=== PATIENT | female | born 1980 | race Caucasian/White ===

== ENCOUNTER → 2019-08-23 13:57 | Outpatient (CLI) | payer MEDICAID, SELFPAY ==
[2019-08-17 10:06] VITALS: BMI 49.4
--- NOTE | 2019-08-23 14:07 | BI_ITS ---
MAMMOGRAPHY - BILATERAL DIAGNOSTIC REASON FOR EXAM: Female, 38 years old. Right nipple discharge for 3 weeks. PERTINENT HISTORY: Aunts with breast cancer. TECHNIQUE: Digital bilateral breast delano (3D mammographic acquisition) in the CC and MLO projections. 2-D mediolateral oblique (MLO) and craniocaudad (CC) views of both breasts were obtained. CAD: Full Field Digital Mammography with Computer Added Detection was performed. COMPARISON: None. Baseline examination. FINDINGS: Breast Composition: There are scattered areas of fibroglandular density. There are no dominant masses or suspicious calcifications. No other significant abnormalities are identified. BI/DIAG MAMM W/CAD, BILAT IMPRESSION: Negative diagnostic mammogram. With the patient's history of a right nipple discharge, correlation with ultrasound is recommended. ASSESSMENT CATEGORY: BIRADS Category 0: Incomplete. Need additional imaging evaluation. A letter regarding these results will be sent to the patient by the facility within 30 days. Approximately 10% of breast cancers are not detected by mammography. A normal mammogram should not delay biopsy of a clinically suspicious abnormality. Electronically Signed: Lane Bravo, at 15:45 EDT , Service support ,
--- NOTE | 2019-08-23 14:52 | US_ITS ---
STUDY: ULTRASOUND BREAST - RIGHT REASON FOR EXAM: Female, 38 years old. Right nipple discharge. TECHNIQUE: Axial and longitudinal images of the RIGHT breast were performed with a high resolution ultrasound transducer. COMPARISON: Comparison is made with prior mammogram done earlier today. FINDINGS: RIGHT Breast: The retroareolar region of the breast was examined by ultrasound. No sonographic abnormality is seen. US/Breast Limited Unilateral IMPRESSION: No sonographic abnormality is seen. ASSESSMENT CATEGORY: BIRADS Category 1: Negative. A letter regarding these results will be sent to the patient by the facility within 30 days. Electronically Signed: Lane Bravo, at 13:14 EDT , Service support ,
--- NOTE | 2019-08-23 15:11 | RAD_ITS ---
STUDY: X-RAY - RIGHT SHOULDER REASON FOR EXAM: Chronic pain, no specific injury. TECHNIQUE: 4 view(s) of the shoulder. COMPARISON: None. FINDINGS: Normal glenohumeral articulation with incidental vacuum phenomenon. Normal acromioclavicular joint. Normal acromion. Normal humeral head and visualized proximal humerus. The soft tissue structures are unremarkable. Normal visualized pulmonary apex. RAD/Shoulder min 2 Views IMPRESSION: Normal x-ray examination of the right shoulder. Electronically Signed: Mac Waters MD at 11:52 EDT Tel , Service support ,
== END ==
PROVIDERS: Family Provider Internal Medicine; PCP Internal Medicine; Referring Provider Internal Medicine; Visit Provider Internal Medicine
DX: M25.511 Pain in right shoulder (principal); N64.52 Nipple discharge
CPT/HCPCS: 73030; 76642; 77062; 77066; G0279

== ENCOUNTER 2019-09-05 17:24 | Outpatient (RCR) | payer MEDICAID, SELFPAY ==
[2019-08-17 10:06] VITALS: BMI 49.4
== END 2019-09-05 19:00 | disposition home or self-care (01) ==
LOC: PT 17:24
PROVIDERS: Family Provider Internal Medicine; PCP Internal Medicine; Visit Provider Internal Medicine
DX: M25.511 Pain in right shoulder (principal)

== ENCOUNTER → 2019-09-11 20:00 | Outpatient (CLI) | payer MEDICAID, SELFPAY ==
[2019-08-17 10:06] VITALS: BMI 49.4
== END ==
PROVIDERS: Family Provider Internal Medicine; PCP Internal Medicine; Referring Provider Internal Medicine; Visit Provider Internal Medicine
DX: G47.10 Hypersomnia, unspecified (principal)
CPT/HCPCS: 95810

== ENCOUNTER 2019-09-21 17:04 | Emergency (ER) | payer MEDICAID, SELFPAY ==
[2019-09-07 10:08] VITALS: BMI 49.4
[2019-09-21 17:05] VITALS: BP 163/107; PULSE 100; RESP 16; TEMP 36.1; O2SAT 100; BMI 47.2
[2019-09-21 17:08] VITALS: BP 163/107; PULSE 100; RESP 16; TEMP 36.1; O2SAT 100
--- NOTE | 2019-09-21 17:20 | RAD_ITS ---
STUDY: X-RAY CHEST REASON FOR EXAM: Female, 38 years old. Cold TECHNIQUE: Two view of the chest were performed COMPARISON: None. FINDINGS: Lungs are clear. There is no pneumothorax, pulmonary edema, pleural effusions or cardiomegaly. Osseous structures are intact. There is no gas under the diaphragms. [ ] RAD/Chest PA and Lateral IMPRESSION: 1. No acute cardiorespiratory disease. [ ] Electronically Signed: Antwan Goldsmith, at 17:35 EST Tel , Service support ,
--- NOTE | 2019-09-21 17:32 | ED.DCSUM_ITS ---
- ER Visit Summary Date of Service: 09/21/19 Chief Complaint: Sick History of Present Illness: The patient is a 38 F states she has been ill for 2 weeks. Symptoms began with a runny nose and sneezing then developed diarrhea for several days. 5 days ago she tells me that she lost her voice. Now she notes a cough with them and wheezing. She woke today and had some left-sided chest shoulder discomfort. Tells me she recently was diagnosed with shingles and was on acyclovir. She was also on a short course of prednisone for shoulder pain. He took 4 days worth and discontinued due to upset stomach Physical Examination: Afebrile vital signs stable Gen: Well-nourished well-developed Head: Normocephalic atraumatic Eyes: Perrl EOMI ENT: TMs clear no rhinorrhea moist mucous membranes she has a hoarse voice Neck: Supple no lymphadenopathy no JVD nontender CVS: Regular rate rhythm no murmurs normal S1-S2 Respiratory: No distress clear to auscultation bilaterally chest nontender Abdomen: Soft nontender nondistended normal bowel sounds no masses Back: Nontender Extremity: Nontender no edema Skin: Normal color no rash Neuro: alert orientated ?3 CN II-XII intact normal strength sensation reflexes gait cerebellar Psych: Normal affect normal mood Test Results: Chest x-ray was obtained. Was negative for infiltrate, effusion or acute pathology. Emergency Department Course and Treatment: Patient was given one-time dose of oral Decadron. I will write for an albuterol inhaler. She would prefer not to be discharged home on prednisone as it causes stomach upset. This most likely a viral illness Impression: 1. Laryngitis 2. Acute bronchitis This note was generated with [employer] dictation software. It may contain incorrect words, spelling, and punctuation that were not noted in review of the chart prior to signing ED Disposition - Plan for ED Patient: Disposition: Home or Assisted Living Instructions: Laryngitis, Acute Bronchitis Prescriptions: Albuterol Inhaler [Ventolin Hfa] 2 puff INHALATION Q4H PRN PRN #1 inhaler PRN Reason: Wheezing Prescription Printed Referrals: Sheryl Todd MD [Primary Care Provider] - As Needed
[2019-09-21] MEDS: dexAMETHasone 10 MG/ML Vial PO.IVFORM (18:04)
== END 2019-09-21 18:05 | disposition home or self-care (01) ==
PROVIDERS: Emergency Provider Emergency Medicine; Family Provider Internal Medicine; PCP Internal Medicine
DX: J04.0 Acute laryngitis (principal); J20.9 Acute bronchitis, unspecified; R19.7 Diarrhea, unspecified; E66.9 Obesity, unspecified; F90.9 Attention-deficit hyperactivity disorder, unspecified type; Z79.899 Other long term (current) drug therapy
CPT/HCPCS: 71046; 99283

== ENCOUNTER → 2019-10-31 20:46 | Outpatient (CLI) | payer MEDICAID, SELFPAY ==
[2019-09-26 07:46] VITALS: BMI 48.4
== END ==
PROVIDERS: Family Provider Internal Medicine; PCP Internal Medicine; Referring Provider Nurse Practitioner Acute Care; Visit Provider Nurse Practitioner Acute Care
DX: G47.33 Obstructive sleep apnea (adult) (pediatric) (principal)
CPT/HCPCS: 95811

== ENCOUNTER → 2019-11-12 11:10 | Outpatient (CLI) | payer MEDICAID, SELFPAY ==
[2019-09-26 07:46] VITALS: BMI 48.4
== END ==
PROVIDERS: PCP Internal Medicine; Referring Provider Nurse Practitioner Acute Care; Visit Provider Nurse Practitioner Acute Care
DX: Z46.89 Encounter for fitting and adjustment of other specified devices (principal)

== ENCOUNTER → 2020-03-05 17:04 | Outpatient (CLI) | payer MEDICAID, SELFPAY ==
[2019-09-26 07:46] VITALS: BMI 48.4
--- NOTE | 2020-03-05 17:11 | MRI_ITS ---
STUDY: MRI RIGHT ANKLE WITHOUT CONTRAST REASON FOR EXAM: Female, 39 years old. rt ankle plantar fasciitis vs. tear -- pain plantar surface and lateral heel x 7 months TECHNIQUE: Standardized fat and water weighted pulse sequences were obtained in all 3 orthogonal planes. COMPARISON: None. FINDINGS: Normal subcutis adipose space. Normal posterior tibialis tendon. Normal flexor digitorum longus tendon. Normal flexor hallucis longus tendon. Normal peroneus longus and brevis tendons. Normal tibialis anterior tendon. Normal extensor hallucis longus tendon. Normal extensor digitorum longus tendons. Normal Achilles tendon and teno-osseous insertion. Mild thickening and edema of the plantar fascia at its calcaneal insertion site is present and associated with mild reactive edema in the underlying calcaneus. No bursitis or tearing or retraction is seen. The remaining visualized aspects of the plantar fascia are normal. Normal plantar calcaneal tubercles. Normal intrinsic muscles of the rearfoot. Normal distal tibiofibular syndesmotic ligamentous complex. There is scarring with thickening of the anterior talofibular ligament consistent with a remote sprain. Normal subtalar ligaments and sinus tarsi. Normal deltoid ligamentous complexes. Normal plantar calcaneonavicular (spring) ligament. Normal tibiotalar articulation. Normal talar dome. Normal subtalar articulations. Normal talonavicular articulation. Normal calcaneocuboid articulation. Normal navicular-cuneiform articulations. MRI/Lower Ext Joint Only (Routine) IMPRESSION: 1. Mild thickening and edema of the plantar fascia at its calcaneal insertion site is present and associated with mild reactive edema in the underlying calcaneus. No bursitis or tearing or retraction is seen. The remaining visualized aspects of the plantar fascia are normal. 2. Chronic appearing sprain injury with thickening of the anterior talofibular ligament. Electronically Signed: Kayode Sue MD at 23:50 EDT , Service support ,
== END ==
PROVIDERS: PCP Internal Medicine; Referring Provider Podiatrist; Visit Provider Podiatrist
DX: M72.2 Plantar fascial fibromatosis (principal); M84.374A Stress fracture, right foot, initial encounter for fracture; M76.61 Achilles tendinitis, right leg; M79.671 Pain in right foot
CPT/HCPCS: 73721

== ENCOUNTER → 2020-04-22 08:43 | Outpatient (CLI) | payer MEDICAID, SELFPAY ==
[2020-04-22 08:28] VITALS: BMI 48.4
[2020-04-22 12:12] LABS: Absolute Lymphocyte Count 1.91 X10^3/uL (0.83-4.51); Absolute Neutrophil Count 5.2 X10^3/uL (2.0-7.7); Basophil# 0.04 X10^3/uL; Basophil% 0.5 % (0-1); Eosinophil# 0.17 X10^3/uL; Eosinophils% 2.2 % (0-5); Hematocrit 38.8 % (37-47); Hemoglobin 12.2 g/dL (12.0-15.0); Lymphocyte # 1.91 X10^3/ul (4.0); Mean Corp Hgb Conc 31.4 g/dL (32-36); Mean Corpuscular Hgb 27.6 pg (27.0-32.0); Mean Corpuscular Volume 87.8 fL (81-99); Mean Platelet Vol. 9.8 fl (6.2-12.0); Monocyte# 0.34 X10^3/uL; Monocyte% 4.5 % (0-10); NRBC Flagged by Analyzer 0 % (0-5); Neutrophil # 5.15 X10^3/uL (2.7-7.7); Neutrophil % 67.4 % (47-70); Platelet Count 236 K/mm3 (150-450); RBC Distribution Width SD 47.8 fl (35.1-43.9); Red Blood Count 4.42 M/mm3 (4.2-5.4); White Blood Count 7.6 K/mm3 (4.4-11.0)
[2020-04-22 12:24] LABS: Internal QC Validated? YES +Cl - CLEAR BKGD; Pregnancy, Serum, hCG Quali. NEGATIVE Negative
[2020-04-22 12:47] LABS: ALB/GLOB Ratio 0.8 RATIO (0.9-2.4); AST(SGOT) 14 U/L (15-37); Alanine Aminotransfer ALT/SGPT 22 U/L (13-56); Albumin, Serum 3.4 g/dL (3.2-5.0); Alkaline Phosphatase 68 U/L (45-117); Anion Gap 7 (5-15); BUN 13 mg/dL (7-18); BUN/Creat Ratio 16.5 RATIO (10-20); Calcium,Total 8.4 mg/dL (8.5-10.1); Chloride 104 mmol/L (98-107); Cholesterol 203 mg/dL (200); Creatinine, Serum 0.79 mg/dL (0.55-1.02); EST Glomerular Filtration Rate 86 mL/min (>60); Est Glom Filt Rate - Afr Amer 104 mL/min (>60); Globulin 4.2 g/dL (2.2-4.2); Glucose 95 mg/dL (74-106); Hemoglobin A1c 5.8 % (3.8-5.6); High Density Lipoprotein 57 mg/dL; Potassium 4.6 mmol/L (3.5-5.1); Protein, Total 7.6 g/dL (6.4-8.2); Sodium Level 139 mmol/L (136-145); Thyroid Stim Hormone (TSH) 2.12 uIU/mL (0.358-3.74); Triglycerides 171 mg/dL; Very Low Density Lipoprotein 34 mg/dL (5-40)
== END ==
PROVIDERS: PCP Internal Medicine; Referring Provider Nurse Practitioner Family; Visit Provider Nurse Practitioner Family
DX: Z01.818 Encounter for other preprocedural examination (principal)
CPT/HCPCS: 36415; 80053; 80061; 83036; 84443; 84703; 85025

== ENCOUNTER → 2020-04-25 11:15 | Outpatient (CLI) | payer MEDICAID, SELFPAY ==
[2020-04-22 08:28] VITALS: BMI 48.4
--- NOTE | 2020-04-25 12:10 | EKG12_ITS ---
Test Reason : PREOP Blood Pressure : / mmHG Vent. Rate : 066 BPM Atrial Rate : 066 BPM P-R Int : 156 ms QRS Dur : 086 ms QT Int : 374 ms P-R-T Axes : 012 077 053 degrees QTc Int : 392 ms Normal sinus rhythm Normal ECG Confirmed by CM LEONARDO ([id number]), senior technical editor ANAM VIRK ([id number]) on 04/28/2020 2:18:06 PM Referred By: FLEX Confirmed By:CM LEONARDO
== END ==
PROVIDERS: PCP Internal Medicine; Visit Provider Nurse Practitioner Family
DX: Z01.818 Encounter for other preprocedural examination (principal)
CPT/HCPCS: 93005

== ENCOUNTER → 2020-05-07 15:51 | Outpatient (CLI) | payer MEDICAID, SELFPAY ==
[2020-05-07 14:38] VITALS: BMI 48.4
[2020-05-07 17:54] LABS: Amphetamine Urine VISTA NEGATIVE (<1000 ng/mL); Barbiturate Urine VISTA NEGATIVE (< 200 ng/mL); Benzodiazepine Urine VISTA NEGATIVE (< 200 ng/mL); Cocaine Urine VISTA NEGATIVE (< 300 ng/mL); Ecstacy Urine VISTA NEGATIVE (< 500 ng/mL); Methadone Urine VISTA NEGATIVE (< 300 ng/mL); PCP Urine VISTA NEGATIVE (< 25 ng/mL); THC Urine VISTA NEGATIVE (< 50 ng/mL); Vista UDS pH Range 5
== END ==
PROVIDERS: PCP Internal Medicine; Referring Provider Internal Medicine; Visit Provider Internal Medicine
DX: F90.9 Attention-deficit hyperactivity disorder, unspecified type (principal)
CPT/HCPCS: 80307

== ENCOUNTER 2020-05-16 05:40 | Day surgery (SDC) | payer MEDICAID, SELFPAY ==
[2020-04-22 08:28] VITALS: BMI 48.4
[2020-05-07 14:38] VITALS: BMI 48.4
[2020-05-16] VITALS (7 sets, daily range): BP systolic 136–155; BP diastolic 71–87; PULSE 84–103; RESP 16; TEMP 36.6–37.1; O2SAT 93–100; BMI 45.8
[2020-05-16] MEDS: Lactated Ringers 1,000 ML 100 ML IV (06:20)
[2020-05-16 06:21] LABS: Internal QC Validated? YES +Cl - CLEAR BKGD; Pregnancy, Urine Negative Negative
[2020-05-16] MEDS: Bupivacaine Mpf 0.5% 30 ML VIAL (08:40)
--- NOTE | 2020-05-16 09:06 | DCINST_ITS ---
Discharge Diet: No Restrictions Discharge Activity: May Shower - with shower bag only, Use Walker, Use Crutches Ice area for (Minutes): 15 - apply behind knee each hour Weight Bearing Status: No weight bearing Keep extremity elevated above heart level: Right Leg Call your doctor if your incision/area has: Continuous Slow Oozing, Sudden Increased Bleeding, Increased Pain/ Swelling, Increased Redness, Foul Smelling Discharge, Swelling at the incision site Call your doctor if you observe: Fever of 101 or Higher, Calf discomfort, Uncontrolled pain Cleanse incision/area with: Keep Dressing Clean & Dry Allergies/Adverse Reactions: Allergies Latex, Natural Rubber Allergy (Intermediate, Verified 05/16/20 05:55) skin irritation Medications to take at Discharge Albuterol Inhaler [Ventolin Hfa] 2 puff INHALATION Q4H PRN PRN #1 inhaler 09/21/19 tramadol 50 mg tablet 50 mg PO DAILY 05/07/20 venlafaxine 150 mg capsule,extended release 24 hr 150 mg PO DAILY #90 cap 05/07/20 methylphenidate HCl 20 mg tablet 20 mg PO DAILY #30 tab 05/10/20 Hydrocodone/Acetaminophen [Hydrocodon-Acetaminophen 5-325] 1 tab PO Q6H PRN PRN 7 Days #28 tab 05/15/20 Primary Care Physician: Sheryl Todd MD [Primary Care Provider] - Test Results: Test results from this visit will be discussed in further detail at your follow- up appointment, if applicable. Please Follow Up With: Loli Chowdhury DPM When: 1 week [facility] Call [phone] Proposed Discharge Date: 05/16/20
--- NOTE | 2020-05-16 09:12 | OP.PCM_ITS ---
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 Chronic recalcitrant plantar fasciitis, right. 2. Gastrocnemius equinus, right Post-Operative Diagnosis: 1. Chronic recalcitrant plantar fasciitis, right. 2. Gastrocnemius equinus, right Surgery/Procedure Performed:: 1. Open instep plantar fasciotomy, right foot. 2. Endoscopic gastrocnemius recession, right Description of Surgical Findings:: Hemostasis: Well-padded pneumatic right thigh tourniquet, 315 mmHg, 49 minutes Materials: 3-0 Monocryl, 4-0 nylon, arthrex endoscope Complications: None Specimens: None The patient tolerated the procedure and anesthesia well. She was transported to the PACU vital signs stable vascular status intact to the right lower extremity. She will keep her splint and dressing intact until follow-up next week. Intraoperative pictures of the endoscopic gastrocnemius recession were obtained to confirm full release. Postoperative orders were entered electronically. She will be discharged home today. 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 Facility Assistant: Mary Grace Harris Type of Anesthesia:: General, Local - Preoperative: One-to-one mixture of 1% lidocaine plain and 0.5% Marcaine plain administered in typical posterior tibial nerve block fashion of right, 12 cc and 18 cc of 1% lidocaine with epinephrine Specimen's removed: None Estimated Blood Loss (mL): <50 mL Description of Procedure: Indications: This 39-year-old female with no significant past medical history continues to have ongoing recalcitrant right heel pain she is failed conservative care including orthotics, improvement in shoes, injection, immobilization, stretching splint use, job activity modification, rest, home activity modification, massage, and home therapy. Her pain is affecting her daily activity and she would like proceed forward with surgery at this time. Her neurovascular status is intact. She has pain to palpation to the medial tubercle of the calcaneal tuberosity and not with heel compression. Her x-rays do not demonstrate any acute fractures dislocations or evidence of stress fractures. There is a small heel spur without irregular trabecular pattern or cyst formation. Her preoperative MRI also demonstrated plantar fascial band thickening consistent with plantar fasciitis, and also some reactive edema in the adjacent calcaneus. No evidence of bone cyst, stress fracture. distinct plantar fascia tear or other acute injuries were visualized. The preoperative indication, planned procedure, possible benefits, risk, complications, and anticipated healing time and management were discussed in detail with the patient. She understands and elects to proceed with surgery at this time. No guarantees were made. She understands risk and complications may include but not limited to following: Pain, swelling, scarring, need for further surgery, blood clot, allergic reaction, loss of limb, function, life, chronic pain. Her preoperative diagnostic data was reviewed. Informed consent and limb were also signed. I answered all of her questions. She also understands there is an inherent risk of COVID-19 while having a procedure done at the hospital during this time of pandemic. She understands safety precautions will be maintained and the relative community risk is low however there is still a risk. Procedure in detail: The patient was transported to the operating room via cart and placed on the operating table in the supine position. Final verification of the patient, surgery, and limb designation was performed via the timeout procedure. Preoperative antibiotics were administered via anesthesia team. General anesthesia was initiated via anesthesia team. The podiatry team administered the local anesthetic. A well-padded pneumatic right thigh tourniquet was placed. The right lower extremity was prepped and draped in usual aseptic manner. Esmarch bandage was used to exsanguinate the limb and the tourniquet inflated. Surgery began the following manner: Next her posterior leg flexibility was evaluated for equinus with the Silverskold test. She had improve ankle dorsiflexion with the knee flexed and the decision to perform a gastrocnemius recession was performed. I administered the preoperative local block with lidocaine with epinephrine to the gastrocnemius recession site. The medial head of the gastrocnemius was marked and a small 1 cm incision was made approximately 3 fingerbreadths below the site along the medial margin of the palpable gastrocnemius aponeurosis. Blunt dissection was performed down to the crural fascia and a rent was made to enter the site. A plane was created between the crural fascia and the gastrocnemius aponeurosis. A plane finder was used to span the posterior aspect of the leg and was exited laterally where an additional stab incision was made through the skin approximately 1 cm in length. Next, the clear cannula and 4-0 arthroscope was applied over this plain finder and the proper plane was confirmed with arthroscope. A small hook blade was used to release the gastrocnemius aponeurosis and this was confirmed again with a photograph. The ankle was taken through passive range of motion and improved ankle dorsiflexion was identified compared to the preoperative status to over 10 degrees with the knee flexed and extended. Care was taken to avoid the neurovascular structures throughout this procedure, and this was also confirmed with direct visualization of the crural fascia area. Attention was next directed to the plantar aspect of the foot in which a 1 1/2 cm linear incision was made in a transverse manner in alignment with resting skin tension lines distal to the plantar distal heel pad through the skin. Again care was taken to identify, protect, and retract all neurovascular structures. The plantar fascial band was identified and this was also released with a 15 blade scalpel to release the medial and central plantar fascia bands. Next, a tenotomy scissor was used to release the slip that communicated with the abductor hallucis muscle belly. The windlass mechanism and direct visualization was used to confirm adequate release. Copious saline irrigation was performed. The tourniquet was deflated at this time and no pulsatile bleeding was noted. Brisk capillary refill time was noted to all digits of the surgical foot. No pathological findings were noted. There was no necrosis or infection. Minimal deep closure was performed with Monocryl. The skin was reapproximated on the plantar foot with 4-0 nylon utilizing horizontal mattress technique. The portal sites on the leg were reapproximated utilizing subcuticular technique with Monocryl. A postoperative dressing was applied including Adaptic soaked in Betadine, gauze, and Kerlix. Additionally, a well-padded posterior mold splint was applied with the right lower extremity in a rectus corrected position. After procedure: The patient tolerated the procedure and anesthesia well. She was transported to the PACU with vital signs stable and vascular status intact to the right lower extremity. She was advised to maintain a strict nonweightbearing status. Crutches were ordered. She was advised to ice and elevate for pain and inflammation management. A prescription for pain medication was also sent to her pharmacy of choice and she was advised on safe and proper use; [place]. She [facility]. Postoperative orders were entered electronically. Loli Fascione, DPM, FACFAS [facility] Grafts/Implants Used: none - Complications none - Admit VTE Documentation VTE Present on Admission: No VTE Mechan Device Prophylaxis: SCD's VTE Pharm Prophylaxis ordered?: No Reason prophylaxis not ordered:: Procedure Not Indicated
[2020-05-16] MEDS: HYDROcodone Bitartrate/Apap 5/325 Tablet PO (10:32)
== END 2020-05-16 11:20 | disposition home or self-care (01) ==
LOC: SDC 05:41 → AC 05:42
PROVIDERS: Anesthesiology; PCP Internal Medicine; Referring Provider Podiatrist; Visit Provider Podiatrist
PROC: (CPT 28008; principal; 2020-05-16 07:15)
DX: M72.2 Plantar fascial fibromatosis (principal); M21.6X1 Other acquired deformities of right foot; Z11.59 Encounter for screening for other viral diseases; F90.9 Attention-deficit hyperactivity disorder, unspecified type; F32.9 Major depressive disorder, single episode, unspecified; G47.30 Sleep apnea, unspecified; G43.909 Migraine, unspecified, not intractable, without status migrainosus; Z79.899 Other long term (current) drug therapy; Z87.891 Personal history of nicotine dependence
CPT/HCPCS: 28008; 29999; 81025; 87635; G2023; J7120; J2405; U0003

== ENCOUNTER 2020-07-08 15:30 | Outpatient (RCR) | payer MEDICAID, SELFPAY ==
[2020-05-16 06:07] VITALS: BMI 45.8
--- NOTE | 2020-06-17 10:52 | HP.PTEVAL ---
Patient's Visit Information SIA STUBBS is a 39 year old F referred to Physical Therapy by Dr. Loli Chowdhury DPM with a diagnosis of R plantar fasciatomy and R gastroc release DOS: 05/16/20. Date of Evaluation: 06/17/20 Physical Therapist: Guanakito Loyola DPT - Visit Plan Frequency: 2x /Week Duration: 4 Weeks Plan: 1) Start with G/S stretching, plantar fascia stretching, 2). DFM/desensitization of achilles musculotendon junction and medial plantar fascia. 3) Initiate ankle strengthening and foot intrinsic strengthening. 4) Progress WBing tolerance progressing to tennis shoe as tolerated starting no earlier than Jun 24. 5) Once improved to tennis angel initiate proprioception exercises for R ankle stability. *May use TENS/ice if needed* - Subjective Pt. is here today for her initial evaluation with diagnosis of R plantar fasciatomy and R gastroc release DOS: 05/16/20. Pt. reports overall doing well. She has progressed to CAM Boot without AD now, starting last week. Pt. reports having some calf soreness and plantar fascia. Occasssional tingling in her foot, but overall doing well. 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 She is still off work, but is hopeful to go back to work middle of Jun. Pt. has been dping ankle pumps, and DFM to her foot at home. She reports having tore some of her stiches out, but is doing much better now. Pt. is hopeful to get back to all recreational and work activities without limitations. - Pain R plantar fascia Pain Intensity (Out of 10): 0 R gastroc muscle belly Pain Intensity (Out of 10): 3 Pain Intensity Range: 0, 5 - Objective POSTURE: Pt. has good posture, but does have slight L lateral wt. shift in stance without boot, normal stance with boot. PALPATION: Pt. has tenderness at gastroc muscle belly, achilles and medial plantar fascia. Pt. has good healing plantar fascia incision without signs of infection. Pt has good medial calf incision no issues, some slight eschar at lateral incision, but is healing well, no signs of infection. NEURO: Pt. has normal sensation and normal DTR of BLEs. ROM: L ankle- PF 49deg, DF 18deg, INV 20deg, EVR 20deg. R ankle- PF 43deg, DF 8deg., INV 14deg, EVR 15deg. No pain with AROM, but does feel tight. MMT: Pt. has 4/5 strength throughout R ankle musculature. No pain with MMT. 5/5 strength througout LLE and B knee musculature. GAIT: Pt. ambulates with CAM boot without issues. Pt. has slight antalgic pattern during R stance phase, most with heel off motion. - Goals Goal 1:: LTG: Pt. to be I with HEP. Goal Time Frame: 4-6 Weeks Goal 2:: STG: Pt. to have increased R ankle ROM to full without increase in symptoms. Goal Time Frame: 2-4 Weeks Goal 3:: STG: Pt. to initiate walking in normal tennis shoe. Goal Time Frame: 2 Weeks Goal 4:: LTG: Pt. to tolerate walking in normal tennis shoe upto 8 hours a day with minimal increase in symptoms. Goal Time Frame: 4-6 Weeks Goal 5:: STG: Pt. to report decreased tingling in her R foot by 75%. Goal Time Frame: 2-4 Weeks Goal 6:: LTG: Pt. to have increased strength of R foot intrinsics and R ankle 1/2 grade of all effected musculature. Goal Time Frame: 4-6 Weeks - Rehabilitation Potential Physical Therapy Diagnosis: Pt. has signs and symptoms consistent with R plantar fasciatomy and R gastroc release DOS: 05/16/20. Pt. has subsequent hypomobility, weakness, increased tingling, and difficulty with gait. Pt. would benefit from PT to address the above limitations progressing back to normal gait and work activities. I talked to her about progressing to tennis shoe over the next few weeks as long as she is tolerating this well. Pt. reports understanding. Rehabilitation Potential: Excellent - Anticipated Interventions Patient/Client Instruction: Educate patient on: Condition, Plan of Care, Risk Factors, Benefits of Fitness Program For the Purpose of:: To facilitate caregiver knowledge, To improve self management, To prevent re-injury, To improve ability to perform tasks related to life management, To improve tolerance to ADL's Therapeutic Exercise to Include: Strength training, Power training, Endurance training, Balance training, Coordination, Body mechanics, Postural training, Flexibilty training, Gait and locomotor training, Passive ROM, Active ROM For the Purpose of:: To decrease pain, To decrease swelling/inflammation, To increase ROM, To improve nutrient delivery to tissue, To increase oxygenation perfusion, To improve gait and locomotor functions, To improve health of tissue, To decrease soft tissue restriction, To increase flexibility/ROM, To improve endurance, To improve balance, To improve safety with gait Manual Therapy Techniques to Include: Scar massage, Passive ROM, Soft tissue mobilization For the Purpose of:: To decrease pain, To decrease swelling/inflammation, To increase ROM, To improve nutrient delivery to tissue, To increase oxygenation perfusion, To improve muscle performance and motor function TENS: Yes Cryotherapy (ice pack, ice massage): Yes For the Purpose of:: To decrease pain, To decrease swelling/inflammation, To increase ROM, To improve nutrient delivery to tissue, To increase oxygenation perfusion Thank you for the opportunity to evaluate your patient. For Medicare and Medicare HMO plans, please review the plan of care and approve it. It will need to be FAXED BACK to us at [phone] for Medicare purposes. For Medicare only, by signing this I certify the plan of care. Please let me know if there are questions or concerns regarding this plan of care. Physician Signature: Date:
== END 2020-07-08 19:00 | disposition home or self-care (01) ==
LOC: PT 15:30
PROVIDERS: PCP Internal Medicine; Referring Provider Podiatrist; Visit Provider Podiatrist
DX: Z98.890 Other specified postprocedural states (principal)
CPT/HCPCS: 97110; 97140; 97161

== ENCOUNTER → 2020-08-29 | Outpatient (CLI) | payer MEDICAID, SELFPAY | END | disposition home or self-care (01) | LOC: LABSPEC 10:17 | PROVIDERS: PCP Internal Medicine; Referring Provider Nurse Practitioner Family; Visit Provider Nurse Practitioner Family | DX: Z20.828 Contact with and (suspected) exposure to other viral communicable diseases (principal) | CPT/HCPCS: 87635; C9803; U0003 ==

== ENCOUNTER → 2020-10-15 20:25 | Outpatient (CLI) | payer MEDICAID, SELFPAY ==
[2020-10-15 16:28] VITALS: BMI 47.2
[2020-10-15 20:50] LABS: Amphetamine Urine VISTA NEGATIVE (<1000 ng/mL); Barbiturate Urine VISTA NEGATIVE (< 200 ng/mL); Benzodiazepine Urine VISTA NEGATIVE (< 200 ng/mL); Cocaine Urine VISTA NEGATIVE (< 300 ng/mL); Ecstacy Urine VISTA NEGATIVE (< 500 ng/mL); Methadone Urine VISTA NEGATIVE (< 300 ng/mL); PCP Urine VISTA NEGATIVE (< 25 ng/mL); THC Urine VISTA NEGATIVE (< 50 ng/mL); Vista UDS pH Range 5
== END ==
PROVIDERS: PCP Internal Medicine; Visit Provider Internal Medicine
DX: F90.9 Attention-deficit hyperactivity disorder, unspecified type (principal)
CPT/HCPCS: 80307

== ENCOUNTER → 2020-10-16 | Outpatient (CLI) | payer MEDICAID, SELFPAY ==
[2020-10-15 16:28] VITALS: BMI 47.2
== END | disposition home or self-care (01) ==
LOC: LABSPEC 06:15
PROVIDERS: PCP Internal Medicine; Referring Provider Internal Medicine; Visit Provider Internal Medicine
DX: F90.9 Attention-deficit hyperactivity disorder, unspecified type (principal)

== ENCOUNTER 2021-01-04 10:39 | Emergency (ER) | payer MEDICAID, SELFPAY ==
[2020-10-15 16:28] VITALS: BMI 47.2
[2021-01-04 10:40] VITALS: BP 144/94; PULSE 91; RESP 16; TEMP 36.8; O2SAT 99; BMI 42.8
--- NOTE | 2021-01-04 11:01 | ED.DCSUM_ITS ---
- ER Visit Summary Date of Service: 01/04/21 Chief Complaint: [Dental pain/abscess] History of Present Illness: The patient is a 40 F [presents to the emergency department with complaint of an abscess that she developed 5 days ago that spontaneously started to drain. Patient states the pain then went away however she is now noticing more swelling underneath her jawline she just does not feel well. She is complaining of some body aches and just some generalized weakness. Patient denies any fever or cough. Patient states that she was tested this week for COVID-19 and was negative at work. Patient has been working with a dentist and states that she had a root canal on her lower left incisor years ago and she needs a redo and possibly a capsule they are trying to save the tooth.] Physical Examination: [HEENT-PERRLA, EOMI. Cranial nerves II through XII grossly intact. TMs clear. Mucous membranes moist. No adenopathy. Titian- there is a small area of soft tissue swelling to the anterior gingiva adjacent to left lower incisor that slightly tender to palpation. No significant drainage noted from it. Minimal gingival erythema noted. I do not appreciate any significant adenopathy on exam. No facial erythema or cellulitis noted. Patient has a mild tenderness on palpation of the left lower incisor. Cardiovascular-regular rate and rhythm without murmur or ectopy Lungs-clear to auscultation, chest wall stable without crepitus or subcu emphysema Abdomen-normoactive bowel sounds, soft, nontender, no rebound or rigidity, no peritoneal signs. Extremities-intact ?4, normal range of motion, normal pulses, atraumatic] Test Results: [None indicated] Emergency Department Course and Treatment: [Patient started on clindamycin 300 mg p.o.] Treatment Plan: [We will be treated with clindamycin and referred back to her dentist.] Disposition: [Discharged home in stable condition] Impression: [Dental pain/dental abscess] This note was generated with [employer] dictation software. It may contain incorrect words, spelling, and punctuation that were not noted in review of the chart prior to signing ED Disposition - Plan for ED Patient: Referrals: Sheryl Todd MD [Primary Care Provider] -
--- NOTE | 2021-01-04 11:03 | DCINST.ED_ITS ---
ED Disposition - Plan for ED Patient: Instructions: Dental Abscess Prescriptions: Clindamycin [Cleocin] 300 mg PO 4X/DAY #80 capsule Clindamycin HCl [Cleocin] 300 mg PO Q6H #40 cap Transmission Status: Pending to [facility]/pharmacy #[id number] Referrals: Sheryl Todd MD [Primary Care Provider] - Additional Instructions: see your dentist
[2021-01-04] MEDS: Clindamycin HCl 150 MG Capsule 300 MG PO (11:19)
[2021-01-04 11:24] VITALS: PULSE 74; RESP 16; O2SAT 97
== END 2021-01-04 11:30 | disposition home or self-care (01) ==
LOC: ED 12:06
PROVIDERS: Emergency Provider Emergency Medicine; PCP Internal Medicine
DX: K04.7 Periapical abscess without sinus (principal)
CPT/HCPCS: 99283

== ENCOUNTER 2021-01-12 15:22 | Emergency (ER) | payer MEDICAID, SELFPAY ==
[2021-01-09 09:40] VITALS: BMI 45.8
[2021-01-12 15:23] VITALS: BP 160/125; PULSE 102; RESP 16; TEMP 36.9; O2SAT 100; BMI 45.3
--- NOTE | 2021-01-12 15:57 | ED.DCSUM_ITS ---
History of Present Illness Chief Complaint: Abscess Informant: Patient Onset: Weeks Context: Sudden Onset Timing: Intermittent Quality: Current dental abscess Location: Tooth #25 Current Severity: Moderate Maximum Severity: Moderate Worsened by: Recurrent infection Relieved by: - - Nothing Associated Symptoms: - - She denies pain, fever, jaw swelling, facial swelling or insensitivity Narrative: Patient is a 40-year-old woman with recurrent infection involving tooth #25 peritonitis rheumatic fever, heart murmur, SBE or being immune suppressed. Patient is present clindamycin. She states she is not getting better. Her dentist will not treat her until the infection clears. She denies inability to open or close her mouth completely. No change in voice. Prior similar symptoms: Yes Recent Illness/Hospitalization: Yes - Past Medical History (1) ADRIAN (obstructive sleep apnea) Status: Acute Comment: AHI 17, 77 in REM (2) ADHD Status: Chronic (3) Anxiety and depression Status: Chronic (4) Gastrocnemius equinus of right lower extremity Status: Chronic (5) Morbid obesity Status: Chronic (6) History of gestational diabetes Status: Resolved Past Medical History - Allergies and Home Meds Allergies/Adverse Reactions: Allergies Latex, Natural Rubber Allergy (Intermediate, Verified 01/12/21 15:25) skin irritation Primary Care Physician: Sheryl Todd MD [Primary Care Provider] - Prior records reviewed: Yes Surgical History: noncontributory Lives: With Family Smoking Status: Current some day smoker Alcohol: Rare Drugs: None Review of Systems General: Denies: Chills, Fever, Malaise, Subjective, Sweats Eyes: Denies: Visual changes - bilaterally, Blurred Vision - bilaterally ENT: Denies: Bilateral ear pain, Rhinorrhea, Sore throat Cardiovascular: Denies: Chest pain, Palpitations Respiratory: Denies: Dyspnea Gastrointestinal: Reports: Abdominal pain - Patient feels this is due to the clindamycin.. Denies: Nausea, Vomiting Musculoskeletal: Denies: Myalgias, Arthralgias, Neck pain, Back pain Hematologic: Denies: Easy bruising, Easy bleeding Allergy: Denies: Swelling of the mouth, Swelling of the tongue Physical Exam Vital Signs/Narrative: Vital Signs Temp Pulse Resp BP Pulse Ox 01/12/21 15:23 98.5 F 102 H 16 160/125 H 100 Inital Vital Signs reviewed: Yes General: Well nourished, Well developed, Obese Head: Normocephalic, Atraumatic ENT: Dry mucous membranes, Moist mucous membranes, No nasal trauma, No rhinorrhea Mouth/Throat: Normal oral mucosa, No dental tenderness, Normal posterior oropharynx, No sublingual edema, Normal Stensen's duct, Dental abscess, Focal gum swelling, Gingivitis, - - Is no clinical evidence of Ludewig's angina.. Negative for: Normal inspection lips/gums, No focal abscess, Apthous ulcer, Dental trauma, Dental avulsion, Filling loss Neck: Supple, No lymphadenopathy, Nontender, No JVD, - - He is midline. There is no inspiratory or expiratory stridor.. Negative for: Anterior submandibular lymphadenopathy, Posterior submandibular lymphadenopathy, Anterior submental lymphadenopathy, Posterior submental lymphadenopathy, Soft tissue swelling, Submandibular soft tissue swelling, Submental soft tissue swelling Cardiovascular: Regular rate, Regular rhythm, No murmurs, Normal S1, Normal S2 Respiratory: No distress, CTA bilaterally Skin: Normal color, No rash Neurological: Alert, Oriented x3, Cranial nerves II-XII grossly intact, Normal Strength, Normal Sensation Psychological: Normal affect Diagnostic/Tx/Re-eval - Medical Decision Making She has an apical abscess with fistulization tooth #25. Patient was informed she needs to see an alterations workroom clerk since her dentist will not treat her. She was instructed to come to the ER for IV antibiotics. Patient was informed she does not need IV antibiotics. The area under the curve which is the amount of med ications the same or oral and IV clindamycin. Patient's antibiotic was changed because she reports intolerance to the clindamycin i.e. upset stomach. She also has history of GERD. There is no evidence of Ludewig's angina. ED Disposition - Plan for ED Patient: Disposition: Home or Assisted Living Diagnosis: Apical alveolar abscess Instructions: ED Dental Abscess Prescriptions: Amox/Clavulanate Tablet [Augmentin Tablet] 875 mg PO Q12H #14 tab Transmission Status: Pending to [facility]/pharmacy #[id number] Referrals: Sheryl Todd MD [Primary Care Provider] - Additional Instructions: You need to contact your insurance carrier to determine if there is an alterations workroom clerk on your insurance panel. You will need to see a specialist for treatment since this is a recurrent infection in a tooth that has had root canal.
[2021-01-12 16:35] VITALS: BP 132/51; RESP 16
[2021-01-12] MEDS: Amox/Clavulanate 875 MG Tablet PO (16:36)
== END 2021-01-12 16:43 | disposition home or self-care (01) ==
PROVIDERS: Emergency Provider Emergency Medicine; PCP Internal Medicine
DX: K04.7 Periapical abscess without sinus (principal); F90.9 Attention-deficit hyperactivity disorder, unspecified type; F41.9 Anxiety disorder, unspecified; F32.9 Major depressive disorder, single episode, unspecified; G47.33 Obstructive sleep apnea (adult) (pediatric); E66.01 Morbid (severe) obesity due to excess calories; Z79.899 Other long term (current) drug therapy; F17.200 Nicotine dependence, unspecified, uncomplicated
CPT/HCPCS: 99283

== ENCOUNTER → 2021-02-13 | Outpatient (CLI) | payer MEDICAID, SELFPAY ==
[2021-02-13 08:37] VITALS: BMI 45.4
[2021-02-13 12:40] LABS: Amphetamine Urine VISTA NEGATIVE (<1000 ng/mL); Barbiturate Urine VISTA NEGATIVE (< 200 ng/mL); Benzodiazepine Urine VISTA NEGATIVE (< 200 ng/mL); Cocaine Urine VISTA NEGATIVE (< 300 ng/mL); Ecstacy Urine VISTA NEGATIVE (< 500 ng/mL); Methadone Urine VISTA NEGATIVE (< 300 ng/mL); PCP Urine VISTA NEGATIVE (< 25 ng/mL); THC Urine VISTA NEGATIVE (< 50 ng/mL); Vista UDS pH Range 6
== END | disposition home or self-care (01) ==
LOC: BIMLAB 09:08 → LABSPEC 09:08
PROVIDERS: PCP Internal Medicine; Referring Provider Nurse Practitioner Family; Visit Provider Nurse Practitioner Family
DX: F90.9 Attention-deficit hyperactivity disorder, unspecified type (principal)
CPT/HCPCS: 80307

== ENCOUNTER → 2021-03-12 10:23 | Outpatient (CLI) | payer MEDICAID, SELFPAY ==
[2021-03-12 09:39] VITALS: BMI 45.4
--- NOTE | 2021-03-12 10:30 | EMB_PTH ---
PATIENT: SIA STUBBS LOC: [facility]#:[id number] AGE/SX: 44/F ROOM: RE03/12/[address]: Dr. Agatha Gaytan MD : [id number] BED: DIS: SPEC #: [id number] RECD: 03/12/21 12:28 STATUS: YUNIOR REInocencio #: [id number] NANCY: 03/12/21 10:[address]: Agatha Gaytan DEPT: SURGICAL PATHOLOGY RECD BY: Cassandra Romero ENTERED: 03/13/21 08:27 SP TYPE: ENDOM BX/C TAMARA DR: Dr. Sheryl Todd MD Tissues: Endometrium, NOS Procedures: Surgery Specimen Level IV HEADER OPERATION: Endometrial biopsy PRE-OP DIAGNOSIS: Abnormal uterine bleeding TISSUE SUBMITTED: Endometrial lining MICROSCOPIC DIAGNOSIS Endometrium, biopsy: Mildly disordered, weakly proliferative endometrium with glandular breakdown. AM:nimo 03/16/2021 MICROSCOPIC DESCRIPTION Slides are reviewed. GROSS DESCRIPTION Received is one container labeled with the patient's name and not further designated. The specimen consists of multiple irregular fragments of light ruggiero soft tissue that in aggregate measure 2 x 1.5 x 0.1 cm. The specimen is totally submitted in one cassette. / AM:nimo 03/13/21 TC:5 CPT: 79674
[2021-03-12 10:51] LABS: Absolute Lymphocyte Count 2.08 X10^3/uL (0.83-4.51); Absolute Neutrophil Count 5.6 X10^3/uL (2.0-7.7); Basophil# 0.04 X10^3/uL; Basophil% 0.5 % (0-1); Eosinophil# 0.17 X10^3/uL; Hematocrit 38.7 % (37-47); Hemoglobin 12.3 g/dL (12.0-15.0); Lymphocyte # 2.08 X10^3/ul (0.83-4.51); Mean Corp Hgb Conc 31.8 g/dL (32-36); Mean Corpuscular Hgb 27.2 pg (27.0-32.0); Mean Corpuscular Volume 85.6 fL (81-99); Mean Platelet Vol. 9.4 fl (6.2-12.0); Monocyte# 0.35 X10^3/uL; Monocyte% 4.2 % (0-10); NRBC Flagged by Analyzer 0 % (0-5); Neutrophil # 5.64 X10^3/uL (2.7-7.7); Neutrophil % 67.9 % (47-70); Platelet Count 250 K/mm3 (150-450); RBC Distribution Width SD 49.3 fl (35.1-43.9); Red Blood Count 4.52 M/mm3 (4.2-5.4); White Blood Count 8.3 K/mm3 (4.4-11.0)
[2021-03-12 11:34] LABS: Thyroid Stim Hormone (TSH) 1.91 uIU/mL (0.358-3.74)
[2021-03-12 12:13] LABS: HIV - WCH Non-Reactive (Nonreactive); Syphilis Antibodies Non-reactive
[2021-03-13 20:08] LABS: HCV Quant. RNA PCR HCV Not Detected IU/mL (.)
[2021-03-13 20:08] LABS: Chlamydia By Nucleic Acid AMP Negative (Negative)
[2021-03-14 09:13] LABS: HSV 2 IgG 2.37 index (0.00-0.90)
[2021-03-14 09:14] LABS: Gonococcus By Nucleic Acid AMP Negative (Negative)
[2021-03-16 19:43] LABS: HPV APTIMA, High Risk Negative (Negative)
== END ==
PROVIDERS: PCP Internal Medicine; Referring Provider Obstetrics & Gynecology; Visit Provider Obstetrics & Gynecology
DX: N93.9 Abnormal uterine and vaginal bleeding, unspecified (principal); Z20.2 Contact with and (suspected) exposure to infections with a predominantly sexual mode of transmission; Z12.4 Encounter for screening for malignant neoplasm of cervix
CPT/HCPCS: 36415; 84443; 85025; 86695; 86696; 86703; 86780; 87491; 87522; 87591; 87624; 88175; 88305; G0145

== ENCOUNTER → 2021-06-11 08:01 | Outpatient (CLI) | payer MEDICAID, SELFPAY ==
[2021-06-10 08:52] VITALS: BMI 45.4
--- NOTE | 2021-06-11 08:02 | US_ITS ---
STUDY: ULTRASOUND OF THE FEMALE PELVIS - COMPLETE REASON FOR EXAM: Female, 40 years old. AUB LMP: 06/06/2021. TECHNIQUE: Transabdominal and Transvaginal TECHNICAL QUALITY: Adequate. COMPARISON: None. FINDINGS: The uterus is anteverted and is in a midline position. The uterus measures 10.3 cm x 6.7 cm x 5.8 cm. There is a Nabothian cyst of the cervix. The endometrium measures 6 mm in thickness, and is . There is no demonstrated endometrial mass. There is no demonstrated myometrial mass. I.U.D. - The patient does not have an I.U.D. The right ovary is visualized. The right ovary measures 3 cm x 2.8 cm x 1.5 cm. There is no right ovarian cyst or ovarian mass. There is no visualized right adnexal mass or complex lesion. There is normal arterial and normal venous vascularity. The left ovary is visualized. The left ovary measures 2.6 cm x 1.4 cm x 1.6 cm. There is no left ovarian cyst or ovarian mass. There is no visualized left adnexal mass or complex lesion. There is normal arterial and normal venous vascularity. There is no fluid in the cul-de-sac. US/Transvaginal Non- IMPRESSION: Normal female pelvis. Electronically Signed: Lane Bravo MD at 9:38 EDT , Service support ,
--- NOTE | 2021-06-11 08:02 | US_ITS ---
STUDY: ULTRASOUND OF THE FEMALE PELVIS - COMPLETE REASON FOR EXAM: Female, 40 years old. AUB LMP: 06/06/2021. TECHNIQUE: Transabdominal and Transvaginal TECHNICAL QUALITY: Adequate. COMPARISON: None. FINDINGS: The uterus is anteverted and is in a midline position. The uterus measures 10.3 cm x 6.7 cm x 5.8 cm. There is a Nabothian cyst of the cervix. The endometrium measures 6 mm in thickness, and is . There is no demonstrated endometrial mass. There is no demonstrated myometrial mass. I.U.D. - The patient does not have an I.U.D. The right ovary is visualized. The right ovary measures 3 cm x 2.8 cm x 1.5 cm. There is no right ovarian cyst or ovarian mass. There is no visualized right adnexal mass or complex lesion. There is normal arterial and normal venous vascularity. The left ovary is visualized. The left ovary measures 2.6 cm x 1.4 cm x 1.6 cm. There is no left ovarian cyst or ovarian mass. There is no visualized left adnexal mass or complex lesion. There is normal arterial and normal venous vascularity. There is no fluid in the cul-de-sac. US/Pelvic (Non ) IMPRESSION: Normal female pelvis. Electronically Signed: Lane Bravo MD at 9:38 EDT , Service support ,
== END ==
PROVIDERS: PCP Internal Medicine; Referring Provider Obstetrics & Gynecology; Visit Provider Obstetrics & Gynecology
DX: N93.9 Abnormal uterine and vaginal bleeding, unspecified (principal)
CPT/HCPCS: 76830; 76856

== ENCOUNTER → 2021-08-10 | Outpatient (CLI) | payer MEDICAID, SELFPAY | END | disposition home or self-care (01) | LOC: LABSPEC 10:09 | PROVIDERS: PCP Internal Medicine; Referring Provider Physician Assistant Surgical; Visit Provider Physician Assistant Surgical | DX: Z11.52 Encounter for screening for COVID-19 (principal) | CPT/HCPCS: 87635; U0005; U0003 ==

== ENCOUNTER → 2021-08-18 13:09 | Outpatient (CLI) | payer MEDICAID, SELFPAY ==
--- NOTE | 2021-08-18 13:41 | RAD_ITS ---
STUDY: X-RAY CHEST REASON FOR EXAM: Female, 40 years old. Dyspnea TECHNIQUE: PA and lateral views of the chest. COMPARISON: Comparison is made with prior study dated 09/21/2019. FINDINGS: Scattered calcified granulomas. The lungs are clear. There is no demonstrated pleural abnormality. Normal size heart. Normal mediastinum and timi. Normal visualized pulmonary arteries. Normal visualized aortic arch and descending thoracic aorta. There are degenerative changes of the visualized thoracic spine. Normal visualized ribs, clavicles, and shoulders. There is no demonstrated abnormality of the visualized soft tissue structures of the upper abdomen. RAD/Chest PA and Lateral IMPRESSION: Normal x-ray examination of the chest. Electronically Signed: Lane Bravo MD at 15:41 EDT , Service support ,
== END ==
PROVIDERS: PCP Internal Medicine; Referring Provider Nurse Practitioner Family; Visit Provider Nurse Practitioner Family
DX: R06.00 Dyspnea, unspecified (principal)
CPT/HCPCS: 71046; 87635; U0005; U0003

== ENCOUNTER → 2021-09-02 | Outpatient (CLI) | payer MEDICAID, SELFPAY ==
[2021-09-02 12:13] LABS: Internal QC Validated? YES +Cl - CLEAR BKGD; Pregnancy, Urine Negative Negative
[2021-09-02 12:45] LABS: Amphetamine Urine VISTA NEGATIVE (<1000 ng/mL); Barbiturate Urine VISTA NEGATIVE (< 200 ng/mL); Benzodiazepine Urine VISTA NEGATIVE (< 200 ng/mL); Cocaine Urine VISTA NEGATIVE (< 300 ng/mL); Ecstacy Urine VISTA NEGATIVE (< 500 ng/mL); Methadone Urine VISTA NEGATIVE (< 300 ng/mL); PCP Urine VISTA NEGATIVE (< 25 ng/mL); THC Urine VISTA NEGATIVE (< 50 ng/mL); Vista UDS pH Range 6
== END | disposition home or self-care (01) ==
LOC: LABSPEC 11:01
PROVIDERS: PCP Internal Medicine; Referring Provider Nurse Practitioner Family; Visit Provider Nurse Practitioner Family
DX: F90.9 Attention-deficit hyperactivity disorder, unspecified type (principal); N91.2 Amenorrhea, unspecified
CPT/HCPCS: 80307; 81025

== ENCOUNTER 2021-12-09 18:27 | Outpatient (CLI) | payer MEDICAID, SELFPAY | END 2021-12-09 23:59 | disposition home or self-care (01) | PROVIDERS: PCP Internal Medicine; Visit Provider Nurse Practitioner Family | DX: J06.9 Acute upper respiratory infection, unspecified (principal); Z20.822 Contact with and (suspected) exposure to COVID-19 | CPT/HCPCS: 87635; U0003; U0005 ==

== ENCOUNTER → 2022-03-11 | Outpatient (CLI) | payer MEDICAID, SELFPAY ==
[2022-03-15 18:07] LABS: Chlamydia By Nucleic Acid AMP Negative (Negative)
[2022-03-15 19:01] LABS: Gonococcus By Nucleic Acid AMP Negative (Negative)
== END | disposition home or self-care (01) ==
LOC: LABSPEC 03-12 06:33
PROVIDERS: PCP Internal Medicine; Referring Provider Obstetrics & Gynecology; Visit Provider Obstetrics & Gynecology
DX: N89.8 Other specified noninflammatory disorders of vagina (principal); Z11.3 Encounter for screening for infections with a predominantly sexual mode of transmission
CPT/HCPCS: 87070; 87205; 87491; 87591

== ENCOUNTER 2022-04-02 09:40 | Emergency (ER) | payer MEDICAID, SELFPAY ==
[2022-04-02 09:40] VITALS: BP 124/96; PULSE 111; RESP 18; TEMP 36.2; O2SAT 100; BMI 38.4
--- NOTE | 2022-04-02 09:55 | ED.VIS.FEGU ---
HPI <HAILE Saez - Last Filed: 04/02/22 11:12> HPI - Female History of Present Illness Chief Complaint: Vag Bleeding Narrative Narrative: 41-year-old female with history of sleep apnea, ADHD, depression presents to the emergency department with 2 days of generalized malaise, abdominal cramping, brown drainage from her vaginal area, cough, fever and chills. Patient states that she is 1 week early from her menstrual cycle, patient states she is normally regular, patient states that she is getting. Cramps now with dark brown drainage. Patient also states that over the last 48 hours she developed a cough, burning with urination as well as fever and chills. Patient states there is a chance of . She is here for evaluation PFS <HAILE Saez - Last Filed: 04/02/22 11:12> ON LICENSE OF [facility] Medical History Acute gastroenteritis ADHD Anxiety Depression Dyspnea Former smoker GI problem History of gestational diabetes History of stress test Insomnia Migraine headache Seasonal allergies Shortness of breath on exertion Sleep apnea Home Medications venlafaxine 150 mg capsule,extended release 24 hr 150 mg PO DAILY #90 cap 12/09/21 [Rx Last Taken Unknown] albuterol sulfate 90 mcg/actuation aerosol inhaler 2 puff INHALATION Q4H PRN PRN #8.5 g 01/20/22 [Rx Last Taken Unknown] venlafaxine 75 mg capsule,extended release 24 hr 75 mg PO QAM #90 cap 01/20/22 [Rx Last Taken Unknown] Allergy/AdvReac Type Severity Reaction Status Date / Time Latex, Natural Rubber Allergy Intermediate skin Verified 04/02/22 09:40 irritation Family History Aunt Breast cancer Cancer ovarian Grandmother Diabetes Thyroid disorder Uncle Diabetes Father Diabetes Mother Thyroid disorder Depression Surgical History History of foot surgery History of hip surgery History of reversal of tubal ligation Hx of foot surgery Hx of tubal ligation Social History Smoking Status: Former smoker quit date: 10/24/15 Tobacco: How many years used: 10 alcohol intake: never substance use type: does not use caffeine: Yes what type of physical activity do you participate in: none seatbelt use: always do you feel safe at home: Yes additional social history: Single ROS <HAILE Saez - Last Filed: 04/02/22 11:12> ROS ED ROS Narrative Constitutional: Negative for weight loss, weakness. Positive fever and chills Eyes: Negative for vision loss, vision change, double vision ENT: Negative for any sore throat, ear pain, congestion Cardiovascular: Negative for any chest pain, tightness, palpitations Respiratory: Negative for any sputum production, hemoptysis, dyspnea, dyspnea on exertion, orthopnea. Positive for cough Gastrointestinal: Negative for any abdominal pain, nausea, vomiting, diarrhea, constipation, blood in stool, blood in vomit : Negative for any urinary frequency, dysuria, retention, blood in urine. Positive for brown drainage from her vaginal area Muscle skeletal: Negative for any muscle joint pain, stiffness, myalgias, arthralgias, neck pain, back pain Neurological: Negative for any syncope, numbness or tingling, dizziness. Positive for headache Skin: Negative for any rashes, lumps, itching, abrasions, lacerations Psychiatric: Negative for any depression, anxiety, stress, suicidal ideation, homicidal ideation Hematologic: Negative for any easy bruising, excessive bruising, easy bleeding Allergies: Negative for any eczema, hives, rash EXAM <HAILE Saez - Last Filed: 04/02/22 11:12> Physical Exam Narrative Exam Narrative: Vital signs reviewed. HEET: Head normocephalic atraumatic, TMs clear bilaterally. Posterior pharynx is clear, moist mucous membranes. Nares clear bilaterally. Neck: Supple with no lymphadenopathy or tenderness. No signs of meningismus, negative jolt sign. Cardiac: Regular rate and rhythm no murmurs gallops or rubs, equal peripheral pulses bilaterally. Respiratory: Lungs clear to auscultation bilaterally. No chest tenderness. Abdomen: Soft, nontender, nondistended. No abdominal bruit or pulsatile masses. No hepatosplenomegaly Extremities: No peripheral edema, no signs of gross trauma or deformity. Active full range of motion of all extremities. Neuro: Cranial nerves II through XII intact, no focal neurological deficits. Skin: Clean dry and intact with no rash, purpura, petechiae, vesicles or pustules. Backs/flank: No CVA tenderness, no midline spinal tenderness, no deformity. Psych: Normal mood and affect. No SI, HI or acute psychosis. Const Vital Signs: 04/02/22 09:40 Temperature 97.1 F L Temperature Source Temporal Pulse Rate 111 H Respiratory Rate 18 Blood Pressure 124/96 H Blood Pressure Mean 105 Pulse Ox 100 Oxygen Delivery Method Room Air Positive well nourished and well developed General Appearance ED: well developed <Dr. Zen Brito MD - Last Filed: 04/02/22 11:14> Physical Exam Const Vital Signs: 04/02/22 09:40 Temperature 97.1 F L Temperature Source Temporal Pulse Rate 111 H Respiratory Rate 18 Blood Pressure 124/96 H Blood Pressure Mean 105 Pulse Ox 100 Oxygen Delivery Method Room Air MDM <HAILE Saez - Last Filed: 04/02/22 11:12> MDM MDM Narrative Medical decision making narrative: Patient appears well, patient appears nontoxic, vital signs are stable. Patient presents to the emergency department with concerns of viral-like illness, brown discharge from her vaginal area. Patient's urinalysis was negative for any infection, she is currently not . Patient did receive a COVID-19/influenza swab this was negative. Patient is scheduled to have her period this coming week, she does have. Cramps as she calls it, I believe that she is starting early. At this time, there is no indication of any bacterial infection. Patient looks well, patient feels well, she is instructed to take Tylenol, ibuprofen for any pain or fevers. She will follow-up with her PRIMARY HEALTH CARE NURSE regarding the brown discharge. No indication of gross vaginal bleeding. Patient is stable for discharge instructed return for worsening symptoms. Patient be diagnosed with 1 viral illness 2. Dysmenorrhea Lab Data Attestation: I reviewed the patient's lab results. Labs: Laboratory Results - last 24 hr 04/02/22 10:00 Urine Color Yellow Urine Clarity Sl. Cloudy Urine pH 6.0 Ur Specific [place] 1.025 Urine Protein 15 H Urine Glucose (UA) Normal Urine Ketones 5 H Urine Occult Blood 150 H Urine Nitrite Negative Urine Bilirubin Negative Urine Urobilinogen Normal Ur Leukocyte Esterase 25 H Urine RBC 10-25 SEEN Urine WBC 0-5 SEEN Ur Squamous Epith Cells 0-5 SEEN Urine Bacteria 0 SEEN Urine Mucus 2+ Urine Test Negative <Dr. Zen Brito MD - Last Filed: 04/02/22 11:14> MDM MDM Narrative Medical decision making narrative: I have personally performed a face to face assessment of the patient and have reviewed the YEE Note. I performed a substantive portion of the visit including all aspects of the following. My fishman findings include: History is [41-year-old female late on her menstrual period having some brown discharge. Also URI symptoms. I evaluated this patient with our nurse practitioner.] Exam is [well-appearing 41-year-old female no acute distress. Vital signs stable. She is afebrile. She does not look septic or toxic. H EENT exam unremarkable. Lungs are clear. Heart regular rhythm. Abdomen soft and nontender. Moving all 4 extremities. Neurologically she is awake and alert] Medical Decision Making [clinically and historically the patient is a URI. She is having an abnormal menstrual period. We did a test negative. UA negative. COVID-negative. She will be treated as a viral syndrome and follow-up with her PRIMARY HEALTH CARE NURSE Dr. Kurtz.] Other additions or changes: [None] Lab Data Attestation: I reviewed the patient's lab results. Lab results narrative: Urinalysis negative. Urine negative. COVID-negative. Labs: Laboratory Results - last 24 hr 04/02/22 10:00 Urine Color Yellow Urine Clarity Sl. Cloudy Urine pH 6.0 Ur Specific [place] 1.025 Urine Protein 15 H Urine Glucose (UA) Normal Urine Ketones 5 H Urine Occult Blood 150 H Urine Nitrite Negative Urine Bilirubin Negative Urine Urobilinogen Normal Ur Leukocyte Esterase 25 H Urine RBC 10-25 SEEN Urine WBC 0-5 SEEN Ur Squamous Epith Cells 0-5 SEEN Urine Bacteria 0 SEEN Urine Mucus 2+ Urine Test Negative Discharge Plan Triage Chief Complaint: Vag Bleeding ED Midlevel Provider: Eliel Gaines ED Provider: Zen Brito Dx/Rx/DC Orders Clinical Impression: Viral illness, Dysmenorrhea Instructions: ED MENSTRUAL CRAMPING, ED Viral Syndrome (Adult) Prescriptions: No Action venlafaxine 150 mg capsule,extended release 24hr 150 mg PO DAILY Qty: 90 RF: 3 albuterol sulfate 90 mcg/actuation HFA aerosol inhaler 2 puff INHALATION Q4H PRN PRN (Reason: Wheezing, shortness of breath) Qty: 8.5 RF: 1 venlafaxine 75 mg capsule,extended release 24hr 75 mg PO QAM Qty: 90 RF: 1 Primary Care Provider: Colby Donovan NP Referrals: Colby Donovan NP, [employer] [Primary Care Provider] - Activity Restrictions/Additional Instructions: Use ibuprofen, Tylenol for your pain or fevers. Please follow-up with your PRIMARY HEALTH CARE NURSE Print Language: Khmer
[2022-04-02 10:09] LABS: Bacteria 0 SEEN /hpf (None Seen)
[2022-04-02 10:13] LABS: Color, Urine Yellow (Yellow); Glucose, Dipstick Normal (Normal); Ketone-Dipstick 5 mg/dl (Negative); Leukocyte Esterase-Dipstick 25 /ul (Negative); Nitrite-Dipstick Negative (Negative); Occult Blood-Urine 150 /ul (Negative); Protein-Dipstick 15 mg/dl (Negative); Specific Gravity, Urine 1.025 (1.002-1.030); Urine Bilirubin Dipstick Negative (Negative); Urine Clarity Sl. Cloudy (Clear); Urine Urobilinogen Normal (Normal)
[2022-04-02 10:21] LABS: Mucous, Urine 2+ /hpf (<or=2+); Red Blood Cells-Urine 10-25 SEEN /hpf (0-5); Squamous Epithelial Cells - UA 0-5 SEEN /hpf (5-10); White Blood Cells 0-5 SEEN /hpf (0-5)
[2022-04-02 10:22] LABS: Internal QC Validated? YES +Cl - CLEAR BKGD; Pregnancy, Urine Negative Negative
[2022-04-02 11:12] VITALS: BP 121/86; PULSE 72; RESP 16; O2SAT 97
== END 2022-04-02 11:19 | disposition home or self-care (01) ==
PROVIDERS: Nurse Practitioner; Emergency Provider Emergency Medicine; PCP Nurse Practitioner Family; Visit Provider Emergency Medicine
DX: N94.6 Dysmenorrhea, unspecified (principal); B34.9 Viral infection, unspecified; F90.9 Attention-deficit hyperactivity disorder, unspecified type; G47.30 Sleep apnea, unspecified; F32.A Depression, unspecified; F41.9 Anxiety disorder, unspecified; Z79.899 Other long term (current) drug therapy; Z87.891 Personal history of nicotine dependence; R53.81 Other malaise; R05.9 Cough, unspecified; R50.9 Fever, unspecified
CPT/HCPCS: 81001; 81025; 87086; 87088; 87428; 99282

== ENCOUNTER → 2022-04-02 | Outpatient (CLI) | payer MEDICAID, SELFPAY | END | disposition home or self-care (01) | LOC: LABSPEC 13:47 | PROVIDERS: PCP Nurse Practitioner Family; Referring Provider Obstetrics & Gynecology; Visit Provider Obstetrics & Gynecology | DX: R30.0 Dysuria (principal) | CPT/HCPCS: 87086; 87088 ==

== ENCOUNTER → 2022-11-16 | Outpatient (CLI) | payer MEDICAID, SELFPAY ==
[2022-11-16 12:15] LABS: Absolute Lymphocyte Count 1.72 X10^3/uL (0.83-4.51); Absolute Neutrophil Count 5.1 X10^3/uL (2.0-7.7); Basophil# 0.06 X10^3/uL; Basophil% 0.8 % (0-1); Eosinophil# 0.19 X10^3/uL; Eosinophils% 2.5 % (0-5); Hematocrit 41.6 % (37-47); Hemoglobin 13.5 g/dL (12.0-15.0); Lymphocyte # 1.72 X10^3/ul (0.83-4.51); Lymphocyte % 22.5 % (19-41); Mean Corp Hgb Conc 32.5 g/dL (32-36); Mean Corpuscular Hgb 27.8 pg (27.0-32.0); Mean Corpuscular Volume 85.6 fL (81-99); Mean Platelet Vol. 10.1 fl (6.2-12.0); Monocyte# 0.52 X10^3/uL; Monocyte% 6.8 % (0-10); NRBC Flagged by Analyzer 0 % (0-5); Neutrophil # 5.13 X10^3/uL (2.7-7.7); Neutrophil % 67.1 % (47-70); Platelet Count 266 K/mm3 (150-450); RBC Distribution Width CV 14.8 % (11.6-14.6); RBC Distribution Width SD 46.5 fl (35.1-43.9); Red Blood Count 4.86 M/mm3 (4.2-5.4); White Blood Count 7.6 K/mm3 (4.4-11.0)
[2022-11-16 12:45] LABS: Vitamin B12 444 pg/mL (211-911); Vitamin D,25 Hydroxy 14.6 ng/mL
[2022-11-16 12:59] LABS: ALB/GLOB Ratio 0.9 RATIO (0.9-2.4); AST(SGOT) 13 U/L (15-37); Alanine Aminotransfer ALT/SGPT 18 U/L (13-56); Albumin, Serum 3.5 g/dL (3.2-5.0); Alkaline Phosphatase 75 U/L (45-117); Anion Gap 3 (5-15); BUN 12 mg/dL (7-18); BUN/Creat Ratio 12.6 RATIO (10-20); Chloride 107 mmol/L (98-107); Cholesterol 186 mg/dL (200); Creatinine, Serum 0.95 mg/dL (0.55-1.02); EST Glomerular Filtration Rate 68 mL/min (>60); Est Glom Filt Rate - Afr Amer 83 mL/min (>60); Glucose 85 mg/dL (74-106); High Density Lipoprotein 49 mg/dL; Potassium 4.5 mmol/L (3.5-5.1); Protein, Total 7.5 g/dL (6.4-8.2); Sodium Level 139 mmol/L (136-145); Thyroid Stim Hormone (TSH) 2.53 uIU/mL (0.358-3.74); Triglycerides 265 mg/dL; Very Low Density Lipoprotein 53 mg/dL (5-40)
[2022-11-16 13:16] LABS: Amphetamine Urine VISTA NEGATIVE (<1000 ng/mL); Barbiturate Urine VISTA NEGATIVE (< 200 ng/mL); Benzodiazepine Urine VISTA NEGATIVE (< 200 ng/mL); Cocaine Urine VISTA NEGATIVE (< 300 ng/mL); Ecstacy Urine VISTA NEGATIVE (< 500 ng/mL); Methadone Urine VISTA NEGATIVE (< 300 ng/mL); PCP Urine VISTA NEGATIVE (< 25 ng/mL); THC Urine VISTA NEGATIVE (< 50 ng/mL); Vista UDS pH Range 5
== END | disposition home or self-care (01) ==
LOC: BIMLAB 11:12
PROVIDERS: PCP Nurse Practitioner Family; Referring Provider Nurse Practitioner Family; Visit Provider Nurse Practitioner Family
DX: F32.9 Major depressive disorder, single episode, unspecified (principal); F41.9 Anxiety disorder, unspecified; E56.9 Vitamin deficiency, unspecified; F90.9 Attention-deficit hyperactivity disorder, unspecified type
CPT/HCPCS: 36415; 80053; 80061; 80307; 82306; 82607; 84443; 85025

== ENCOUNTER 2022-12-03 21:51 | Emergency (ER) | payer MEDICAID, SELFPAY ==
[2022-12-03 21:53] VITALS: BP 146/102; PULSE 95; RESP 16; TEMP 35.9; BMI 42.3
[2022-12-03 21:56] VITALS: BP 146/102; PULSE 95; RESP 16; TEMP 35.9
--- NOTE | 2022-12-03 22:59 | RAD_ITS ---
INDICATION: Right knee pain, gave out going down stairs EXAMINATION/TECHNIQUE: X-RAY - RIGHT XR Knee 3 Views 3 VIEWS COMPARISON: None. FINDINGS: SOFT TISSUES: No soft tissue swelling or gas. No radiopaque foreign body. BONES/JOINTS: No acute fracture or subluxation. Normal alignment. Mild tricompartmental joint space narrowing and small osteophytes. Superior and inferior patellar enthesophytes. No sclerotic or destructive changes observed. RAD/Knee 3 Views IMPRESSION: No acute abnormal finding. Tricompartmental DJD. Electronically Signed: Eliel Jean MD at 23:14 EST ,
[2022-12-03] MEDS: morphine 10 MG/ML Syringe 6 MG IM (23:28)
[2022-12-03] MEDS: Ondansetron ODT 4 MG Tablet PO (23:28)
--- NOTE | 2022-12-04 00:23 | EDS_ITS ---
HPI History of Present Illness Chief Complaint: Lower Extremity Injury Narrative Narrative: Patient is a 41-year-old female with past medical history of anxiety and depression as well as bipolar disorder. She states roughly 2 hours prior to arrival she was walking down her stairs when her left knee seem to give out. This caused her to twist her right knee in an awkward direction. She states she fell but denies striking her head or any loss of consciousness or bleeding disorder or blood thinner use. She states that shortly after the fall she had increased swelling and pain and is concerned for internal injury to her knee and therefore comes in for evaluation. [facility] Medical History (Updated 12/04/22 @ 03:[address] Lg Jurado, DO) Acute gastroenteritis ADHD Anxiety Bipolar disorder with depression Depression Dyspnea Former smoker GI problem History of gestational diabetes History of stress test Insomnia Major depression Migraine headache Seasonal allergies Shortness of breath on exertion Sleep apnea Vitamin deficiency Home Medications venlafaxine 150 mg capsule,extended release 24 hr 150 mg PO DAILY #90 caps 12/09/21 [Rx Last Taken Unknown] venlafaxine 75 mg capsule,extended release 24 hr 75 mg PO QAM #90 caps 11/15/22 [Rx Last Taken Unknown] albuterol sulfate 90 mcg/actuation aerosol inhaler 2 puff inhalation Q4H PRN PRN Wheezing, shortness of breath #8.5 grams 11/16/22 [Rx Last Taken Unknown] cariprazine 1.5 mg capsule (Vraylar) 1.5 mg PO DAILY #30 caps 11/16/22 [Rx Last Taken Unknown] ergocalciferol (vitamin D2) 1,250 mcg (50,000 unit) capsule 50,000 unit PO QWEEK #8 caps 11/16/22 [Rx Last Taken Unknown] hydrocodone-acetaminophen 5-325mg 5mg-325mg 1 tab PO Q6H PRN PRN Pain 3 days #12 TABLETS 12/04/22 [Rx Last Taken Unknown] Allergy/AdvReac Type Severity Reaction Status Date / Time Latex, Natural Rubber Allergy Intermediate skin Verified 12/03/22 22:08 irritation Family History Aunt Breast cancer Cancer ovarian Grandmother Diabetes Thyroid disorder Uncle Diabetes Father Diabetes Mother Thyroid disorder Depression Surgical History History of foot surgery History of hip surgery History of reversal of tubal ligation Hx of foot surgery Hx of tubal ligation Social History Smoking Status: Former smoker quit date: 10/24/15 Tobacco: How many years used: 10 alcohol intake: never substance use type: does not use caffeine: Yes what type of physical activity do you participate in: none seatbelt use: always do you feel safe at home: Yes additional social history: Single ROS ROS ED Constitutional Constitutional ED: Denies chills or fever(s) Eyes Eyes: Denies change in vision ENT ENT ED: Denies sore throat Cardiovascular Cardiovascular: Denies chest pain Respiratory/Chest Respiratory/Chest: Denies cough or dyspnea Gastrointestinal Gastrointestinal: Denies abdominal pain, diarrhea, nausea or vomiting Genitourinary Genitourinary ED: Denies dysuria Musculoskeletal Musculoskeletal: Reports other Details: Positive right knee pain ; Denies back pain or neck pain Integumentary Denies rash Neurologic Neurologic: Denies headache(s) or paresthesias Hematologic/Lymphatic Hematologic/Lymphatic: Denies easy bleeding or easy bruising EXAM Physical Exam Const Vital Signs: 12/03/22 21:53 12/03/22 21:56 Temperature 96.7 F L 96.7 F L Temperature Source Temporal Temporal Pulse Rate 95 95 Respiratory Rate 16 16 Blood Pressure 146/102 H 146/102 H Blood Pressure Mean 116 116 Positive well nourished and well developed General Appearance ED: well developed HEENT HEENT Narrative: Normocephalic atraumatic Eyes PERRL and EOMs intact bilaterally Neck supple Resp normal respiratory effort and clear to auscultation bilaterally Cardio regular rate and regular rhythm Extremity Extremity Narrative: Right lower extremity is neurovascularly intact. There is mild soft tissue swelling with faint ecchymosis and joint effusion to the anterior aspect of the right knee. Patellar tendon is intact. There appears to be laxity of the ACL on the right with a positive Gato's test compared to left indicating ACL tear. Remainder of the exam is normal Neuro oriented x3 and CN's II-XII intact bilaterally Sensorium / Orientation: alert Psych mental status grossly normal Skin Skin Narrative: Soft tissue changes of swelling with faint ecchymosis to the anterior aspect of the right knee as documented above MDM MDM MDM Narrative Medical decision making narrative: Patient was with a mechanical fall and therefore there is no need for cardiac or syncope work-up. With her report of a twisting mechanism to her right knee ther e is concern for ligamentous damage or possible bony abnormality so therefore an x-ray was obtained. X-ray revealed no acute fracture or dislocation. Her exam and history suggest a ACL tear and therefore she will be placed in a knee immobilizer for stabilization. The patient is neurovascular intact and there were no other signs of trauma so therefore there is no need for further work-up or emergent orthopedic consultation. Patient was advised to wear the immobilizer for stabilization and follow-up with orthopedics to discuss need for possible MRI or surgical fixation. However as there is no signs of underlying bony derangement or neurovascular compromise she is safe for discharge Radiography Diagnostic Testing: Clinical Impression(s) from Imaging Studies Knee X-Ray 12/03/22 22:59 IMPRESSION: No acute abnormal finding. Tricompartmental DJD. Electronically Signed: Eliel Jean MD at 23:14 EST , X-ray of the right knee is interpreted by the emergency medicine physician reveals mild arthritic/degenerative changes without acute fracture or dislocation. Discharge Plan Triage Chief Complaint: Lower Extremity Injury ED Provider: Lg Jurado Dx/Rx/DC Orders Clinical Impression: Right ACL tear, Morbid obesity, Accidental fall Instructions: ACL Injury Tx, Activity and ACL Rehabilitation Prescriptions: New hydrocodone-acetaminophen 5-325 mg tablet 1 tab PO Q6H PRN PRN (Reason: Pain) 3 Days Qty: 12 0RF No Action venlafaxine 150 mg capsule,extended release 24hr 150 mg PO DAILY Qty: 90 3RF albuterol sulfate 90 mcg/actuation HFA aerosol inhaler 2 puff INHALATION Q4H PRN PRN (Reason: Wheezing, shortness of breath) Qty: 8.5 1RF Vraylar 1.5 mg capsule 1.5 mg PO DAILY Qty: 30 1RF venlafaxine 75 mg capsule,extended release 24hr 75 mg PO QAM Qty: 90 0RF Rx Instructions: Take with 150 mg Venlafaxine for a total daily dose of 225 mg. ergocalciferol (vitamin D2) 1,250 mcg (50,000 unit) capsule 50,000 unit PO QWEEK Qty: 8 0RF Stand Alone Forms: ED Work / School Excuse Primary Care Provider: Colby Donovan NP Referrals: Shaun Raymond MD [Med Staff - Active Staff] - Colby Donovan NP, REMOTE BROADCAST ENGINEER-C [Primary Care Provider] - Activity Restrictions/Additional Instructions: Wear your knee immobilizer for stabilization of your knee joint and follow-up orthopedics as your history and exam indicates a torn ACL for discussion of further treatment options or diagnostic testing Disposition Disposition: Home, Self Care Discharge Date/Time: 12/04/22 00:56
[2022-12-04] MEDS: HYDROcodone Bitartrate/Apap 5/325 Tablet PO (00:49)
[2022-12-04] MEDS: Mag Hydrox/Al Hydrox/Simeth 30 ML UDC PO (00:50)
== END 2022-12-04 00:56 | disposition home or self-care (01) ==
PROVIDERS: Emergency Provider Emergency Medicine; PCP Nurse Practitioner Family; Visit Provider Emergency Medicine
DX: S83.511A Sprain of anterior cruciate ligament of right knee, initial encounter (principal); F31.9 Bipolar disorder, unspecified; E66.01 Morbid (severe) obesity due to excess calories; F41.9 Anxiety disorder, unspecified; Z87.891 Personal history of nicotine dependence; W10.9XXA Fall (on) (from) unspecified stairs and steps, initial encounter; Z79.899 Other long term (current) drug therapy; Y93.01 Activity, walking, marching and hiking; Y92.89 Other specified places as the place of occurrence of the external cause
CPT/HCPCS: 73562; 96372; 99283

== ENCOUNTER → 2023-04-01 | Outpatient (CLI) | payer MEDICAID, SELFPAY ==
[2023-04-01 12:43] LABS: Amphetamine Urine VISTA NEGATIVE (<1000 ng/mL); Barbiturate Urine VISTA NEGATIVE (< 200 ng/mL); Benzodiazepine Urine VISTA NEGATIVE (< 200 ng/mL); Cocaine Urine VISTA NEGATIVE (< 300 ng/mL); Ecstacy Urine VISTA NEGATIVE (< 500 ng/mL); Methadone Urine VISTA NEGATIVE (< 300 ng/mL); PCP Urine VISTA NEGATIVE (< 25 ng/mL); THC Urine VISTA NEGATIVE (< 50 ng/mL); Vista UDS pH Range 6
== END | disposition home or self-care (01) ==
LOC: LABSPEC 09:07
PROVIDERS: PCP Nurse Practitioner Family; Visit Provider Nurse Practitioner Family
DX: F90.9 Attention-deficit hyperactivity disorder, unspecified type (principal)
CPT/HCPCS: 80307

== ENCOUNTER → 2023-08-09 | Outpatient (CLI) | payer MEDICAID, SELFPAY ==
[2023-08-16 12:09] LABS: HPV APTIMA, High Risk Negative (Negative)
== END | disposition home or self-care (01) ==
LOC: LABSPEC 16:20
PROVIDERS: PCP Nurse Practitioner Family; Referring Provider Obstetrics & Gynecology; Visit Provider Obstetrics & Gynecology
DX: Z12.4 Encounter for screening for malignant neoplasm of cervix (principal)
CPT/HCPCS: 87624; 88175; G0145

== ENCOUNTER 2024-05-16 17:02 | Emergency (ER) | payer SELFPAY ==
[2024-05-16 17:02] VITALS: BP 160/93; PULSE 101; RESP 18; TEMP 36.6; O2SAT 99; BMI 41.3
[2024-05-16 17:41] LABS: Absolute Lymphocyte Count 1.94 X10^3/uL (0.83-4.51); Absolute Neutrophil Count 7.2 X10^3/uL (2.0-7.7); Basophil# 0.05 X10^3/uL; Basophil% 0.5 % (0-1); Eosinophil# 0.21 X10^3/uL; Eosinophils% 2.1 % (0-5); Hematocrit 36.1 % (37-47); Hemoglobin 11.6 g/dL (12.0-15.0); Lymphocyte # 1.94 X10^3/ul (0.83-4.51); Lymphocyte % 19.6 % (19-41); Mean Corp Hgb Conc 32.1 g/dL (32-36); Mean Corpuscular Hgb 26.8 pg (27.0-32.0); Mean Corpuscular Volume 83.4 fL (81-99); Mean Platelet Vol. 9.4 fl (6.2-12.0); Monocyte# 0.51 X10^3/uL; Monocyte% 5.2 % (0-10); NRBC Flagged by Analyzer 0 % (0-5); Neutrophil # 7.15 X10^3/uL (2.7-7.7); Neutrophil % 72.2 % (47-70); Platelet Count 236 K/mm3 (150-450); RBC Distribution Width CV 16.1 % (11.6-14.6); RBC Distribution Width SD 49.1 fl (35.1-43.9); Red Blood Count 4.33 M/mm3 (4.2-5.4); White Blood Count 9.9 K/mm3 (4.4-11.0)
[2024-05-16 17:56] LABS: AST(SGOT) 18 U/L (15-37); Alanine Aminotransfer ALT/SGPT 21 U/L (13-56); Albumin, Serum 2.8 g/dL (3.2-5.0); Alkaline Phosphatase 76 U/L (45-117); Anion Gap 5 (5-15); BUN 9 mg/dL (7-18); BUN/Creat Ratio 10.8 RATIO (10-20); Bilirubin, Direct 0.08 mg/dL (0.00-0.30); Calcium,Total 8.4 mg/dL (8.5-10.1); Chloride 105 mmol/L (98-107); Creatinine, Serum 0.84 mg/dL (0.55-1.02); EST Glomerular Filtration Rate 79 mL/min (>60); Est Glom Filt Rate - Afr Amer 95 mL/min (>60); Estimated Creatinine Clearance 122.13 ml/min; Globulin 4.2 g/dL (2.2-4.2); Glucose 115 mg/dL (74-106); Lipase 27 U/L (13-75); Potassium 3.5 mmol/L (3.5-5.1); Sodium Level 139 mmol/L (136-145)
--- NOTE | 2024-05-16 17:56 | EDS_ITS ---
HPI HPI - GI History of Present Illness Chief Complaint: Abd Pain Narrative Narrative: 43-year-old female with abdominal pain. She states it started on Tuesday and has been relatively constant. She states it was initially in the right upper quadrant but now seems to be on the left side of her abdomen. She states it is not worse with eating food. 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 It is better when she is laying back. She states she has had some nausea associated with it. No fevers. She denies dysuria but states today when she wiped she saw pinkish discharge. She is concerned she might have a UTI. Patient also states that she has not had a bowel movement in several days. She is tried several stool softeners without any relief. She had a watery stool yesterday. She admits to passing flatus. [facility] Medical History PTSD (post-traumatic stress disorder) Major depression TED (generalized anxiety disorder) Sprain of left little finger Strain of right knee Vitamin deficiency Major depression Insomnia Acute gastroenteritis Dyspnea Anxiety Migraine headache Former smoker Sleep apnea Shortness of breath on exertion History of stress test History of gestational diabetes GI problem Seasonal allergies ADHD Depression Home Medications ?Medication ?Instructions ?Recorded ?Last Taken ?Type albuterol sulfate 90 mcg/actuation 2 puff inhalation Q4H PRN PRN 04/05/23 Unknown Rx aerosol inhaler Wheezing, shortness of breath #8.5 grams celecoxib 200 mg capsule (Celebrex) 200 mg PO BID Pain #60 caps 07/11/23 Unknown Rx docosahexaenoic acid 200 mg mg PO 07/20/23 Unknown History capsule ( DHA) lisdexamfetamine 10 mg capsule 10 mg PO DAILY 07/20/23 Unknown History (Vyvanse) valacyclovir 500 mg tablet 500 mg PO TID 7 days #21 tabs 07/29/23 Unknown Rx (Valtrex) hydroxyzine HCl 25 mg tablet 25 mg PO TID PRN anxiety #90 tabs 03/15/24 Unknown Rx lamotrigine 150 mg tablet 150 mg PO DAILY #30 tabs 03/15/24 Unknown Rx venlafaxine 150 mg 150 mg PO DAILY #90 caps 03/15/24 Unknown Rx capsule,extended release 24 hr venlafaxine 75 mg tablet 75 mg PO DAILY #90 tabs 03/15/24 Unknown Rx doxepin 10 mg capsule 10 mg PO QHS #30 caps 05/03/24 Unknown Rx amoxicillin 875 mg-potassium 1 tab PO BID #20 tabs 05/16/24 Unknown Rx clavulanate 125 mg tablet ondansetron 4 mg disintegrating 4 mg PO Q8H PRN PRN Nausea #14 tabs 05/16/24 Unknown Rx tablet Allergy/AdvReac Type Severity Reaction Status Date / Time Latex, Natural Rubber Allergy Intermediate skin Verified 05/16/24 17:05 irritation Family History Aunt Breast cancer Cancer ovarian Grandmother Diabetes Thyroid disorder Uncle Diabetes Father Diabetes Mother Thyroid disorder Depression Surgical History History of reversal of tubal ligation Hx of tubal ligation Hx of foot surgery History of foot surgery History of hip surgery Social History Smoking Status: Former smoker quit date: 10/24/15 Tobacco: How many years used: 10 alcohol intake: never substance use type: does not use caffeine: Yes what type of physical activity do you participate in: none seatbelt use: always do you feel safe at home: Yes additional social history: Single ROS ROS ED Constitutional Constitutional ED: Denies chills, fever(s) or sweats Eyes Eyes: Denies blurry vision or change in vision ENT ENT ED: Denies ear pain or sore throat Cardiovascular Cardiovascular: Denies chest pain, palpitations or racing heartbeat Respiratory/Chest Respiratory/Chest: Denies cough, dyspnea or sputum Gastrointestinal Gastrointestinal: Reports abdominal pain, constipation and nausea; Denies diarrhea or vomiting Genitourinary Genitourinary ED: Denies dysuria, hematuria or urinary frequency Musculoskeletal Musculoskeletal: Denies arthralgias, myalgias or neck pain Integumentary Denies abscess, Abrasions or rash Neurologic Neurologic: Denies headache(s), paresthesias or weakness Psychiatric Psychiatric: Denies anxiety, depression, suicidal ideation or suicidal thoughts Endocrine Endocrinology: Denies polydipsia or polyuria EXAM Physical Exam Const Vital Signs: 05/16/24 17:02 05/16/24 19:02 05/16/24 19:39 Temperature 98 F 97.6 F L 97.6 F L Temperature Source Temporal Oral Pulse Rate 101 H 89 89 Respiratory Rate 18 18 16 Blood Pressure 160/93 H 132/80 H 132/80 H Blood Pressure Mean 115 97 97 Pulse Ox 99 99 99 Oxygen Delivery Method Room Air Room Air General Appearance ED: Negative for pallor HEENT Reports normocephalic Eyes PERRL and EOMs intact bilaterally Resp normal respiratory effort Cardio regular rate and regular rhythm GI GI Narrative: Tenderness to palpation in the mid abdomen left upper quadrant left lower quadrant. Auscultation: normoactive bowel sounds Palpation: soft Narrative: Deferred Neuro oriented x3 and CN's II-XII intact bilaterally Sensorium / Orientation: alert Motor Exam: strength 5/5 throughout Psych mental status grossly normal Attitude: No agitated Skin no rashes or lesions noted and no wounds General Skin Exam: Negative for jaundice or pallor MDM MDM MDM Narrative Medical decision making narrative: Patient presenting with abdominal pain. She is concerned she might be constipated. Pain is all midepigastrium and left-sided. I do not appreciate any right upper quadrant tenderness or Adorno sign. Patient presenting with right flank pain. Differential includes colitis, diverticulitis, gastritis, pancreatitis, constipation, UTI, pyelonephritis, renal calculi, ureteral calculi, bowel obstruction, malignancy, dehydration, electrolyte abnormalities. CBC will be obtained to assess white blood cell count, hemoglobin, platelets. CMP to assess renal function, electrolytes, liver function, glucose. Lipase to assess for pancreatitis. Urinalysis to assess for UTI. CBC shows normal white blood cell count at 9.9. Hemoglobin 11.6. Platelets normal at 236. Renal function and electrolytes within normal limits. LFTs were normal. Lipase 27. Urinalysis negative for infection. CT of the abdomen pelvis with IV contrast shows concern for acute uncomplicated sigmoid diverticulitis. Patient is counseled on the findings. We discussed her lab work at length and I feel she is a good candidate to go home with Augmentin. She is amenable to this.. She will also be given Zofran. Return precautions were discussed. She was given a work note. Impression: 1. Acute sigmoid diverticulitis Lab Data Attestation: I reviewed the patient's lab results. Labs: Laboratory Results - last 24 hr 05/16/24 05/16/24 17:25 18:44 WBC 9.9 RBC 4.33 Hgb 11.6 L Hct 36.1 L MCV 83.4 MCH 26.8 L MCHC 32.1 RDW Std Deviation 49.1 H RDW Coeff of Jag 16.1 H Plt Count 236 MPV 9.4 Immature Gran % (Auto) 0.400 Neut % (Auto) 72.2 H Lymph % (Auto) 19.6 [place] % (Auto) 5.2 Eos % (Auto) 2.1 Baso % (Auto) 0.5 Absolute Neuts (auto) 7.2 Absolute Lymphs (auto) 1.94 Nucleated RBC % 0 Sodium 139 Potassium 3.5 Chloride 105 Carbon Dioxide 29.0 Anion Gap 5 BUN 9 Creatinine 0.84 Estim Creat Clear Calc 122.13 Est GFR (MDRD) Af Amer 95 Est GFR (MDRD) Non-Af 79 BUN/Creatinine Ratio 10.8 Glucose 115 H Calcium 8.4 L Total Bilirubin 0.20 Direct Bilirubin 0.08 AST 18 ALT 21 Alkaline Phosphatase 76 Total Protein 7.0 Albumin 2.8 L Globulin 4.2 Lipase 27 Urine Color Yellow Urine Clarity Clear Urine pH 6.5 Ur Specific [place] 1.015 Urine Protein Negative Urine Glucose (UA) Normal Urine Ketones Negative Urine Occult Blood 10 H Urine Nitrite Negative Urine Bilirubin Negative Urine Urobilinogen 1 H Ur Leukocyte Esterase Negative Urine RBC 0-5 SEEN Urine WBC 0 SEEN Ur Squamous Epith Cells 0-5 SEEN Urine Bacteria 1+ Urine Mucus 1+ Radiography Diagnostic Testing: Clinical Impression(s) from Imaging Studies Abdomen/Pelvis CT 05/16/24 18:20 IMPRESSION: Acute sigmoid diverticulitis. No evidence of perforation or pelvic abscess formation. Hepatosplenomegaly. Nonspecific gallbladder distention. Electronically Signed: Adria Davidson MD at 19:14 EDT Reading Location ID and State: [facility] / [place] Tel , Service support , Discharge Plan Triage Chief Complaint: Abd Pain ED Provider: Prakash Mcclendon Dx/Rx/DC Orders Instructions: ED Diverticulitis Prescriptions: New amoxicillin-pot clavulanate 875-125 mg tablet 1 tab PO BID Qty: 20 0RF ondansetron 4 mg tablet,disintegrating 4 mg PO Q8H PRN PRN (Reason: Nausea) Qty: 14 0RF No Action lisdexamfetamine [Vyvanse] 10 mg capsule 10 mg PO DAILY DHA 200 mg capsule PO celecoxib [Celebrex] 200 mg capsule 200 mg PO BID Qty: 60 0RF Rx Instructions: Do not take in conjunction with other NSAIDs. Tylenol is okay. lamotrigine 150 mg tablet 150 mg PO DAILY Qty: 30 2RF venlafaxine 75 mg tablet 75 mg PO DAILY Qty: 90 2RF hydroxyzine HCl 25 mg tablet 25 mg PO TID PRN (Reason: anxiety) Qty: 90 1RF venlafaxine 150 mg capsule,extended release 24hr 150 mg PO DAILY Qty: 90 3RF Rx Instructions: To be taken with 75 mg capsules for total daily dose of 225 mg albuterol sulfate 90 mcg/actuation HFA aerosol inhaler 2 puff INHALATION Q4H PRN PRN (Reason: Wheezing, shortness of breath) Qty: 8.5 1RF valacyclovir [Valtrex] 500 mg tablet 500 mg PO TID 7 Days Qty: 21 12RF doxepin 10 mg capsule 10 mg PO QHS Qty: 30 0RF Stand Alone Forms: ED Work / School Excuse Primary Care Provider: Colby Donovan Referrals: Colby Donovan, FRUIT BUYING GRADER-C [Primary Care Provider] - Print Language: Stateless Disposition Disposition: Home, Self Care
[2024-05-16] MEDS: 0.9% Normal Saline (1000mL) 1,000 ML 999 ML IV (17:57)
--- NOTE | 2024-05-16 18:20 | CT_ITS ---
INDICATION: ruq pain EXAMINATION: CT ABDOMEN AND PELVIS WITH CONTRAST - CT Abdomen And Pelvis W/ Contrast Injection TECHNIQUE: Helically acquired images were obtained of the abdomen and pelvis following IV contrast. A radiation dose optimization technique was used for this scan. IV Contrast dosage and agent: 100 cc [id number] Oral contrast: None. COMPARISON: None. FINDINGS: LOWER CHEST: Lung bases are clear. No cardiomegaly or pericardial effusion. LIVER: Enlargement to 24 cm. No concerning focal mass. GALLBLADDER AND BILIARY TREE: No calcified gallstones. Transverse distention to 5 cm, no wall edema. No intra- or extrahepatic biliary ductal dilation. PANCREAS: No focal cystic or solid mass. SPLEEN: Splenomegaly. ADRENAL GLANDS: No nodules. KIDNEYS AND URETERS: Normal renal size and position. No hydronephrosis. PERITONEUM: No ascites or free air. BOWEL: Normal appendix. No stomach or bowel distension. Diverticulosis of the sigmoid colon with segment of wall thickening and pericolonic stranding. LYMPH NODES: No enlarged mesenteric or retroperitoneal lymph nodes. VESSELS: Aorta is non-dilated. URINARY BLADDER: Unremarkable. REPRODUCTIVE ORGANS: No pelvic masses. ABDOMINAL WALL: No discrete abdominal or pelvic wall hernia. BONES: Unremarkable. CT/Abdomen/Pelvis W IV Cont ONLY IMPRESSION: Acute sigmoid diverticulitis. No evidence of perforation or pelvic abscess formation. Hepatosplenomegaly. Nonspecific gallbladder distention. Electronically Signed: Adria Davidson MD at 19:14 EDT ,
[2024-05-16 18:52] LABS: White Blood Cells 0 SEEN /hpf (0-5)
[2024-05-16 18:56] LABS: Color, Urine Yellow (Yellow); Glucose, Dipstick Normal (Normal); Ketone-Dipstick Negative (Negative); Leukocyte Esterase-Dipstick Negative /ul (Negative); Nitrite-Dipstick Negative (Negative); Occult Blood-Urine 10 /ul (Negative); Protein-Dipstick Negative (Negative); Specific Gravity, Urine 1.015 (1.002-1.030); Urine Bilirubin Dipstick Negative (Negative); Urine Clarity Clear (Clear); Urine Urobilinogen 1 mg/dl (Normal); Urine pH 6.5 (5.0 - 8.0)
[2024-05-16 19:02] VITALS: BP 132/80; PULSE 89; RESP 18; TEMP 36.4; O2SAT 99
[2024-05-16 19:02] LABS: Bacteria 1+ /hpf (None Seen); Mucous, Urine 1+ /hpf (<or=2+); Squamous Epithelial Cells - UA 0-5 SEEN /hpf (5-10)
[2024-05-16 19:03] LABS: Red Blood Cells-Urine 0-5 SEEN /hpf (0-5)
[2024-05-16 19:39] VITALS: BP 132/80; PULSE 89; RESP 16; TEMP 36.4; O2SAT 99
[2024-05-16] MEDS: Amox/Clavulanate 875 MG Tablet PO (19:51)
[2024-05-16] MEDS: Magnesium Citrate 300 ML PO (19:51)
== END 2024-05-16 19:55 | disposition home or self-care (01) ==
PROVIDERS: Emergency Provider Student in an Organized Health Care Education/Training Program; PCP Nurse Practitioner Family; Visit Provider Student in an Organized Health Care Education/Training Program
DX: R10.9 Unspecified abdominal pain (principal); K57.32 Diverticulitis of large intestine without perforation or abscess without bleeding; Z87.891 Personal history of nicotine dependence; F90.9 Attention-deficit hyperactivity disorder, unspecified type; F41.1 Generalized anxiety disorder; F32.9 Major depressive disorder, single episode, unspecified; Z79.899 Other long term (current) drug therapy; Z98.51 Tubal ligation status
CPT/HCPCS: 74177; 80048; 80076; 81001; 83690; 85025; 96360; 99283; Q9967; A4216

== ENCOUNTER → 2024-11-14 | Outpatient (CLI) | payer MEDICAID, SELFPAY ==
[2024-11-14 17:11] LABS: Absolute Neutrophil Count 5.1 X10^3/uL (2.0-7.7); Basophil# 0.07 X10^3/uL; Basophil% 0.9 % (0-1); Eosinophil# 0.21 X10^3/uL; Eosinophils% 2.6 % (0-5); Hematocrit 42.3 % (37-47); Hemoglobin 13.7 g/dL (12.0-15.0); Lymphocyte % 27.5 % (19-41); Mean Corp Hgb Conc 32.4 g/dL (32-36); Mean Corpuscular Hgb 27.3 pg (27.0-32.0); Mean Corpuscular Volume 84.4 fL (81-99); Mean Platelet Vol. 10.2 fl (6.2-12.0); Monocyte# 0.42 X10^3/uL; Monocyte% 5.3 % (0-10); NRBC Flagged by Analyzer 0 % (0-5); Neutrophil # 5.06 X10^3/uL (2.7-7.7); Neutrophil % 63.3 % (47-70); Platelet Count 263 K/mm3 (150-450); RBC Distribution Width CV 15.2 % (11.6-14.6); RBC Distribution Width SD 45.6 fl (35.1-43.9); Red Blood Count 5.01 M/mm3 (4.2-5.4)
[2024-11-14 17:55] LABS: Vitamin B12 361 pg/mL (211-911); Vitamin D,25 Hydroxy 13.7 ng/mL
[2024-11-14 18:27] LABS: ALB/GLOB Ratio 0.9 RATIO (0.9-2.4); AST(SGOT) 16 U/L (15-37); Alanine Aminotransfer ALT/SGPT 25 U/L (13-56); Albumin, Serum 3.5 g/dL (3.2-5.0); Alkaline Phosphatase 82 U/L (45-117); Amylase 32 U/L (25-115); Anion Gap 6 (5-15); BUN 11 mg/dL (7-18); Calcium,Total 8.9 mg/dL (8.5-10.1); Chloride 102 mmol/L (98-107); Cholesterol 197 mg/dL (200); Creatinine, Serum 0.84 mg/dL (0.55-1.02); EST Glomerular Filtration Rate 77 mL/min (>60); Est Glom Filt Rate - Afr Amer 94 mL/min (>60); Globulin 4.1 g/dL (2.2-4.2); Glucose 88 mg/dL (74-106); High Density Lipoprotein 52 mg/dL; Lipase 25 U/L (13-75); Potassium 3.8 mmol/L (3.5-5.1); Protein, Total 7.6 g/dL (6.4-8.2); Sodium Level 136 mmol/L (136-145); Triglycerides 293 mg/dL; Very Low Density Lipoprotein 59 mg/dL (5-40)
[2024-11-14 18:47] LABS: Hemoglobin A1c 6.2 % (3.8-5.6)
== END | disposition home or self-care (01) ==
LOC: VSLAB 14:02
PROVIDERS: PCP Nurse Practitioner Family
DX: R10.9 Unspecified abdominal pain (principal); R53.83 Other fatigue; Z13.220 Encounter for screening for lipoid disorders; E55.9 Vitamin D deficiency, unspecified; E53.8 Deficiency of other specified B group vitamins; Z13.1 Encounter for screening for diabetes mellitus
CPT/HCPCS: 36415; 80053; 80061; 82150; 82306; 82607; 83036; 83690; 84443; 85025

== ENCOUNTER → 2024-11-28 | Outpatient (CLI) | payer MEDICAID, SELFPAY ==
[2024-12-04 10:07] LABS: HPV APTIMA, High Risk Negative (Negative)
== END | disposition home or self-care (01) ==
PROVIDERS: PCP Nurse Practitioner Family; Referring Provider Nurse Practitioner Family; Visit Provider Nurse Practitioner Family
DX: Z12.4 Encounter for screening for malignant neoplasm of cervix (principal)
CPT/HCPCS: 87624; 88175; G0145

== ENCOUNTER → 2024-12-03 | Outpatient (CLI) | payer MEDICAID, SELFPAY ==
--- NOTE | 2024-12-03 13:25 | BI_ITS ---
PROCEDURE: SCRN MAMM (CAD)W/MARTHA BILAT REASON FOR EXAM: F, Age 43 y/o, presents for annual screening mammogram. Family history of breast cancer in 2 paternal aunts. TECHNIQUE: Bilateral screening digital breast tomosynthesis with 2D and 3D images. Computer aided detection. COMPARISON: 08/23/2019 FINDINGS: There are scattered areas of fibroglandular density. No suspicious masses, areas of developing architectural distortion, or suspicious calcifications. BI/SCRN MAMM (CAD)W/MARTHA BILAT IMPRESSION: There is no mammographic evidence of malignancy in either breast. BI-RADS 1: NEGATIVE. RECOMMEND ANNUAL MAMMOGRAPHIC SCREENING. Follow-up code: Routine Follow-up The patient will be notified of the results by letter. Reading Location: [id number]
--- NOTE | 2024-12-03 14:42 | US_ITS ---
PROCEDURE: PELVIC W/ TRANSVAGINAL REASON FOR EXAM: Heavy menses. LMP: November 01, 2024. TECHNIQUE: Transabdominal and transvaginal pelvic ultrasound COMPARISON: None. FINDINGS: Measurements: Uterus: 9.1 cm x 5.7 cm x 5.7 cm. Endometrial Thickness: 8 mm. Hyperechoic. Small nabothian cyst. Right Ovary: 2.2 cm x 2.3 cm x 1.5 cm. Left Ovary: 3.6 cm x 2.3 cm x 2.3 cm. A dominant follicle is seen within it measuring 1.4 cm x 1 cm x 1.4 cm. TRANSABDOMINAL: Uterus: Normal size, myometrial echotexture, and contour. Endometrium: Unremarkable. Right ovary: Normal size and echotexture. Left ovary: Normal size and echotexture. No large pelvic mass identified. Transvaginal sonography was performed to better visualize the endometrium. TRANSVAGINAL: Uterus: Anteverted. Normal contour. Heterogeneous myometrium suggestive of fibroid change. Endometrium: Normal echotexture. Right ovary: Normal size and echotexture. Left ovary: Normal size and echotexture. Other adnexal findings: None. Cul-de-sac: No free intraperitoneal fluid identified. No tenderness. US/Pelvic w/ Transvaginal IMPRESSION: Dominant follicle in the left ovary. Heterogeneous echotexture of the myometrium suggestive of fibroid change. Reading Location: [id number]
== END | disposition home or self-care (01) ==
LOC: US 13:24
PROVIDERS: PCP Nurse Practitioner Family; Referring Provider Nurse Practitioner Family; Visit Provider Nurse Practitioner Family
DX: Z12.31 Encounter for screening mammogram for malignant neoplasm of breast (principal); Z80.3 Family history of malignant neoplasm of breast
CPT/HCPCS: 76830; 76856; 77063; 77067

== ENCOUNTER → 2024-12-17 | Outpatient (CLI) | payer MEDICAID, SELFPAY ==
--- NOTE | 2024-12-17 17:47 | CT_ITS ---
PROCEDURE: CT of the abdomen/pelvis with IV contrast. REASON FOR EXAM: Abdominal pain for 6-7 weeks under ribs TECHNIQUE: After the administration of 99 cc Isovue 370 IV contrast, contiguous axial CT images were obtained through the abdomen/pelvis. Sagittal and coronal reformats were created. COMPARISON: 05/16/2024 FINDINGS: Minimal degenerative changes in the spine. Bones of the abdomen/pelvis otherwise intact. Proximal femurs intact. Mild degenerative changes in the hip joints. No large abdominal wall defect. Heart is not enlarged. No sizable pericardial effusion. Mild coronary artery calcifications. Lower ribs intact. Lower lungs clear. Abdominal aorta normal in caliber. No abdominal/pelvic adenopathy or ascites. No focal abnormality of the urinary bladder. The uterus is present. No gross adnexal lesion. Patchy wall thickening of the stomach may be due to lack of distention versus peristalsis. No calcified gallstones. The gallbladder is mildly dilated at 5.2 cm transverse. No pericholecystic inflammatory changes or radiopaque gallstones. No abnormal dilation of the biliary tree. Portal vein is patent. The liver, adrenal glands, spleen, and pancreas show no specific abnormality. The kidneys are symmetric in size and enhancement. No solid renal mass or obstructive uropathy. No abnormally dilated bowel segments or free intraperitoneal air. Scattered patchy wall thickening of the colon may be due to lack of distention versus peristalsis or chronic diverticular disease. No acute diverticulitis. Mild stool in the colon. Normal appendix. No abdominal/pelvic adenopathy or ascites. CT/Abdomen/Pelvis WITH Contrast IMPRESSION: No definite acute findings in the abdomen/pelvis. Colonic diverticulosis, without evidence of acute diverticulitis. No obstructi ve uropathy or evidence of acute appendicitis. One or more dose reduction techniques were used (e.g., Automated exposure contr ol, adjustment of the mA and/or kV according to patient size, use of iterative reconstruction technique). Reading Location: [facility]
== END | disposition home or self-care (01) ==
LOC: CT 17:44
PROVIDERS: PCP Nurse Practitioner Family
DX: R10.9 Unspecified abdominal pain (principal)
CPT/HCPCS: 74177; Q9967

== ENCOUNTER → 2024-12-22 | Outpatient (CLI) | payer MEDICAID, SELFPAY ==
--- NOTE | 2024-12-22 07:11 | MRI_ITS ---
PROCEDURE: MRI right shoulder without IV contrast REASON FOR EXAM: Pain TECHNIQUE: Multisequence multiplanar MR images of the right shoulder were obtained without the administration of intravenous contrast. COMPARISON: None. FINDINGS Mild/moderate supraspinatus and infraspinatus tendinopathy. Less than 50% partial-thickness articular tear at the insertion of the posterior supraspinatus tendon measuring up to 5 mm in width. Subscapularis and teres minor tendons are intact. No significant rotator cuff muscle atrophy. Intact long head biceps tendon. Glenohumeral alignment is preserved. No focal chondral defects or joint effusion. No displaced labral tear or paralabral cysts. Mild acromioclavicular joint osteoarthritis including mild capsular hypertrophy and tiny marginal osteophytes. No significant lateral acromial downsloping. Negative for fracture or marrow replacement. Small amount of fluid in the subacromial/subdeltoid bursa. MRI/Upper Ext Joint Only(Routine) IMPRESSION: 1. Mild/moderate supraspinatus and infraspinatus tendinopathy. Tiny superimpos ed partial-thickness partial width tear of the supraspinatus tendon as above. 2. Mild acromioclavicular joint osteoarthritis. 3. Small amount of fluid in the subacromial/subdeltoid bursa. Reading Location: [facility]
== END | disposition home or self-care (01) ==
PROVIDERS: PCP Nurse Practitioner Family; Referring Provider Orthopaedic Surgery Sports Medicine; Visit Provider Orthopaedic Surgery Sports Medicine
DX: M25.511 Pain in right shoulder (principal)
CPT/HCPCS: 73221

== ENCOUNTER 2024-12-27 12:00 | Outpatient (RCR) | payer MEDICAID, SELFPAY ==
--- NOTE | 2024-11-23 09:56 | HP.PTEVAL_ITS ---
Patient's Visit Information Visit Information Visit Information: SIA STUBBS is a 43 year old F referred to Physical Therapy by Dr. Shaun Raymond MD with a diagnosis of r shoulder pain. Date of Evaluation: 11/23/24 Physical Therapist: Keo Ramirez, DPT, OCS, CSCS Visit Plan Frequency: 2x /Week Duration: 4-6 Weeks Plan: 2x/week for 4-6 weeks for 1. cervical ret /ext ROM with OP and mobs as needed 2. Shoulder g-h mobs and rotation PROM 3. pec strtch to HEP 4. RC and scap strength to HEP 5. consider general well ness instruction when shoulder better IE HEP: impingement precautioins and activity modification, scap cirlces 10x. cerv ext with OP 10x 3+x/day with HO Subjective Subjective: R shoulder pain for years insidiously. Intermittently. R shoulder adn up into neck and scapula. That pain went away. Pain is top shoulder and flared up so she had to see doctor for it. Sleeping on sides made her worse R side. So saw doctor and had injection last week. Injection helped 80%. Sleeping OK now since injection. Used to wake her up if on R side. 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 Basic ADLs I but painful to put bra on but OK since injection. No numb ness or tingling lately. Comfortable at rest much of time. Pain R shoulder: Pain Intensity (Out of 10): 0 Pain Intensity Range: 0 and 4 Objective Objective: [facility]. No balance issues. neck ROM ext pinches b/w scap and 60 degrees, flexion, rotations, SB are full and without symptoms. Tender to palpation gently in B UT adn mostly over R supra insertion. AROM shoulder full but ext rotation adn IR are painful at end range. reflexes 2/3 bi and tri B. Sensation UE WNL to gross light touch. Strength 4/5 B shoulder rotation but painful R ER. flexion abd 4 and slight pain R empty can. + R HK, + neer, - c/s compression test. - sulcus R, - apprehension, - drop arm, - ext rotation lag test. all B. Balance/Special Test Scores Quick DASH Score: 43.1800 Goals Goal 1:: I appropriate neck and Rc and scap strength to HEP to manage and consider general wellness program once shoulder improved. Goal Time Frame: 4-6 Weeks Goal 2:: Pain in shoulder 99% better adn 1/10 at worst Goal Time Frame: 4-6 Weeks Goal 3:: fasten bra consistently without pain Goal Time Frame: 4-6 Weeks Goal 4:: quick dash 14 or less Goal Time Frame: 4-6 Weeks Rehabilitation Potential Physical Therapy Diagnosis: Shoulder pain and weakness causing likely impingement although cervical cannot be ruled out at this point. Rehabilitation Potential: Fair Anticipated Interventions Patient/Client Instruction: Educate patient on: Condition and Plan of Care For the Purpose of:: To decrease pain, To increase ROM, To improve nutrient delivery to tissue, To improve muscle performance and motor function and To increase tolerance to activity/condition/position Therapeutic Exercise to Include: Strength training, Flexibilty training, Passive ROM and Active ROM For the Purpose of:: To decrease pain, To increase ROM, To improve nutrient delivery to tissue, To improve muscle performance and motor function and To increase tolerance to activity/condition/position Manual Therapy Techniques to Include: Mobilization, Passive ROM and Soft tissue mobilization For the Purpose of:: To decrease pain, To increase ROM and To improve nutrient delivery to tissue TENS: Yes Thermo therapy (hot pack): Yes For the Purpose of:: To decrease pain Text: Thank you for the opportunity to evaluate your patient. For Medicare and Medicare HMO plans, please review the plan of care and approve it. It will need to be FAXED BACK to us at [phone] for Medicare purposes. For Medicare only, by signing this I certify the plan of care. Please let me know if there are questions or concerns regarding this plan of care. Physician Signature: Date:
--- NOTE | 2024-12-27 12:54 | HP.PTREVAL ---
Re-Evaluation Intro: Dr. Shaun Raymond MD, It has been my pleasure to treat SIA STUBBS over the last 7 visits for r shoulder pain. Please see the progress note below for an update on the physical therapy plan of care! Subjective Subjective: Better overall but it still hurts. neck pain much better. Shoulder still hurts. MRI was done. shoulder degen and tears. Stahl cheudle with ortho. Activitiy at home is avoiding vacuuming with R. Slep is interrupted due to shoulder. 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 Objective Objective/Function: Full AROM R UE but painful end range elevation, er, and IR. strength is painful in empty can and flexion as well as ext rotation. Weak in Er 3+ vs 4 on L. flexion/abd are 4-R adn 4 L. painful. Neck ROM is excellent and painfree today. Plan Plan Plan: based on MRI results and lack of improvement in shoulder(although neck adn upper half feeling 75% better), pt will f/u with doctor to see options while continuing her home shoulder strength adn ROM. Will contact me after doctor visit if needs to return for more shoulder modalities including US and CFM and mobs and progressive RC/scap strength. Balance/Gait/Functional tests Balance/Special Test Scores Quick DASH Score: 43.1800 Goals Goals Goal 1:: I appropriate neck and Rc and scap strength to HEP to manage and consider general wellness program once shoulder improved. Goal Time Frame: 4-6 Weeks Goal Progress: Goal Met Goal 2:: Pain in shoulder 99% better adn 1/10 at worst Goal Time Frame: 4-6 Weeks Goal Progress: 75% above shoulder Goal 3:: fasten bra consistently without pain Goal Time Frame: 4-6 Weeks Goal Progress: Not Progressing Goal 4:: quick dash 14 or less Goal Time Frame: 4-6 Weeks Goal Progress: Not Progressing Anticipated Interventions Anticipated Interventions Patient/Client Instruction: Educate patient on: Condition and Plan of Care For the Purpose of:: To decrease pain, To increase ROM, To improve nutrient delivery to tissue, To improve muscle performance and motor function and To increase tolerance to activity/condition/position Therapeutic Exercise to Include: Strength training, Flexibilty training, Passive ROM and Active ROM For the Purpose of:: To decrease pain, To increase ROM, To improve nutrient delivery to tissue, To improve muscle performance and motor function and To increase tolerance to activity/condition/position Manual Therapy Techniques to Include: Mobilization, Passive ROM and Soft tissue mobilization For the Purpose of:: To decrease pain, To increase ROM and To improve nutrient delivery to tissue TENS: Yes Thermo therapy (hot pack): Yes For the Purpose of:: To decrease pain Re-Evaluation Ending Re-evaluation ending: Please do not hesitate to contact me at [phone] by phone or if you have questions or concerns regarding this new plan of care! Sincerely, Keo Ramirez, DPT, OCS, CSCS
--- NOTE | 2025-02-28 16:10 | HP.PTDCNRP_ITS ---
Patient Information Patient Information: SIA STUBBS was seen in my office for initial evaluation on 11/23/24. The following Plan of Care was established for this patient: POC Established Initial Frequency: 2x /Week Initial Duration: 4-6 Weeks Anticipated Interventions Patient/Client Instruction: Educate patient on: Condition and Plan of Care For the Purpose of:: To decrease pain, To increase ROM, To improve nutrient delivery to tissue, To improve muscle performance and motor function and To increase tolerance to activity/condition/position Therapeutic Exercise to Include: Strength training, Flexibilty training, Passive ROM and Active ROM For the Purpose of:: To decrease pain, To increase ROM, To improve nutrient d elivery to tissue, To improve muscle performance and motor function and To increase tolerance to activity/condition/position Manual Therapy Techniques to Include: Mobilization, Passive ROM and Soft tissue mobilization For the Purpose of:: To decrease pain, To increase ROM and To improve nutrient delivery to tissue TENS: Yes Thermo therapy (hot pack): Yes For the Purpose of:: To decrease pain Last Seen Last Seen: This patient was last seen in our office 12/27/24. Pertinent comments regarding their Physical therapy will appear below: Pt seen 7 visits of POC but was not making improvements as expected. she was to f/u with doctor and contact me if she needed to return. At this point, it has been over 2 months and I will discontinue from my care. At this point I will be discontinuing this patient from physical therapy. I would be happy to see this patient again in the future if found appropriate by the physician. Thank you! Keo Ramirez, DPT, OCS, CSCS Balance/Gait/Functional tests Balance/Special Test Scores Quick DASH Score: 43.1800
== END 2024-12-27 19:00 | disposition home or self-care (01) ==
LOC: PT 12:00
PROVIDERS: PCP Nurse Practitioner Family; Referring Provider Orthopaedic Surgery Sports Medicine; Visit Provider Orthopaedic Surgery Sports Medicine
DX: M25.511 Pain in right shoulder (principal)
CPT/HCPCS: 97110; 97140; 97161; 97530

== ENCOUNTER 2025-01-22 11:04 | Day surgery (SDC) | payer MEDICAID, SELFPAY ==
[2025-01-19 10:31] LABS: Hematocrit 40.2 % (37-47); Hemoglobin 13.4 g/dL (12.0-15.0); Mean Corp Hgb Conc 33.3 g/dL (32-36); Mean Corpuscular Hgb 28.4 pg (27.0-32.0); Mean Corpuscular Volume 85.2 fL (81-99); Platelet Count 260 K/mm3 (150-450); RBC Distribution Width CV 15.5 % (11.6-14.6); RBC Distribution Width SD 47.9 fl (35.1-43.9); Red Blood Count 4.72 M/mm3 (4.2-5.4); White Blood Count 8.9 K/mm3 (4.4-11.0)
[2025-01-19 10:35] LABS: Internal QC Validated? YES +Cl - CLEAR BKGD; Pregnancy, Urine Negative Negative
[2025-01-22] VITALS (10 sets, daily range): BP systolic 116–131; BP diastolic 74–86; PULSE 65–88; RESP 16; TEMP 36.1–36.9; O2SAT 95–100; BMI 43.9
--- NOTE | 2025-01-22 | EMB_PTH ---
PATIENT: SIA STUBBS [place] [facility] [place][id number] AGE/SX: 44/F ROOM: RE01/22/[address]: Dr. Stella Gregory MD : 1980 BED: DIS: 01/22/2025 SPEC #: [id number] RECD: 01/22/25 14:12 STATUS: YUNIOR MIKA #: [id number] NANCY: 01/22/25 00:[address]: Stella Gregory DEPT: SURGICAL PATHOLOGY RECD BY: Casey Jefferson ENTERED: 01/22/25 14:12 SP TYPE: ENDOM BX/C TAMARA DR: Vladimir Davila, [facility], HIGH LIFT OPERATOR-C Tissues: Endometrium, NOS Procedures: Surgery Specimen Level IV HEADER OPERATION: Hysteroscopy, D&C PRE-OP DIAGNOSIS: Abnormal uterine bleeding TISSUE SUBMITTED: A- Endometrial curettings MICROSCOPIC DIAGNOSIS A. Endometrium, Dilation and Curettage: * Secretory endometrium. * Endocervical tissue with squamous metaplasia and mild acute inflammation. MICROSCOPIC DESCRIPTION Slides are reviewed. GROSS DESCRIPTION A. Received in formalin in a container labeled with the patient's name, date of , and endometrial curettings are multiple red-ruggiero fragments of soft tissue admixed with blood and mucus measuring 2.3 x 2.0 x 0.8 cm in aggregate. Submitted in toto in A1-2. [facility] 01-22-2025 CPT:29162
--- NOTE | 2025-01-22 09:53 | PCM.HP.BLA ---
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 Is patient in pain?: No Allergies Latex, Natural Rubber Allergy (Intermediate, Verified 12/14/24 09:41) skin irritation Medications ?Medication ?Instructions ?Recorded ?Confirmed ?Type albuterol sulfate 90 mcg/actuation 2 puff inhalation Q4H PRN PRN 04/05/23 12/14/24 Rx aerosol inhaler Wheezing, shortness of breath #8.5 grams lamotrigine 150 mg tablet 150 mg PO DAILY #90 tabs 11/22/24 12/14/24 Rx lisdexamfetamine 10 mg capsule 10 mg PO QAM 30 days #30 caps 11/22/24 12/14/24 Rx (Vyvanse) venlafaxine 150 mg 150 mg PO DAILY #90 caps 11/22/24 12/14/24 Rx capsule,extended release 24 hr cholecalciferol (vitamin D3) 25 25 mcg PO QDAY 12/14/24 12/14/24 History mcg (1,000 unit) capsule lisinopril 10 mg tablet 10 mg PO QDAY 12/14/24 12/14/24 History mecobalamin (vitamin B12) 1,000 1,000 mcg PO QDAY 12/14/24 12/14/24 History mcg chewable tablet Is last menstrual period known: Yes Last Menstrual Period: 12/05/24 Post menopausal: No Patient : No : No PFSH Medical History PTSD (post-traumatic stress disorder) Major depression TED (generalized anxiety disorder) Sprain of left little finger Strain of right knee Vitamin deficiency Major depression Insomnia Acute gastroenteritis Dyspnea Anxiety Migraine headache Former smoker Sleep apnea Shortness of breath on exertion History of stress test History of gestational diabetes GI problem Seasonal allergies ADHD Depression Surgical History History of reversal of tubal ligation Hx of tubal ligation Hx of foot surgery History of foot surgery History of hip surgery Family History Aunt Breast cancer Cancer ovarianGrandmother Diabetes Thyroid disorderUncle DiabetesFather DiabetesMother Thyroid disorder Depression Social History Smoking Status: Former smoker quit date: 10/24/15 Tobacco: How many years used: 10 alcohol intake: never substance use type: does not use caffeine: Yes what type of physical activity do you participate in: none seatbelt use: always do you feel safe at home: Yes additional social history: Single HPI Ablation Consult Details: SIA STUBBS is a 43 year old who presents for heavy lasting 5 day bleeding through protection eveyr 1-2 hours. she has had a normal emb in the past. US shows diffuse fibroid change. she denies any significant crmpaing or pain. she has not tolerated ocps in the past well, she is on multiple pscyh medications. she is interested in an ablation Female Reproductive History Last Menstrual Period: 12/05/24 Menopausal Symptoms: No night sweats History 4 Elective abortions Hx Para 4 Spontaneous abortions Hx # Term Pregnancies Ectopic pregnancies Hx # Pregnancies Multiple births # of living children Past Pregnancies Del. Date Name GA/Weeks Outcome Route Bth Weight Infant Gen Labor Lgth Anesthesia Del Locatn Provider FOB Unknown Stazia Unknown Adriana Unknown Kourtnald Unknown [facility] ROS Const Constitutional: Denies fatigue, night sweats, weight gain or weight loss ENT ENT: Reports system reviewed and no additional complaints, except as documented Cardio Card: Denies chest pain Resp Resp: Denies cough or dyspnea GI GI: Reports as per HPI; Denies abdominal pain, constipation, nausea or vomiting : Denies nipple discharge, urinary frequency, urinary incontinence, urinary hesitancy, urinary urgency, vaginal discharge, vaginal dryness, vaginal odor or vaginal pruritus Musc Musc: Denies arthralgias, back pain or muscle weakness Skin Skin/Breast: Denies alopecia, change in hair, dry skin, breast mass, breast pain, breast skin changes or nipple discharge Neuro Neuro: Reports system reviewed and no additional complaints, except as documented Psych Psych: Reports system reviewed and no additional complaints, except as documented Endo Endo: Denies cold intolerance, excessive sweating, heat intolerance or polydipsia Phillip/Lymph Hematologic/Lymphatic: Denies easy bleeding, Denies easy bruising and Denies lymphadenopathy Exam Const General: cooperative, healthy appearing, comfortable and no acute distress Orientation: alert HENAL Head: normal to inspection and normocephalic Ears: hearing grossly normal bilaterally and external ears normal Nose: external nose normal and nares normal Face and sinus: normal facial exam Neck Neck: normal visual inspection and no lymphadenopathy Thyroid: thyroid normal Chest Chest palpation & inspection: normal inspection of the chest Resp Effort & Inspection: normal respiratory effort Auscultation: clear to auscultation bilaterally Cardio Rate: regular rate Rhythm: regular rhythm Heart Sounds: S1 normal and S2 normal GI Inspection: normal to inspection and non-distended Palpation: soft and no hepatosplenomegaly Musc Other: gross motor intact no deficits, full bilateral strength Skin General: no rashes or lesions noted Neuro General: patient alert, patient awake, moves all extremities and no focal motor deficits Motor: muscle tone normal throughout Extrem General: normal to inspection and no pedal edema Psych Appearance: grossly normal Mental Status: mental status grossly normal Affect: normal affect Speech and Movement: speech and movement normal Coding Level of Care Code Off vis,est,level 4 Diagnoses Abnormal uterine bleeding (AUB) N93.9 Assessment and Plan Assessment and Plan (1) Abnormal uterine bleeding (AUB): Status: Acute Comment: nl emb in the past, declined repeat. nl US. plan d and c hysteroscopy ablation Plan After discussing the patient's diagnosis and treatment plan options, patient wishes to proceed with surgical management. I have discussed with the patient the risks, benefits, and alternatives of the procedure which include but are not limited to risks of anesthesia, bleeding, infection, possible damage to bowel, bladder, or surrounding vasculature which could lead to additional surgery to evaluate any complications. Patient agrees to procedure and wishes to proceed. ACOG/uptodate references given for additional information regarding procedure. UPDATE- I have seen the patient and performed any clinically relevant updates to the history and physical exam. Stella Gregory MD
[2025-01-22 11:32] LABS: Internal QC Validated? YES +Cl - CLEAR BKGD; Pregnancy, Urine Negative Negative
[2025-01-22 11:33] LABS: Record Kit Lot#,Urine Preg 899023
--- NOTE | 2025-01-22 12:07 | PCM.PRE.AN2 ---
ASA Classification* ASA Classification ASA Classification: 3 Assessment & Plan Anesthesia* Anesthesia Assessment Anesthesia Assessment: Discussed sedation and/or anesthesia options, risks, benefits, and alternatives with patient/parents/legal guardian/POA. Questions invited. The patient/parents/legal guardian/POA seems to understand and agrees to proceed with anesthesia plan. Reviewed the physical assessment, medical history, allergy history and patient home medications list prior to surgery/procedure/anesthetic and documented any changes. Performed airway and anesthesia risk assessments. Anesthesia Type Anesthesia Type: MAC History Source History Obtained from:: Patient and Chart Anesthesia Focused Assessment* Temperature: 98.4 F Pulse Rate: 85 Blood Pressure: 127/74 Respiratory Rate: 16 Pulse Ox: 98 Oxygen Delivery Method: Room Air Airway Assessment Mouth opens: >3 cm Mallampati Score: I Teeth Condition: Caps/Crowns (Patient has several crowns. They are all tight.) and Missing (One missing molar right lower jaw.) Neck Range of motion (ROM): Full ROM Focused Labs Anesthesia Preop lab: CBC WBC 8.9 K/mm3 (4.4-11.0) 01/19/25 10:02 01/19/25 RBC 4.72 M/mm3 (4.2-5.4) 01/19/25 10:02 01/19/25 Hgb 13.4 g/dL (12.0-15.0) 01/19/25 10:02 01/19/25 Hct 40.2 % (37-47) 01/19/25 10:02 01/19/25 Plt Count 260 K/mm3 (150-450) 01/19/25 10:02 01/19/25 CHEMISTRY Potassium 3.8 mmol/L (3.5-5.1) 11/14/24 14:03 11/14/24 Sodium 136 mmol/L (136-145) 11/14/24 14:03 11/14/24 BUN 11 mg/dL (7-18) 11/14/24 14:03 11/14/24 Creatinine 0.84 mg/dL (0.55-1.02) 11/14/24 14:03 11/14/24 Glucose 88 mg/dL (74-106) 11/14/24 14:03 11/14/24 TSH 2.240 uIU/mL (0.358-3.740) 11/14/24 14:03 11/14/24 COAG Urine Test Negative Negative 01/22/25 11:21 01/22/25 Pre-Assessment Diagnosis/Proposed Procedure Planned Operative Procedure(s): HYSTEROSCOPY D&C HYDROABLATION Anesthesia History Anesthesia History - sludge control attendant: Anesthesia History - sludge control attendant Hx Hospitalization No 01/14/25 10:10 Any Problems With Anesthesia Yes: WAKES UP ANGER 01/14/25 10:10 Cholinesterase deficiency No 01/14/25 10:10 You/Your Family Experience No 01/14/25 10:10 fever (hyperthermia) with Relationship Recent Exposure to Contagious No 01/22/25 11:36 Disease Does patient have nerve No 01/14/25 10:10 stimulator Patient instructed to have device shut off --Does patient have Pacemaker No 01/22/25 11:36 or ICD? When Was Last Pacemaker Check QUESTION #4 FULL TEXT: You/Your Family Experience fever (hyperthermia) with Anesthesia Last Oral Intake Last Oral intake: Last Oral Intake NPO since 06:30 01/22/25 11:36 Meds taken in AM with sips of Yes 01/22/25 11:36 water? Meds patient instructed to see med rec 01/22/25 11:36 take am of surgery Any additional information?: Yes Meds taken in AM with sips of water?: Yes PONV PONV - sludge control attendant: PONV - sludge control attendant Female Yes 01/14/25 10:10 HX of Motion Sickness Yes 01/14/25 10:10 HX of N/V After Surgery No 01/14/25 10:10 Non-Smoker No 01/14/25 10:10 Duration of Surgery greater No 01/14/25 10:10 than 60 minutes Number of Risk Factors 2 01/14/25 10:10 PONV Score Moderate Risk 01/14/25 10:10 Height & Weight Height & Weight: Anesthesia: Height & Weight Height 5 ft 9 in 01/22/25 11:36 Weight: 134.9 kg 01/22/25 11:36 Body Mass Index (BMI) 43.9 01/22/25 11:36 Respiratory Assessment Respiratory Assessment - sludge control attendant: Respiratory Tract Infection Hx - sludge control attendant Hx Respiratory Tract Infection No 01/14/25 10:10 STOP Sleep Apnea STOP Sleep Apnea - sludge control attendant: STOP Sleep Apnea - sludge control attendant Hx Hypertension Yes: CONTROLLED WITH MED 01/14/25 10:10 Hx Sleep Apnea No 01/14/25 10:10 CPAP No 01/09/25 10:32 BIPAP No 01/09/25 10:32 Do you snore loudly (louder Yes 01/14/25 10:10 than talking or can be heard Do you often feel tired/ Yes 01/14/25 10:10 fatigued/ sleepy during daytime? Has anyone observed you stop No 01/14/25 10:10 breathing during sleep? STOP Results Positive 01/14/25 10:10 QUESTION #5 FULL TEXT : Do you snore loudly (louder than talking or can be heard through closed doors)? 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 Specify any problems Hx of Preganancy in last 3 No 01/14/25 10:10 Months Nurse Filling Out Transfusion DSCHRIBER 01/14/25 10:10 & Questions: Date: 01/14/25 01/14/25 10:10 Time: 10:11 01/14/25 10:10 Patient unable to answer at this time (ie. confused, unrespo /Reproduction History /Reproductive History - sludge control attendant: /Reproductive Hx- sludge control attendant Hx Now No 01/14/25 10:10 Gestational Age (in weeks): EDC: Hx Hx Para Hx Section SAB No 01/14/25 10:10 PFSH Medical History Diabetes Arthritis Low iron History of diverticulitis Gastric reflux Hypertension Leg cramps Right rotator cuff tear PTSD (post-traumatic stress disorder) Major depression TED (generalized anxiety disorder) Sprain of left little finger Strain of right knee Vitamin deficiency Major depression Insomnia Acute gastroenteritis Dyspnea Anxiety Migraine headache Shortness of breath on exertion History of stress test History of gestational diabetes GI problem Seasonal allergies ADHD Depression Home Medications ?Medication ?Instructions ?Recorded ?Last Taken ?Type albuterol sulfate 90 mcg/actuation 2 puff inhalation Q4H PRN PRN 04/05/23 Unknown Rx aerosol inhaler Wheezing, shortness of breath #8.5 grams lamotrigine 150 mg tablet 150 mg PO DAILY #90 tabs 11/22/24 01/22/25 06:30 Rx venlafaxine 150 mg 150 mg PO DAILY #90 caps 11/22/24 01/22/25 06:30 Rx capsule,extended release 24 hr lisinopril 10 mg tablet 10 mg PO QDAY 12/14/24 01/21/25 History mecobalamin (vitamin B12) 1,000 1,000 mcg PO QDAY 12/14/24 01/21/25 History mcg chewable tablet lisdexamfetamine 10 mg capsule 10 mg PO QAM 30 days #30 caps 12/28/24 01/21/25 Rx (Vyvanse) ergocalciferol (vitamin D2) 25,000 25,000 unit PO MO 01/14/25 01/20/25 History unit capsule semaglutide (weight loss) 0.25 0.25 mg subcut TH 01/14/25 01/09/25 History mg/0.5 mL subcutaneous pen injector Allergy/AdvReac Type Severity Reaction Status Date / Time Latex, Natural Rubber Allergy Intermediate skin Verified 01/22/25 11:33 irritation Family History Aunt Breast cancer Cancer ovarian Grandmother Diabetes Thyroid disorder Uncle Diabetes Father Diabetes Mother Thyroid disorder Depression Surgical History History of reversal of tubal ligation Hx of tubal ligation Hx of foot surgery History of hip surgery Social History Smoking Status: Current every day smoker tobacco type: cigarettes Tobacco: How many years used: 10 alcohol intake: never substance use type: does not use caffeine: Yes what type of physical activity do you participate in: none seatbelt use: always do you feel safe at home: Yes additional social history: Single Review of Systems (Anesthesia) ROS Narrative System reviewed and no additional complaints, except as documented.
[2025-01-22] MEDS: Lidocaine 1% (20 ml mdv) 20 ML Vial (12:56)
--- NOTE | 2025-01-22 13:03 | PCM.OPRPT ---
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 Type of Anesthesia: IV Sedation RN Documented Start/Stop Times: Operation Date: 01/22/25 13:15 Case Time Into Pre-Op 01/22/25 11:11 Out of Pre-Op 01/22/25 12:31 Anesthesia Start 01/22/25 12:34 Into Room 01/22/25 12:34 Procedure Start 01/22/25 12:51 Procedure End 01/22/25 13:02 Procedure Start Time: 12:51 Procedure Stop Time: 13:02 Select all DRAINS/GRAFTS/IMPLANTS that apply: None (bladder drained at beginning of procedure) Estimated Blood Loss: 25 Specimen collected: Yes Description of specimen(s) removed: endometrial curretings Description of surgery: Patient was prepped and draped in a normal sterile fashion under MAC anesthesia. A weighted speculum was placed in the vagina and the anterior lip of the cervix was grasped with a single-tooth tenaculum. cervix was progressively dilated to allow passage of a 7 mm hysteroscope. The lining was fully visualized and noted to have no polyps or abnormalities. Uterus sounded to 8 cm. Curettage was performed and tissue was sent to pathology. The Melvi device was opened and the cavity length was found to be 4.5 cm. Device was inserted into the uterus and balloon inflated and device deployed. Integrity of the cavity was confirmed and a 2 minute treatment cycle was completed without complication. All instruments were removed from the vagina and excellent hemostasis was noted. Patient was awoken and taken to recovery in stable condition. Surgical Findings: nl uterine cavity Complications Complications: No
--- NOTE | 2025-01-22 13:09 | DCINST_ITS ---
Discharge Instructions Diet Discharge Diet: No restrictions DC O2, CPAP, BIPAP needs Home O2 Discharge instructions: No Dressing / Incision Discharge Activity: Return to Normal Activity, May Shower and May Take a Tub Bath (after 1 week) May resume sexual activity in: 1-2 weeks Weight Bearing Status: Weight bearing as tolerated Lifting Restrictions: none Dressing / Incision Call your doctor if you observe: Fever of 101 or Higher, Using more than 1 pad per hour, Shortness of breath and Uncontrolled pain Follow Up Care Please Follow Up With: Stella Gregory MD When: Call [phone] to schedule appointment. Test Results: Test results from this visit will be discussed in further detail at your follow- up appointment, if applicable. Discharge Plan Admission Attending Provider: Stella Gregory Primary Care Provider: Vladimir Davila Instructions Print Language: Gabonese Discharge Orders/Prescriptions Prescriptions: No Action venlafaxine 150 mg capsule,extended release 24hr 150 mg PO DAILY Qty: 90 3RF Rx Instructions: To be taken with 75 mg capsules for total daily dose of 225 mg lamotrigine 150 mg tablet 150 mg PO DAILY Qty: 90 1RF lisinopril 10 mg tablet 10 mg PO QDAY mecobalamin (vitamin B12) 1,000 mcg tablet,chewable 1,000 mcg PO QDAY ergocalciferol (vitamin D2) 25,000 unit capsule 25,000 unit PO MO semaglutide (weight loss) 0.25 mg/0.5 mL pen injector 0.25 mg subcut TH albuterol sulfate 90 mcg/actuation HFA aerosol inhaler 2 puff INHALATION Q4H PRN PRN (Reason: Wheezing, shortness of breath) Qty: 8.5 1RF lisdexamfetamine [Vyvanse] 10 mg capsule 10 mg PO QAM 30 Days Qty: 30 0RF Referrals / Follow Up: Colby Donovan [facility], PROFESSOR OF MUSIC-C [[facility]] - Disposition Disposition (needs filled in before D/C Order can be placed): Home, Self Care
--- NOTE | 2025-01-22 13:17 | PCM.POST.ANE ---
Anesthesia: Postop Eval I Current Vital Signs Temperature: 97.9 F Pulse Rate: 88 Blood Pressure: 124/77 Respiratory Rate: 16 Pulse Ox: 98 Oxygen Delivery Method: Room Air Assessment Airway patent: Yes Spontaneous unlabored respirations: Yes Mental status: Awake and Calm nausea: No Vomiting: No Anesthesia Complication: No Fluid Hydration Crystalloid volume administer (ml): 30 Total IV fluid infused: 30 Progress Note Anesthesia document: Postop Eval 1 completed: Yes
--- NOTE | 2025-01-22 13:45 | POSTOPAN2_ITS ---
Anesthesia Postop Eval I Sum Postop Eval Completion status Anesthesia document: Postop Eval 1 completed: Yes Anesthesia Postop Eval I Summary Anesthesia Postop Eval I Summary: Anesthesia Postop Eval I: Assessment Summary Airway patent Yes 01/22/25 13:18 [email or web address] Spontaneous unlabored Yes 01/22/25 13:18 [email or web address] [email or web address] respirations Mental status Awake,Calm 01/22/25 13:18 [email or web address] [email or web address] nausea No 01/22/25 13:18 HELICOPTER [email or web address].[email or web address] Vomiting No 01/22/25 13:18 HELICOPTER [email or web address].[email or web address] Anesthesia Postop Eval I: Fluid Summary Crystalloid volume administer 30 01/22/25 13:18 [email or web address] [email or web address] (ml) Colloids volume administered ( ml) Blood Product volume administered (ml) Total IV fluid infused 30 01/22/25 13:18 HELICOPTER [email or web address].[email or web address] Anesthesia Postop Eval I: Summary Notes Anesthesia Complication No 01/22/25 13:18 HELICOPTER [email or web address].[email or web address] Anesthesia Complication Comment: Post-operative progress note Anesthesia: Postop Eval II Evaluation Mental status: Awake and Calm Pain Level: 0 nausea: No Vomiting: No Complications Anesthesia Complication: No
--- NOTE | 2025-01-22 13:45 | PCM.POSTANE2 ---
Anesthesia Postop Eval I Sum Postop Eval Completion status Anesthesia document: Postop Eval 1 completed: Yes Anesthesia Postop Eval I Summary Anesthesia Postop Eval I Summary: Anesthesia Postop Eval I: Assessment Summary Airway patent Yes 01/22/25 13:18 ARTIFICIAL TEETH [email or web address].[email or web address] Spontaneous unlabored Yes 01/22/25 13:18 ARTIFICIAL TEETH INSPECTOR.[email or web address] respirations Mental status Awake,Calm 01/22/25 13:18 ARTIFICIAL TEETH INSPECTOR.GDOTT nausea No 01/22/25 13:18 ARTIFICIAL TEETH INSPECTOR.GDOTT Vomiting No 01/22/25 13:18 ARTIFICIAL TEETH INSPECTOR.GDOTT Anesthesia Postop Eval I: Fluid Summary Crystalloid volume administer 30 01/22/25 13:18 ARTIFICIAL TEETH INSPECTOR.GDOTT (ml) Colloids volume administered ( ml) Blood Product volume administered (ml) Total IV fluid infused 30 01/22/25 13:18 ARTIFICIAL TEETH INSPECTOR.GDOTT Anesthesia Postop Eval I: Summary Notes Anesthesia Complication No 01/22/25 13:18 ARTIFICIAL TEETH INSPECTOR.GDOTT Anesthesia Complication Comment: Post-operative progress note Anesthesia: Postop Eval II Evaluation Mental status: Awake and Calm Pain Level: 0 nausea: No Vomiting: No Complications Anesthesia Complication: No
[2025-01-22] MEDS: HYDROcodone Bitartrate/Apap 5/325 Tablet PO (14:25)
== END 2025-01-22 14:43 | disposition home or self-care (01) ==
LOC: SDC 11:05 → AC 11:05
PROVIDERS: Referring Provider Obstetrics & Gynecology; Visit Provider Obstetrics & Gynecology
PROC: 0U5B8ZZ Destruction of Endometrium, Via Natural or Artificial Opening Endoscopic (ICD-10-PCS; CPT 58558; principal; 2025-01-22 13:00)
DX: N93.9 Abnormal uterine and vaginal bleeding, unspecified (principal); N85.8 Other specified noninflammatory disorders of uterus; I10 Essential (primary) hypertension; F32.A Depression, unspecified; F41.1 Generalized anxiety disorder; Z79.899 Other long term (current) drug therapy; Z87.891 Personal history of nicotine dependence
CPT/HCPCS: 58563; 00952; 36415; 81025; 85027; 86850; 86900; 86901; 88305; A4216; J2405

== ENCOUNTER → 2025-02-01 | Outpatient (CLI) | payer MEDICAID, SELFPAY | END | disposition home or self-care (01) | LOC: SL 19:52 | DX: G47.10 Hypersomnia, unspecified (principal) | CPT/HCPCS: 95810 ==

== ENCOUNTER → 2025-04-03 | Outpatient (CLI) | payer MEDICAID, SELFPAY | END | disposition home or self-care (01) | LOC: SL 21:33 | DX: G47.33 Obstructive sleep apnea (adult) (pediatric) (principal) | CPT/HCPCS: 95811 ==

== ENCOUNTER 2025-04-08 17:02 | Emergency (ER) | payer MEDICAID, SELFPAY ==
[2025-04-08 17:04] VITALS: BP 143/119; PULSE 95; RESP 16; TEMP 36; O2SAT 100
--- NOTE | 2025-04-08 18:51 | EX.ED.DYSGE1 ---
HPI History of Present Illness Chief Complaint: Dizziness Informant: patient Onset/Context/Timing Onset: Days (3) Context: Gradual Onset Timing: Continuous Quality: Spinning Location: Head Worsened by: Movement Relieved by: Nothing Narrative Narrative: Patient presents with neck pain and vertigo that has been getting worse over the past 3 days. Patient states it is constant. Patient states her vertigo feels like a spinning sensation. Patient describes her neck pain as aching. Patient states it is worse with movement. Patient does admit to some tinnitus but denies any hearing changes. Patient also admits to some rhinorrhea. Patient admits to some nausea but denies any vomiting. Patient admits to some subjective chills. Patient denies any chest pain or shortness of breath. [facility] Medical History Arthrosis of right acromioclavicular joint Diabetes Arthritis Low iron History of diverticulitis Gastric reflux Hypertension Leg cramps Right rotator cuff tear PTSD (post-traumatic stress disorder) Major depression TED (generalized anxiety disorder) Sprain of left little finger Strain of right knee Vitamin deficiency Major depression Insomnia Acute gastroenteritis Dyspnea Anxiety Migraine headache Shortness of breath on exertion History of stress test History of gestational diabetes GI problem Seasonal allergies ADHD Depression Home Medications ?Medication ?Instructions ?Recorded ?Last Taken ?Type albuterol sulfate 90 mcg/actuation 2 puff inhalation Q4H PRN PRN 04/05/23 Unknown Rx aerosol inhaler Wheezing, shortness of breath #8.5 grams mecobalamin (vitamin B12) 1,000 1,000 mcg PO QDAY 12/14/24 01/21/25 History mcg chewable tablet ergocalciferol (vitamin D2) 25,000 25,000 unit PO MO 01/14/25 01/20/25 History unit capsule semaglutide (weight loss) 0.25 0.25 mg subcut TH 01/14/25 01/09/25 History mg/0.5 mL subcutaneous pen injector lamotrigine 150 mg tablet 150 mg PO DAILY #90 tabs 02/20/25 Unknown Rx lisdexamfetamine 20 mg capsule 20 mg PO QAM 30 days #30 caps 02/20/25 Unknown Rx venlafaxine 150 mg 150 mg PO DAILY #90 caps 02/20/25 Unknown Rx capsule,extended release 24 hr lidocaine 5 % topical patch 1 patch topical QDAY #15 ea 02/28/25 Unknown Rx methocarbamol 500 mg tablet 500 mg PO TID PRN pain/spasms #60 02/28/25 Unknown Rx tabs meclizine 25 mg tablet 25 mg PO 4X/DAY PRN PRN Dizziness 04/08/25 Unknown Rx #20 tabs Allergy/AdvReac Type Severity Reaction Status Date / Time Latex, Natural Rubber Allergy Intermediate skin Verified 04/08/25 17:03 irritation Family History Aunt Breast cancer Cancer ovarian Grandmother Diabetes Thyroid disorder Uncle Diabetes Father Diabetes Mother Thyroid disorder Depression Surgical History History of endometrial ablation History of reversal of tubal ligation Hx of tubal ligation Hx of foot surgery History of hip surgery Social History Smoking Status: Current every day smoker tobacco type: cigarettes Tobacco: How many years used: 10 alcohol intake: never substance use type: does not use caffeine: Yes what type of physical activity do you participate in: none seatbelt use: always do you feel safe at home: Yes additional social history: Single ROS ROS ED Constitutional Constitutional ED: Reports chills; Denies fever(s) Eyes Eyes: Denies blurry vision or change in vision ENT ENT ED: Reports rhinorrhea; Denies sore throat Cardiovascular Cardiovascular: Denies chest pain or palpitations Respiratory/Chest Respiratory/Chest: Denies cough or dyspnea Gastrointestinal Gastrointestinal: Reports nausea; Denies vomiting Genitourinary Genitourinary ED: Denies dysuria or hematuria Musculoskeletal Musculoskeletal: Reports back pain and neck pain Integumentary Denies abscess or rash Neurologic Neurologic: Reports headache(s); Denies weakness Allergic/Immunologic Allergic/Immunologic ED: Denies mouth swelling or urticaria EXAM Physical Exam Const Vital Signs: 04/08/25 17:04 04/08/25 20:25 04/08/25 21:00 Temperature 96.8 F L Temperature Source Temporal Pulse Rate 95 66 Pulse Rate [Lying] 65 Pulse Rate [Sitting (for 1 minute prior to obtaining)] 86 Pulse Rate [Standing (for 1 minute prior to obtaining)] 102 H Respiratory Rate 16 16 Blood Pressure 143/119 H 142/92 H Blood Pressure [Lying] 123/68 H Blood Pressure [Sitting (for 1 minute prior to obtaining)] 133/101 H Blood Pressure [Standing (for 1 minute prior to obtaining)] 136/101 H Blood Pressure Mean 127 108 Blood Pressure Mean [Lying] 86 Blood Pressure Mean [Sitting (for 1 minute prior to obtaining)] 111 Blood Pressure Mean [Standing (for 1 minute prior to obtaining)] 112 Pulse Ox 100 100 Oxygen Delivery Method Room Air Room Air Positive well nourished and well developed General Appearance ED: well developed and NAD HEENT Reports TM's clear and moist mucous membranes Tympanic Membrane ED: Yes TM's clear bilateral Eyes PERRL and EOMs intact bilaterally Neck supple and no JVD Neck Narrative: There is tenderness over the left cervical paraspinal muscles. There is no bony crepitance or step-off noted. Range of motion was limited in all motions of the cervical spine secondary to pain. Resp normal respiratory effort and clear to auscultation bilaterally Cardio regular rate and regular rhythm GI non-tender and non-distended Palpation: soft Extremity normal to inspection Neuro oriented x3, CN's II-XII intact bilaterally and no sensory deficits noted Sensorium / Orientation: alert Motor Exam: strength 5/5 throughout Psych mental status grossly normal MDM MDM MDM Narrative Medical decision making narrative: Differential diagnosis includes vertigo, labyrinthitis, upper respiratory infection, cervical strain, and urinary tract infection. CBC will be obtained to assess for leukocytosis and anemia. Basic metabolic profile will be obtained to assess for electrolyte abnormality and renal function. Urinalysis will be obtained to assess for urinary tract infection and hematuria. Lab Data Attestation: I reviewed the patient's lab results. Lab results narrative: CBC was reviewed. There is a mild leukocytosis of 11.4. The remainder is within normal limits. Basic metabolic profile was reviewed and was within normal limits. Urinalysis was reviewed. There is no evidence of urinary tract infection or hematuria. Labs: Laboratory Results - last 24 hr 04/08/25 04/08/25 19:23 20:38 WBC 11.4 H RBC 4.94 Hgb 14.7 Hct 42.8 MCV 86.6 MCH 29.8 MCHC 34.3 RDW Std Deviation 48.6 H RDW Coeff of Jag 15.4 H Plt Count 281 MPV 9.6 Immature Gran % (Auto) 0.300 Neut % (Auto) 67.7 Lymph % (Auto) 25.9 [place] % (Auto) 4.6 Eos % (Auto) 1.1 Baso % (Auto) 0.4 Absolute Neuts (auto) 7.7 Absolute Lymphs (auto) 2.95 Nucleated RBC % 0 Sodium 139 Potassium 4.3 Chloride 103 Carbon Dioxide 25.8 Anion Gap 11 BUN 8 Creatinine 0.77 Est GFR (MDRD) Non-Af 96 BUN/Creatinine Ratio 10.5 Glucose 81 Calcium 9.6 Urine Color Yellow Urine Clarity Clear Urine pH 7.0 Ur Specific Stringer 1.015 Urine Protein 30 H Urine Glucose (UA) Normal Urine Ketones Negative Urine Occult Blood 10 H Urine Nitrite Negative Urine Bilirubin Negative Urine Urobilinogen Normal Ur Leukocyte Esterase Negative Urine RBC 0-5 SEEN Urine WBC 0-5 SEEN Ur Squamous Epith Cells 5-10 SEEN Urine Bacteria 0 SEEN Urine Mucus 0 SEEN Treatment and Re-Evaluation :: Patient was given IV fluids, Valium, and Tylenol. Patient had minimal relief with this. Patient was given a dose of meclizine, Reglan, and Benadryl. Patient feeling somewhat better on reevaluation. Patient was advised of her findings. Patient was instructed to rest in a dark quiet room. Patient was instructed to drink plenty of fluids. Patient was instructed to follow-up with her primary care physician in 5 to 7 days. Patient understood and was agreeable with the plan. All questions were answered. Discharge Plan Triage Chief Complaint: Dizziness ED Provider: Keo Rivas Dx/Rx/DC Orders Clinical Impression: Vertigo, Headache, Tobacco use Instructions: ED Vertigo, Unspecified Prescriptions: New meclizine 25 mg tablet 25 mg PO 4X/DAY PRN PRN (Reason: Dizziness) Qty: 20 0RF No Action lamotrigine 150 mg tablet 150 mg PO DAILY Qty: 90 1RF venlafaxine 150 mg capsule,extended release 24hr 150 mg PO DAILY Qty: 90 3RF lisdexamfetamine 20 mg capsule 20 mg PO QAM 30 Days Qty: 30 0RF mecobalamin (vitamin B12) 1,000 mcg tablet,chewable 1,000 mcg PO QDAY methocarbamol 500 mg tablet 500 mg PO TID PRN (Reason: pain/spasms) Qty: 60 0RF lidocaine 5 % adhesive patch,medicated 1 patch topical QDAY Qty: 15 0RF Rx Instructions: leave on most painful area for up to 12 hrs ergocalciferol (vitamin D2) 25,000 unit capsule 25,000 unit PO MO semaglutide (weight loss) 0.25 mg/0.5 mL pen injector 0.25 mg subcut TH albuterol sulfate 90 mcg/actuation HFA aerosol inhaler 2 puff INHALATION Q4H PRN PRN (Reason: Wheezing, shortness of breath) Qty: 8.5 1RF Primary Care Provider: Vladimir Davila Referrals: Vladimir Davila, [employer] [Primary Care Provider] - 5-7 Days Print Language: Macedonian Disposition Disposition: Home, Self Care
[2025-04-08] MEDS: 0.9% Normal Saline (1000mL) 1,000 ML 1000 ML IV (19:28)
[2025-04-08] MEDS: Acetaminophen 500 MG Tablet 1000 MG PO (19:28)
[2025-04-08] MEDS: diazePAM 5 MG Tablet 2.5 MG PO (19:29)
[2025-04-08 19:37] LABS: Absolute Lymphocyte Count 2.95 X10^3/uL (0.83-4.51); Absolute Neutrophil Count 7.7 X10^3/uL (2.0-7.7); Basophil# 0.05 X10^3/uL; Basophil% 0.4 % (0-1); Eosinophil# 0.13 X10^3/uL; Eosinophils% 1.1 % (0-5); Hematocrit 42.8 % (37-47); Hemoglobin 14.7 g/dL (12.0-15.0); Lymphocyte # 2.95 X10^3/ul (0.83-4.51); Lymphocyte % 25.9 % (19-41); Mean Corp Hgb Conc 34.3 g/dL (32-36); Mean Corpuscular Hgb 29.8 pg (27.0-32.0); Mean Corpuscular Volume 86.6 fL (81-99); Mean Platelet Vol. 9.6 fl (6.2-12.0); Monocyte# 0.52 X10^3/uL; Monocyte% 4.6 % (0-10); NRBC Flagged by Analyzer 0 % (0-5); Neutrophil # 7.73 X10^3/uL (2.7-7.7); Neutrophil % 67.7 % (47-70); Platelet Count 281 K/mm3 (150-450); RBC Distribution Width CV 15.4 % (11.6-14.6); RBC Distribution Width SD 48.6 fl (35.1-43.9); Red Blood Count 4.94 M/mm3 (4.2-5.4); White Blood Count 11.4 K/mm3 (4.4-11.0)
[2025-04-08 19:55] LABS: Anion Gap 11 (5-15); BUN 8 mg/dL (4-19); BUN/Creat Ratio 10.5 RATIO (10-20); Calcium,Total 9.6 mg/dL (7.6-11.0); Carbon Dioxide 25.8 mmol/L (21.0-32.0); Chloride 103 mmol/L (98-108); Creatinine, Serum 0.77 mg/dL (0.70-1.20); EST Glomerular Filtration Rate 96 (>60); Glucose 81 mg/dL (70-99); Potassium 4.3 mmol/L (3.3-5.1); Sodium Level 139 mmol/L (133-145)
[2025-04-08 20:25] VITALS: BP 123/68; BP 133/101; BP 136/101; PULSE 102; PULSE 65; PULSE 86
[2025-04-08 20:46] LABS: Bacteria 0 SEEN /hpf (None Seen); Mucous, Urine 0 SEEN /hpf (<or=2+)
[2025-04-08 21:00] VITALS: BP 142/92; PULSE 66; RESP 16; O2SAT 100
[2025-04-08 21:16] LABS: Color, Urine Yellow (Yellow); Glucose, Dipstick Normal (Normal); Ketone-Dipstick Negative (Negative); Leukocyte Esterase-Dipstick Negative /ul (Negative); Nitrite-Dipstick Negative (Negative); Occult Blood-Urine 10 /ul (Negative); Protein-Dipstick 30 mg/dl (Negative); Specific Gravity, Urine 1.015 (1.002-1.030); Urine Bilirubin Dipstick Negative (Negative); Urine Clarity Clear (Clear); Urine Urobilinogen Normal (Normal)
[2025-04-08] MEDS: DiphenhydrAMINE 50 MG/ML Syringe 25 MG IV (21:34)
[2025-04-08] MEDS: Meclizine HCl 25 MG Tablet PO (21:34)
[2025-04-08] MEDS: Metoclopramide 10 MG/2 ML Vial IV (21:34)
[2025-04-08 21:54] LABS: Red Blood Cells-Urine 0-5 SEEN /hpf (0-5); Squamous Epithelial Cells - UA 5-10 SEEN /hpf (5-10); White Blood Cells 0-5 SEEN /hpf (0-5)
[2025-04-08 22:56] VITALS: BP 131/74; PULSE 78; RESP 16; TEMP 36.2; O2SAT 99
== END 2025-04-08 22:40 | disposition home or self-care (01) ==
PROVIDERS: Emergency Provider Emergency Medicine; Visit Provider Emergency Medicine
DX: R42 Dizziness and giddiness (principal); E11.9 Type 2 diabetes mellitus without complications; R51.9 Headache, unspecified; M54.2 Cervicalgia; I10 Essential (primary) hypertension; K21.9 Gastro-esophageal reflux disease without esophagitis; F32.9 Major depressive disorder, single episode, unspecified; F41.1 Generalized anxiety disorder; F90.9 Attention-deficit hyperactivity disorder, unspecified type; F43.10 Post-traumatic stress disorder, unspecified; F17.210 Nicotine dependence, cigarettes, uncomplicated; Z87.19 Personal history of other diseases of the digestive system; Z79.85 Long-term (current) use of injectable non-insulin antidiabetic drugs; Z79.899 Other long term (current) drug therapy
CPT/HCPCS: 80048; 81001; 85025; 96361; 96374; 96375; 99285; A4216

== ENCOUNTER → 2025-04-20 | Outpatient (CLI) | payer MEDICAID, SELFPAY ==
--- NOTE | 2025-04-20 08:02 | MRI_ITS ---
PROCEDURE: SPINE CERVICAL (ROUTINE) 04/20/2025 REASON FOR EXAM: PAIN, RADICULOPATHYx 2 years, right arm. TECHNIQUE: SPINE CERVICAL (ROUTINE) Multiplanar and multisequence images were obtained without IV contrast administration. COMPARISON: C-spine radiographs 02/28/2025. FINDINGS: Vertebrae: Cervical vertebral body heights are preserved. Bone marrow signal is unremarkable. Alignment: Normal. No traumatic listhesis. Spinal Cord: Cervical spinal cord is of normal size and signal intensities. Structures at the foramen magnum are unremarkable. C2-3: Unremarkable C3-4: Unremarkable C4-5: Unremarkable C5-6: There is symmetric posterior disc bulging resulting in moderate central canal narrowing, and moderate left and mild right neural foraminal stenosis. C6-7: Unremarkable C7-T1: Unremarkable MRI/Spine Cervical (Routine) IMPRESSION: Degenerative disease at C5-6 as described. No traumatic cervical finding. Reading Location: [id number]
--- OUTSIDE RECORDS SUMMARY | 2025-04-20 08:02 | XMS RPT_ITS | CCD ---
Author Organization [facility] Care Team Providers Care Social Sciences Lecturer Name Role Phone Olivia Baker Unavailable [phone] VALERIE MICHELLE I Unavailable Unavailable Long, Gissell Unavailable Unavailable Lazebnik, Lencho Unavailable Unavailable Long, Gissell Unavailable Unavailable Dilip, Radha Kathie Unavailable Unavaila ble Long, Gissell Unavailable Unavailable Dilip, Radha Kathie Unavailable Unavaila ble Long, Gissell Unavailable Unavailable Dilip, Radha Kathie Unavailable Unavaila ble Dilip, Radha Kathie Unavailable Unavaila ble Long, Gissell Attending Unavailable Me Claritzahrdad M Primary Care Unavailable Keagan Gibson Admitting Unavailable Keagan Gibson Attending Unavailable No Doctor Assigned, Nodr Primary Care Unavail able Long, Gissell Attending Unavailable Me Claritzahrdad M Primary Care Unavailable Shan Buckner Attending Unavailable Me Claritzahrdad M Primary Care Unavailable Andreas Anthony Admitting Unavailable Andreas Anthony Attending Unavailable Tavodilia, Tee M Primary Care Unavailable Shan Buckner Admitting Unavailable Shan Buckner Attending Unavailable Me Claritzahrdad M Primary Care Unavailable Shan Buckner Admitting Unavailable Shan Buckner Attending Unavailable Me Claritzahrdad M Primary Care Unavailable Shan Buckner Attending Unavailable TavMe odiliahrdad M Primary Care Unavailable Bhupendra Blair Admitting Unavailable Bhupendra Blair Attending Unavailable Tavodilia, Tee M Primary Care Unavailable Shan Buckner Attending Unavailable Me Claritzahrdad M Primary Care Unavailable Shan Buckner Admitting Unavailable Shan Buckner Attending Unavailable Tavallaee, Tee M Primary Care Unavailable Shan Buckner Admitting Unavailable Shan Buckner Attending Unavailable Tavallaee, Tee M Primary Care Unavailable Long, Gissell Admitting Unavailable Long, Gissell Attending Unavailable Tavallaee, Tee M Primary Care Unavailable Long, Gissell Admitting Unavailable Long, Gissell Attending Unavailable Tavallaee, Tee M Primary Care Unavailable Shan Buckner Admitting Unavailable Shan Buckner Attending Unavailable Tavallaee, Tee M Primary Care Unavailable [place], Bhupendra A Admitting Unavailable [place], Bhupendra A Attending Unavailable Tavallaee, Tee M Primary Care Unavailable Long, Gissell Attending Unavailable Tavallaee, Tee M Primary Care Unavailable NewbillKeagan Admitting Unavailable NewbillKeagan Attending Unavailable Tavallaee, Tee M Primary Care Unavailable Johnnie, Bhupendra A Admitting Unavailable Johnnie, Bhupendra A Attending Unavailable Tavallaee, Tee M Primary Care Unavailable Long, Gissell Attending Unavailable Tavallaee, Tee M Primary Care Unavailable Shan Buckner Admitting Unavailable Shan Buckner Attending Unavailable Tavallaee, Tee M Primary Care Unavailable Long, Gissell Admitting Unavailable Long, Gissell Attending Unavailable Tavallaee, Tee M Primary Care Unavailable Long, Gissell Admitting Unavailable Long, Gissell Attending Unavailable Tavallaee, Tee M Primary Care Unavailable Long, Gissell Attending Unavailable Tavallaee, Tee M Primary Care Unavailable Long, Gissell Admitting Unavailable Long, Gissell Attending Unavailable Tavallaee, Tee M Primary Care Unavailable Long, Gissell Attending Unavailable Tavallaee, Tee M Primary Care Unavailable Long, Gissell Admitting Unavailable Long, Gissell Attending Unavailable Tavallaee, Tee M Primary Care Unavailable Long, Gissell Attending Unavailable Tavallaee, Tee M Primary Care Unavailable Long, Gissell Admitting Unavailable Long, Gissell Attending Unavailable Tavallaee, Tee M Primary Care Unavailable Long, Gissell Admitting Unavailable Long, Gissell Attending Unavailable Tavallaee, Tee M Primary Care Unavailable Long, Gissell Attending Unavailable Tavallaee, Tee M Primary Care Unavailable [place], Bhupendra A Admitting Unavailable [place], Bhupendra A Attending Unavailable Tavallaee, Tee M Primary Care Unavailable Long, Gissell Attending Unavailable Tavallaee, Tee M Primary Care Unavailable Long, Gissell Attending Unavailable Tavallaee, Tee M Primary Care Unavailable Long, Gissell Attending Unavailable Tavallaee, Tee M Primary Care Unavailable Olivia Baker Primary Care Provider [phone] ELVI ORTIZ Attending Unavailable OLIVIA BAKER Primary Care Unavailable Dr. Sheryl Todd Primary Care Provider Dr. Sheryl Todd Referring Provider [phone] Zion [employer], [employer] Colby Attending Provider CONNIE Amezcua Attending Provider CONNIE Amezcua Referring Provider Dr. Enio Carvalho Attending Provider [phone] CONNIE Ko Attending Provider Dr. Mounika Solitario Attending Provider Beam VSC, Zebulun Primary Care Unavailable Enio Carvalho Attending Unavailable Donovan VSC, Colby Primary Care Unavailable Manjit Jaramillo Attending Unavailable Donovan VSC, Colby Referring Unavailable Xuan Gaytan Attending Unavailable Donovan VSC, Colby Primary Care Unavailable Stella Gregory Referring Unavailable Stella Gregory Attending Unavailable Beam VSC, Zebulun Primary Care Unavailable Donovan VSC, Colby Primary Care Unavailable Beam VSC, Zebulun Attending Unavailable Beam VSC, Zebulun Referring Unavailable Donovan VSC, Colby Primary Care Unavailable Shaun Raymond Referring Unavailable Shaun Raymond Attending Unavailable Beam VSC, Zebuluroni Attending Unavailable Donovan VSC, Colby Primary Care Unavailable Donovan VSC, Colby Primary Care Unavailable Shaun Raymond Attending Unavailable Donovan VSC, Colby Primary Care Unavailable Donovan VSC, Colby Referring Unavailable Stella Gregory Attending Unavailable Mollison, Shaun Referring Unavailable Mollison, Shaun Attending Unavailable Donovan VSC, Colby Primary Care Unavailable Donovan VSC, Colby Referring Unavailable Donovan VSC, Colby Primary Care Unavailable Yessiison, Shaun Attending Unavailable Donovan VSC, Colby Referring Unavailable Mollison, Shaun Attending Unavailable Beam VSC, Zebulun Primary Care Unavailable Marcanthony, Stella Referring Unavailable Marcanthony, Stella Attending Unavailable Marcanthony, Stella Consulting Unavailable Beam VSC, Zebulun Primary Care Unavailable Beam VSC, Zebulun Primary Care Unavailable Manjit Jaramillo Attending Unavailable Andrew, Saadia Attending Unavailable Beam VSC, Zebulun Primary Care Unavailable Beam VSC, Zebulun Referring Unavailable Donovan VSC, Colby Referring Unavailable Mollison, Shaun Attending Unavailable Donovan VSC, Colby Primary Care Unavailable Beam VSC, Zebulun Primary Care Unavailable Beam VSC, Zebulun Referring Unavailable Beam VSC, Zebulun Attending Unavailable Beam VSC, Zebulun Primary Care Unavailable Beam VSC, Zebulun Referring Unavailable Beam VSC, Zebulun Attending Unavailable Keo Rivas Attending Unavailable Beam VSC, Zebulun Primary Care Unavailable Prakash Mcclendon Attending Unavailable Donovan VSC, Colby Primary Care Unavailable Barkman, Xuan Referring Unavailable Barkman, Xuan Attending Unavailable Donovan VSC, Colby Primary Care Unavailable Barkman, Xuan Referring Unavailable Barkman, Xuan Attending Unavailable Donovan VSC, Colby Primary Care Unavailable Allergies Allergy Classification Reported Allergen(s) Allergy Type Date of Onset Reaction(s) Facility (3 sources) codeine; Translations: [codeine] Drug Allergy 8 Rash [facility] (4 sources) Latex; Translations: [Latex] Propensity to adverse reactions to drug 8 Other (See Comments) [facility] (2 sources) OTHER Propensity to adverse reactions 8 [facility] (3 sources) natural latex rubber; Translations: [Latex, Natural Rubber] Allergy to substance 2 skin irritation [facility] Rep[facility] Medications Current Medications Medication Drug Class(es) Dates Sig (Normalized) Sig (Original) Albuterol Sulfate (10 sources) beta2-Adrenergic Agonist Start: 01-20-2022 take 1 puff(s) by inhalation every four hours as needed Albuterol Sulfate Active 2 PUFF INHALATION EVERY 4 HOURS NEEDED 8.January 20, 2022 9:49am Start: 12-09-2021 End: 01-20-2022 take 1 puff(s) by inhalation every four hours as needed Albuterol Sulfate Discontinued 2 PUFF INHALATION EVERY 4 HOURS NEEDED 8.December 09, 2021 6:09pm January 20, 2022 9:49am Start: 09-25-2021 End: 12-09-2021 take 1 puff(s) by inhalation every four hours as needed Albuterol Sulfate Discontinued 2 PUFF INHALATION EVERY 4 HOURS NEEDED 8.September 25, 2021 9:13am December 09, 2021 6:10pm Start: 09-03-2021 End: 09-25-2021 take 1 puff(s) by inhalation every four hours as needed Albuterol Sulfate Discontinued 2 PUFF INHALATION EVERY 4 HOURS NEEDED 1 September 03, 2021 10:47am September 25, 2021 9:13am Start: 08-06-2021 End: 09-03-2021 take 1 puff(s) by inhalation every four hours as needed Albuterol Sulfate Discontinued 2 PUFF INHALATION EVERY 4 HOURS NEEDED 1 August 06, 2021 1:39pm September 03, 2021 10:47am 24 hr buPROPion hydrochloride 150 mg extended release oral tablet (1 source) Aminoketone take 1 tablet by mouth once daily buPROPion (WELLBUTRIN XL) 150 MG 24 hr tablet Take 150 mg by mouth daily . 0 Active fexofenadine hydrochloride 180 mg oral tablet (1 source) Histamine-1 Receptor Antagonist Start: 12-13-19 End: 12-13-19 take 1 tablet by mouth once daily fexofenadine (BERTA) 180 MG tablet Indications: Environmental allergies Take 1 (one) tablet (180 mg total) by mouth daily . 30 tablet 11 12/13/2018 12/13/2019 Active fluticasone propionate 0.05 mg/actuat metered dose nasal spray (1 source) Corticosteroid Start: 12-13-19 End: 12-13-19 take 2 spray(s) nasal route once daily fluticasone (FLONASE) 50 mcg/actuation nasal spray Indications: Environmental allergies Instill 2 (two) sprays into each nostril daily . 16 g 12 12/13/2018 12/13/2019 Active Vitamin With Calcium No.72-Iron 27 Mg-Folic Acid 1 Mg Tablet (1 source) take 1 tablet by mouth once daily vitamin with Ca-Iron-FA 27-1 mg Tab Take 1 tablet by mouth daily. Active loratadine 10 mg oral capsule (1 source) Start: 09-02-20 take 10 mg by mouth once daily Loratadine Active 10 MG PO DAILY September 02, 2021 11:01am meloxicam 15 mg oral tablet (3 sources) Nonsteroidal Anti-inflammatory Drug Start: 02-26-20 take 15 mg by mouth once daily Meloxicam Active 15 MG PO DAILY February 25, 2022 3:08pm Do not take in conjunction with other NSAIDs. Tylenol is okay. Start: 08-17-2019 End: 04-22-2020 take 15 mg by mouth once daily Meloxicam Discontinued 15 MG PO DAILY August 17, 2019 10:51am April 22, 2020 8:26am montelukast 10 mg oral tablet (2 sources) Leukotriene Receptor Antagonist Start: 09-02-2021 take 10 mg by mouth at bedtime Montelukast Active 10 MG PO AT BEDTIME September 02, 2021 11:02am Start: 12-13-2018 End: 12-13-2019 take 1 tablet by mouth once daily montelukast (SINGULAIR) 10 mg tablet Indications: Environmental allergies Take 1 (one) tablet (10 mg total) by mouth nightly . 30 tablet 11 12/13/2018 12/13/2019 Active naproxen 500 mg oral tablet (1 source) Nonsteroidal Anti-inflammatory Drug Start: 02-22-2022 take 500 mg by mouth twice daily Naproxen Active 500 MG PO TWICE A DAY February 22, 2022 2:51pm ondansetron 4 mg disintegrating oral tablet (1 source) Serotonin-3 Receptor Antagonist Start: 12-09-2021 take 4 mg by mouth every eight hours Ondansetron Active 4 MG PO Q8H December 09, 2021 6:01pm traZODone hydrochloride 50 mg oral tablet (1 source) Serotonin Reuptake Inhibitor Start: 12-09-2021 take 50 mg by mouth at bedtime Trazodone Active 50 MG PO AT BEDTIME 90 December 09, 2021 6:07pm valACYclovir 500 mg oral tablet (1 source) Herpesvirus Nucleoside Analog DNA Polymerase Inhibitor, Herpes Simplex Virus Nucleoside Analog DNA Polymerase Inhibitor, Herpes Zoster Virus Nucleoside Analog DNA Polymerase Inhibitor Start: 03-12-2021 take 1 tablet by mouth once daily Valacyclovir (Valtrex) 500 mg tablet Active 500 MG PO DAILY March 12, 2021 10:09am Completed/Discontinued Medications Medication Drug Class(es) Dates Sig (Normalized) Sig (Original) acetaminophen 250 mg / aspirin 250 mg / caffeine 65 mg oral tablet (1 source) Nonsteroidal Anti-inflammatory Drug, Central Nervous System Stimulant, Methylxanthine End: 06-15-2018 take 1 tablet by mouth every six hours as needed aspirin-acetamino phen-caffeine (EXCEDRIN MIGRAINE) 250-250-65 mg per tablet Take 1 tablet by mouth every 6 (six) hours as needed for pain. 06/15/2018 Discontinued acetaminophen 325 mg / HYDROcodone bitartrate 5 mg oral tablet (2 sources) Opioid Agonist Start: 05-15-2020 End: 05-22-2020 take 1 tablet by mouth every six hours as needed Hydrocodone-Aceta minophen Discontinued 1 TABLET PO EVERY 6 HOURS NEEDED 28 7 May 15, 2020 3:00pm May 22, 2020 12:02am amoxicillin 875 mg / clavulanate 125 mg oral tablet (4 sources) Penicillin-class Antibacterial Start: 08-18-2021 End: 09-02-2021 take 1 tablet by mouth twice daily Amoxicillin-Pot Clavulanate (Augmentin) 875-125 mg tablet Discontinued 1 TABLET PO TWICE A DAY August 18, 2021 9:57am September 02, 2021 11:00am Start: 01-12-2021 End: 02-13-2021 take 875 mg by mouth every twelve hours Amoxicillin-Pot Clavulanate Discontinued 875 MG PO Q12H January 12, 2021 4:02pm February 13, 2021 8:42am azithromycin 250 mg oral tablet (2 sources) Macrolide Antimicrobial Start: 09-26-2019 End: 04-22-2020 take 250 mg by mouth once daily Azithromycin Discontinued 250 MG PO daily September 26, 2019 10:50am April 22, 2020 8:26am benzonatate 100 mg oral capsule (2 sources) Non-narcotic Antitussive Start: 08-20-2021 End: 09-02-2021 take 1 capsule by mouth three times daily Benzonatate (Tessalon Perles) 100 mg capsule Discontinued 100 MG PO THREE TIMES A DAY August 20, 2021 1:13pm September 02, 2021 11:00am clindamycin 150 mg oral capsule (2 sources) Lincosamide Antibacterial Start: 01-04-2021 End: 02-13-2021 take 300 mg by mouth four times daily Clindamycin Hcl Discontinued 300 MG PO 4 TIMES DAILY January 04, 2021 11:03am February 13, 2021 8:42am 12 hr dextromethorphan hydrobromide 60 mg / guaiFENesin 1200 mg extended release oral tablet (2 sources) Uncompetitive Q-qxusni-A-aspartat e Receptor Antagonist, Sigma-1 Agonist Start: 08-06-2021 End: 09-02-2021 take 1 tablet by mouth twice daily Dextromethorphan- Guaifenesin Discontinued 1 TABLET PO TWICE A DAY August 06, 2021 1:40pm September 02, 2021 11:00am Norgestimate-Ethinyl Estradiol (4 sources) Progestin, Estrogen Start: 03-12-2021 End: 03-13-2021 take 1 tablet by mouth once daily Norgestimate-Ethi nyl Estradiol (Sprintec (28)) 0.25-35 mg-mcg tablet Discontinued 1 TABLET PO DAILY March 12, 2021 10:17am March 13, 2021 11:52am Take active pills only for continuous use Start: 03-12-2021 End: 03-12-2021 take 1 tablet by mouth once daily Norgestimate-Ethinyl Estradiol (Sprintec (28)) 0.25-35 mg-mcg tablet Discontinued 1 TABLET PO DAILY March 12, 2021 9:59am March 12, 2021 10:18am ibuprofen 800 mg oral tablet (3 sources) Nonsteroidal Anti-inflammatory Drug Start: 03-12-2021 End: 02-25-2022 take 800 mg by mouth every eight hours Ibuprofen Discontinued 800 MG PO Q8H 60 March 12, 2021 9:58am February 25, 2022 3:09pm End: 06-15-2018 take 2 tablets by mouth every six hours as needed ibuprofen (ADVIL,MOTRIN) 200 MG tablet Take 400 mg by mouth every 6 (six) hours as needed for pain. 06/15/2018 Discontinued lisdexamfetamine dimesylate 10 mg oral capsule (20 sources) Central Nervous System Stimulant Start: 12-09-2021 End: 01-09-2022 take 1 capsule by mouth once daily Lisdexamfetamine (Vyvanse) 10 mg capsule Discontinued 10 MG PO DAILY December 10, 2021 11:56am January 09, 2022 12:04am Start: 10-06-2021 End: 11-05-2021 take 10 mg by mouth once daily Lisdexamfetamine Discontinued 10 MG PO DAILY October 06, 2021 11:24am November 05, 2021 1:01am Start: 09-02-2021 End: 10-02-2021 take 10 mg by mouth once daily Lisdexamfetamine Discontinued 10 MG PO DAILY September 02, 2021 11:46am October 02, 2021 1:01am Start: 04-08-2021 End: 06-05-2021 take 1 capsule by mouth once daily in the morning Lisdexamfetamine (Vyvanse) 10 mg capsule Discontinued 10 MG PO EVERY MORNING May 06, 2021 10:56am June 05, 2021 12:01am Start: 01-09-2021 End: 03-20-2021 take 1 capsule by mouth once daily in the morning Lisdexamfetamine (Vyvanse) 10 mg capsule Discontinued 10 MG PO EVERY MORNING February 18, 2021 1:28pm March 20, 2021 12:01am 8 hr methylphenidate hydrochloride 20 mg extended release oral tablet (14 sources) Central Nervous System Stimulant Start: 08-12-2020 End: 01-09-2021 take 20 mg by mouth once daily Methylphenidate Hcl Discontinued 20 MG PO DAILY December 18, 2020 4:40pm January 09, 2021 9:57am Start: 08-17-2019 End: 08-12-2020 take 1 tablet by mouth once daily Methylphenidate Hcl (Ritalin) 20 mg tablet Discontinued 20 MG PO DAILY June 23, 2020 2:25pm August 12, 2020 10:22am methylPREDNISolone 4 mg oral tablet (2 sources) Corticosteroid Start: 02-22-2022 End: 02-27-2022 take 1 tablet by mouth once Methylprednisolone (Medrol (Taco)) 4 mg tablets,dose pack Discontinued 4 MG PO per package directions 21 February 22, 2022 2:51pm February 27, 2022 12:06am metroNIDAZOLE 500 mg oral tablet (2 sources) Nitroimidazole Antimicrobial Start: 03-11-2022 End: 03-18-2022 take 500 mg by mouth twice daily Metronidazole Discontinued 500 MG PO TWICE A DAY 14 March 11, 2022 11:20am March 18, 2022 12:03am Multivitamin preparation (2 sources) Start: 10-15-2020 End: 12-09-2021 take 1 capsule by mouth once daily multivitamin Discontinued 1 CAP PO DAILY October 15, 2020 5:39pm December 09, 2021 5:40pm predniSONE 10 mg oral tablet (2 sources) Start: 08-18-2021 End: 09-02-2021 Prednisone Discontinued 0 PO daily August 18, 2021 9:58am September 02, 2021 11:01am 4 tabs for 3 days, then 3 tabs for 3 days, then 2 tabs for 3 days, then 1 tab for 3 days PO QDAY; administer with food or milk vitamin with Ca-Iron-FA 27-1 mg Tab (1 source) End: 12-13-2018 take 1 tablet by mouth once daily vitamin with Ca-Iron-FA 27-1 mg Tab Take 1 tablet by mouth daily. 0 12/13/2018 Discontinued sucralfate 1000 mg oral tablet (2 sources) Aluminum Complex Start: 06-15-2018 End: 06-15-2019 take 1 tablet by mouth four times daily before mealtime sucralfate (CARAFATE) 1 gram tablet Take 1 (one) tablet (1 g total) by mouth 4 (four) times a day before meals. 120 tablet 2 06/15/2018 12/14/2018 Discontinued 24 hr traMADol hydrochloride 150 mg extended release oral capsule (2 sources) Opioid Agonist Start: 04-22-2020 End: 05-07-2020 take 150 mg by mouth once daily Tramadol Discontinued 150 MG PO DAILY April 22, 2020 8:27am May 07, 2020 2:28pm 24 hr venlafaxine 150 mg extended release oral capsule (20 sources) Serotonin and Norepinephrine Reuptake Inhibitor Start: 10-15-2020 End: 01-20-2022 Venlafaxine Discontinued 75 MG PO EVERY MORNING April 16, 2021 12:12pm August 18, 2021 9:55am Take with 150 mg Venlafaxine for a total daily dose of 225 mg. Start: 08-17-2019 End: 12-09-2021 take 150 mg by mouth once daily Venlafaxine Discontinued 150 MG PO DAILY November 05, 2021 3:07pm December 09, 2021 6:08pm Problems Active Problems Problem Classification Problem Date Documented Da te Episodic/Chronic Administrative/social admission (2 sources) Patient encounter status; Translations: [Encounter for pre-employment examination] Episodic Allergic reactions (2 sources) Environmental allergy; Translations: [Environmental allergies] Onset: 9 12-13-2018 Episodic Anxiety disorders (3 sources) Mixed anxiety and depressive disorder; Translations: [Anxiety disorder, unspecified] Onset: 5 Chronic Attention-deficit, conduct, and disruptive behavior disorders (2 sources) Attention deficit hyperactivity disorder; Translations: [Attention-deficit hyperactivity disorder, unspecified type] Chronic Attention-deficit, conduct, and disruptive behavior disorders (3 sources) Attention-deficit hyperactivity disorder, unspecified type; Translations: [Attention deficit disorder with hyperactivity] Onset: 5 Chronic Conditions associated with dizziness or vertigo (1 source) Dizziness and giddiness; Translations: [Dizziness and giddiness] Onset: 5 Episodic Diabetes or abnormal glucose tolerance complicating ; childbirth; or the puerperium (2 sources) History of gestational diabetes mellitus; Translations: [Personal history of gestational diabetes] Episodic Disorders of teeth and jaw (2 sources) Periapical abscess; Translations: [Periapical abscess without sinus] Episodic Menstrual disorders (1 source) Dysmenorrhea; Translations: [Dysmenorrhea, unspecified] Chronic Mood disorders (5 sources) Depressive disorder; Translations: [Depression] Onset: 5 Chronic Noninfectious gastroenteritis (4 sources) Acute gastroenteritis; Translations: [Noninfective gastroenteritis and colitis, unspecified] Episodic Other acquired deformities (2 sources) Deformity of lower limb; Translations: [Other specified acquired deformities of right lower leg] Episodic Other bone disease and musculoskeletal deformities (2 sources) Clavicle pain; Translations: [Other specified disorders of bone, shoulder] Episodic Other bone disease and musculoskeletal deformities (4 sources) Other specified disorders of bone, shoulder; Translations: [Disorder of bone and cartilage, unspecified] Episodic Other connective tissue disease (2 sources) Plantar fasciitis; Translations: [Plantar fascial fibromatosis] Episodic Other female genital disorders (2 sources) Abnormal uterine bleeding; Translations: [Abnormal uterine and vaginal bleeding, unspecified] Chronic Other female genital disorders (1 source) Abnormal uterine and vaginal bleeding, unspecified; Translations: [Abnormal uterine and vaginal bleeding, unspecified] Onset: 5 Chronic Other gastrointestinal disorders (2 sources) Gastrointestinal tract problem; Translations: [Other specified symptoms and signs involving the digestive system and abdomen] Episodic Other lower respiratory disease (2 sources) Dyspnea; Translations: [Dyspnea, unspecified] Episodic Other non-traumatic joint disorders (2 sources) Joint finding; Translations: [Joint disorder, unspecified] Episodic Other nutritional; endocrine; and metabolic disorders (2 sources) Morbid obesity; Translations: [Morbid (severe) obesity due to excess calories] Chronic Other screening for suspected conditions (not mental disorders or infectious disease) (2 sources) Encounter for screening mammogram for malignant neoplasm of breast; Translations: [Encounter for screening for malignant neoplasm of cervix] Onset: 5 Episodic Other upper respiratory disease (2 sources) Seasonal allergy; Translations: [Other seasonal allergic rhinitis] Chronic Residual codes; unclassified (2 sources) Obstructive sleep apnea syndrome; Translations: [Obstructive sleep apnea (adult) (pediatric)] Chronic Residual codes; unclassified (1 source) Obstructive sleep apnea (adult) (pediatric); Translations: [Obstructive sleep apnea (adult) (pediatric)] Onset: 5 Chronic Residual codes; unclassified (1 source) Hypersomnia, unspecified; Translations: [Hypersomnia, unspecified] Onset: 5 Chronic Residual codes; unclassified (2 sources) Insomnia; Translations: [Insomnia, unspecified] Episodic Residual codes; unclassified (2 sources) History of operative procedure on hip; Translations: [Other specified postprocedural states] Episodic Residual codes; unclassified (2 sources) Insomnia, unspecified; Translations: [Insomnia, unspecified] Episodic Spondylosis; intervertebral disc disorders; other back problems (1 source) Cervicalgia; Translations: [Cervicalgia] Onset: 5 Episodic Sprains and strains (4 sources) Shoulder strain; Translations: [Strain of unspecified muscle, fascia and tendon at shoulder and upper arm level, right arm, initial encounter] Episodic Unclassified (1 source) Encounter for screening for macrosomia / Z36.88(ICD-10) Onset: 8 Unclassified (1 source) Morbid (severe) obesity due to excess calories / E66.01(ICD-10) Onset: 8 Unclassified (1 source) Gestational diabetes mellitus in , diet controlled / O24.410(ICD-10) Onset: 8 Unclassified (1 source) Gestational diabetes mellitus in , unsp control / O24.419(ICD-10) Onset: 8 Unclassified (1 source) Supervision of elderly multigravida, unspecified trimester / O09.529(ICD-10) Onset: 8 Unclassified (1 source) Diseases of the skin, subcu comp , third trimester / O99.713(ICD-10) Onset: 8 Unclassified (1 source) Pruritus, unspecified / L29.9(ICD-10) Onset: 8 Unclassified (1 source) 35 weeks gestation of / Z3A.35(ICD-10) Onset: 8 Unclassified (1 source) Supervision of elderly multigravida, third trimester / O09.523(ICD-10) Onset: 8 Unclassified (1 source) 36 weeks gestation of / Z3A.36(ICD-10) Onset: 8 Unclassified (1 source) 33 weeks gestation of / Z3A.33(ICD-10) Onset: 8 Unclassified (1 source) Obesity complicating , third trimester / O99.213(ICD-10) Onset: 8 Unclassified (1 source) Encounter for suspected problem with growth ruled out / Z03.74(ICD-10) Onset: 8 Unclassified (1 source) 28 weeks gestation of / Z3A.28(ICD-10) Onset: 8 Unclassified (1 source) Encounter for suspected anomaly ruled out / Z03.73(ICD-10) Onset: 8 Unclassified (1 source) Suprvsn of preg w poor reprodctv or obstet hx, second tri / O09.292(ICD-10) Onset: 8 Unclassified (1 source) Viral hepatitis complicating childbirth / O98.42(ICD-10) Onset: 8 Unclassified (1 source) Chronic viral hepatitis C / B18.2(ICD-10) Onset: 8 Unclassified (1 source) Obesity complicating , second trimester / O99.212(ICD-10) Onset: 8 Unclassified (1 source) Other obesity due to excess calories / E66.09(ICD-10) Onset: 8 Unclassified (1 source) Obesity complicating , first trimester / O99.211(ICD-10) Onset: 8 Unclassified (1 source) Encounter for screening for chromosomal anomalies / Z36.0(ICD-10) Onset: 8 Unclassified (1 source) Supervision of elderly multigravida, first trimester / O09.521(ICD-10) Onset: 8 Viral infection (1 source) Viral disease; Translations: [Viral infection, unspecified] Episodic Past or Other Problems Problem Classification Problem Date Documented Da te Episodic/Chronic Abdominal pain (2 sources) Abdominal pain; Translations: [Unspecified abdominal pain] Onset: 12-27-2024 Episodic Gastritis and duodenitis (3 sources) Gastritis; Translations: [Gastritis] Onset: 06-15-2018 06-15-2018 Episodic Other connective tissue disease (2 sources) Ganglion of wrist; Translations: [Ganglion cyst of wrist] Onset: 01-09-2016 01-09-2016 Episodic Other connective tissue disease (1 source) Unspecified rotator cuff tear or rupture of right shoulder, not specified as traumatic; Translations: [Unspecified rotator cuff tear or rupture of right shoulder, not specified as traumatic] Onset: 2024 Episodic Other non-traumatic joint disorders (1 source) Pain in right shoulder; Translations: [Pain in right shoulder] Onset: 01-03-2025 Episodic Results Test Name Value Interpretation Reference Range Facility Basic Metabolic Profile (BMP )on 04-08-2025 BUN/CRE 10.5 RATIO Normal 10-20 [facility] Comment on above: Performed By: #### L 100.0100, L500.2500 #### [facility] [address] [place], [address] Calcium [Mass/Vol] 9.6 mg/dL Normal 7.6-11.0 [facility] Comment on above: Performed By: #### L 100.0100, L500.2500 #### [facility] [address] [place], [address] Chloride [Moles/Vol] 103 mmol/L Normal 98-108 [facility] Comment on above: Performed By: #### L 100.0100, L500.2500 #### [facility] [address] [place], [address] CO2 [Moles/Vol] 25.8 mmol/L Normal 21.0-32.0 [facility] Comment on above: Performed By: #### L 100.0100, L500.2500 #### [facility] [address] [place], [address] Creatinine [Mass/Vol] 0.77 mg/dL Normal 0.70-1.20 [facility] Comment on above: Performed By: #### L 100.0100, L500.2500 #### [facility] [address] [place], [address] GAP 11 Normal 5-15 [facility] Comment on above: Performed By: #### L 100.0100, L500.2500 #### [facility] [address] [place], [address] GFR/1.73 sq M.predicted among non-blacks MDRD (S/P/Bld) [Vol rate/Area] 96 mL/min/{1.73_m2} Normal >60 [facility] Comment on above: Result Comment: mL/m in/1.73m2 CKD-EPI Creatinine Equation (2020) Performed By: #### L 100.0100, L500.2500 #### [facility] [address] [place], [address] Glucose [Mass/Vol] 81 mg/dL Normal 70-99 [facility] Comment on above: Performed By: #### L 100.0100, L500.2500 #### [facility] [address] [place], [address] Potassium [Moles/Vol] 4.3 mmol/L Normal 3.3-5.1 [facility] Comment on above: Performed By: #### L 100.0100, L500.2500 #### [facility] [address] [place], [address] Sodium [Moles/Vol] 139 mmol/L Normal 133-145 [facility] Comment on above: Performed By: #### L 100.0100, L500.2500 #### [facility] [address] [place], [address] Urea nitrogen [Mass/Vol] 8 mg/dL Normal 4-19 [facility] Comment on above: Performed By: #### L 100.0100, L500.2500 #### [facility] [address] [place], [address] CBC W/Diff, Automatedon 06-1 Absolute Lymph 2.95 X10 3/uL Normal 0.83-4.51 [facility] Comment on above: Performed By: #### L 100.0100, L500.2500 #### [facility] [address] [place], [address] Absolute Neut 7.7 X10 3/uL Normal 2.0-7.7 [facility] Comment on above: Performed By: #### L 100.0100, L500.2500 #### [facility] [address] [place], [address] Basophils/100 WBC (Bld) 0.4 % Normal 0-1 [facility] Comment on above: Performed By: #### L 100.0100, L500.2500 #### [facility] [address] [place], [address] Eosinophils/100 WBC (Bld) 1.1 % Normal 0-5 [facility] Comment on above: Performed By: #### L 100.0100, L500.2500 #### [facility] [address] [place], [address] Erythrocyte distribution width (RBC) [Ratio] 15.4 % High 11.6-14.6 [facility] Comment on above: Performed By: #### L 100.0100, L500.2500 #### [facility] [address] [place], [address] Hematocrit (Bld) [Volume fraction] 42.8 % Normal 37-47 [facility] Comment on above: Performed By: #### L 100.0100, L500.2500 #### [facility] [address] [place], [address] Hemoglobin (Bld) [Mass/Vol] 14.7 g/dL Normal 12.0-15.0 [facility] Comment on above: Performed By: #### L 100.0100, L500.2500 #### [facility] [address] [place], [address] IG% 0.300 Normal 0.0-0.9 [facility] Comment on above: Result Comment: IG% - Immature Granulocytes (promyelocytes, myelocytes and metamyelocytes) > 1% indicates that a LEFT SHIFT is Present. Performed By: #### L 100.0100, L500.2500 #### [facility] [address] [place], [address] Lymphocytes/100 WBC (Bld) 25.9 % Normal 19-41 [facility] Comment on above: Performed By: #### L 100.0100, L500.2500 #### [facility] [address] [place], [address] MCH (RBC) [Entitic mass] 29.8 pg Normal 27.0-32.0 [facility] Comment on above: Performed By: #### L 100.0100, L500.2500 #### [facility] [address] [place], [address] MCHC (RBC) [Mass/Vol] 34.3 g/dL Normal 32-36 [facility] Comment on above: Performed By: #### L 100.0100, L500.2500 #### [facility] [address] [place], [address] MCV (RBC) [Entitic vol] 86.6 fL Normal 81-99 [facility] Comment on above: Performed By: #### L 100.0100, L500.2500 #### [facility] [address] [place], [address] Monocytes/100 WBC (Bld) 4.6 % Normal 0-10 [facility] Comment on above: Performed By: #### L 100.0100, L500.2500 #### [facility] [address] [place], [address] Neutrophils/100 WBC (Bld) 67.7 % Normal 47-70 [facility] Comment on above: Performed By: #### L 100.0100, L500.2500 #### [facility] [address] [place], [address] Nucleated RBC (Bld) [#/Vol] 0 10*3/uL Normal 0-5 [facility] Comment on above: Performed By: #### L 100.0100, L500.2500 #### [facility] [address] [place], [address] Platelet mean volume (Bld) [Entitic vol] 9.6 fL Normal 6.2-12.0 [facility] Comment on above: Performed By: #### L 100.0100, L500.2500 #### [facility] [address] [place], [address] Platelets (Bld) [#/Vol] 281 10*3/uL Normal 150-450 [facility] Comment on above: Performed By: #### L 100.0100, L500.2500 #### [facility] [address] [place], [address] RBC (Bld) [#/Vol] 4.94 10*6/uL Normal 4.2-5.4 [facility] Comment on above: Performed By: #### L 100.0100, L500.2500 #### [facility] [address] [place], [address] RDW SD 48.6 fl High 35.1-43.9 [facility] Comment on above: Performed By: #### L 100.0100, L500.2500 #### [facility] [address] [place], [address] WBC (Bld) [#/Vol] 11.4 10*3/uL High 4.4-11.0 [facility] Comment on above: Performed By: #### L 100.0100, L500.2500 #### [facility] [address] [place], [address] Emergency Department Summary on 04-08-2025 Emergency Department Summary [facility] Medical Records Department [address] [address] Emergency Department Summary 04/08/25 MR#: [id number] Acct: [id number] Name: SIA CONTRERAS Rep #: [id number] : 1980 44 From: Keo Rivas DO PCP: Vladimir Davila [employer] Status:DEP ER Location: ED HPI History of Present Illness Chief Complaint: Dizziness Informant: patient Onset/Context/Timing Onset: Days (3) Context: Gradual Onset Timing: Continuous Quality: Spinning Location: Head Worsened by: Movement Relieved by: Nothing Narrative Narrative: Patient presents with neck pain and vertigo that has been getting worse over the past 3 days. Patient states it is constant. Patient states her vertigo feels like a spinning sensation. Patient describes her neck pain as aching. Patient states it is worse with movement. Patient does admit to some tinnitus but denies any hearing changes. Patient also admits to some rhinorrhea. Patient admits to some nausea but denies any vomiting. Patient admits to some subjective chills. Patient denies any chest pain or shortness of breath. PFSH PFS Medical History Arthrosis of right acromioclavicular joint Diabetes Arthritis Low iron History of diverticulitis Gastric reflux Hypertension Leg cramps Right rotator cuff tear PTSD (post-traumatic stress disorder) Major depression TED (generalized anxiety disorder) Sprain of left little finger Strain of right knee Vitamin deficiency Major depression Insomnia Acute gastroenteritis Dyspnea Anxiety Migraine headache Shortness of breath on exertion History of stress test History of gestational diabetes GI problem Seasonal allergies ADHD Depression Home Medications ???Medication ???Instructions ???Recorded ???Last Taken ???Type albuterol sulfate 90 mcg/actuation 2 puff inhalation Q4H PRN PRN Unknown Rx aerosol inhaler Wheezing, shortness of breath #8.5 grams mecobalamin (vitamin B12) 1,000 1,000 mcg PO QDAY 12/14/24 5 History mcg chewable tablet ergocalciferol (vitamin D2) 25,000 25,000 unit PO MO 01/14/2501/20 History unit capsule semaglutide (weight loss) 0.25 0.25 mg subcut TH 01/14/25 5 History mg/0.5 mL subcutaneous pen injector lamotrigine 150 mg tablet 150 mg PO DAILY #90 tabs 02/20/25 Unknown Rx lisdexamfetamine 20 mg capsule 20 mg PO QAM 30 days #30 caps 01/24 Unknown Rx venlafaxine 150 mg 150 mg PO DAILY #90 caps 02/20/25 Unknown Rx capsule,extended release 24 hr lidocaine 5 % topical patch 1 patch topical QDAY #15 ea Unknown Rx methocarbamol 500 mg tablet 500 mg PO TID PRN pain/spasms #60 02/28/25 Unknown Rx tabs meclizine 25 mg tablet 25 mg PO 4X/DAY PRN PRN Dizziness 04/08/25 Unknown Rx #20 tabs Allergy/AdvReac Type Severity Reaction Status Date / Time Latex, Natural Rubber Allergy Intermediate skin Verified 04/08/25 17:03 irritation Family History Aunt Breast cancer Cancer ovarian Grandmother Diabetes Thyroid disorder Uncle Diabetes Father Diabetes Mother Thyroid disorder Depression Surgical History History of endometrial ablation History of reversal of tubal ligation Hx of tubal ligation Hx of foot surgery History of hip surgery Social History Smoking Status: Current every day smoker tobacco type: cigarettes Tobacco: How many years used: 10 alcohol intake: never substance use type: does not use caffeine: Yes what type of physical activity do you participate in: none seatbelt use: always do you feel safe at home: Yes additional social history: Single ROS ROS ED Constitutional Constitutional ED: Reports chills; Denies fever(s) Eyes Eyes: Denies blurry vision or change in vision ENT ENT ED: Reports rhinorrhea; Denies sore throat Cardiovascular Cardiovascular: Denies chest pain or palpitations Respiratory/Chest Respiratory/Chest: Denies cough or dyspnea Gastrointestinal Gastrointestinal: Reports nausea; Denies vomiting Genitourinary Genitourinary ED: Denies dysuria or hematuria Musculoskeletal Musculoskeletal: Reports back pain and neck pain Integumentary Denies abscess or rash Neurologic Neurologic: Reports headache(s); Denies weakness Allergic/Immunologic Allergic/Immunologic ED: Denies mouth swelling or urticaria EXAM Physical Exam Const Vital Signs: 04/08/25 17:04 04/08/25 20:25 04/08/25 21:00 Temperature 96.8 F L Temperature Source Temporal Pulse Rate 95 66 Pulse Rate [Lying] 65 Pulse Rate [Sitting (for 1 minute prior to obtaini (more content not included)... Normal [facility] Urinalysis, Completeon 04-08 EPI,SQUAMOUS 5-10 SEEN Normal 5-10 [facility] Comment on above: Order Comment: CLEAN CATCH Performed By: #### L 400.0001 ####[facility] [address] [place], [address] RBC 0-5 SEEN Normal 0-5 [facility] Comment on above: Order Comment: CLEAN CATCH Performed By: #### L 400.0001 ####[facility] [address] [place], [address] WBC 0-5 SEEN Normal 0-5 [facility] Comment on above: Order Comment: CLEAN CATCH Performed By: #### L 400.0001 ####[facility] [address] [place], [address] BACTERIA 0 SEEN Normal None Seen [facility] Comment on above: Order Comment: CLEAN CATCH Performed By: #### L 400.0001 ####[facility] [address] [place], [address] Mucus Ql (Urine sed) 0 SEEN Normal [facility] Comment on above: Order Comment: CLEAN CATCH Performed By: #### L 400.0001 ####[facility] [address] [place], [address] Cerv Spine 4 or 5 Viewson Cerv Spine 4 or 5 Views [facility] [address] [place] [address] Cerv Spine 4 or 5 Views MR#: [id number] Acct: [id number] Name: SIA CONTRERAS ELSA Rep #: [id number] : 1980 F 44 From: Suleman auguste MD PCP: Vladimir Davila [facility] [employer] Status: DEP AMB Study: Cerv Spine 4 or 5 Views Date of Exam: 02/28/25 Exam# [id number] Ordering Dr: Saadia Morales PROCEDURE: CERV SPINE 4 OR 5 VIEWS 02/28/2025 REASON FOR EXAM: PAIN TECHNIQUE: 4 views of the cervical spine. COMPARISON: 07/11/2023 FINDINGS: Straightening of the cervical lordosis. Vertebral body heights and disc spaces are within normal limits. Atlantoaxial interval is maintained. No significant malalignment on the flexion and extension images. No significant spondylotic changes. Precervical soft tissue planes are maintained. Imaged lung del rio are clear. RAD/Cerv Spine 4 or 5 Views IMPRESSION: No acute findings. Reading Location: [facility] CC: CONNIE Cheng; Vladimir Mela [employer] Incident Response Specialist: Signed Normal [facility] Orthopedic Visit Reporton Orthopedic Visit Report [facility] [address] [place] [address] OFFICE VISIT Date of Service: 02/28/25 MR#: [id number] Acct: [id number] Name: SIA CONTRERAS ELSA Rep #: [id number] : 1980 Provider: CONNIE Cheng Age/Sex: 44/F [place] [facility] Status: Signed Intake Vital Signs 02/20/25 06:59 02/28/25 15:20 Height 5 ft 9 in 5 ft 9 in Weight: 290 lb 284 lb BMI 42.8 41.9 BP 143/81 H Blood Pressure Location Lt brachial Position Sitting Respiration 16 Pulse 88 Pulse Source Monitor Intake Visit Reasons: CERVICAL SPINE Chief Complaint: Cervical spine pain Accompanied by: Self Is patient in pain?: Yes Pain scale (1-10): 4 Allergies Latex, Natural Rubber Allergy (Intermediate, Verified 02/28/25 15:22) skin irritation Medications ???Medication ???Instructions ???Recorded ???Confirmed ???Type albuterol sulfate 90 mcg/actuation 2 puff inhalation Q4H PRN PRN 02/28/25 Rx aerosol inhaler Wheezing, shortness of breath #8.5 grams mecobalamin (vitamin B12) 1,000 1,000 mcg PO QDAY 12/14/24 5 History mcg chewable tablet ergocalciferol (vitamin D2) 25,000 25,000 unit PO MO 01/14/2502/28 History unit capsule semaglutide (weight loss) 0.25 0.25 mg subcut TH 01/14/25 5 History mg/0.5 mL subcutaneous pen injector lamotrigine 150 mg tablet 150 mg PO DAILY #90 tabs 02/20/25 02/28/25 Rx lisdexamfetamine 20 mg capsule 20 mg PO QAM 30 days #30 caps 01/2402/28/25 Rx lisdexamfetamine 20 mg capsule 20 mg PO QAM 30 days #30 caps 0402/28/25 Rx venlafaxine 150 mg 150 mg PO DAILY #90 caps 02/20/25 02/28/25 Rx capsule,extended release 24 hr lidocaine 5 % topical patch 1 patch topical QDAY #15 ea 02/28/25 Rx methocarbamol 500 mg tablet 500 mg PO TID PRN pain/spasms #60 02/28/25 02/28/25 Rx tabs Have you fallen in the past year?: No PFSH Medical History Arthrosis of right acromioclavicular joint Diabetes Arthritis Low iron History of diverticulitis Gastric reflux Hypertension Leg cramps Right rotator cuff tear PTSD (post-traumatic stress disorder) Major depression TED (generalized anxiety disorder) Sprain of left little finger Strain of right knee Vitamin deficiency Major depression Insomnia Acute gastroenteritis Dyspnea Anxiety Migraine headache Shortness of breath on exertion History of stress test History of gestational diabetes GI problem Seasonal allergies ADHD Depression Surgical History History of endometrial ablation History of reversal of tubal ligation Hx of tubal ligation Hx of foot surgery History of hip surgery Family History Aunt Breast cancer Cancer ovarian Grandmother Diabetes Thyroid disorder Uncle Diabetes Father Diabetes Mother Thyroid disorder Depression Social History Smoking Status: Current every day smoker (Patient smoked today.) tobacco type: cigarettes Tobacco: How many years used: 10 alcohol intake: never substance use type: does not use caffeine: Yes what type of physical activity do you participate in: none seatbelt use: always do you feel safe at home: Yes additional social history: Single HPI CERVICAL SPINE Details: This documentation accurately reflects the service provided and the decisions made by me, CONNIE Cheng 02/28/25 1520. Part of today???s visit was documented by Ana Bragg MA, acting as scribe. SIA CONTRERAS is a 44 year old F here today for cervical spine pain. Patient is having pain in the back of the neck. The pain in the neck is always sore and burning to the right of the neck. This has been going on for 3 years. Worsening over the last 6 months. Patient states that she woke up with the pain one day. The pain has been gradually getting worse over time. Patient denies any surgeries in the neck. When touching the back of the neck it makes the pain worse. Patient says it feels like there is a trigger point on the right side of her neck which when touches very tender and exacerbates her symptoms. The patient is also being seen by Dr. Raymond for right sided shoulder issues. Daily activities at work, or doing chores around the house makes the pain worse. Patient has been going to the chiropractor, and it didn't help. Patient denies any injections in the neck. She hasn't done any physical therapy for the neck. No diabetes. No blood thinners, no heart or lung issues. Patient does smoke a pack a day of cigarettes, but doesn't do any drugs. Patient will only (more content not included)... Normal [facility] Orthopedic Visit Reporton Orthopedic Visit Report [facility] [address] [place] [id number] OFFICE VISIT Date of Service: 02/22/25 MR#: [id number] Acct: [id number] Name: SIA CONTRERAS Rep #: [id number] : 1980 Provider: Dr. Shaun allison MD Age/Sex: 44/F [place] [facility] Status: Signed with Addenda ADDENDUM by Caitlin Garcia on 02/22/25 at 1530 Office Procedure Documentation entered by Caitlin Garcia 02/22/25 15:30: Ortho Injections Injections Yes Subacromial Injection Right Is this a patient provided medication?: No Details: Obtained consent for injection. Under sterile conditions, injected the patients right subacromial with 2cc kenalog 4cc bupivacaine. The patient tolerated the injection well without any noted complication. Patient should call our office if redness develops, pain worsens or if they have any concerns. Office Meds Kenalog 40 mg/mL suspension for injection Performing Provider: Shaun Raymond MD Performing Location: [facility] Administered by: Shaun Raymond MD on 02/22/25 15:28 Dose Route Admin Location Dispensed Lot Number Expiration Date NDC Man ufacturer 80 mg intra-articular right subacromial 2 mL [id number] 02/21/26 3594-4785-2 [id number] [facility] Date cc: * Signed Intake Vital Signs 01/09/25 10:32 01/22/25 11:36 02/20/25 06:59 Height 5 ft 9 in 5 ft 9 in 5 ft 9 in Weight: 290 lb BMI 42.8 BP 143/81 H Blood Pressure Location Lt brachial Position Sitting Respiration 16 Pulse 88 Pulse Source Monitor Intake Visit Reasons: RIGHT SHOULDER Allergies Latex, Natural Rubber Allergy (Intermediate, Verified 02/22/25 14:50) skin irritation Medications ???Medication ???Instructions ???Recorded ???Confirmed ???Type albuterol sulfate 90 mcg/actuation 2 puff inhalation Q4H PRN PRN 02/22/25 Rx aerosol inhaler Wheezing, shortness of breath #8.5 grams mecobalamin (vitamin B12) 1,000 1,000 mcg PO QDAY 12/14/24 5 History mcg chewable tablet ergocalciferol (vitamin D2) 25,000 25,000 unit PO MO 01/14/2502/22 History unit capsule semaglutide (weight loss) 0.25 0.25 mg subcut TH 01/14/25 5 History mg/0.5 mL subcutaneous pen injector lamotrigine 150 mg tablet 150 mg PO DAILY #90 tabs 02/20/25 02/22/25 Rx lisdexamfetamine 20 mg capsule 20 mg PO QAM 30 days #30 caps 01/2402/22/25 Rx lisdexamfetamine 20 mg capsule 20 mg PO QAM 30 days #30 caps 01/24 002/22/25 Rx venlafaxine 150 mg 150 mg PO DAILY #90 caps 02/20/25 02/22/25 Rx capsule,extended release 24 hr PFSH Medical History Arthrosis of right acromioclavicular joint Diabetes Arthritis Low iron History of diverticulitis Gastric reflux Hypertension Leg cramps Right rotator cuff tear PTSD (post-traumatic stress disorder) Major depression TED (generalized anxiety disorder) Sprain of left little finger Strain of right knee Vitamin deficiency Major depression Insomnia Acute gastroenteritis Dyspnea Anxiety Migraine headache Shortness of breath on exertion History of stress test History of gestational diabetes GI problem Seasonal allergies ADHD Depression Surgical History History of endometrial ablation History of reversal of tubal ligation Hx of tubal ligation Hx of foot surgery History of hip surgery Family History Aunt Breast cancer Cancer ovarian Grandmother Diabetes Thyroid disorder Uncle Diabetes Father Diabetes Mother Thyroid disorder Depression Social History Smoking Status: Current every day smoker (Patient smoked today.) tobacco type: cigarettes Tobacco: How many years used: 10 alcohol intake: never substance use type: does not use caffeine: Yes what type of physical activity do you participate in: none seatbelt use: always do you feel safe at home: Yes additional social history: Single HPI RIGHT SHOULDER Details: This documentation accurately reflects the service provided and the decisions made by me, Dr. Shaun Raymond MD 02/22/25 3469. Part of today???s visit was documented by [ ], acting as scribe. SIA CONTRERAS is a 44 year old F here today for follow-up right shoulder pain, small partial- thickness supraspinatus tendon tear and mild AC joint arthrosis. Had booked surgery last visit, desiring cortisone injection now. Patient had to continue on with work and had to delay her surgery. The cortisone injection is effective and the patient wishes to go ahead with another 1 today. Coding Level (more content not included)... Normal [facility] MR/BMS.BPon 02-20-2025 MR/BMS.BP [address], [address] [place] [address] OFFICE VISIT Date of Service: 02/20/25 MR#: [id number] Acct: [id number] Name: SIA CONTRERAS ELSA Rep #: [id number] : 1980 Provider: Dr. Manjit Hernandez se, DO Age/Sex: 44/F [place] [facility] Status: Signed Intake Vital Signs 11/22/24 14:34 01/22/25 11:36 02/20/25 06:59 02/20/25 06:59 Height 5 ft 9 in 5 ft 9 in 5 ft 9 in Weight: 290 lb BMI 42.8 BP 143/81 H Blood Pressure Location Lt brachial Position Sitting Respiration 16 Pulse 88 Pulse Source Monitor BP Intake Visit Reasons: 3fu Allergies Latex, Natural Rubber Allergy (Intermediate, Verified 02/20/25 07:03) skin irritation Medications ???Medication ???Instructions ???Recorded ???Confirmed ???Type albuterol sulfate 90 mcg/actuation 2 puff inhalation Q4H PRN PRN 02/20/25 Rx aerosol inhaler Wheezing, shortness of breath #8.5 grams mecobalamin (vitamin B12) 1,000 1,000 mcg PO QDAY 12/14/24 5 History mcg chewable tablet ergocalciferol (vitamin D2) 25,000 25,000 unit PO MO 01/14/2502/20 History unit capsule semaglutide (weight loss) 0.25 0.25 mg subcut TH 01/14/25 5 History mg/0.5 mL subcutaneous pen injector lamotrigine 150 mg tablet 150 mg PO DAILY #90 tabs 02/20/25 02/20/25 Rx lisdexamfetamine 20 mg capsule 20 mg PO QAM 30 days #30 caps 01/2402/20/25 Rx lisdexamfetamine 20 mg capsule 20 mg PO QAM 30 days #30 caps 01/2402/20/25 Rx venlafaxine 150 mg 150 mg PO DAILY #90 caps 02/20/25 02/20/25 Rx capsule,extended release 24 hr PFSH Medical History Diabetes Arthritis Low iron History of diverticulitis Gastric reflux Hypertension Leg cramps Right rotator cuff tear PTSD (post-traumatic stress disorder) Major depression TED (generalized anxiety disorder) Sprain of left little finger Strain of right knee Vitamin deficiency Major depression Insomnia Acute gastroenteritis Dyspnea Anxiety Migraine headache Shortness of breath on exertion History of stress test History of gestational diabetes GI problem Seasonal allergies ADHD Depression Surgical History (Updated 01/22/25 @ 13:[address] Stella Gregory MD) History of endometrial ablation History of reversal of tubal ligation Hx of tubal ligation Hx of foot surgery History of hip surgery Family History Aunt Breast cancer Cancer ovarian Grandmother Diabetes Thyroid disorder Uncle Diabetes Father Diabetes Mother Thyroid disorder Depression Social History Smoking Status: Current every day smoker (Patient smoked today.) tobacco type: cigarettes Tobacco: How many years used: 10 alcohol intake: never substance use type: does not use caffeine: Yes what type of physical activity do you participate in: none seatbelt use: always do you feel safe at home: Yes additional social history: Single HPI History of Present Illness History provided by: patient HPI: Sia Contreras is a 44 year old female who presents today for follow up evaluation. Patient admits that she came to appointment this morning and forgot to tell work. Has been taking the Vyvanse, but continues to have difficulty making careless mistakes. Mood has been enrique. Feels like overall she has been doing largely well in this regard. Sleep has been doing largely well. Denies SI/HI or AVH. Blood pressure was mildly elevated in recent past. Has lost nearly 40 lbs since September. Review of Systems Constitutional Denies: fever(s), chills, change in weight or fatigue Eyes Denies: change in vision or blurry vision Ears, Nose, Mouth, Throat Denies: throat pain, neck pain or change in hearing Cardiovascular Denies: chest pain, palpitations or dyspnea Respiratory Denies: dyspnea, cough or wheezing Gastrointestinal Denies: abdominal pain, nausea, vomiting, diarrhea or constipation Genitourinary Denies: dysuria or urinary frequency Musculoskeletal Reports: joint pain; Denies: back pain, neck pain or muscle weakness Integumentary/Breast Denies: rash or new lesions Neurological Reports: headache(s); Denies: dizziness or confusion Endocrine Denies: fatigue or excessive sweating Hematologic/Lymphatic Denies: easy bruising or easy bleeding Allergic/Immunologic Denies: wheezing Exam Mental Status Exam - Psych Appearance casually dressed and no apparent distress Attitude cooperative and calm Activity/Motor Behavior MSE activity/motor behavior finding no adventitious movements Speech regular rate, regular volume and regular prosody Mood euythmic Affect congruent Th (more content not included)... Normal [facility] Discharge Instructionon Discharge Instruction [facility] Medical Records Department [address] [place] [address] Instructions for Home/Discharge Instructions 01/22/25 1309 MR#: [id number] Acct: [id number] Name: ANTONIARICA DESIRChema HUNTER Rep #: [id number] : 1980 44 From: Stella Gregory MD PCP: Vladimir Davila [facility] MINING MACHINERY ASSEMBLER-C Status:REG SDC Discharge Instructions Diet Discharge Diet: No restrictions DC O2, CPAP, BIPAP needs Home O2 Discharge instructions: No Dressing / Incision Discharge Activity: Return to Normal Activity, May Shower and May Take a Tub Bath (after 1 week) May resume sexual activity in: 1-2 weeks Weight Bearing Status: Weight bearing as tolerated Lifting Restrictions: none Dressing / Incision Call your doctor if you observe: Fever of 101 or Higher, Using more than 1 pad per hour, Shortness of breath and Uncontrolled pain Follow Up Care Please Follow Up With: Stella Gregory MD When: Call [phone] to schedule appointment. Test Results: Test results from this visit will be discussed in further detail at your follow-up appointment, if applicable. Discharge Plan Admission Attending Provider: Stella Gregory Primary Care Provider: Vladimir Davila Instructions Print Language: Albanian Discharge Orders/Prescriptions Prescriptions: No Action venlafaxine 150 mg capsule,extended release 24hr 150 mg PO DAILY Qty: 90 3RF Rx Instructions: To be taken with 75 mg capsules for total daily dose of 225 mg lamotrigine 150 mg tablet 150 mg PO DAILY Qty: 90 1RF lisinopril 10 mg tablet 10 mg PO QDAY mecobalamin (vitamin B12) 1,000 mcg tablet,chewable 1,000 mcg PO QDAY ergocalciferol (vitamin D2) 25,000 unit capsule 25,000 unit PO MO semaglutide (weight loss) 0.25 mg/0.5 mL pen injector 0.25 mg subcut TH albuterol sulfate 90 mcg/actuation HFA aerosol inhaler 2 puff INHALATION Q4H PRN PRN (Reason: Wheezing, shortness of breath) Qty: 8.5 1RF lisdexamfetamine [Vyvanse] 10 mg capsule 10 mg PO QAM 30 Days Qty: 30 0RF Referrals / Follow Up: Colby Donovan, MINING MACHINERY ASSEMBLER-C [facility] - Disposition Disposition (needs filled in before D/C Order can be placed): Home, Self Care 01/22/25 1309 Stella Gregory MD CC: Vladimir REYNOSO MINING MACHINERY ASSEMBLER-C Giovanni Signed Normal [facility] MR/POSTOP.Abhishek 01-22-2025 MR/POSTOP.[facility] Medical Records Department [address] [place] [address] Anesthesia Postop Eval I 01/22/25 1317 MR#: [id number] Acct: [id number] Name: SIA CONTRERAS ELSA Rep #: [id number] : 1980 44 From: Eli Roberto PCP: Vladimir Davila MINING MACHINERY ASSEMBLER-C Status:REG SDC Y Race: C Location: [place] [address] Anesthesia: Postop Eval I Current Vital Signs Temperature: 97.9 F Pulse Rate: 88 Blood Pressure: 124/77 Respiratory Rate: 16 Pulse Ox: 98 Oxygen Delivery Method: Room Air Assessment Airway patent: Yes Spontaneous unlabored respirations: Yes Mental status: Awake and Calm nausea: No Vomiting: No Anesthesia Complication: No Fluid Hydration Crystalloid volume administer (ml): 30 Total IV fluid infused: 30 Progress Note Anesthesia document: Postop Eval 1 completed: Yes 01/22/25 1318 Date Eli Chacon Signature: Date CC: Signed Normal [facility] MR/[id number] 01-22-2025 [facility] Medical Records Department [address] [place] [address] Anesthesia Postop Eval II 01/22/25 1345 MR#: [id number] Acct: [id number] Name: RICA CONTRERASChema HUNTER Rep #: [id number] : 1980 44 From: Eli Roberto PCP: Vladimir Davila [facility] MINING MACHINERY ASSEMBLER-C Status:REG SDC Y Race: C Location: [place] [address] Anesthesia Postop Eval I Sum Postop Eval Completion status Anesthesia document: Postop Eval 1 completed: Yes Anesthesia Postop Eval I Summary Anesthesia Postop Eval I Summary: Anesthesia Postop Eval I: Assessment Summary Airway patent Yes 01/22/25 13:18 HAY [email or web address] Spontaneous unlabored Yes 01/22/25 13:18 HAY STACKER.GDOTT respirations Mental status Awake,Calm 01/22/25 13:18 HAY STACKER.GDOTT nausea No 01/22/25 13:18 HAY STACKER.GDOTT Vomiting No 01/22/25 13:18 HAY STACKER.GDOTT Anesthesia Postop Eval I: Fluid Summary Crystalloid volume administer 30 01/22/25 13:18 HAY STACKER.GDOTT (ml) Colloids volume administered ( ml) Blood Product volume administered (ml) Total IV fluid infused 30 01/22/25 13:18 HAY STACKER.GDOTT Anesthesia Postop Eval I: Summary Notes Anesthesia Complication No 01/22/25 13:18 HAY STACKER.GDOTT Anesthesia Complication Comment: Post-operative progress note Anesthesia: Postop Eval II Evaluation Mental status: Awake and Calm Pain Level: 0 nausea: No Vomiting: No Complications Anesthesia Complication: No 01/22/25 1346 Date Eli Gutierrezigner Signature: Date CC: Signed Normal [facility] Operative Reporton 5 Operative Report [facility] Medical Records Department [address] [place] [address] Operative Report 01/22/25 1303 MR#: [id number] Acct: [id number] Name: SIA CONTRERAS ELSA Rep #: [id number] : 1980 44 From: Stella Gregory MD PCP: Vladimir Davila Mela MINING MACHINERY ASSEMBLER-C Status:[facility] Location: [place] [address] Problems Associated Problem List Diagnoses (1) Abnormal uterine bleeding (AUB): (2) History of endometrial ablation: Multi Select Codes Urinary/Genital Urinary/Genital CPT Codes: 64618 Melvi/Novasure Operative Report (Standard) Operative Information Date of Procedure: 01/22/25 Pre-Operative Diagnosis: see problem list Post-Operative Diagnosis: same Surgery/Procedure Performed: d and c hysteroscopy melvi ablation auto specialty services manager: No Type of Anesthesia: IV Sedation RN Documented Start/Stop Times: Operation Date: 01/22/25 13:15 Case Time Into Pre-Op 01/22/25 11:11 Out of Pre-Op 01/22/25 12:31 Anesthesia Start 01/22/25 12:34 Into Room 01/22/25 12:34 Procedure Start 01/22/25 12:51 Procedure End 01/22/25 13:02 Procedure Start Time: 12:51 Procedure Stop Time: 13:02 Select all DRAINS/GRAFTS/IMPLANTS that apply: None (bladder drained at beginning of procedure) Estimated Blood Loss: 25 Specimen collected: Yes Description of specimen(s) removed: endometrial curretings Description of surgery: Patient was prepped and draped in a normal sterile fashion under MAC anesthesia. A weighted speculum was placed in the vagina and the anterior lip of the cervix was grasped with a single-tooth tenaculum. cervix was progressively dilated to allow passage of a 7 mm hysteroscope. The lining was fully visualized and noted to have no polyps or abnormalities. Uterus sounded to 8 cm. Curettage was performed and tissue was sent to pathology. The Melvi device was opened and the cavity length was found to be 4.5 cm. Device was inserted into the uterus and balloon inflated and device deployed. Integrity of the cavity was confirmed and a 2 minute treatment cycle was completed without complication. All instruments were removed from the vagina and excellent hemostasis was noted. Patient was awoken and taken to recovery in stable condition. Surgical Findings: nl uterine cavity Complications Complications: No 01/22/25 1308 Cosigner Signature (if applicable): CC: Dr. Stella Gregory MD; [facility] SAW-C Beam Signed Normal [facility] ,Urineon 01-22-2025 Beta HCG ( test) Ql (U) Negative Normal [facility] Comment on above: Result Comment: Very dilute urine specimens, as indicated by a low specific gravity, may not contain rental sales representative levels of hCG. If is still suspected, a first morning urine specimen should be collected 48 hours later and tested. Performed By: #### L 400.7600 #### [facility] Laboratory [facility] [address] [place], [place], [address] Surgery Specimen Level Muriel 01-22-2025 Surgery Specimen Level IV Patient Age/Sex Location Account Attending Physician SIA CONTRERAS ELSA 44/F [facility] [id number] Dr. Stella Gregory MD Specimen: [id number] Received: 01/22/25 Status: YUNIOR Stacy Num: [id number] Spec Type: ENDOM BX/C Marilyn Dr: Dr. Stella Gregory MD HEADER OPERATION: Hysteroscopy, D C PRE-OP DIAGNOSIS: Abnormal uterine bleeding TISSUE SUBMITTED: A- Endometrial curettings MICROSCOPIC DIAGNOSIS A. Endometrium, Dilation and Curettage: * Secretory endometrium. * Endocervical tissue with squamous metaplasia and mild acute inflammation. MICROSCOPIC DESCRIPTION Slides are reviewed. GROSS DESCRIPTION A. Received in formalin in a container labeled with the patient's name, date of , and endometrial curettings are multiple red-ruggiero fragments of soft tissue admixed with blood and mucus measuring 2.3 x 2.0 x 0.8 cm in aggregate. Submitted in toto in A1-2. [facility] 01-22-2025 CPT:87113 Patient Age/Sex Location Account Attending Physician SIA CONTRERAS 44/[facility] [id number] Dr. Stella Gregory MD Signed (signature on file) Dr. Abbie Henderson MD 01/25/25 1630 Normal [facility] Comment on above: Performed By: #### P DAHIANA ####[facility] [address], [address] CBC-Complete Blood Cnt No Di ffon 01-19-2025 Erythrocyte distribution width (RBC) [Ratio] 15.5 % High 11.6-14.6 [facility] Comment on above: Performed By: #### B TSPAT, L400.7600, L100.0500 ####[facility] [address] [place], [address] Hematocrit (Bld) [Volume fraction] 40.2 % Normal 37-47 [facility] Comment on above: Performed By: #### B TSPAT, L400.7600, L100.0500 ####[facility] [address] [place], [address] Hemoglobin (Bld) [Mass/Vol] 13.4 g/dL Normal 12.0-15.0 [facility] Comment on above: Performed By: #### B TSPAT, L400.7600, L100.0500 ####[facility] [address] [place], [address] MCH (RBC) [Entitic mass] 28.4 pg Normal 27.0-32.0 [facility] Comment on above: Performed By: #### B TSPAT, L400.7600, L100.0500 ####[facility] [address] [place], [address] MCHC (RBC) [Mass/Vol] 33.3 g/dL Normal 32-36 [facility] Comment on above: Performed By: #### B TSPAT, L400.7600, L100.0500 ####[facility] [address] [place], [address] MCV (RBC) [Entitic vol] 85.2 fL Normal 81-99 [facility] Comment on above: Performed By: #### B TSPAT, L400.7600, L100.0500 ####[facility] [address] [place], [address] Platelet mean volume (Bld) [Entitic vol] 10.0 fL Normal 6.2-12.0 [facility] Comment on above: Performed By: #### B TSPAT, L400.7600, L100.0500 ####[facility] [address] [place], [address] Platelets (Bld) [#/Vol] 260 10*3/uL Normal 150-450 [facility] Comment on above: Performed By: #### B TSPAT, L400.7600, L100.0500 ####[facility] [address] [place], [address] RBC (Bld) [#/Vol] 4.72 10*6/uL Normal 4.2-5.4 [facility] Comment on above: Performed By: #### B TSPAT, L400.7600, L100.0500 ####[facility] [address] [place], [address] RDW SD 47.9 fl High 35.1-43.9 [facility] Comment on above: Performed By: #### B TSPAT, L400.7600, L100.0500 ####[facility] [address] [place], [address] WBC (Bld) [#/Vol] 8.9 10*3/uL Normal 4.4-11.0 [facility] Comment on above: Performed By: #### B TSPAT, L400.7600, L100.0500 ####[facility] [address] [place], [address] ,Urineon 01-19-2025 Beta HCG ( test) Ql (U) Negative Normal [facility] Comment on above: Result Comment: Very dilute urine specimens, as indicated by a low specific gravity, may not contain rental sales representative levels of hCG. If is still suspected, a first morning urine specimen should be collected 48 hours later and tested. Performed By: #### B TSPAT, L400.7600, L100.0500 ####[facility] [address] [place], [address] Type AND Screen - PAT ONLYon 01-19-2025 ABO and Rh group Nom (Bld) Blood group A Rh(D) positive Normal [facility] Comment on above: Order Comment: Surge ry Date: 01/22/25Reason for Laboratory Test [id number] D C ABLATION Performed By: #### B TSPAT, L400.7600, L100.0500 ####[facility] [address] [place], [place], [address] Orthopedic Visit Reporton Orthopedic Visit Report [facility] [address] [place] [address] [address] [place] [address] OFFICE VISIT Date of Service: 12/31/24 MR#: [id number] Acct: [id number] Name: SIA CONTRERAS ELSA Rep #: [id number] : 1980 Provider: Dr. Shaun allison MD Age/Sex: 44/F [place] [facility] Status: Signed Intake Vital Signs 12/14/24 09:49 Height 5 ft 9 in Intake Visit Reasons: RIGHT SHOULDER Accompanied by: Self Allergies Latex, Natural Rubber Allergy (Intermediate, Verified 12/31/24 10:22) skin irritation Medications ???Medication ???Instructions ???Recorded ???Confirmed ???Type albuterol sulfate 90 mcg/actuation 2 puff inhalation Q4H PRN PRN 12/31/24 Rx aerosol inhaler Wheezing, shortness of breath #8.5 grams lamotrigine 150 mg tablet 150 mg PO DAILY #90 tabs 11/22/24 12/31/24 Rx venlafaxine 150 mg 150 mg PO DAILY #90 caps 11/22/24 12/31/24 Rx capsule,extended release 24 hr cholecalciferol (vitamin D3) 25 25 mcg PO QDAY 12/14/24 12/31/24 H istory mcg (1,000 unit) capsule lisinopril 10 mg tablet 10 mg PO QDAY 12/14/24 12/31/24 Hi story mecobalamin (vitamin B12) 1,000 1,000 mcg PO QDAY 12/14/24 5 History mcg chewable tablet lisdexamfetamine 10 mg capsule 10 mg PO QAM 30 days #30 caps 05/1712/31/24 Rx (Vyvanse) [facility] Medical History (Updated 12/31/24 @ 08:14 by Shaun Raymond MD) Right rotator cuff tear PTSD (post-traumatic stress disorder) Major depression TED (generalized anxiety disorder) Sprain of left little finger Strain of right knee Vitamin deficiency Major depression Insomnia Acute gastroenteritis Dyspnea Anxiety Migraine headache Former smoker Sleep apnea Shortness of breath on exertion History of stress test History of gestational diabetes GI problem Seasonal allergies ADHD Depression Surgical History History of reversal of tubal ligation Hx of tubal ligation Hx of foot surgery History of foot surgery History of hip surgery Family History Aunt Breast cancer Cancer ovarian Grandmother Diabetes Thyroid disorder Uncle Diabetes Father Diabetes Mother Thyroid disorder Depression Social History Smoking Status: Former smoker quit date: 10/24/15 Tobacco: How many years used: 10 alcohol intake: never substance use type: does not use caffeine: Yes what type of physical activity do you participate in: none seatbelt use: always do you feel safe at home: Yes additional social history: Single HPI RIGHT SHOULDER Details: This documentation accurately reflects the service provided and the decisions made by me, Dr. Shaun Raymond MD 12/31/24 0813. Part of today???s visit was documented by [ ], acting as scribe. SIA CONTRERAS is a 44 year old F here today for FU R shoulder MRI. 3 months following up from a cortisone injection as well. Patient has done now 2 rounds of physical therapy and cortisone injection which helped initially but has worn off. The patient has been having shoulder pain for 2 years is interested in the surgical option the pain is laterally about the shoulder. Supplemental Info [facility] Imaging Services [address] [place] [address] Upper Ext Joint Only(Routine) MR#: [id number] Acct: [id number] Name: SIA CONTRERAS Rep #: [id number] : 1980 F 43 From: Andreas Vazquez DO PCP: HAILE Borges Status: REG CLI Study: Upper Ext Joint Only(Routine) Date of Exam: 12/22/24 Exam# [id number] Ordering Dr: Shaun Raymond MD PROCEDURE: MRI right shoulder without IV contrast REASON FOR EXAM: Pain TECHNIQUE: Multisequence multiplanar MR images of the right shoulder were obtained without the administration of intravenous contrast. COMPARISON: None. FINDINGS Mild/moderate supraspinatus and infraspinatus tendinopathy. Less than 50% partial-thickness articular tear at the insertion of the posterior supraspinatus tendon measuring up to 5 mm in width. Subscapularis and teres minor tendons are intact. No significant rotator cuff muscle atrophy. Intact long head biceps tendon. Glenohumeral alignment is preserved. No focal chondral defects or joint effusion. No displaced labral tear or paralabral cysts. Mild acromioclavicular joint osteoarthritis including mild capsular hypertrophy and tiny marginal osteophytes. No significant lateral acromial downsloping. Negative for fracture or marrow replacement. Small amount of fluid in the s (more content not included)... Normal [facility] Re-Evaluation - PT (1)on Re-Evaluation - PT (1) [facility] Physical Therapy [facility] [address] [place] [address] [address] [place] [address] / REEVALUATION / MEDICARE RECERTIFICATION PHYSICAL THERAPY MR#: [id number] Acct: [id number] Name: SIA CONTRERAS Rep #: [id number] : 1980 43 From: Keo Ramirez DPT, OCS, CSCS Referring Dr.: Dr. Shaun Raymond MD Status:REG RCR Insurance: [facility] [employer] PA[employer] INSURANCE Re-Evaluation Intro: Dr. Shaun Raymond MD, It has been my pleasure to treat SIA CONTRERAS over the last 7 visits for r shoulder pain. Please see the progress note below for an update on the physical therapy plan of care! Subjective Subjective: Better overall but it still hurts. neck pain much better. Shoulder still hurts. MRI was done. shoulder degen and tears. Stahl cheudle with ortho. Activitiy at home is avoiding vacuuming with R. Slep is interrupted due to shoulder. 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 Objective Objective/Function: Full AROM R UE but painful end range elevation, er, and IR. strength is painful in empty can and flexion as well as ext rotation. Weak in Er 3+ vs 4 on L. flexion/abd are 4-R adn 4 L. painful. Neck ROM is excellent and painfree today. Plan Plan Plan: based on MRI results and lack of improvement in shoulder(although neck adn upper half feeling 75% better), pt will f/u with doctor to see options while continuing her home shoulder strength adn ROM. Will contact me after doctor visit if needs to return for more shoulder modalities including US and CFM and mobs and progressive RC/scap strength. Balance/Gait/Functional tests Balance/Special Test Scores Quick DASH Score: 43.1800 Goals Goals Goal 1:: I appropriate neck and Rc and scap strength to HEP to manage and consider general wellness program once shoulder improved. Goal Time Frame: 4-6 Weeks Goal Progress: Goal Met Goal 2:: Pain in shoulder 99% better adn 1/10 at worst Goal Time Frame: 4-6 Weeks Goal Progress: 75% above shoulder Goal 3:: fasten bra consistently without pain Goal Time Frame: 4-6 Weeks Goal Progress: Not Progressing Goal 4:: quick dash 14 or less Goal Time Frame: 4-6 Weeks Goal Progress: Not Progressing Anticipated Interventions Anticipated Interventions Patient/Client Instruction: Educate patient on: Condition and Plan of Care For the Purpose of:: To decrease pain, To increase ROM, To improve nutrient delivery to tissue, To improve muscle performance and motor function and To increase tolerance to activity/condition/positi on Therapeutic Exercise to Include: Strength training, Flexibilty training, Passive ROM and Active ROM For the Purpose of:: To decrease pain, To increase ROM, To improve nutrient delivery to tissue, To improve muscle performance and motor function and To increase tolerance to activity/condition/positi on Manual Therapy Techniques to Include: Mobilization, Passive ROM and Soft tissue mobilization For the Purpose of:: To decrease pain, To increase ROM and To improve nutrient delivery to tissue TENS: Yes Thermo therapy (hot pack): Yes For the Purpose of:: To decrease pain Re-Evaluation Ending Re-evaluation ending: Please do not hesitate to contact me at [phone] by phone or if you have questions or concerns regarding this new plan of care! Sincerely, JIM CaT, OCS, CSCS 12/27/24 1254 CC: MINING MACHINERY ASSEMBLER-C Colby Donovan; Dr. Shaun Raymond MD EBG Signed For Medicare only, by signing this I certify the plan of care. ___ Physicians Signature Date Normal [facility] Upper Ext Joint Only(Routine )on 12-22-2024 Upper Ext Joint Only(Routine) [facility] Imaging Services [address] [place] [address] Upper Ext Joint Only(Routine) MR#: [id number] Acct: [id number] Name: SIA CONTRERAS Rep #: [id number] : 1980 F 43 From: Andreas Chaudhary PCP: HAILE Borges Status: REG CLI Study: Upper Ext Joint Only(Routine) Date of Exam: 0 12/22/24 Exam# [id number] Ordering Dr: Shaun Raymond MD PROCEDURE: MRI right shoulder without IV contrast REASON FOR EXAM: Pain TECHNIQUE: Multisequence multiplanar MR images of the right shoulder were obtained without the administration of intravenous contrast. COMPARISON: None. FINDINGS Mild/moderate supraspinatus and infraspinatus tendinopathy. Less than 50% partial-thickness articular tear at the insertion of the posterior supraspinatus tendon measuring up to 5 mm in width. Subscapularis and teres minor tendons are intact. No significant rotator cuff muscle atrophy. Intact long head biceps tendon. Glenohumeral alignment is preserved. No focal chondral defects or joint effusion. No displaced labral tear or paralabral cysts. Mild acromioclavicular joint osteoarthritis including mild capsular hypertrophy and tiny marginal osteophytes. No significant lateral acromial downsloping. Negative for fracture or marrow replacement. Small amount of fluid in the subacromial/subdeltoid bursa. MRI/Upper Ext Joint Only(Routine) IMPRESSION: 1. Mild/moderate supraspinatus and infraspinatus tendinopathy. Tiny superimposed partial-thickness partial width tear of the supraspinatus tendon as above. 2. Mild acromioclavicular joint osteoarthritis. 3. Small amount of fluid in the subacromial/subdeltoid bursa. Reading Location: [facility] CC: MINING MACHINERY ASSEMBLER-C Colby Donovan; Dr. 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 REASON FOR EXAM: Abdominal pain for 6-7 weeks under ribs TECHNIQUE: After the administration of 99 cc Isovue 370 IV contrast, contiguous axial CT images were obtained through the abdomen/pelvis. Sagittal and coronal reformats were created. COMPARISON: 05/16/2024 FINDINGS: Minimal degenerative changes in the spine. Bones of the abdomen/pelvis otherwise intact. Proximal femurs intact. Mild degenerative changes in the hip joints. No large abdominal wall defect. Heart is not enlarged. No sizable pericardial effusion. Mild coronary artery calcifications. Lower ribs intact. Lower lungs clear. Abdominal aorta normal in caliber. No abdominal/pelvic adenopathy or ascites. No focal abnormality of the urinary bladder. The uterus is present. No gross adnexal lesion. Patchy wall thickening of the stomach may be due to lack of distention versus peristalsis. No calcified gallstones. The gallbladder is mildly dilated at 5.2 cm transverse. No pericholecystic inflammatory changes or radiopaque gallstones. No abnormal dilation of the biliary tree. Portal vein is patent. The liver, adrenal glands, spleen, and pancreas show no specific abnormality. The kidneys are symmetric in size and enhancement. No solid renal mass or obstructive uropathy. No abnormally dilated bowel segments or free intraperitoneal air. Scattered patchy wall thickening of the colon may be due to lack of distention versus peristalsis or chronic diverticular disease. No acute diverticulitis. Mild stool in the colon. Normal appendix. No abdominal/pelvic adenopathy or ascites. CT/Abdomen/Pelvis WITH Contrast IMPRESSION: No definite acute findings in the abdomen/pelvis. Colonic diverticulosis, without evidence of acute diverticulitis. No obstructive uropathy or evidence of acute appendicitis. One or more dose reduction techniques were used (e.g., Automated exposure control, adjustment of the mA and/or kV according to patient size, use of iterative reconstruction technique). Reading Location: [place] CC: HAILE Gilbert [facility] HAILE Beam Security Incident Response Specialist: Signed Normal [facility] Vp Corporate Development Office Visit Reporton 12-14-2024 Vp Corporate Development Office Visit Report [facility] [address], [address] [place] [address] OFFICE VISIT Date of Service: 12/14/24 MR#: [id number] Acct: [id number] Name: ANTONIASIA DESIR ELSA Rep #: [id number] : 1980 Provider: Dr. Stella reynaga MD Age/Sex: 43/F Location: [facility] Status: Signed Intake Vital Signs 11/28/24 09:58 12/14/24 09:41 12/14/24 09:49 Height 5 ft 9 in 5 ft 9 in 5 ft 9 in Weight: 313 lb 302 lb 4 oz BMI 46.2 44.6 BP 142/89 H 136/83 H Intake Visit Reasons: Ablation Consult Chief Complaint: Ablation consult Executive Assistant To General Counsel Required: No Is patient in pain?: No Allergies Latex, Natural Rubber Allergy (Intermediate, Verified 12/14/24 09:41) skin irritation Medications ???Medication ???Instructions ???Recorded ???Confirmed ???Type albuterol sulfate 90 mcg/actuation 2 puff inhalation Q4H PRN PRN 12/14/24 Rx aerosol inhaler Wheezing, shortness of breath #8.5 grams lamotrigine 150 mg tablet 150 mg PO DAILY #90 tabs 11/22/24 12/14/24 Rx lisdexamfetamine 10 mg capsule 10 mg PO QAM 30 days #30 caps 10/2612/14/24 Rx (Vyvanse) venlafaxine 150 mg 150 mg PO DAILY #90 caps 11/22/24 12/14/24 Rx capsule,extended release 24 hr cholecalciferol (vitamin D3) 25 25 mcg PO QDAY 12/14/24 12/14/24 H istory mcg (1,000 unit) capsule lisinopril 10 mg tablet 10 mg PO QDAY 12/14/24 12/14/24 Hi story mecobalamin (vitamin B12) 1,000 1,000 mcg PO QDAY 12/14/24 5 History mcg chewable tablet Is last menstrual period known: Yes Last Menstrual Period: 12/05/24 Post menopausal: No Patient : No : No PFSH Medical History PTSD (post-traumatic stress disorder) Major depression TED (generalized anxiety disorder) Sprain of left little finger Strain of right knee Vitamin deficiency Major depression Insomnia Acute gastroenteritis Dyspnea Anxiety Migraine headache Former smoker Sleep apnea Shortness of breath on exertion History of stress test History of gestational diabetes GI problem Seasonal allergies ADHD Depression Surgical History History of reversal of tubal ligation Hx of tubal ligation Hx of foot surgery History of foot surgery History of hip surgery Family History Aunt Breast cancer Cancer ovarian Grandmother Diabetes Thyroid disorder Uncle Diabetes Father Diabetes Mother Thyroid disorder Depression Social History Smoking Status: Former smoker quit date: 10/24/15 Tobacco: How many years used: 10 alcohol intake: never substance use type: does not use caffeine: Yes what type of physical activity do you participate in: none seatbelt use: always do you feel safe at home: Yes additional social history: Single HPI Ablation Consult Details: SIA CONTRERAS is a 43 year old who presents for heavy lasting 5 day bleeding through protection eveyr 1-2 hours. she has had a normal emb in the past. US shows diffuse fibroid change. she denies any significant crmpaing or pain. she has not tolerated ocps in the past well, [facility]. she is interested in an ablation Female Reproductive History Last Menstrual Period: 12/05/24 Menopausal Symptoms: No night sweats History 4 Elective abortions Hx Para 4 Spontaneous abortions Hx # Term Pregnancies Ectopic pregnancies Hx # Pregnancies Multiple births # of living children Past Pregnancies Del. Date Name GA/Weeks Outcome Route Bth Weight Gen Labor Lgth Anesthesia Del Locatn Provider FOB Unknown Stazia Unknown Adriana Unknown Kourtnald Unknown Garrison ROS Const Constitutional: Denies fatigue, night sweats, weight gain or weight loss ENT ENT: Reports system reviewed and no additional complaints, except as documented Cardio Card: Denies chest pain Resp Resp: Denies cough or dyspnea GI GI: Reports as per HPI; Denies abdominal pain, constipation, nausea or vomiting : Denies nipple discharge, urinary frequency, urinary incontinence, urinary hesitancy, urinary urgency, vaginal discharge, vaginal dryness, vaginal odor or vaginal pruritus Musc Musc: Denies arthralgias, back pain or muscle weakness Skin Skin/Breast: Denies alopecia, change in hair, dry skin, breast mass, breast pain, breast skin changes or nipple discharge Neuro Neuro: Reports system reviewed and no additional complaints, except as documented Psych Psych: Reports system reviewed and no additional complaints, except as documented Endo Endo: Denies cold intolerance, excessive sweating, (more content not included)... Normal [facility] PAP IG HPV APTIMA 16/18,45on 12-04-2024 ADEQ Comment Normal . [facility] Comment on above: Order Comment: Speci men Comment: [id number] Specimen Comment: Source.............Cervix;Endocervix Specimen Comment: No. of containers..01 ThinPrep Vial Result Comment: Sati sfactory for evaluation. No endocervical component is identified. Performed By: #### L 7400.0280 #### [facility] [address] [place], [place], [id number] COMM . Normal . [facility] Comment on above: Order Comment: Speci men Comment: [id number] Specimen Comment: Source.............Cervix;Endocervix Specimen Comment: No. of containers..01 ThinPrep Vial Performed By: #### L 7400.0280 #### [facility] [address] [place], [place], [id number] COMMENT Comment Normal . [facility] Comment on above: Order Comment: Speci men Comment: [id number] Specimen Comment: Source.............Cervix;Endocervix Specimen Comment: No. of containers..01 ThinPrep Vial Result Comment: This liquid based ThinPrep(R) pap test was screened with the use of an image guided system. Performed By: #### L 7400.0280 #### [facility] [address] [place], [place], [id number] DIAG Comment Normal . [facility] Comment on above: Order Comment: Speci men Comment: [id number] Specimen Comment: Source.............Cervix;Endocervix Specimen Comment: No. of containers..01 ThinPrep Vial Result Comment: NEGA TIVE FOR INTRAEPITHELIAL LESION OR MALIGNANCY. Performed By: #### L 7400.0280 #### [facility] [address] [place], [place], [id number] HPV APTIMA, HR Negative Normal Negative [facility] Comment on above: Order Comment: Speci men Comment: [id number] Specimen Comment: Source.............Cervix;Endocervix Specimen Comment: No. of containers..01 ThinPrep Vial Result Comment: This nucleic acid amplification test detects fourteen high- risk HPV types (16,18,31,33,35,39,45,51,52,56,58,59,66,68) without differentiation. Performed By: #### L 7400.0280 #### [facility] [address] [place], [place], [id number] HPV Adela Rfx Comment Normal . [facility] Comment on above: Order Comment: Speci men Comment: [id number] Specimen Comment: Source.............Cervix;Endocervix Specimen Comment: No. of containers..01 ThinPrep Vial Result Comment: Crit eria not met, HPV Genotype not performed. Performed at: - [address] [id number] Brake Lining Finisher: Elvia Koch MD, Phone: [phone] Performed at: =[address] [id number] Brake Lining Finisher: Elvia Koch MD, Phone: [phone] Performed By: #### L 7400.0280 #### [facility] [address] [place], [place], [address] PAPSMR Comment Normal . [facility] Comment on above: Order Comment: Speci men Comment: [id number] Specimen Comment: Source.............Cervix;Endocervix Specimen Comment: No. of containers..01 ThinPrep Vial Result Comment: The Pap smear is a screening test designed to aid in the detection of premalignant and malignant conditions of the uterine cervix. It is not a diagnostic procedure and should not be used as the sole means of detecting cervical cancer. Both false-positive and false-negative reports do occur. Performed By: #### L 7400.0280 #### [facility] [address] [place], [place], [address] PERFORM Comment Normal . [facility] Comment on above: Order Comment: Speci men Comment: [id number] Specimen Comment: Source.............Cervix;Endocervix Specimen Comment: No. of containers..01 ThinPrep Vial Result Comment: Manuel Guillermo Zmt Operator (ASCP) Performed By: #### L 7400.0280 #### [facility] [address] [place], [place], [id number] Pelvic w/ Transvaginalon Pelvic w/ Transvaginal [facility] Imaging Services [address] [address] [place], [place] [address] Pelvic w/ Transvaginal MR#: [id number] Acct: [id number] Name: SIA CONTRERAS ELSA Rep #: [id number] : 1980 F 43 From: Lane bae MD PCP: HAILE Borges Status: REG CLI Study: Pelvic w/ Transvaginal Date of Exam: 12/03/24 Exam# [id number] Ordering Dr: Xuan Gaytan MINING MACHINERY ASSEMBLER-Mela PROCEDURE: PELVIC W/ TRANSVAGINAL REASON FOR EXAM: Heavy menses. LMP: November 01, 2024. TECHNIQUE: Transabdominal and transvaginal pelvic ultrasound COMPARISON: None. FINDINGS: Measurements: Uterus: 9.1 cm x 5.7 cm x 5.7 cm. Endometrial Thickness: 8 mm. Hyperechoic. Small nabothian cyst. Right Ovary: 2.2 cm x 2.3 cm x 1.5 cm. Left Ovary: 3.6 cm x 2.3 cm x 2.3 cm. A dominant follicle is seen within it measuring 1.4 cm x 1 cm x 1.4 cm. TRANSABDOMINAL: Uterus: Normal size, myometrial echotexture, and contour. Endometrium: Unremarkable. Right ovary: Normal size and echotexture. Left ovary: Normal size and echotexture. No large pelvic mass identified. Transvaginal sonography was performed to better visualize the endometrium. TRANSVAGINAL: Uterus: Anteverted. Normal contour. Heterogeneous myometrium suggestive of fibroid change. Endometrium: Normal echotexture. Right ovary: Normal size and echotexture. Left ovary: Normal size and echotexture. Other adnexal findings: None. Cul-de-sac: No free intraperitoneal fluid identified. No tenderness. US/Pelvic w/ Transvaginal IMPRESSION: Dominant follicle in the left ovary. Heterogeneous echotexture of the myometrium suggestive of fibroid change. Reading Location: [id number] CC: HAILE Gaytan; HAILE Donovan Security Incident Response Specialist: Signed Normal [facility] SCRN MAMM (CAD)W/MARTHA BILATo n 12-03-2024 SCRN MAMM (CAD)W/MARTHA BILAT [facility] Imaging Services [address] [place] [id number] SCRN MAMM (CAD)W/MARTHA BILAT MR#: [id number] Acct: [id number] Name: SIA CONTRERAS Rep #: [id number] : 1980 F 43 From: Patti San MD PCP: HAILE Borges Status: REG CLI Study: SCRN MAMM (CAD)W/MARTHA BILAT Date of Exam: 11/24 Exam# [id number] Ordering Dr: Xuan Gaytan PROCEDURE: SCRN MAMM (CAD)W/MARTHA BILAT REASON FOR EXAM: F, Age 43 y/o, presents for annual screening mammogram. Family history of breast cancer in 2 paternal aunts. TECHNIQUE: Bilateral screening digital breast tomosynthesis with 2D and 3D images. Computer aided detection. COMPARISON: 08/23/2019 FINDINGS: There are scattered areas of fibroglandular density. No suspicious masses, areas of developing architectural distortion, or suspicious calcifications. BI/SCRN MAMM (CAD)W/MARTHA BILAT IMPRESSION: There is no mammographic evidence of malignancy in either breast. BI-RADS 1: NEGATIVE. RECOMMEND ANNUAL MAMMOGRAPHIC SCREENING. Follow-up code: Routine Follow-up The patient will be notified of the results by letter. Reading Location: [id number] CC: HAILE Gaytan; HAILE Donovan Security Incident Response Specialist: Signed Normal [facility] Vp Corporate Development Office Visit Reporton 11-28-2024 Vp Corporate Development Office Visit Report [facility] [address], [address] [place] [address] OFFICE VISIT Date of Service: 11/28/24 MR#: [id number] Acct: [id number] Name: SIA CONTRERAS ELSA Rep #: [id number] : 1980 Provider: HAILE Cortez Age/Sex: 43/F Location: [facility] Status: Signed Intake Vital Signs 05/16/24 17:02 11/22/24 14:34 11/28/24 09:58 Height 5 ft 9 in 5 ft 9 in 5 ft 9 in Weight: 313 lb BMI 46.2 BP 155/93 H 142/89 H Blood Pressure Location Lt brachial Position Sitting Respiration 16 Pulse 87 Pulse Source Monitor 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 General Counsel Required: No Is patient in pain?: No Allergies Latex, Natural Rubber Allergy (Intermediate, Verified 11/28/24 09:54) skin irritation Medications ???Medication ???Instructions ???Recorded ???Confirmed ???Type albuterol sulfate 90 mcg/actuation 2 puff inhalation Q4H PRN PRN 11/28/24 Rx aerosol inhaler Wheezing, shortness of breath #8.5 grams ondansetron 4 mg disintegrating 4 mg PO Q8H PRN PRN Nausea #14 tab s 05/16/24 11/28/24 Rx tablet lamotrigine 150 mg tablet 150 mg PO DAILY #90 tabs 11/22/24 11/28/24 Rx lisdexamfetamine 10 mg capsule 10 mg PO QAM 30 days #30 caps 01/11/28/24 Rx (Vyvanse) venlafaxine 150 mg 150 mg PO DAILY #90 caps 11/22/24 11/28/24 Rx capsule,extended release 24 hr metformin 500 mg tablet 500 mg PO QDAY 11/28/24 11/28/24 H istory Is last menstrual period known: Yes Last Menstrual Period: 11/01/24 Post menopausal: No Patient : No : No Control Method: none PFSH Medical History PTSD (post-traumatic stress disorder) Major depression TED (generalized anxiety disorder) Sprain of left little finger Strain of right knee Vitamin deficiency Major depression Insomnia Acute gastroenteritis Dyspnea Anxiety Migraine headache Former smoker Sleep apnea Shortness of breath on exertion History of stress test History of gestational diabetes GI problem Seasonal allergies ADHD Depression Surgical History History of reversal of tubal ligation Hx of tubal ligation Hx of foot surgery History of foot surgery History of hip surgery Family History Aunt Breast cancer Cancer ovarian Grandmother Diabetes Thyroid disorder Uncle Diabetes Father Diabetes Mother Thyroid disorder Depression Social History Smoking Status: Former smoker quit date: 10/24/15 Tobacco: How many years used: 10 alcohol intake: never substance use type: does not use caffeine: Yes what type of physical activity do you participate in: none seatbelt use: always do you feel safe at home: Yes additional social history: Single History 4 Elective abortions Hx Para 4 Spontaneous abortions Hx # Term Pregnancies Ectopic pregnancies Hx # Pregnancies Multiple births # of living children Past Pregnancies Del. Date Name GA/Weeks Outcome Route Bth Weight [facility] Unknown Stazia Unknown Adriana Unknown Kourtnald Unknown Garrison HPI Encounter for routine gynecological examination Details: SIA CONTRERAS is a 43 year old who presents for annual exam. Patient reports her menses are still heavy, especially the first 2 days. She reports she is having to wear an ultra tampon during the day and changing approx every hour for the first couple days. She is interested in having an ablation--discussed in the past however would like to pursue consult to further discuss with MD. Reports she has recently gained weight and with this has noticed leaking with cough/sneezing as well as OAB symptoms/urge incontinence. Last PAP: 2022; normal. hpv neg History of abnormal PAP: no; current smoker; mother with uterine cancer hx. Last mammogram: 2018; negative. History of abnormal mammogram: no Colon cancer screening: age 44; due. Other preventative health care screenings: Colby Donovan pcp Female Reproductive History Last Menstrual Period: 11/01/24 Cycle Length: 21-35 Bleeding Duration: 7 Questions: metorrhagia: No, sexually active: Yes, dyspareunia: No and PCB: No Menopausal Symptoms: No hot flashes, No night sweats, No difficulty concentrating and No change in libido ROS Const Constitutional: Reports as per HPI; Denies fatigue, increased appetite, poor appetite, night sweats, weight gain or weight loss Cardio Card: Denies chest pain Resp Resp: Denies cough or dyspnea GI GI: Reports as per HPI; Denies abdominal pain, bloating, constipation, nausea or vomiting G (more content not included)... Normal [facility] Inital Evaluation (1) - PTon 11-23-2024 Inital Evaluation (1) - PT [facility] Physical Therapy [facility] [address] [place] [id number] / REHABILITATION SERVICES INITIAL EVALUATION MR#: [id number] Acct: [id number] Name: SIA CONTRERAS Rep #: [id number] : 1980 43 From: Keo Ramirez DPT, OCS, CSCS Referring Dr.: Dr. Shaun Raymond MD Status: R EG RCR Insurance: [facility] S[employer] PAY INSURANCE Patient's Visit Information Visit Information Visit Information: SIA CONTRERAS is a 43 year old F referred to Physical Therapy by Dr. Shaun Raymond MD with a diagnosis of r shoulder pain. Date of Evaluation: 11/23/24 Physical Therapist: Keo Ramirez DPT, OCS, CSCS Visit Plan Frequency: 2x /Week Duration: 4-6 Weeks Plan: 2x/week for 4-6 weeks for 1. cervical ret /ext ROM with OP and mobs as needed 2. Shoulder g-h mobs and rotation PROM 3. pec strtch to HEP 4. RC and scap strength to HEP 5. consider general well ness instruction when shoulder better IE HEP: impingement precautioins and activity modification, scap cirlces 10x. cerv ext with OP 10x 3+x/day with HO Subjective Subjective: R shoulder pain for years insidiously. Intermittently. R shoulder adn up into neck and scapula. That pain went away. Pain is top shoulder and flared up so she had to see doctor for it. Sleeping on sides made her worse R side. So saw doctor and had injection last week. Injection helped 80%. Sleeping OK now since injection. Used to wake her up if on R side. 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 Basic ADLs I but painful to put bra on but OK since injection. No numb ness or tingling lately. Comfortable at rest much of time. Pain R shoulder: Pain Intensity (Out of 10): 0 Pain Intensity Range: 0 and 4 Objective Objective: Walks into PT I, trasers bed and chair I. No balance issues. neck ROM ext pinches b/w scap and 60 degrees, flexion, rotations, SB are full and without symptoms. Tender to palpation gently in B UT adn mostly over R supra insertion. AROM shoulder full but ext rotation adn IR are painful at end range. reflexes 2/3 bi and tri B. Sensation UE WNL to gross light touch. Strength 4/5 B shoulder rotation but painful R ER. flexion abd 4 and slight pain R empty can. + R HK, + neer, - c/s compression test. - sulcus R, - apprehension, - drop arm, - ext rotation lag test. all B. Balance/Special Test Scores Quick DASH Score: 43.1800 Goals Goal 1:: I appropriate neck and Rc and scap strength to HEP to manage and consider general wellness program once shoulder improved. Goal Time Frame: 4-6 Weeks Goal 2:: Pain in shoulder 99% better adn 1/10 at worst Goal Time Frame: 4-6 Weeks Goal 3:: fasten bra consistently without pain Goal Time Frame: 4-6 Weeks Goal 4:: quick dash 14 or less Goal Time Frame: 4-6 Weeks Rehabilitation Potential Physical Therapy Diagnosis: Shoulder pain and weakness causing likely impingement although cervical cannot be ruled out at this point. Rehabilitation Potential: Fair Anticipated Interventions Patient/Client Instruction: Educate patient on: Condition and Plan of Care For the Purpose of:: To decrease pain, To increase ROM, To improve nutrient delivery to tissue, To improve muscle performance and motor function and To increase tolerance to activity/condition/positi on Therapeutic Exercise to Include: Strength training, Flexibilty training, Passive ROM and Active ROM For the Purpose of:: To decrease pain, To increase ROM, To improve nutrient delivery to tissue, To improve muscle performance and motor function and To increase tolerance to activity/condition/positi on Manual Therapy Techniques to Include: Mobilization, Passive ROM and Soft tissue mobilization For the Purpose of:: To decrease pain, To increase ROM and To improve nutrient delivery to tissue TENS: Yes Thermo therapy (hot pack): Yes For the Purpose of:: To decrease pain Text: Thank you for the opportunity to evaluate your patient. For Medicare and Medicare HMO plans, please review the plan of care and approve it. It will need to be FAXED BACK to us at [phone] for Medicare purposes. For Medicare only, by signing this I certify the plan of care. Please let me know if there are questions or concerns regarding this plan of care. Physician Signature: Date: _ 11/23/24 0956 CC: HAILE Donovan; Dr. Shanu Raymond MD EBG Signed Normal [facility] MR/BMS.BPon 11-22-2024 MR/BMS.BP [address], [address] [place] [address] OFFICE VISIT Date of Service: 11/22/24 MR#: [id number] Acct: [id number] Name: SIA CONTRERAS ELSA Rep #: [id number] : 1980 Provider: Dr. Manjit Hernandez se, DO Age/Sex: 43/F [place] [facility] [place] Status: Signed Intake Vital Signs 05/16/24 17:02 11/22/24 14:34 Height 5 ft 9 in 5 ft 9 in BP 155/93 H Blood Pressure Location Lt brachial Position Sitting Respiration 16 Pulse 87 Pulse Source Monitor BP Intake Visit Reasons: follow up Accompanied by: Self Allergies Latex, Natural Rubber Allergy (Intermediate, Verified 11/22/24 14:38) skin irritation Medications ???Medication ???Instructions ???Recorded ???Confirmed ???Type albuterol sulfate 90 mcg/actuation 2 puff inhalation Q4H PRN PRN 11/22/24 Rx aerosol inhaler Wheezing, shortness of breath #8.5 grams ondansetron 4 mg disintegrating 4 mg PO Q8H PRN PRN Nausea #14 tab s 05/16/24 11/22/24 Rx tablet celecoxib 200 mg capsule (Celebrex) 200 mg PO BID Pain #60 caps 11/22/24 Rx lamotrigine 150 mg tablet 150 mg PO DAILY #90 tabs 11/22/24 11/22/24 Rx lisdexamfetamine 10 mg capsule 10 mg PO QAM 30 days #30 caps 10/2611/22/24 Rx (Vyvanse) venlafaxine 150 mg 150 mg PO DAILY #90 caps 11/22/24 11/22/24 Rx capsule,extended release 24 hr PFSH Medical History PTSD (post-traumatic stress disorder) Major depression TED (generalized anxiety disorder) Sprain of left little finger Strain of right knee Vitamin deficiency Major depression Insomnia Acute gastroenteritis Dyspnea Anxiety Migraine headache Former smoker Sleep apnea Shortness of breath on exertion History of stress test History of gestational diabetes GI problem Seasonal allergies ADHD Depression Surgical History History of reversal of tubal ligation Hx of tubal ligation Hx of foot surgery History of foot surgery History of hip surgery Family History Aunt Breast cancer Cancer ovarian Grandmother Diabetes Thyroid disorder Uncle Diabetes Father Diabetes Mother Thyroid disorder Depression Social History Smoking Status: Former smoker quit date: 10/24/15 Tobacco: How many years used: 10 alcohol intake: never substance use type: does not use caffeine: Yes what type of physical activity do you participate in: none seatbelt use: always do you feel safe at home: Yes additional social history: Single HPI History of Present Illness History provided by: patient HPI: Sia Contreras is a 43 year old female who presents today for follow up evaluation. Patient reports that she has been a lot better in some ways and worse in other ways. Has felt that she is physically feeling more sick. Her A1c was elevated. Feels like emotionally she is doing well with exception of ADHD symptoms. Was previously very stable on low dose Vyvanse however had not been getting secondary to some insurance coverage problems. Has been very forgetful and somewhat irritated with self. The last few weeks has been improving her appetite and diet. Denies any recent panic type symptoms. Has been trying to socialize as well as she can. Does feel like she is sleeping better. Her adult son did move in about 6 weeks after he had an aortic aneurysm. Blood pressure has been running high. Review of Systems Constitutional Denies: fever(s), chills, change in weight or fatigue Eyes Denies: change in vision or blurry vision Ears, Nose, Mouth, Throat Denies: throat pain, neck pain or change in hearing Cardiovascular Denies: chest pain, palpitations or dyspnea Respiratory Denies: dyspnea, cough or wheezing Gastrointestinal Denies: abdominal pain, nausea, vomiting, diarrhea or constipation Genitourinary Denies: dysuria or urinary frequency Musculoskeletal Reports: joint pain; Denies: back pain, neck pain or muscle weakness Integumentary/Breast Denies: rash or new lesions Neurological Reports: headache(s); Denies: dizziness or confusion Endocrine Denies: fatigue or excessive sweating Hematologic/Lymphatic Denies: easy bruising or easy bleeding Allergic/Immunologic Denies: wheezing Exam Mental Status Exam - Psych Appearance casually dressed and no apparent distress Attitude cooperative and calm Activity/Motor Behavior MSE activity/motor behavior finding no adventitious movements Speech regular rate, regular volume and regular prosody Mood euythmic Affect congruent Thought Process linear, logical and coherent Thought Content no delusions and no hallucinations Suicidal Ideation none Homicidal (more content not included)... Normal [facility] Orthopedic Visit Reporton Orthopedic Visit Report [facility] [address] [place], [place] [id number] OFFICE VISIT Date of Service: 11/16/24 MR#: [id number] Acct: [id number] Name: SIA CONTRERAS Rep #: [id number] : 1980 Provider: Dr. Shaun allison MD Age/Sex: 43/F [place] [facility] [place] Status: Signed with Addenda ADDENDUM by Caitlin Garcia on 11/16/24 at 1136 Office Procedure Documentation entered by Caitlin Garcia 11/16/24 11:36: Ortho Injections Injections Yes Subacromial Injection Right Is this a patient provided medication?: No Details: Obtained consent for injection. Under sterile conditions, injected the patients right subacromial with 2cc Kenalog 4cc Bupivacaine. The patient tolerated the injection well without any noted complication. Patient should call our office if redness develops, pain worsens or if they have any concerns. Office Meds Kenalog 40 mg/mL suspension for injection Performing Provider: Shaun Raymond MD Performing Location: [facility] Administered by: Shaun Raymond MD on 11/16/24 11:35 Dose Route Admin Location Dispensed Lot Number Expiration Date [facility] Man ufacturer 80 mg intra-articular right subacromial 2 mL [id number] 02/21/26 1435-7690-69 [facility] Date cc: * Signed Intake Vital Signs 05/16/24 17:02 Height 5 ft 9 in Intake Visit Reasons: RIGHT SHOULDER Chief Complaint: right shoulder Is patient in pain?: Yes (right shoulder) Pain scale (1-10): 4 Allergies Latex, Natural Rubber Allergy (Intermediate, Verified 11/16/24 08:25) skin irritation Medications ???Medication ???Instructions ???Recorded ???Confirmed ???Type albuterol sulfate 90 mcg/actuation 2 puff inhalation Q4H PRN PRN 04/05/23 11/16/24 Rx aerosol inhaler Wheezing, shortness of breath #8.5 grams venlafaxine 150 mg 150 mg PO DAILY #90 caps 03/15/24 11/16/24 Rx capsule,extended release 24 hr ondansetron 4 mg disintegrating 4 mg PO Q8H PRN PRN Nausea #14 tabs 05/16/24 11/16/24 Rx tablet lamotrigine 150 mg tablet 150 mg PO DAILY #30 tabs 10/02/24 11/16/24 Rx celecoxib 200 mg capsule (Celebrex) 200 mg PO BID Pain #60 caps 11/16/24 11/16/24 Rx PFSH Medical History PTSD (post-traumatic stress disorder) Major depression TED (generalized anxiety disorder) Sprain of left little finger Strain of right knee Vitamin deficiency Major depression Insomnia Acute gastroenteritis Dyspnea Anxiety Migraine headache Former smoker Sleep apnea Shortness of breath on exertion History of stress test History of gestational diabetes GI problem Seasonal allergies ADHD Depression Surgical History History of reversal of tubal ligation Hx of tubal ligation Hx of foot surgery History of foot surgery History of hip surgery Family History Aunt Breast cancer Cancer ovarian Grandmother Diabetes Thyroid disorder Uncle Diabetes Father Diabetes Mother Thyroid disorder Depression Social History Smoking Status: Former smoker quit date: 10/24/15 Tobacco: How many years used: 10 alcohol intake: never substance use type: does not use caffeine: Yes what type of physical activity do you participate in: none seatbelt use: always do you feel safe at home: Yes additional social history: Single HPI RIGHT SHOULDER Chief Complaint: right shoulder Details: This documentation accurately reflects the service provided and the decisions made by me, Dr. Shaun Raymond MD 11/16/24 0870. Part of today???s visit was documented by [ ], acting as scribe. SIA CONTRERAS is a 43 year old F here today for R shoulder pain. years. did PT a year ago. lateral pain. worse with living. tried celebrex and it helped. worse at night. no radiation. takes alleve and tylenol daily. 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 rhd. starting on the left too. Ortho Exam General General: Yes no acute distress Neurologic: Yes alert and Yes oriented x3 Psychologic: Yes reasonable and appropriate Right Shoulder Skin/Wound: Yes CDI, No ecchymosis, No erythema and No swelling Testing: Positive Hawkin's, Neer's, Speed's, TTP Biceps, AROM-Forward Elevation 0-180, AROM-External Rotation at side 0-60 and empty can; Negative TTP AC Joint, Drop Arm or scapular winging SHOULDER: normal motor and sens to ax nerve, and MRU and AIN/PIN strength fe and er 5/5. Supplemental Info [facility] [address] [place] [address] Shoulder min 2 Views MR#: [id number] Acct: [id number] Name: SIA CONTRERAS (more content not included)... Normal [facility] Amylaseon 11-14-2024 GRACIA 32 U/L Normal 25-115 [facility] Comment on above: Performed By: #### L 500.4100, L501.2400, L500.4050, L503.0105, L501.9985, L501.2450, L100.0100, L506.1000, L501.9520 ####[facility] [address] [place], [place], [phone] CBC W/Diff, Automatedon 10-25 Absolute Lymph 2.20 X10 3/uL Normal 0.83-4.51 [facility] Comment on above: Performed By: #### L 500.4100, L501.2400, L500.4050, L503.0105, L501.9985, L501.2450, L100.0100, L506.1000, L501.9520 ####[facility] [address] [place], [address] Absolute Neut 5.1 X10 3/uL Normal 2.0-7.7 [facility] Comment on above: Performed By: #### L 500.4100, L501.2400, L500.4050, L503.0105, L501.9985, L501.2450, L100.0100, L506.1000, L501.9520 ####[facility] [address] [place], [address] Basophils/100 WBC (Bld) 0.9 % Normal 0-1 [facility] Comment on above: Performed By: #### L 500.4100, L501.2400, L500.4050, L503.0105, L501.9985, L501.2450, L100.0100, L506.1000, L501.9520 ####[facility] [address] [place], [address] Eosinophils/100 WBC (Bld) 2.6 % Normal 0-5 [facility] Comment on above: Performed By: #### L 500.4100, L501.2400, L500.4050, L503.0105, L501.9985, L501.2450, L100.0100, L506.1000, L501.9520 ####[facility] [address] [place], [address] Erythrocyte distribution width (RBC) [Ratio] 15.2 % High 11.6-14.6 [facility] Comment on above: Performed By: #### L 500.4100, L501.2400, L500.4050, L503.0105, L501.9985, L501.2450, L100.0100, L506.1000, L501.9520 ####[facility] [address] [place], [address] Hematocrit (Bld) [Volume fraction] 42.3 % Normal 37-47 [facility] Comment on above: Performed By: #### L 500.4100, L501.2400, L500.4050, L503.0105, L501.9985, L501.2450, L100.0100, L506.1000, L501.9520 ####[facility] [address] [place], [address] Hemoglobin (Bld) [Mass/Vol] 13.7 g/dL Normal 12.0-15.0 [facility] Comment on above: Performed By: #### L 500.4100, L501.2400, L500.4050, L503.0105, L501.9985, L501.2450, L100.0100, L506.1000, L501.9520 ####[facility] [address] [place], [address] IG% 0.400 Normal 0.0-0.9 [facility] Comment on above: Result Comment: IG% - Immature Granulocytes (promyelocytes, myelocytes and metamyelocytes) > 1% indicates that a LEFT SHIFT is Present. Performed By: #### L 500.4100, L501.2400, L500.4050, L503.0105, L501.9985, L501.2450, L100.0100, L506.1000, L501.9520 ####[facility] [address] [place], [address] Lymphocytes/100 WBC (Bld) 27.5 % Normal 19-41 [facility] Comment on above: Performed By: #### L 500.4100, L501.2400, L500.4050, L503.0105, L501.9985, L501.2450, L100.0100, L506.1000, L501.9520 ####[facility] [address] [place], [address] MCH (RBC) [Entitic mass] 27.3 pg Normal 27.0-32.0 [facility] Comment on above: Performed By: #### L 500.4100, L501.2400, L500.4050, L503.0105, L501.9985, L501.2450, L100.0100, L506.1000, L501.9520 ####[facility] [address] [place], [address] MCHC (RBC) [Mass/Vol] 32.4 g/dL Normal 32-36 [facility] Comment on above: Performed By: #### L 500.4100, L501.2400, L500.4050, L503.0105, L501.9985, L501.2450, L100.0100, L506.1000, L501.9520 ####[facility] [address] [place], [address] MCV (RBC) [Entitic vol] 84.4 fL Normal 81-99 [facility] Comment on above: Performed By: #### L 500.4100, L501.2400, L500.4050, L503.0105, L501.9985, L501.2450, L100.0100, L506.1000, L501.9520 ####[facility] [address] [place], [address] Monocytes/100 WBC (Bld) 5.3 % Normal 0-10 [facility] Comment on above: Performed By: #### L 500.4100, L501.2400, L500.4050, L503.0105, L501.9985, L501.2450, L100.0100, L506.1000, L501.9520 ####[facility] [address] [place], [address] Neutrophils/100 WBC (Bld) 63.3 % Normal 47-70 [facility] Comment on above: Performed By: #### L 500.4100, L501.2400, L500.4050, L503.0105, L501.9985, L501.2450, L100.0100, L506.1000, L501.9520 ####[facility] [address] [place], [address] Nucleated RBC (Bld) [#/Vol] 0 10*3/uL Normal 0-5 [facility] Comment on above: Performed By: #### L 500.4100, L501.2400, L500.4050, L503.0105, L501.9985, L501.2450, L100.0100, L506.1000, L501.9520 ####[facility] [address] [place], [address] Platelet mean volume (Bld) [Entitic vol] 10.2 fL Normal 6.2-12.0 [facility] Comment on above: Performed By: #### L 500.4100, L501.2400, L500.4050, L503.0105, L501.9985, L501.2450, L100.0100, L506.1000, L501.9520 ####[facility] [address] [place], [address] Platelets (Bld) [#/Vol] 263 10*3/uL Normal 150-450 [facility] Comment on above: Performed By: #### L 500.4100, L501.2400, L500.4050, L503.0105, L501.9985, L501.2450, L100.0100, L506.1000, L501.9520 ####[facility] [address] [place], [address] RBC (Bld) [#/Vol] 5.01 10*6/uL Normal 4.2-5.4 [facility] Comment on above: Performed By: #### L 500.4100, L501.2400, L500.4050, L503.0105, L501.9985, L501.2450, L100.0100, L506.1000, L501.9520 ####[facility] [address] [place], [address] RDW SD 45.6 fl High 35.1-43.9 [facility] Comment on above: Performed By: #### L 500.4100, L501.2400, L500.4050, L503.0105, L501.9985, L501.2450, L100.0100, L506.1000, L501.9520 ####[facility] [address] [place], [address] WBC (Bld) [#/Vol] 8.0 10*3/uL Normal 4.4-11.0 [facility] Comment on above: Performed By: #### L 500.4100, L501.2400, L500.4050, L503.0105, L501.9985, L501.2450, L100.0100, L506.1000, L501.9520 ####[facility] [address] [place], [address] Comprehensive Metabolic Prof ilon 11-14-2024 Albumin [Mass/Vol] 3.5 g/dL Normal 3.2-5.0 [facility] Comment on above: Performed By: #### L 500.4100, L501.2400, L500.4050, L503.0105, L501.9985, L501.2450, L100.0100, L506.1000, L501.9520 ####[facility] [address] [place], [place], [address] Albumin/Globulin [Mass ratio] 0.9 {ratio} Normal 0.9-2.4 [facility] Comment on above: Performed By: #### L 500.4100, L501.2400, L500.4050, L503.0105, L501.9985, L501.2450, L100.0100, L506.1000, L501.9520 ####[facility] [address] [place], [address] ALK P 82 U/L Normal 45-117 [facility] Comment on above: Performed By: #### L 500.4100, L501.2400, L500.4050, L503.0105, L501.9985, L501.2450, L100.0100, L506.1000, L501.9520 ####[facility] [address] [place], [address] ALT [Catalytic activity/Vol] 25 U/L Normal 13-56 [facility] Comment on above: Performed By: #### L 500.4100, L501.2400, L500.4050, L503.0105, L501.9985, L501.2450, L100.0100, L506.1000, L501.9520 ####[facility] [address] [place], [address](955) AST [Catalytic activity/Vol] 16 U/L Normal 15-37 [facility] Comment on above: Performed By: #### L 500.4100, L501.2400, L500.4050, L503.0105, L501.9985, L501.2450, L100.0100, L506.1000, L501.9520 ####[facility] [address] [place], [address](954) Bilirubin [Mass/Vol] 0.20 mg/dL Normal 0.20-1.00 [facility] Comment on above: Result Comment: For patients on eltrombopag therapy, use of Dimension Ignacio TBIL is not recommended. Performed By: #### L 500.4100, L501.2400, L500.4050, L503.0105, L501.9985, L501.2450, L100.0100, L506.1000, L501.9520 ####[facility] [address] [place], [place], [phone](574) BUN/CRE 13.0 RATIO Normal 10-20 [facility] Comment on above: Performed By: #### L 500.4100, L501.2400, L500.4050, L503.0105, L501.9985, L501.2450, L100.0100, L506.1000, L501.9520 ####[facility] [address] [place], [place], [phone](082) CA,Total 8.9 mg/dL Normal 8.5-10.1 [facility] Comment on above: Performed By: #### L 500.4100, L501.2400, L500.4050, L503.0105, L501.9985, L501.2450, L100.0100, L506.1000, L501.9520 ####[facility] [address] [place], [address] Chloride [Moles/Vol] 102 mmol/L Normal 98-107 [facility] Comment on above: Performed By: #### L 500.4100, L501.2400, L500.4050, L503.0105, L501.9985, L501.2450, L100.0100, L506.1000, L501.9520 ####[facility] [address] [place], [address] CO2 [Moles/Vol] 28.0 mmol/L Normal 21.0-32.0 [facility] Comment on above: Performed By: #### L 500.4100, L501.2400, L500.4050, L503.0105, L501.9985, L501.2450, L100.0100, L506.1000, L501.9520 ####[facility] [address] [place], [address] Creatinine [Mass/Vol] 0.84 mg/dL Normal 0.55-1.02 [facility] Comment on above: Result Comment: The validity of the calculated GFR GFRAA in patients over 70 years has not been determined. Clinical correlation is essential. Performed By: #### L 500.4100, L501.2400, L500.4050, L503.0105, L501.9985, L501.2450, L100.0100, L506.1000, L501.9520 ####[facility] [address] [place], [address] EST GFR - AA 94 mL/min Normal >60 [facility] Comment on above: Result Comment: Afri can Mosoth[place] GFR Calc Performed By: #### L 500.4100, L501.2400, L500.4050, L503.0105, L501.9985, L501.2450, L100.0100, L506.1000, L501.9520 ####[facility] [address] [place], [address] GAP 6 Normal 5-15 [facility] Comment on above: Performed By: #### L 500.4100, L501.2400, L500.4050, L503.0105, L501.9985, L501.2450, L100.0100, L506.1000, L501.9520 ####[facility] [address] [place], [address] GFR/1.73 sq M.predicted among non-blacks MDRD (S/P/Bld) [Vol rate/Area] 77 mL/min/{1.73_m2} Normal >60 [facility] Comment on above: Result Comment: Non- GFR Calc Performed By: #### L 500.4100, L501.2400, L500.4050, L503.0105, L501.9985, L501.2450, L100.0100, L506.1000, L501.9520 ####[facility] [address] [place], [address] Globulin (S) [Mass/Vol] 4.1 g/dL Normal 2.2-4.2 [facility] Comment on above: Performed By: #### L 500.4100, L501.2400, L500.4050, L503.0105, L501.9985, L501.2450, L100.0100, L506.1000, L501.9520 ####[facility] [address] [place], [address] Glucose [Mass/Vol] 88 mg/dL Normal 74-106 [facility] Comment on above: Performed By: #### L 500.4100, L501.2400, L500.4050, L503.0105, L501.9985, L501.2450, L100.0100, L506.1000, L501.9520 ####[facility] [address] [place], [place], [phone](431) Potassium [Moles/Vol] 3.8 mmol/L Normal 3.5-5.1 [facility] Comment on above: Performed By: #### L 500.4100, L501.2400, L500.4050, L503.0105, L501.9985, L501.2450, L100.0100, L506.1000, L501.9520 ####[facility] [address] [place], [place], [phone](423) Sodium [Moles/Vol] 136 mmol/L Normal 136-145 [facility] Comment on above: Performed By: #### L 500.4100, L501.2400, L500.4050, L503.0105, L501.9985, L501.2450, L100.0100, L506.1000, L501.9520 ####[facility] [address] [place], [place], [phone](600) T PROT 7.6 g/dL Normal 6.4-8.2 [facility] Comment on above: Performed By: #### L 500.4100, L501.2400, L500.4050, L503.0105, L501.9985, L501.2450, L100.0100, L506.1000, L501.9520 ####[facility] [address] [place], [place], [phone](132) Urea nitrogen [Mass/Vol] 11 mg/dL Normal 7-18 [facility] Comment on above: Performed By: #### L 500.4100, L501.2400, L500.4050, L503.0105, L501.9985, L501.2450, L100.0100, L506.1000, L501.9520 ####[facility] [address] [place], [place], [phone] Hemoglobin A1con 11-14-2024 HbA1c (Bld) [Mass fraction] 6.2 % High 3.8-5.6 [facility] Comment on above: Result Comment: Norm al < 5.7 % Prediabetic 5.7 - 6.4 % Diabetic >or= 6.5 % Please note range changes. Performed By: #### L 500.4100, L501.2400, L500.4050, L503.0105, L501.9985, L501.2450, L100.0100, L506.1000, L501.9520 ####[facility] [address] [place], [address] Lipaseon 11-14-2024 Lipase [Catalytic activity/Vol] 25 U/L Normal 13-75 [facility] [facility] Comment on above: Result Comment: Jameson dykes note: LIPASE revised reference range effective 23. New Lipase methodology. Expected to produce lower values than the previous assay method. NEW Reference Range: 13 - 75 U/L Performed By: #### L 500.4100, L501.2400, L500.4050, L503.0105, L501.9985, L501.2450, L100.0100, L506.1000, L501.9520 ####[facility] [address] [place], [address] Lipid Profileon 11-14-2024 Cholesterol [Mass/Vol] 197 mg/dL Normal 200 [facility] Comment on above: Result Comment: <200 mg/dL Desirable 200-240 mg/dL Borderline >240 mg/dL High Risk Performed By: #### L 500.4100, L501.2400, L500.4050, L503.0105, L501.9985, L501.2450, L100.0100, L506.1000, L501.9520 ####[facility] [address] [place], [address] Cholesterol in HDL [Mass/Vol] 52 mg/dL Normal [facility] Comment on above: Result Comment: The drugs N-Acetylcysteine and Metamizole may falsely depress this assay. Reference Range HDL <40 mg/dL Low HDL Cholesterol HDL >or= 60 mg/dL High HDL Cholesterol Performed By: #### L 500.4100, L501.2400, L500.4050, L503.0105, L501.9985, L501.2450, L100.0100, L506.1000, L501.9520 ####[facility] [address] [place], [address] Cholesterol in LDL [Mass/Vol] 86 mg/dL Normal 0-130 [facility] Comment on above: Performed By: #### L 500.4100, L501.2400, L500.4050, L503.0105, L501.9985, L501.2450, L100.0100, L506.1000, L501.9520 ####[facility] [address] [place], [address] Cholesterol in VLDL [Mass/Vol] 59 mg/dL High 5-40 [facility] Comment on above: Performed By: #### L 500.4100, L501.2400, L500.4050, L503.0105, L501.9985, L501.2450, L100.0100, L506.1000, L501.9520 ####[facility] [address] [place], [address] Triglyceride [Mass/Vol] 293 mg/dL High [facility] Comment on above: Result Comment: The drugs N-Acetylcysteine and Metamizole may falsely depress this assay. Serum Triglycerides Reference Interval Normal <150 mg/dL Borderline high 150 - 199 mg/dL High 200 - 499 mg/dL Very High > or = 500 mg/dL Performed By: #### L 500.4100, L501.2400, L500.4050, L503.0105, L501.9985, L501.2450, L100.0100, L506.1000, L501.9520 ####[facility] [address] [place], [place], [id number](412) Thyroid Stim Hormone (TSH)on 11-14-2024 TSH 2.240 uIU/mL Normal 0.358-3.740 [facility] Comment on above: Performed By: #### L 500.4100, L501.2400, L500.4050, L503.0105, L501.9985, L501.2450, L100.0100, L506.1000, L501.9520 ####[facility] [address] [place], [place], [phone](411) Vitamin B12on 11-14-2024 Cobalamin (Vitamin B12) [Mass/Vol] 361 pg/mL Normal 211-911 [facility] Comment on above: Performed By: #### L 500.4100, L501.2400, L500.4050, L503.0105, L501.9985, L501.2450, L100.0100, L506.1000, L501.9520 ####[facility] [address] [facility] [address] [place], [place], [id number] Vitamin D,25 Hydroxyon 11-14 Vitamin D 25-OH 13.7 ng/mL Normal [facility] Comment on above: Result Comment: Caty min D 25(OH) Status Range Deficiency <20 ng/mL (50nmol/L) Insufficiency 20 - 30 ng/mL (50 - 75 nmol/L) Sufficiency 30 - 100 ng/mL (75 - 250 nmol/L) Toxicity >100 ng/mL (>250 nmol/L) Performed By: #### L 500.4100, L501.2400, L500.4050, L503.0105, L501.9985, L501.2450, L100.0100, L506.1000, L501.9520 ####[facility] [address] [place], [address] Abdomen/Pelvis W IV Cont ONL Yon 05-16-2024 Abdomen/Pelvis W IV Cont ONLY [facility] Imaging Services [address] [place], [place] [id number] Abdomen/Pelvis W IV Cont ONLY MR#: [id number] Acct: [id number] Name: SIA CONTRERAS Rep #: [id number] : 1980 F 43 From: Adria Davidson MD PCP: HAILE Borges Status: REG ER Study: Abdomen/Pelvis W IV Cont ONLY Date of Exam: Exam# [id number] Ordering Dr: Prakash Mcclendon DO [id number] INDICATION: ruq pain EXAMINATION: CT ABDOMEN AND PELVIS WITH CONTRAST - CT Abdomen And Pelvis W/ Contrast Injection TECHNIQUE: Helically acquired images were obtained of the abdomen and pelvis following IV contrast. A radiation dose optimization technique was used for this scan. IV Contrast dosage and agent: 100 cc [id number] Oral contrast: None. COMPARISON: None. FINDINGS: LOWER CHEST: Lung bases are clear. No cardiomegaly or pericardial effusion. LIVER: Enlargement to 24 cm. No concerning focal mass. GALLBLADDER AND BILIARY TREE: No calcified gallstones. Transverse distention to 5 cm, no wall edema. No intra- or extrahepatic biliary ductal dilation. PANCREAS: No focal cystic or solid mass. SPLEEN: Splenomegaly. ADRENAL GLANDS: No nodules. KIDNEYS AND URETERS: Normal renal size and position. No hydronephrosis. PERITONEUM: No ascites or free air. BOWEL: Normal appendix. No stomach or bowel distension. Diverticulosis of the sigmoid colon with segment of wall thickening and pericolonic stranding. LYMPH NODES: No enlarged mesenteric or retroperitoneal lymph nodes. VESSELS: Aorta is non-dilated. URINARY BLADDER: Unremarkable. REPRODUCTIVE ORGANS: No pelvic masses. ABDOMINAL WALL: No discrete abdominal or pelvic wall hernia. BONES: Unremarkable. CT/Abdomen/Pelvis W IV Cont ONLY IMPRESSION: Acute sigmoid diverticulitis. No evidence of perforation or pelvic abscess formation. Hepatosplenomegaly. Nonspecific gallbladder distention. Electronically Signed: Adria Davidson MD at 19:14 EDT , CC: HAILE Donovan; Dr. Prakash Mcclendon, Security Incident Response Specialist: Signed Normal [facility] Basic Metabolic Profile (BMP )on 05-16-2024 BUN/CRE 10.8 RATIO Normal 10-20 [facility] Comment on above: Performed By: #### L 100.0100, L501.2450, L500.2500, L500.3400 #### [facility] [address] [place], [address] CA,Total 8.4 mg/dL Low 8.5-10.1 [facility] Comment on above: Performed By: #### L 100.0100, L501.2450, L500.2500, L500.3400 #### [facility] [address] [place], [address] Chloride [Moles/Vol] 105 mmol/L Normal 98-107 [facility] Comment on above: Performed By: #### L 100.0100, L501.2450, L500.2500, L500.3400 #### [facility] [address] [place], [address] CO2 [Moles/Vol] 29.0 mmol/L Normal 21.0-32.0 [facility] Comment on above: Performed By: #### L 100.0100, L501.2450, L500.2500, L500.3400 #### [facility] [address] [place], [address] Creatinine [Mass/Vol] 0.84 mg/dL Normal 0.55-1.02 [facility] Comment on above: Result Comment: The validity of the calculated GFR GFRAA in patients over 70 years has not been determined. Clinical correlation is essential. Performed By: #### L 100.0100, L501.2450, L500.2500, L500.3400 #### [facility] [address] [place], [address] ECRCL 122.13 ml/min Normal [facility] Comment on above: Performed By: #### L 100.0100, L501.2450, L500.2500, L500.3400 #### [facility] [address] [place], [address] EST GFR - AA 95 mL/min Normal >60 [facility] Comment on above: Result Comment: Afri can Mosotho GFR Calc Performed By: #### L 100.0100, L501.2450, L500.2500, L500.3400 #### [facility] [address] [place], [address] GAP 5 Normal 5-15 [facility] Comment on above: Performed By: #### L 100.0100, L501.2450, L500.2500, L500.3400 #### [facility] [address] [place], [address] GFR/1.73 sq M.predicted among non-blacks MDRD (S/P/Bld) [Vol rate/Area] 79 mL/min/{1.73_m2} Normal >60 [facility] Comment on above: Result Comment: Non- GFR Calc Performed By: #### L 100.0100, L501.2450, L500.2500, L500.3400 #### [facility] [address] [place], [address] Glucose [Mass/Vol] 115 mg/dL High 74-106 [facility] Comment on above: Result Comment: Fast ing Glucose result from 100 to 125 mg/dL suggests IMPAIRED HOMEOSTASIS per A.D.A. criteria. Performed By: #### L 100.0100, L501.2450, L500.2500, L500.3400 #### [facility] [address] [place], [address] Potassium [Moles/Vol] 3.5 mmol/L Normal 3.5-5.1 [facility] Comment on above: Performed By: #### L 100.0100, L501.2450, L500.2500, L500.3400 #### [facility] [address] [place], [address] Sodium [Moles/Vol] 139 mmol/L Normal 136-145 [facility] Comment on above: Performed By: #### L 100.0100, L501.2450, L500.2500, L500.3400 #### [facility] [address] [place], [address] Urea nitrogen [Mass/Vol] 9 mg/dL Normal 7-18 [facility] Comment on above: Performed By: #### L 100.0100, L501.2450, L500.2500, L500.3400 #### [facility] [address] [place], [address] CBC W/Diff, Automatedon 07-2 -2023 Absolute Lymph 1.94 X10 3/uL Normal 0.83-4.51 [facility] Comment on above: Performed By: #### L 100.0100, L501.2450, L500.2500, L500.3400 #### [facility] [address] [place], [address] Absolute Neut 7.2 X10 3/uL Normal 2.0-7.7 [facility] Comment on above: Performed By: #### L 100.0100, L501.2450, L500.2500, L500.3400 #### [facility] [address] [place], [address] Basophils/100 WBC (Bld) 0.5 % Normal 0-1 [facility] Comment on above: Performed By: #### L 100.0100, L501.2450, L500.2500, L500.3400 #### [facility] [address] [place], [address] Eosinophils/100 WBC (Bld) 2.1 % Normal 0-5 [facility] Comment on above: Performed By: #### L 100.0100, L501.2450, L500.2500, L500.3400 #### [facility] [address] [place], [address] Erythrocyte distribution width (RBC) [Ratio] 16.1 % High 11.6-14.6 [facility] Comment on above: Performed By: #### L 100.0100, L501.2450, L500.2500, L500.3400 #### [facility] [address] [place], [address] Hematocrit (Bld) [Volume fraction] 36.1 % Low 37-47 [facility] Comment on above: Performed By: #### L 100.0100, L501.2450, L500.2500, L500.3400 #### [facility] [address] [place], [address] Hemoglobin (Bld) [Mass/Vol] 11.6 g/dL Low 12.0-15.0 [facility] Comment on above: Performed By: #### L 100.0100, L501.2450, L500.2500, L500.3400 #### [facility] [address] [place], [address] IG% 0.400 Normal 0.0-0.9 [facility] Comment on above: Result Comment: IG% - Immature Granulocytes (promyelocytes, myelocytes and metamyelocytes) > 1% indicates that a LEFT SHIFT is Present. Performed By: #### L 100.0100, L501.2450, L500.2500, L500.3400 #### [facility] [address] [place], [address] Lymphocytes/100 WBC (Bld) 19.6 % Normal 19-41 [facility] Comment on above: Performed By: #### L 100.0100, L501.2450, L500.2500, L500.3400 #### [facility] [address] [place], [address] MCH (RBC) [Entitic mass] 26.8 pg Low 27.0-32.0 [facility] Comment on above: Performed By: #### L 100.0100, L501.2450, L500.2500, L500.3400 #### [facility] [address] [place], [address] MCHC (RBC) [Mass/Vol] 32.1 g/dL Normal 32-36 [facility] Comment on above: Performed By: #### L 100.0100, L501.2450, L500.2500, L500.3400 #### [facility] [address] [place], [address] MCV (RBC) [Entitic vol] 83.4 fL Normal 81-99 [facility] Comment on above: Performed By: #### L 100.0100, L501.2450, L500.2500, L500.3400 #### [facility] [address] [place], [address] Monocytes/100 WBC (Bld) 5.2 % Normal 0-10 [facility] Comment on above: Performed By: #### L 100.0100, L501.2450, L500.2500, L500.3400 #### [facility] [address] [place], [address] Neutrophils/100 WBC (Bld) 72.2 % High 47-70 [facility] Comment on above: Performed By: #### L 100.0100, L501.2450, L500.2500, L500.3400 #### [facility] [address] [place], [address] Nucleated RBC (Bld) [#/Vol] 0 10*3/uL Normal 0-5 [facility] Comment on above: Performed By: #### L 100.0100, L501.2450, L500.2500, L500.3400 #### [facility] [address] [place], [address] Platelet mean volume (Bld) [Entitic vol] 9.4 fL Normal 6.2-12.0 [facility] Comment on above: Performed By: #### L 100.0100, L501.2450, L500.2500, L500.3400 #### [facility] [address] [place], [address] Platelets (Bld) [#/Vol] 236 10*3/uL Normal 150-450 [facility] Comment on above: Performed By: #### L 100.0100, L501.2450, L500.2500, L500.3400 #### [facility] [address] [place], [address] RBC (Bld) [#/Vol] 4.33 10*6/uL Normal 4.2-5.4 [facility] Comment on above: Performed By: #### L 100.0100, L501.2450, L500.2500, L500.3400 #### [facility] [address] [place], [address] RDW SD 49.1 fl High 35.1-43.9 [facility] Comment on above: Performed By: #### L 100.0100, L501.2450, L500.2500, L500.3400 #### [facility] [address] [place], [address] WBC (Bld) [#/Vol] 9.9 10*3/uL Normal 4.4-11.0 [facility] Comment on above: Performed By: #### L 100.0100, L501.2450, L500.2500, L500.3400 #### [facility] [address] [place], [address] Emergency Department Summary on 05-16-2024 Emergency Department Summary [facility] Medical Records Department [address] [place] [address] Emergency Department Summary 05/16/24 MR#: [id number] Acct: [id number] Name: SIA CONTRERAS Rep #: [id number] : 1980 43 From: Prakash Mcclendon DO PCP: HAILE Borges Status:REG ER Location: ED HPI HPI - GI History of Present Illness Chief Complaint: Abd Pain Narrative Narrative: 43-year-old female with abdominal pain. She states it started on Tuesday and has been relatively constant. She states it was initially in the right upper quadrant but now seems to be on the left side of her abdomen. She states it is not worse with eating food. 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 It is better when she is laying back. She states she has had some nausea associated with it. No fevers. She denies dysuria but states today when she wiped she saw pinkish discharge. She is concerned she might have a UTI. Patient also states that she has not had a bowel movement in several days. She is tried several stool softeners without any relief. She had a watery stool yesterday. She admits to passing flatus. [facility] Medical History PTSD (post-traumatic stress disorder) Major depression TED (generalized anxiety disorder) Sprain of left little finger Strain of right knee Vitamin deficiency Major depression Insomnia Acute gastroenteritis Dyspnea Anxiety Migraine headache Former smoker Sleep apnea Shortness of breath on exertion History of stress test History of gestational diabetes GI problem Seasonal allergies ADHD Depression Home Medications ???Medication ???Instructions ???Recorded ???Last Taken ???Type albuterol sulfate 90 mcg/actuation 2 puff inhalation Q4H PRN PRN 04/05/23 Unknown Rx aerosol inhaler Wheezing, shortness of breath #8.5 grams celecoxib 200 mg capsule (Celebrex) 200 mg PO BID Pain #60 caps 07/11/23 Unknown Rx docosahexaenoic acid 200 mg mg PO 07/20/23 Unknown History capsule ( DHA) lisdexamfetamine 10 mg capsule 10 mg PO DAILY 07/20/23 Unknown History (Vyvanse) valacyclovir 500 mg tablet 500 mg PO TID 7 days #21 tabs 07/29/23 Unknown Rx (Valtrex) hydroxyzine HCl 25 mg tablet 25 mg PO TID PRN anxiety #90 tabs 03/15/24 Unknown Rx lamotrigine 150 mg tablet 150 mg PO DAILY #30 tabs 03/15/24 Unknown Rx venlafaxine 150 mg 150 mg PO DAILY #90 caps 03/15/24 Unknown Rx capsule,extended release 24 hr venlafaxine 75 mg tablet 75 mg PO DAILY #90 tabs 03/15/24 Unknown Rx doxepin 10 mg capsule 10 mg PO QHS #30 caps 05/03/24 Unknown Rx amoxicillin 875 mg-potassium 1 tab PO BID #20 tabs 05/16/24 Unknown Rx clavulanate 125 mg tablet ondansetron 4 mg disintegrating 4 mg PO Q8H PRN PRN Nausea #14 tabs 05/16/24 Unknown Rx tablet Allergy/AdvReac Type Severity Reaction Status Date / Time Latex, Natural Rubber Allergy Intermediate skin Verified 05/16/24 17:05 irritation Family History Aunt Breast cancer Cancer ovarian Grandmother Diabetes Thyroid disorder Uncle Diabetes Father Diabetes Mother Thyroid disorder Depression Surgical History History of reversal of tubal ligation Hx of tubal ligation Hx of foot surgery History of foot surgery History of hip surgery Social History Smoking Status: Former smoker quit date: 10/24/15 Tobacco: How many years used: 10 alcohol intake: never substance use type: does not use caffeine: Yes what type of physical activity do you participate in: none seatbelt use: always do you feel safe at home: Yes additional social history: Single ROS ROS ED Constitutional Constitutional ED: Denies chills, fever(s) or sweats Eyes Eyes: Denies blurry vision or change in vision ENT ENT ED: Denies ear pain or sore throat Cardiovascular Cardiovascular: Denies chest pain, palpitations or racing heartbeat Respiratory/Chest Respiratory/Chest: Denies cough, dyspnea or sputum Gastrointestinal Gastrointestinal: Reports abdominal pain, constipation and nausea; Denies diarrhea or vomiting Genitourinary Genitourinary ED: Denies dysuria, hematuria or urinary frequency Musculoskeletal Musculoskeletal: Denies arthralgias, myalgias or neck pain Integumentary Denies abscess, Abrasions or rash Neurologic Neurologic: Denies headache(s), paresthesias or weakness Psychiatric Psychiatric: Denies anxiety, depression, suicidal ideation or suicidal thoughts Endocrine Endocrinology: Denies polydipsia or polyuria EXAM Physical Exam Const Vital Signs: 05/16/24 17:02 05/16/24 19:02 05/16/24 19:39 Temperature 98 F 97.6 F L 97 (more content not included)... Normal [facility] Lipaseon 05-16-2024 Lipase [Catalytic activity/Vol] 27 U/L Normal 13-75 [facility] Comment on above: Result Comment: Jameson dykes note: LIPASE revised reference range effective 23. New Lipase methodology. Expected to produce lower values than the previous assay method. NEW Reference Range: 13 - 75 U/L Performed By: #### L 100.0100, L501.2450, L500.2500, L500.3400 ####[facility] [address] [place], [address] Liver Profileon 05-16-2024 Albumin [Mass/Vol] 2.8 g/dL Low 3.2-5.0 [facility] Comment on above: Performed By: #### L 100.0100, L501.2450, L500.2500, L500.3400 ####[facility] [address] [place], [address] ALK P 76 U/L Normal 45-117 [facility] Comment on above: Performed By: #### L 100.0100, L501.2450, L500.2500, L500.3400 ####[facility] [address] [place], [address] ALT [Catalytic activity/Vol] 21 U/L Normal 13-56 [facility] Comment on above: Performed By: #### L 100.0100, L501.2450, L500.2500, L500.3400 ####[facility] [address] [place], [address] AST [Catalytic activity/Vol] 18 U/L Normal 15-37 [facility] Comment on above: Performed By: #### L 100.0100, L501.2450, L500.2500, L500.3400 ####[facility] [address] [place], [address] Bilirubin [Mass/Vol] 0.20 mg/dL Normal 0.20-1.00 [facility] Comment on above: Result Comment: For patients on eltrombopag therapy, use of Dimension Ignacio TBIL is not recommended. Performed By: #### L 100.0100, L501.2450, L500.2500, L500.3400 ####[facility] [address] [place], [address] Bilirubin.direct [Mass/Vol] 0.08 mg/dL Normal 0.00-0.30 [facility] Comment on above: Performed By: #### L 100.0100, L501.2450, L500.2500, L500.3400 ####[facility] [address] [place], [address] Globulin (S) [Mass/Vol] 4.2 g/dL Normal 2.2-4.2 [facility] Comment on above: Performed By: #### L 100.0100, L501.2450, L500.2500, L500.3400 ####[facility] [address] [place], [address] T PROT 7.0 g/dL Normal 6.4-8.2 [facility] Comment on above: Performed By: #### L 100.0100, L501.2450, L500.2500, L500.3400 ####[facility] [address] [place], [address] Urinalysis, Completeon 05-16 RBC 0-5 SEEN Normal 0-5 [facility] Comment on above: Order Comment: CLEAN CATCH Performed By: #### L 400.0001 #### [facility] [address] [place], [address] BACTERIA 1+ /hpf Normal None Seen [facility] Comment on above: Order Comment: CLEAN CATCH Performed By: #### L 400.0001 #### [facility] [address] [place], [address] EPI,SQUAMOUS 0-5 SEEN Normal 5-10 [facility] Comment on above: Order Comment: CLEAN CATCH Performed By: #### L 400.0001 #### [facility] [address] [place], [address] Mucus Ql (Urine sed) 1+ /hpf Normal [facility] Comment on above: Order Comment: CLEAN CATCH Performed By: #### L 400.0001 #### [facility] [address] [place], [address] WBC 0 SEEN Normal 0-5 [facility] Comment on above: Order Comment: CLEAN CATCH Performed By: #### L 400.0001 #### [facility] [address] [place], [address] Basophil percentageon 2021 Basophil percentage 0-5 SEEN /hpf [facility] Work Phone: Bilirubin Test strip Ql (U)o n 04-02-2022 Bilirubin Ql (U) Negative Negative [facility] Work Phone: Ketones Test strip Ql (U)on 04-02-2022 Ketones Ql (U) 5 mg/dl Negative [facility] Work Phone: Laboratory - Chemistry and C hemistry - challengeon 04-02-2022 HCG ( test) Ql (U) Negative [facility] Work Phone: Comment on above: Very dilute urine sp ecimens, as indicated by a low specificgravity, may not contain rental sales representative levels of hCG. If is still suspected, a first morning urinespecimen should be collected 48 hours later and tested. Mucus LM Ql (Urine sed)on Mucus Ql (Urine sed) 2+ /hpf [facility] Work Phone: Nitrite Test strip Ql (U)on 04-02-2022 Nitrite Ql (U) Negative Negative [facility] Work Phone: No Panel Informationon 04-02 SARS-CoV-2 & FLU Antigen (Rapid) [facility] Work Phone: Protein Test strip Ql (U)on 04-02-2022 Protein Ql (U) 15 mg/dl Negative [facility] Work Phone: Squamous epithelial cells de tection in urine sediment by light microscopyon 04-02-2022 Epithelial cells.squamous LM Ql (Urine sed) 0-5 SEEN /hpf [facility] Work Phone: Urine blood detectionon 03-24 0 RBC Ql (U) 150 /ul Negative [facility] Work Phone: RBC Ql (U) 10-25 SEEN /hpf [facility] Work Phone: Urine clarityon 04-02-2022 Clarity (U) Sl. Cloudy Clear [facility] Work Phone: Urine color determinationon 04-02-2022 Color (U) Yellow Yellow [facility] Work Phone: Urine glucose detectionon Glucose Ql (U) Normal mg/dl Normal [facility] Work Phone: Urine leukocyte esterase det ection by dipstickon 04-02-2022 Leukocyte esterase Test strip Ql (U) 25 /ul Negative [facility] Work Phone: Urine pHon 04-02-2022 pH (U) 6.0 [pH] [facility] Work Phone: Urine sediment bacteria coun t by microscopy (number/high power field)on 04-02-2022 Bacteria LM.HPF (Urine sed) [#/Area] 0 /[HPF] None Seen [facility] Work Phone: Urine specific gravity measu rementon 04-02-2022 Specific gravity (U) [Rel density] 1.025 [facility] Work Phone: Urobilinogen Auto test strip Ql (U)on 04-02-2022 Urobilinogen Ql (U) Normal mg/dl Normal [facility] Work Phone: Chlamydia trachomatis rRNA d etection by probe and target amplification methodon 03-11-2022 C. trachomatis rRNA KAVYA+probe Ql (Unsp spec) Negative Negative [facility] Work Phone: Gram stain for investigation of transfusion reactionon 03-11-2022 Microscopic observation Gram stain Nom (Unsp spec) [facility] Work Phone: Laboratory - Microbiology an d Antimicrobial susceptibilityon 03-11-2022 N. gonorrhoeae DNA KAVYA+probe Ql (Unsp spec) Negative Negative [facility] Work Phone: Comment on above: Performed at: =[address] [id number] Director: Elvia Koch MD, Phone: [phone] Thin prep Papanicolaou smear with manual screeningon 03-11-2022 Cytopathology procedure, preparation of smear, genital source Neisseria or beta-hemolytic Streptococcus isolated. [facility] Work Phone: Laboratory - Microbiology an d Antimicrobial susceptibilityon 12-09-2021 SARS-CoV-2 (COVID-19) RNA KAVYA+probe Ql (Unsp spec) Not detected Not Detect [facility] Work Phone: Comment on above: Normal Reference Ran ge: Not DetectedMethod:(RT-PCR) real-time reverse transcriptase PCRLuminex MIRYAM Instrument*The Food and Drug Administration (FDA) has issued an Emergency Use Authorization (EAU) for the MIRYAM SARS-CoV-2 Assay for the rapid detection of the virus that causes COVID-19. This test has been validated, but the FDAs independent review of this validation is pending.*Negative results do not preclude infection and should not be used as the sole basis for treatment or patient management. Optimum specimen types and timing for peak viral levels during infections caused by SARS-CoV-2 have not been determined. Collection of multiple specimens from the same patient may be necessary to detect the virus. The possibility of a false negative result should be considered if the patient has clinical presentation or has had recent exposure. POC , Urineon 06-15 HCG ( test) Ql (U) Negative Invalid Interpretation Code Negative [facility] Internal Control Pass Invalid Interpretation Code [facility] Interpretation and review of laboratory results Normal Invalid Interpretation Code [facility] Specific gravity Relative Density (U) Invalid Interpretation Code [facility] POC Urinalysis Dipstickon Bilirubin Ql (U) Negative Invalid Interpretation Code Negative [facility] Glucose Ql (U) Negative Invalid Interpretation Code Normal, Negative mg/dL [facility] Hemoglobin Test strip Ql (U) Small Abnormal Negative [facility] Interpretation and review of laboratory results Abnormal Invalid Interpretation Code [facility] Ketones Ql (U) Negative Invalid Interpretation Code Negative mg/dL [facility] Leukocyte esterase Test strip Ql (U) Trace Abnormal Negative [facility] Nitrite Test strip Ql (U) Negative Invalid Interpretation Code Negative [facility] pH Test strip (U) 6.0 [pH] Invalid Interpretation Code [facility] Protein Test strip Ql (U) Negative Invalid Interpretation Code Negative mg/dL [facility] Specific gravity Relative Density (U) 1.030 Abnormal [facility] Urobilinogen Test strip Qn (U) 0.2 mg/dL Invalid Interpretation Code <2.0, 0.2, Normal, Negative, 1.0, 2.0, <1.0 [facility] XR Spine Cervical 6 or More Viewson 05-27-2018 XR Spine Cervical 6 or More Views Exam Date/Time: 05/27/2018 12:48 EDT Reason for Exam: Neck Pain Report STUDY: XR Spine Cervical 6 or More Views; 05/27/2018 12:48 pm INDICATION: Neck Pain. COMPARISON: None. ACCESSION NUMBER(S): [id number] ORDERING CLINICIAN: Andreas Anthony TECHNIQUE: Five views of the cervical spine including AP, lateral, open-mouth odontoid view and bilateral oblique views were obtained. FINDINGS: There is no evidence of acute fracture identified. The vertebral bodies are well aligned without evidence of subluxation. No prevertebral soft tissue swelling is present. The disc spaces and posterior facet joints are well preserved throughout without significant degenerative changes. No gross osseous neural foraminal narrowing is seen bilaterally. IMPRESSION: 1. No evidence of acute fracture. FINAL REPORT Dictated: 05/27/2018 2:51 pm Aubrey Bell MD Signed (Electronic Signature): 05/27/2018 2:51 pm Signed by: Aubrey Bell MD Technologist: , Normal [facility] Placenta Pathology Request - NO EXAMon 05-23-2018 Placenta Pathology Request - NO EXAM Collected [facility] Comment on above: Performed By: #### 2 [id number] #### DAMASO RemHemo [address] [place], [place] [id number] Hematocriton 05-20-2018 Hematocrit Volume Fraction (Bld) 33.3 % Low 36.0-48.0 [facility] Comment on above: Order Comment: Order Added by Discern Expert. Performed By: #### 2 [id number] #### DAMASO RemHemo [facility] [place] [id number] Hemoglobinon 05-20-2018 Hemoglobin mass conc (Bld) 11.0 g/dL Low 12.0-16.0 [facility] Comment on above: Order Comment: first post- day Performed By: #### 2 [id number] #### DAMASO RemHemo [facility] [place] [address] Auto Diffon 05-19-2018 Basophils #/vol (Bld) 0.0 E3/mcL Normal 0.0-0.2 [facility] Comment on above: Order Comment: Order Added by Discern Expert. Performed By: #### 2 [id number] #### DAMASO RemHemo [facility] [place] [id number] Basophils/100 WBC (Bld) 0.4 % Normal 0.0-2.0 [facility] Comment on above: Order Comment: Order Added by Discern Expert. Performed By: #### 2 [id number] #### DAMASO RemHemo [address] [place] [address] Eos Absolute 0.1 E3/mcL Normal 0.0-0.7 [facility] Comment on above: Order Comment: Order Added by Discern Expert. Performed By: #### 2 [id number] #### DAMASO RemHemo [address] [place] [address] Eosinophils/100 WBC (Bld) 1.2 % Normal 0.0-11.0 [facility] Comment on above: Order Comment: Order Added by Discern Expert. Performed By: #### 2 [id number] #### DAMASO RemHemo [address] [place] [address] Lymphocytes #/vol (Bld) 1.5 E3/mcL Normal 1.2-3.4 [facility] Comment on above: Order Comment: Order Added by Vitaliy Expert. Performed By: #### 2 [id number] #### DAMASO RemHemo [address] [place] [address] Lymphocytes/100 WBC (Bld) 15.6 % Low 20.0-55.0 [facility] Comment on above: Order Comment: Order Added by Vitaliy Expert. Performed By: #### 2 [id number] #### DAMASO RemHemo [address] [place] [address] Early Absolute 0.4 E3/mcL Normal 0.0-0.7 [facility] Comment on above: Order Comment: Order Added by Discern Expert. Performed By: #### 2 [id number] #### DAMASO RemHemo [address] [place] [address] Monocytes/100 WBC (Bld) 4.3 % Normal 0.0-10.0 [facility] Comment on above: Order Comment: Order Added by Discern Expert. Performed By: #### 2 [id number] #### DAMASO RemHemo [address] [place] [address] Neutro Absolute 7.8 E3/mcL High 1.4-6.5 [facility] Comment on above: Order Comment: Order Added by Discern Expert. Performed By: #### 2 [id number] #### DAMASO RemHemo [address] [place] [address] Neutro Auto 78.5 % High 37.0-75.0 [facility] Comment on above: Order Comment: Order Added by Discern Expert. Performed By: #### 2 [id number] #### DAMASO RemHemo [address] [place] [address] CBC w/ Auto Diffon 8 Erythrocyte distribution width Ratio (RBC) 15.8 % High 11.5-14.5 [facility] Comment on above: Performed By: #### 2 [id number] #### DAMASO RemHemo [address] [place] [id number] Hematocrit Volume Fraction (Bld) 35.6 % Low 36.0-48.0 [facility] Comment on above: Performed By: #### 2 [id number] #### DAMASO RemHemo [address] [place] [id number] Hemoglobin mass conc (Bld) 11.7 g/dL Low 12.0-16.0 [facility] Comment on above: Performed By: #### 2 [id number] #### DAMASO RemHemo [address] [place] [address] MCH Entitic mass (RBC) 26.6 pg Low 27.0-31.0 [facility] Comment on above: Performed By: #### 2 [id number] #### DAMASO RemHemo [address] [place] [address] MCHC mass conc (RBC) 33.0 g/dL Normal 33.0-37.0 [facility] Comment on above: Performed By: #### 2 [id number] #### DAMASO RemHemo [address] [place] [address] MCV Entitic volume (RBC) 80.6 fL Normal 78.0-100.0 [facility] Comment on above: Performed By: #### 2 [id number] #### DAMASO RemHemo [address] [place] [address] Platelet mean volume Entitic volume (Bld) 8.6 fL Normal 7.4-11.0 [facility] Comment on above: Performed By: #### 2 [id number] #### DAMASO RemHemo [address] [place] [address] Platelets #/vol (Bld) 237 E3/mcL Normal 130-400 [facility] Comment on above: Performed By: #### 2 [id number] #### DAMASO RemHemo [address] [place] [address] RBC #/vol (Bld) 4.42 E6/mcL Normal 3.90-5.40 [facility] Comment on above: Performed By: #### 2 [id number] #### DAMASO RemHemo [address] [place] [address] WBC #/vol (Bld) 9.9 E3/mcL Normal 3.6-11.0 [facility] Comment on above: Performed By: #### 2 [id number] #### DAMASO RemHemo [address] [place] [address] Glucose POCon 05-19-2018 Glucose mass conc 117 mg/dL High 70-99 [facility] Comment on above: Performed By: #### 2 [id number] #### DAMASO RemHemo [address] [place] [address] Glucose mass conc 79 mg/dL Normal 70-99 [facility] Comment on above: Performed By: #### 2 [id number] #### DAMASO GalindoHemo [address] [place] [address] US Follow Upon US Follow Up Exam Date/Time: 05/11/2018 14:42 EDT Reason for Exam: CHECK SIZE; Size - measuring standard growth/amniotic fluid volume Report STUDY: US Follow Up 05/11/2018 2:42 pm INDICATION: Size - measuring standard growth/amniotic fluid volume. COMPARISON: None. ACCESSION NUMBER(S): [id number] ORDERING CLINICIAN: Shan Buckner TECHNIQUE: Routine ultrasound of the pelvis was performed. Evaluation of the female pelvis was performed by transabdominal. FINDINGS: There is a single live intrauterine gestation in vertex position. BPD 93mm, 37 weeks, 6 days HC 334mm, 38 weeks, 1 days AC 357mm, 39 weeks, 4 days FL 75mm, 38 weeks, 3 days This results in a composite gestational age of 38 weeks, 4 days, +/-19 days. The estimated date of delivery by ultrasound is 05/21/2018. By dates the fetus should be 37 weeks, 6 days, which is concordant with the ultrasound dating. There is an estimated weight of 3641 g, +/-546 g (86th percentile) heart rate measures 142 beats per minute. Evaluation of anatomy is limited as the study was done for the evaluation of growth. The placenta is in posterior location. No evidence of placenta previa is seen. The amniotic fluid volume is within normal limits, with an amniotic fluid index of 19.0 cm. IMPRESSION: Single live intrauterine gestation corresponding to 38 weeks, 4 days, +/-19 days. Exam Date/Time: 05/11/2018 14:42 EDT Report Evaluation of anatomy was not performed. Recommend continued routine follow-up imaging evaluation. FINAL REPORT Dictated: 05/11/2018 2:51 pm Aubrey Bell MD Signed (Electronic Signature): 05/11/2018 2:51 pm Signed by: Aubrey Bell MD Technologist: [facility] BILE ACIDS,TOTALon 8 BILE ACIDS,TOTAL 4.0 umol/L Low 4.7-24.5 [facility] Comment on above: Result Comment: Preg nant female reference interval (15 - 45 years): 3.7 - 14.5 Performed By: #### B ILE ####[facility] [phone] [place], [place] [id number] [employer] - Office Visiton 04-23 [employer] - Office Visit Chief ComplaintPatient here today for OB Appointment to discuss sugars. Shared Care. EBRTA: 05/26/2018 History of Present IllnessMs. Contreras returns for BG evaluation after her growth ultrasound with appropriate interval growth and a BPP of 8/8.She notes irregular contractions that kept her up last night with some new itching over her body without any known rash or other cause. She continues to have some itching now but less so. She otherwise has regular movement, fewer ctx today, no LOF, and no VB.We reviewed her BG log with continued normal-range sugars using dietary changes alone over 1 week:Fasting 82-95 with one elevated at 95PP 100-151 with one elevated at 90She has weekly NSTs planned with her provider and anticipates delivery at [facility] with an IOL unless she labors before then. These recommendations would have been addressed at her initial GDM visit, but we reiterated them today. She has her next visit within the next week.The remainder of her negative ROS is below, and assessment/plan follows. Review of SystemsConstitutional: no fever, no chills and no fatigue. Cardiovascular: no chest pain, no palpitations and no orthopnea. Respiratory: no shortness of breath, no cough and no wheezing. Gastrointestinal: no abdominal pain, no constipation, no nausea, no diarrhea and no vomiting. Genitourinary: no dysuria, no pelvic pain and no vaginal discharge. Musculoskeletal: leg edema. Active Problems Advanced maternal age in multigravida (659.60) (O09.529) Gestational diabetes mellitus (GDM) in third trimester, gestational diabetes method ofcontrol unspecified (648.83) (O24.419) Morbid obesity (278.01) (E66.01) Surgical History History of Oviductal Surgery Tubotubal Anastomosis BTL reversal, 11/2014 History of Tubal Ligation (V25.2) Family History Family history of Marfan syndrome (V19.5) (Z82.79) Social History Always uses seat belt Denies alcohol consumption (V49.89) (Z78.9) Feels safe at home Non-smoker (V49.89) (Z78.9) Allergies No Known Drug Allergies Recorded By: Gillian Green; 11/11/2017 11:07:50 AM Current Meds Vitamin TABS;Therapy: (Recorded:11Nov2017) to Recorded Dispense: 0 Days ; #: Sufficient TABS; Refill: 0; LAKE = N; Record; Last Updated By: Gillian Green; 11/11/2017 11:07:50 AM Vitals Vital Signs Recorded: [id number] 10:58AMHeart Mvaz62Srwbtovs476Awzwvqvw f43Obsasv3 ft 9 dxXeperf811 lb BMI Ktpusetnry65.29BSA Calculated2.16Adwcahx0Dvh a3Pain Scale0 Physical ExamSkin: No obvious rash or cause of new-onset pruritis Patient Discussion/SummaryUpdated assessment/plan of care1. Diet-controlled GDM-weekly NST in her provider's office planned-reinforced our recommendation for IOL at 39 weeks if does not labor sooner-no follow-up in our office planned2. New pruritis-though not a clear picture, cholestasis is in the differential-discussed the diagnosis and that, if diagnosed, would recommend delivery at time of diagnosis that would coincide with a term instead of awaiting 39 weeks -reviewed kick counts and reasons to monitor-if cholestasis is NOT diagnosed, would still plan for 39 week IOL-anticipate receiving bile acid lab results by Tuesday of this week - collected while she was in our office today - and will contact the patient and her provider-asked patient to call her provider's office on Tuesday if has not heard, as it is uncertain if results will be available before the end of the weekThank you for allowing us to participate in her care. Please contact us with questions or concerns.Radha Cherry MD. Signatures Electronically signed by : Radha Cherry MD; May 02 2018 11:36AM EST (Author) Normal [facility] Group B Strep PCRon 04-29-20 18 Group B Strep PCR Negative Normal [facility] Comment on above: Order Comment: For p ositive results only; Penicillin is the recommended antibiotic for the treatment of Group B Streptococcal disease. In case of penicillin allergy, Clindamycin may be used.All Negative GBS Screens by PCR will be confirmed by culture. Performed By: #### 2 [id number] #### [place] [address] [employer] - Office Visiton 03-24 [employer] - Office Visit Chief ComplaintPatient here today for OB Follow Up Visit to discuss sugars. BERTA: 05/26/2018 History of Present Eqkptim18 yo at 33+4 for f/u review of blood sugars after initial GDM consult on 03/22/18 with me.Primary care with Dr. Alves at [facility].No acute OB complaints, overall feeling well; no LOF, VB, or CTX; remainder of negative ROS is documented belowBG log reviewedFasting 82-102 (03/12 elevated)PP overall 96-158 with one outlier at 204 after sugary dessert 'meal' ( elevated) Review of SystemsConstitutional: no fever, no chills and no fatigue. Cardiovascular: no chest pain, no palpitations and no orthopnea. Respiratory: no shortness of breath, no cough and no wheezing. Gastrointestinal: no abdominal pain, no constipation, no nausea, no diarrhea and no vomiting. Genitourinary: no dysuria, no pelvic pain and no vaginal discharge. Integumentary: no rashes. Neurological: no headache, no numbness and no dizziness. Active Problems Advanced maternal age in multigravida (659.60) (O09.529) Gestational diabetes mellitus (GDM) in third trimester, gestational diabetes method ofcontrol unspecified (648.83) (O24.419) Morbid obesity (278.01) (E66.01) Surgical History History of Oviductal Surgery Tubotubal Anastomosis BTL reversal, 11/2014 History of Tubal Ligation (V25.2) Family History Family history of Marfan syndrome (V19.5) (Z82.79) Social History Always uses seat belt Denies alcohol consumption (V49.89) (Z78.9) Feels safe at home Non-smoker (V49.89) (Z78.9) Allergies No Known Drug Allergies Recorded By: Gillian Green; 11/11/2017 11:07:50 AM Current Meds Vitamin TABS;Therapy: (Recorded:11Nov2017) to Recorded Dispense: 0 Days ; #: Sufficient TABS; Refill: 0; [place] = N; Record; Last Updated By: Gillian Green; 11/11/2017 11:07:50 AM Vitals Vital Signs Recorded: 11Apr2018 09:13AMRecorded: 11Apr2018 08:49AMHeart Ooan23Xocobitq766355Rmrij kqev7115Riqvst6 ft 9 vvOlfkxy457 lb BMI Tnogikdqlw97.73BSA Calculated2.18Ctrgkwp4Zhf a3Pain Scale0 BP repeat: 132/80 Physical ExamFHT to be documented via USD Patient Discussion/SummaryFollow- up BG log evaluation-continued adequate glycemic control w/o recommendation for medical management-discussed mild fasting elevations that, IF increase in value or frequency, may necessitate medical management-discussed that I would recommend qHS NPH to focus on fasting values only-mild elevated BP on initial reading today; repeat WNL-planned f/u with her usual provider for care-will see us again in 3 weeks for interval growth ultrasound and MD glucose log reviewThank you for allowing us to participate in her care. Please contact us with any questions or concerns. Signatures Electronically signed by : Radha Cherry MD; Apr 11 2018 9:17AM EST (Author) Normal [facility] [employer] - Office Visiton 06-0 [employer] - Office Visit Chief ComplaintReferral for new GDM diagnosis, BMI >40, referred from [facility], Dr. Gissell Alves History of Present IllnessMs. Diane is a 37 year old at 30+6 weeks by EDC 05/25/18 who presented for initial MFM consult with a new diagnosis of gestational diabetes.Her is also complicated by AMA with a history of BTL and successful tubal reversal, and a BMI of >40.These medical comorbidities were briefly addressed, although the focus of our visit was education about and ongoing management of gestational diabetes.GDM diagnosis was made based on elevated one- and three-hour routine testingSince diagnosis, the patient has had initial teaching for use of supplies, self-glucose monitoring, and nutrition counseling. We reviewed her current BG log, including:Fasting 02/09 elevated but with highest value 98 x1 value; other three 'elevated' were 95PP breakfast 1/20 elevated PP lunch 0/20 elevatedPP dinner 2/20 elevatedShe describes dietary changes and motivation to achieve glycemic control with these changes alone. She feels she is eating enough and is not hungry outside of meals and planned snacks, sometimes opting to not eat snacksToday, she has no acute complaints, denying VB, cramping/ctx, LOF, or VB; she notes regular FMThe remainder of her ROS and history were reviewed and are noted below. Review of SystemsConstitutional: no fever, no chills and no fatigue. Cardiovascular: no chest pain, no palpitations and no orthopnea. Respiratory: no shortness of breath, no cough and no wheezing. Gastrointestinal: no abdominal pain, no constipation, no nausea, no diarrhea and no vomiting. Genitourinary: no dysuria, no pelvic pain and no vaginal discharge. Neurological: no headache. Psychiatric: no depression. Active Problems Advanced maternal age in multigravida (659.60) (O09.529) Gestational diabetes mellitus (GDM) in third trimester, gestational diabetes method ofcontrol unspecified (648.83) (O24.419) Morbid obesity (278.01) (E66.01) Surgical History History of Oviductal Surgery Tubotubal Anastomosis BTL reversal, 11/2014 History of Tubal Ligation (V25.2) Social History Always uses seat belt Denies alcohol consumption (V49.89) (Z78.9) Feels safe at home Non-smoker (V49.89) (Z78.9) Allergies No Known Drug Allergies Recorded By: Gillian Green; 11/11/2017 11:07:50 AM Current Meds Vitamin TABS;Therapy: (Recorded:11Nov2017) to Recorded Dispense: 0 Days ; #: Sufficient TABS; Refill: 0; [place] = N; Record; Last Updated By: Gillian Green; 11/11/2017 11:07:50 AM Vitals Vital Signs Recorded: [id number] 10:26AMHeart Lpbo37Xkbzryry071Ensfrmqg i71Srqxsa4 ft 9 riXdqpan395 lb BMI Umvkinskuk84.58BSA Calculated2.89Umunubp6Iex a3Pain Scale0 Physical ExamDetailed physical exam was not performed at today's consult visit. OB HistoryG1 1995, term , no complicationsG2 1998, term , no complicationsG3 2001, 8 week SABG4 2002, term , no complications (followed by BTL)G5 current Diagnoses/Problems History of Oviductal Surgery Tubotubal Anastomosis BTL reversal, 11/2014 History of Tubal Ligation (V25.2) Gestational diabetes mellitus (GDM) in third trimester, gestational diabetes method ofcontrol unspecified (648.83) (O24.419) Advanced maternal age in multigravida (659.60) (O09.529) Patient Discussion/SummaryWe saw Ms. Contreras for a consult specific to her new diagnosis of GDM.During our consultation today, we reviewed the diagnosis, risks, and management of GDM. Gestational diabetes is associated with a higher risk of gestational hypertension, preeclampsia, and delivery and is associated with potential maternal morbidity. Women with gestational diabetes are at increased risk for development of diabetes later in life. Approximately 50% of women with gestational diabetes will develop diabetes after (20-25 years). The likelihood of progression to type 2 diabetes is influenced by ethnicity, body mass index and the need for medication to control blood sugars in . risks in include an increased risk for macrosomia, hypoglycemia, hyperbilirubinemia, shoulder dystocia, NICU admission and trauma. There is a continuous relationship between maternal glucose control and delivery, weight greater than the 90th percentile, hypoglycemia, and high levels of and insulin. We reviewed the importance of strict glycemic control. We reviewed that while she may achieve appropriate glycemic control with dietary modification alone, approximately 30-50% of women require insulin to achieve appropriate glycemic control. Good glucose control is associated with a significant reduction in complications including shoulder dystocia, trauma, and large for gestational age infants. In addition treatment has been shown to decrease rates of delivery and the development of hypertensive disorders in .Nutrition consultation, a DM diet, and serial CBG monitoring (fasting and 1 hour postprandial with goals <95 and <140 respectively) are part of our routine recommendations for care.Thus far, she has:-Seen a asset recovery specialist and initiated dietary changes-Initiated blood sugar monitoringBG log is reviewed in HPI and suggests adequate glycemic control with dietary changes alone. For Sia, we recommended continued:Dietary changes, focused on a distribution with 30-40% carbohydrates 20% protein 40% fatModerate exercise as toleratedFBS and one-hour PP glucose with goals: FBS < 95 AND 1 h PP < 140Additional recommendations for:Ultrasound for estimated weight every 3 weeks in the third trimester (scheduled before she left [facility] visit)Initiation of testing if medication is initiated for BS control, ultrasound evidence of polyhydramnios or macrosomia is suspected, or if other indications for testing ariseInduction of labor at 39 weeks gestation (unless indication for earlier delivery)Counseling for delivery with the estimated weight is 4500 g or morePostpartum screening for diabetes at the 6 week visit (75 g two-hour OGTT) and screening for Diabetes mellitus at 1-3 year intervals (ongoing) given the risk of developing overt type 2 diabetes in the next decade.We scheduled a brief MD visit in conjunction with her 2 scheduled ultrasounds to review her BG log, and she will email us sooner if she notes any increased trend in valuesThank you for allowing us to participate in her care. We anticipate shared care between her usual providers and [facility] as needed. Please contact us with any questions or concerns.Radha Cherry MD MSCR.. End of Encounter MedsPrenatal Vitamin TABS;Therapy: (Recorded:11Nov2017) to Recorded Signatures Electronically signed by : Radha Cherry MD; Mar 24 2018 2:13AM EST (Author) Normal Touchworks ActimPromon 03-23-2018 Protein mass conc Negative Normal Negative [facility] Comment on above: Performed By: #### 6 [id number] #### DAMASO Chemistry Manual Subsection [address] [place] [address] Protein mass conc Pass Normal [facility] Comment on above: Performed By: #### 6 [id number] #### DAMASO Chemistry Manual Subsection [facility] [place] [address] Auto Diffon 03-23-2018 Basophils #/vol (Bld) 0.0 E3/mcL Normal 0.0-0.2 [facility] Comment on above: Order Comment: Order Added by Discern Expert. Performed By: #### 2 [id number] #### DAMASO RemHemo [address] [place] [address] Basophils/100 WBC (Bld) 0.2 % Normal 0.0-2.0 [facility] Comment on above: Order Comment: Order Added by Discern Expert. Performed By: #### 2 [id number] #### DAMASO RemHemo [address] [place] [address] Eos Absolute 0.1 E3/mcL Normal 0.0-0.7 [facility] Comment on above: Order Comment: Order Added by Discern Expert. Performed By: #### 2 [id number] #### DAMASO RemHemo [address] [place] [address] Eosinophils/100 WBC (Bld) 1.3 % Normal 0.0-11.0 [facility] Comment on above: Order Comment: Order Added by Discern Expert. Performed By: #### 2 [id number] #### DAMASO RemHemo [address] [place] [address] Lymphocytes #/vol (Bld) 1.6 E3/mcL Normal 1.2-3.4 [facility] Comment on above: Order Comment: Order Added by Discern Expert. Performed By: #### 2 [id number] #### DAMASO GalindoHemo [address] [place] [address] Lymphocytes/100 WBC (Bld) 16.4 % Low 20.0-55.0 [facility] Comment on above: Order Comment: Order Added by Discern Expert. Performed By: #### 2 [id number] #### DAMASO GalindoHemo [address] [place], [place] [id number] Early Absolute 0.5 E3/mcL Normal 0.0-0.7 [facility] Comment on above: Order Comment: Order Added by Discern Expert. Performed By: #### 2 [id number] #### DAMASO GalindoHemo [address] [place] [address] Monocytes/100 WBC (Bld) 4.8 % Normal 0.0-10.0 [facility] Comment on above: Order Comment: Order Added by Discern Expert. Performed By: #### 2 [id number] #### DAMASO GalindoHemo [address] [place], [place] [id number] Neutro Absolute 7.4 E3/mcL High 1.4-6.5 [facility] Comment on above: Order Comment: Order Added by Discern Expert. Performed By: #### 2 [id number] #### DAMASO GalindoHemo [address] [place] [address] Neutro Auto 77.3 % High 37.0-75.0 [facility] Comment on above: Order Comment: Order Added by Discern Expert. Performed By: #### 2 [id number] #### DAMASO GalindoHemo [address] [place] [address] CBC w/ Auto Diffon 8 Erythrocyte distribution width Ratio (RBC) 14.9 % High 11.5-14.5 [facility] Comment on above: Performed By: #### 2 [id number] #### DAMASO Patinoo [facility] [place] [id number] Hematocrit Volume Fraction (Bld) 35.3 % Low 36.0-48.0 [facility] Comment on above: Performed By: #### 2 [id number] #### DAMASO [place]o [address] [place] [id number] Hemoglobin mass conc (Bld) 11.5 g/dL Low 12.0-16.0 [facility] Comment on above: Performed By: #### 2 [id number] #### DAMASO [place] [facility] [place] [id number] MCH Entitic mass (RBC) 27.2 pg Normal 27.0-31.0 [facility] Comment on above: Performed By: #### 2 [id number] #### DAMASO [place] [facility] [place] [address] MCHC mass conc (RBC) 32.7 g/dL Low 33.0-37.0 [facility] Comment on above: Performed By: #### 2 [id number] #### DAMASO Patinoo [address] [place], [place] [address] MCV Entitic volume (RBC) 83.1 fL Normal 78.0-100.0 [facility] Comment on above: Performed By: #### 2 [id number] #### DAMASO GalindoHemo [address] [place] [address] Platelet mean volume Entitic volume (Bld) 8.2 fL Normal 7.4-11.0 [facility] Comment on above: Performed By: #### 2 [id number] #### DAMASOAime Patinoo [address] [place] [address] Platelets #/vol (Bld) 225 E3/mcL Normal 130-400 [facility] Comment on above: Performed By: #### 2 [id number] #### DAMASO GalindoHemo [facility] [place] [address] RBC #/vol (Bld) 4.24 E6/mcL Normal 3.90-5.40 [facility] Comment on above: Performed By: #### 2 [id number] #### DAMASOAime GalindoHemo [facility] [place] [address] WBC #/vol (Bld) 9.6 E3/mcL Normal 3.6-11.0 [facility] Comment on above: Performed By: #### 2 [id number] #### DAMASOAime GalindoHemo [facility] [place] [address] FFNon 03-23-2018 Fibronectin Negative Normal Negative [facility] Comment on above: Order Comment: Obtai n if patient is 22-35 AOG with symptoms of pre-term labor. (Obtain prior to vaginal exam if no vaginal bleeding and no sexual intercourse within 24 hours) Performed By: #### 2 [id number] #### DAMASO RemHemo [address] [place] [address] Glucose POCon 03-23-2018 Glucose mass conc 107 mg/dL High 70-99 [facility] Comment on above: Performed By: #### 2 [id number] #### DAMASO RemHemo [address] [place] [address] Glucose mass conc 76 mg/dL Normal 70-99 [facility] Comment on above: Performed By: #### 5 [id number] #### DAMASO POC Subsection [address] [place] [address] .PN Glucose 1 Hron 8 Glucose mass conc 245 mg/dL High <=180 [facility] Comment on above: Performed By: #### 1 [id number] #### DAMASO RemChem [address] [place] [address] .PN Glucose 2 Hron 8 Glucose mass conc 167 mg/dL High <=155 [facility] Comment on above: Performed By: #### 1 [id number] #### DAMASO RemChem [address] [place] [address] .PN Glucose Fastingon 2017 Glucose mass conc 113 mg/dL High <=95 [facility] Comment on above: Performed By: #### 1 [id number] #### DAMASO RemChem [address] [place] [address] Auto Diffon 02-23-2018 Basophils #/vol (Bld) 0.1 E3/mcL Normal 0.0-0.2 [facility] Comment on above: Order Comment: Order Added by Discern Expert. Performed By: #### 2 [id number] #### DAMASO RemHemo [address] [place] [address] Basophils/100 WBC (Bld) 0.7 % Normal 0.0-2.0 [facility] Comment on above: Order Comment: Order Added by Discern Expert. Performed By: #### 2 [id number] #### DAMASO RemHemo [address] [place] [address] Eos Absolute 0.2 E3/mcL Normal 0.0-0.7 [facility] Comment on above: Order Comment: Order Added by Discern Expert. Performed By: #### 2 [id number] #### DAMASO RemHemo [address] [place] [address] Eosinophils/100 WBC (Bld) 1.7 % Normal 0.0-11.0 [facility] Comment on above: Order Comment: Order Added by Discern Expert. Performed By: #### 2 [id number] #### DAMASO RemHemo [address] [place] [address] Lymphocytes #/vol (Bld) 1.5 E3/mcL Normal 1.2-3.4 [facility] Comment on above: Order Comment: Order Added by Discern Expert. Performed By: #### 2 [id number] #### DAMASO RemHemo [address] [place] [address] Lymphocytes/100 WBC (Bld) 14.4 % Low 20.0-55.0 [facility] Comment on above: Order Comment: Order Added by Discern Expert. Performed By: #### 2 [id number] #### DAMASO RemHemo [address] [place] [address] Early Absolute 0.4 E3/mcL Normal 0.0-0.7 [facility] Comment on above: Order Comment: Order Added by Discern Expert. Performed By: #### 2 [id number] #### DAMASO RemHemo [address] [place] [address] Monocytes/100 WBC (Bld) 4.1 % Normal 0.0-10.0 [facility] Comment on above: Order Comment: Order Added by Discern Expert. Performed By: #### 2 [id number] #### DAMASO RemHemo [address] [place] [address] Neutro Absolute 8.2 E3/mcL High 1.4-6.5 [facility] Comment on above: Order Comment: Order Added by Discern Expert. Performed By: #### 2 [id number] #### DAMASO RemHemo [address] [place] [address] Neutro Auto 79.1 % High 37.0-75.0 [facility] Comment on above: Order Comment: Order Added by Discern Expert. Performed By: #### 2 [id number] #### DAMASO RemHemo [address] [place] [address] CBC w/ Auto Diffon 8 Erythrocyte distribution width Ratio (RBC) 14.6 % High 11.5-14.5 [facility] Comment on above: Performed By: #### 2 [id number] #### DAMASO RemHemo [address] [place] [address] Hematocrit Volume Fraction (Bld) 34.3 % Low 36.0-48.0 [facility] Comment on above: Performed By: #### 2 [id number] #### DAMASO RemHemo [facility] [place] [address] Hemoglobin mass conc (Bld) 11.5 g/dL Low 12.0-16.0 [facility] Comment on above: Performed By: #### 2 [id number] #### DAMASO RemHemo [address] [place], [place] [address] MCH Entitic mass (RBC) 28.3 pg Normal 27.0-31.0 [facility] Comment on above: Performed By: #### 2 [id number] #### DAMASO RemHemo [address] [place] [id number] MCHC mass conc (RBC) 33.5 g/dL Normal 33.0-37.0 [facility] Comment on above: Performed By: #### 2 [id number] #### DAMASO RemHemo [address] [place] [id number] MCV Entitic volume (RBC) 84.4 fL Normal 78.0-100.0 [facility] Comment on above: Performed By: #### 2 [id number] #### DAMASO RemHemo [address] [place] [address] Platelet mean volume Entitic volume (Bld) 7.7 fL Normal 7.4-11.0 [facility] Comment on above: Performed By: #### 2 [id number] #### DAMASO RemHemo [address] [place] [address] Platelets #/vol (Bld) 234 E3/mcL Normal 130-400 [facility] Comment on above: Performed By: #### 2 [id number] #### DAMASO RemHemo [address] [place], [place] [address] RBC #/vol (Bld) 4.06 E6/mcL Normal 3.90-5.40 [facility] Comment on above: Performed By: #### 2 [id number] #### DAMASO RemHemo [address] [place] [address] WBC #/vol (Bld) 10.4 E3/mcL Normal 3.6-11.0 [facility] Comment on above: Performed By: #### 2 [id number] #### DAMASO RemHemo [address] [place] [address] Gest Scr Glu 1 Hron 02-24-20 18 Glucose mass conc 165 mg/dL High 70-140 [facility] Comment on above: Performed By: #### 3 [id number] #### DAMASO RemChem [address] [place] [address] UA Completeon 02-10-2018 Color Nom (U) Yellow Normal Yellow [facility] Comment on above: Performed By: #### 8 [id number] #### DAMASO Urinalysis Automated Subsection [address] [place] [address] Glucose mass conc (U) Negative Normal Negative [facility] Comment on above: Performed By: #### 8 [id number] #### DAMASO Urinalysis Automated Subsection [address] [place] [address] Ketones Ql (U) Negative Normal Negative [facility] Comment on above: Performed By: #### 8 [id number] #### DAMASO Urinalysis Automated Subsection [address] [place] [address] RBC #/vol (U) 3-5 Abnormal 0-3 [facility] Comment on above: Performed By: #### 8 [id number] #### DAMASO Urinalysis Automated Subsection [address] [place] [address] UA Blood 1+ Abnormal Negative [facility] Comment on above: Performed By: #### 8 [id number] #### DAMASO Urinalysis Automated Subsection [address] [place] [address] UA Bacteria Trace Abnormal None [facility] Comment on above: Performed By: #### 8 [id number] #### DAMASO Urinalysis Automated Subsection [facility] [place] [address] UA Clarity Clear Normal Clear [facility] Comment on above: Performed By: #### 8 [id number] #### DAMASO Urinalysis Automated Subsection [facility] [place] [address] UA Leuk Est Negative Normal Negative [facility] Comment on above: Performed By: #### 8 [id number] #### DAMASO Urinalysis Automated Subsection [facility] [place] [address] UA Mucous Trace Abnormal Trace [facility] Comment on above: Performed By: #### 8 [id number] #### DAMASO Urinalysis Automated Subsection [address] [place] [address] UA Nitrite Negative Normal Negative [facility] Comment on above: Performed By: #### 8 [id number] #### DAMASO Urinalysis Automated Subsection [address] [place] [address] UA pH 6.0 Normal 4.6-8.0 [facility] Comment on above: Performed By: #### 8 [id number] #### DAMASO Urinalysis Automated Subsection [address] [place] [address] UA Protein Negative Normal Negative [facility] Comment on above: Performed By: #### 8 [id number] #### DAMASO Urinalysis Automated Subsection [address] [place] [address] UA Spec Grav 1.011 Normal 1.003-1.030 [facility] Comment on above: Performed By: #### 8 [id number] #### DAMASO Urinalysis Automated Subsection [address] [place] [address] UA Squam Epithelial 0-5 Normal 0-5 [facility] Comment on above: Performed By: #### 8 [id number] #### DAMASO Urinalysis Automated Subsection [address] [place] [address] UA Urobilinogen Negative Normal [facility] Comment on above: Performed By: #### 8 [id number] #### DAMASO Urinalysis Automated Subsection [address] [place] [address] UA WBC 0-5 Normal 0-5 [facility] Comment on above: Performed By: #### 8 [id number] #### DAMASO Urinalysis Automated Subsection [facility] [place] [id number] Urobilinogen Qn (U) Negative Normal Negative [facility] Comment on above: Performed By: #### 8 [id number] #### DAMASO Urinalysis Automated Subsection [facility] [place] [address] Pathology ([facility])on 11-28-2017 Pathology ([facility]) FINAL GYNECOLOGIC CYTOLOGY [id number] ADEQUACYSatisfactory for Evaluation. Endocervical cells/transformation zone componentpresent.Sample is scanty.GENERAL CATEGORIZATIONNegative for Intraepithelial Lesion or MalignancyCLINICAL HISTORYComment: LMP: Pt is 14 Weeks SPECIMEN( A) SCREENING CERVICAL/ENDOCERVICAL LIQUID-BASED PAPPerformed at [facility], [address] [place] [id number] by: Signed Out by: MUKESH HOOKER Zmt Operator Reported: 12/02/2017 Normal [facility] Comment on above: Performed By: #### G YN ####[facility] [address] [place] [address] Vital Signs Date Time Vital Sign Value Performing Clinician Facility 04-02-2022 11:12-0400 Diastolic blood pressure 86 mm[Hg] Dr. Sheryl Todd Work Phone: [facility] Work Phone: 04-02-2022 11:12-0400 Heart rate 72 /min Dr. Sheryl Todd Work Phone: [facility] Work Phone: 04-02-2022 11:12-0400 Respiratory rate 16 /min Dr. Sheryl Todd Work Phone: [facility] Work Phone: 04-02-2022 11:12-0400 SaO2% (BldA) [Mass fraction] 97 % Dr. Sheryl Todd Work Phone: [facility] Work Phone: 04-02-2022 11:12-0400 Systolic blood pressure 121 mm[Hg] Dr. Sheryl Todd Work Phone: [facility] Work Phone: 04-02-2022 09:40-0400 Body height 175.[address] Sheryl Todd Work Phone: [facility] Work Phone: 04-02-2022 09:40-0400 Body mass index (BMI) [Ratio] 38.4 kg/m2 Dr. Sheryl Todd Work Phone: [facility] Work Phone: 04-02-2022 09:40-0400 Body temperature 97.1 [degF] Dr. Sheryl Todd Work Phone: [facility] Work Phone: 04-02-2022 09:40-0400 Body weight 117.[address] Sheryl Todd Work Phone: [facility] Work Phone: 03-11-2022 10:47-0400 Body height 175.[address] Sheryl Todd Work Phone: [facility] Work Phone: 03-11-2022 10:47-0400 Body mass index (BMI) [Ratio] 39.2 kg/m2 Dr. Sheryl Todd Work Phone: [facility] Work Phone: 03-11-2022 10:47-0400 Body weight 120.[address] Sheryl Todd Work Phone: [facility] Work Phone: 03-11-2022 10:47-0400 Diastolic blood pressure 90 mm[Hg] Dr. Sheryl Todd Work Phone: [facility] Work Phone: 03-11-2022 10:47-0400 Systolic blood pressure 120 mm[Hg] Dr. Sheryl Todd Work Phone: [facility] Work Phone: 02-25-2022 09:12-0400 Body mass index (BMI) [Ratio] 38.8 kg/m2 Dr. Sheryl Todd Work Phone: [facility] Work Phone: 02-25-2022 09:12-0400 Body weight 119.[address] Sheryl Todd Work Phone: [facility] Work Phone: 02-22-2022 13:54-0400 Body temperature 98.2 [degF] Dr. Sheryl Todd Work Phone: [facility] Work Phone: 02-22-2022 13:54-0400 Diastolic blood pressure 72 mm[Hg] Dr. Sheryl Todd Work Phone: [facility] Work Phone: 02-22-2022 13:54-0400 Heart rate 92 /min Dr. Sheryl Todd Work Phone: [facility] Work Phone: 02-22-2022 13:54-0400 Respiratory rate 16 /min Dr. Sheryl Todd Work Phone: [facility] Work Phone: 02-22-2022 13:54-0400 SaO2% (BldA) [Mass fraction] 99 % Dr. Sheryl Todd Work Phone: [facility] Work Phone: 02-22-2022 13:54-0400 Systolic blood pressure 126 mm[Hg] Dr. Sheryl Todd Work Phone: [facility] Work Phone: 12-09-2021 15:45-0500 Body mass index (BMI) [Ratio] 40.7 kg/m2 Dr. Sheryl Todd Work Phone: [facility] Work Phone: 12-09-2021 15:45-0500 Body temperature 96.8 [degF] Dr. Sheryl Todd Work Phone: [facility] Work Phone: 12-09-2021 15:45-0500 Body weight 125.[address] Sheryl Todd Work Phone: [facility] Work Phone: 12-09-2021 15:45-0500 Diastolic blood pressure 94 mm[Hg] Dr. Sheryl Todd Work Phone: [facility] Work Phone: 12-09-2021 15:45-0500 Heart rate 95 /min Dr. Sheryl Todd Work Phone: [facility] Work Phone: 12-09-2021 15:45-0500 Respiratory rate 18 /min Dr. Sheryl Todd Work Phone: [facility] Work Phone: 12-09-2021 15:45-0500 SaO2% (BldA) [Mass fraction] 98 % Dr. Sheryl Todd Work Phone: [facility] Work Phone: 12-09-2021 15:45-0500 Systolic blood pressure 138 mm[Hg] Dr. Sheryl Todd Work Phone: [facility] Work Phone: 12-13-2018 14:36-0500 BMI (Body Mass Index) 47.99 kg/m2 [facility] 12-13-2018 14:36-0500 Body Temperature 98.1 [degF] [facility] 12-13-2018 14:36-0500 BP Diastolic 79 mm[Hg] [facility] 12-13-2018 14:36-0500 BP Systolic 124 mm[Hg] [facility] 12-13-2018 14:36-0500 Height 175.3 cm [facility] 12-13-2018 14:36-0500 Pulse (Heart Rate) 90 /min [facility] 12-13-2018 14:36-0500 Pulse Oximetry 97 % [facility] 12-13-2018 14:36-0500 Respiratory Rate 18 /min [facility] 12-13-2018 14:36-0500 Weight 147.42 kg [facility] 06-15-2018 12:54-0400 BMI (Body Mass Index) 44.15 kg/m2 [facility] 06-15-2018 12:54-0400 Body Temperature 98.01 [degF] [facility] 06-15-2018 12:54-0400 BP Diastolic 76 mm[Hg] [facility] 06-15-2018 12:54-0400 BP Systolic 122 mm[Hg] [facility] 06-15-2018 12:54-0400 Height 175.3 cm [facility] 06-15-2018 12:54-0400 Pulse (Heart Rate) 84 /min [facility] 06-15-2018 12:54-0400 Pulse Oximetry 98 % [facility] 06-15-2018 12:54-0400 Respiratory Rate 18 /min [facility] 06-15-2018 12:54-0400 Weight 135.63 kg [facility] Encounters Encounter Date Encounter Type Care Provider Facility Start: 04-08-2025 End: 04-08-2025 Emergency department patient visit Keo Riavs Facility:[facility] Start: 04-03-2025 End: 04-03-2025 ambulatory Vladimir Davila [facility] Facility:[facility] Start: 02-28-2025 End: 02-28-2025 ambulatory Saadia Morales [facility] Start: 02-22-2025 End: 02-22-2025 ambulatory Colby Donovan [facility] Facility:[facility] Start: 02-20-2025 End: 02-20-2025 ambulatory Rafybuluroni Beam VSC Facility:[facility] Start: 02-13-2025 ambulatory Colby Donovan VSC Facility :[facility] Start: 02-01-2025 End: 02-01-2025 ambulatory Zebucornell Beam VSC Facility:[facility] Start: 01-30-2025 Encounter for other preprocedural examination Stella Gregory [facility] Start: 01-22-2025 End: 01-22-2025 ambulatory Stellaestefany Gregory Facility:[facility] Start: 01-22-2025 ambulatory Stella Gregory Misael lity:[facility] Start: 2024 End: 2024 ambulatory Colby Donovan VSC Facility:[facility] Start: 12-27-2024 End: 12-27-2024 ambulatory Shaun Raymond Facility:[facility] Start: 12-22-2024 End: 12-22-2024 ambulatory Colby Donovan VSC Facility:[facility] Start: 12-17-2024 End: 12-17-2024 ambulatory Colby Donovan VSC Facility:[facility] Start: 12-14-2024 End: 12-14-2024 ambulatory Colby Donovan VSC Facility:[facility] Start: 12-03-2024 End: 12-03-2024 [facility] Facility:[facility] Start: 11-28-2024 End: 11-28-2024 ambulatory Colby Donovan VSC Facility:[facility] Start: 11-28-2024 End: 11-28-2024 ambulatory [facility] Facility:[facility] Start: 11-22-2024 End: 11-22-2024 ambulatory Colby Donovan VSC Facility:[facility] Start: 11-16-2024 End: 11-16-2024 ambulatory Colby Donovan VSC Facility:[facility] Start: 11-14-2024 End: 11-14-2024 ambulatory Vladimir Beam [facility]SC Facility:[facility] Start: 05-16-2024 End: 05-16-2024 Emergency department patient visit Prakash Mcclendon Facility:[facility] Start: 04-02-2022 End: 04-02-2022 Emergency department patient visit Dr. Sheryl Todd Work Phone: [facility] Start: 03-11-2022 End: 03-11-[address] Sheryl Todd Work Phone: [facility] Start: 03-11-2022 End: 03-11-[address] Sheryl Todd Work Phone: [facility]Laboratory, Specimen Start: 02-25-2022 End: 02-25-[address] Sheryl Todd Work Phone: [facility] Start: 02-22-2022 End: 02-22-[address] Sheryl Todd Work Phone: [facility] Start: 12-09-2021 End: 12-09-[address] Sheryl Todd Work Phone: [facility] Specimen Start: 12-09-2021 End: 12-09-[address] Sheryl Todd Work Phone: [facility] Start: 12-13-2018 End: 12-17-2018 Patient encounter procedure ELVI ORTIZ [facility] Start: 12-13-2018 End: 12-13-2018 Office outpatient visit 25 minutes Elvi Ortiz Work Phone: [facility] Comment on above: Environmental allerg ies Start: 11-27-2018 End: 11-27-2018 Patient encounter procedure Keagan Gibson Facility:[facility] Start: 11-20-2018 End: 11-21-2018 [facility] Start: 08-29-2018 End: 08-30-2018 Patient encounter procedure Gissell Long Facility:[facility] Start: 06-21-2018 End: 06-22-2018 Patient encounter procedure Shan uBckner Facility:[facility] Start: 06-15-2018 End: 06-15-2018 Office outpatient new 30 minutes Elvi Ortiz Work Phone: [facility] Start: 05-27-2018 End: 05-28-2018 Patient encounter procedure Andreas Anthony Facility:[facility] Start: 05-27-2018 Patient encounter VALERIEFEDERICO MICHELLE Fa cility:[id number] Start: 05-20-2018 End: 05-20-2018 Patient encounter procedure Shan Scarlett Sita Facility:[facility] Start: 05-19-2018 End: 05-21-2018 Evaluation and management of inpatient Shan Scarlett Sita Facility:[facility] Start: 05-19-2018 Patient encounter VALERIE MIGUEL ANGEL Fa cility:[id number] Start: 05-18-2018 End: 05-19-2018 Patient encounter procedure Shan Scarlett Sita Facility:[facility] Start: 05-18-2018 Patient encounter VALERIEFEDERICO MICHELLE Fa cility:[id number] Start: 05-12-2018 End: 05-13-2018 Patient encounter procedure Shan Scarlett Sita Facility:[facility] Start: 05-11-2018 End: 05-12-2018 Patient encounter procedure Shan Marreroman Facility:[facility] Start: 05-11-2018 End: 05-12-2018 Patient encounter procedure Bhupendra Blair Facility:[facility] Start: 05-11-2018 Patient encounter VALERIEFEDERICO MICHELLE Fa cility:[id number] Start: 05-05-2018 End: 05-06-2018 Patient encounter procedure Shan Scarlett Sita Facility:[facility] Start: 05-04-2018 End: 05-05-2018 Patient encounter procedure Shan Buckner Facility:[facility] Start: 05-04-2018 Patient encounter VALERIE MIGUEL ANGEL Fa cility:[id number] Start: 05-02-2018 Patient encounter Radha woodward Facility:[facility] Luisa Vogel Start: 04-27-2018 End: 04-28-2018 Patient encounter procedure Gissell Long Facility:[facility] Start: 04-27-2018 End: 04-28-2018 Patient encounter procedure Gissell Long Facility:[facility] Start: 04-27-2018 Patient encounter VALERIE MIGUEL ANGEL Fa cility:[id number] Start: 04-20-2018 End: 04-21-2018 Patient encounter procedure Bhupendra A Johnnie Facility:[facility] Start: 04-20-2018 Patient encounter VALERIEFEDERICO MICHELLE Fa cility:[id number] Start: 04-19-2018 End: 04-20-2018 Patient encounter procedure Gissell Long Facility:[facility] Start: 04-14-2018 End: 04-15-2018 Patient encounter procedure Keagan Gibson Facility:[facility] Start: 04-13-2018 End: 04-13-2018 Patient encounter procedure Bhupendra A Johnnie Facility:[facility] Start: 04-13-2018 Patient encounter VALERIEFEDERICO MICHELLE Fa cility:[id number] Start: 04-11-2018 Patient encounter Radha woodward Facility:[facility] Luisa Gallegoser Start: 04-06-2018 End: 04-07-2018 Patient encounter procedure Gissell Long Facility:[facility] Start: 04-06-2018 End: 04-07-2018 Patient encounter Shan Buckner Facility:[id number] Start: 03-30-2018 End: 03-31-2018 Patient encounter procedure Gissell Long Facility:[facility] Start: 03-30-2018 Patient encounter VALERIEFEDERICO MICHELLE Fa cility:[id number] Start: 03-24-2018 End: 03-24-2018 Patient encounter procedure Gissell Long Facility:[facility] Start: 03-23-2018 End: 03-24-2018 Patient encounter procedure Gissell Long Facility:[facility] Start: 03-23-2018 End: 03-23-2018 Patient encounter procedure Gissell Long Facility:[facility] Start: 03-23-2018 Patient encounter VALERIE MIGUEL ANGEL Fa cility:[id number] Start: 03-22-2018 Patient encounter Radha woodward Facility:[facility] Start: 03-09-2018 End: 03-10-2018 Patient encounter procedure Gissell Long Facility:[facility] Start: 03-07-2018 End: 03-08-2018 Patient encounter procedure Gissell Long Facility:[facility] Start: 03-02-2018 End: 03-03-2018 Patient encounter procedure Gissell Long Facility:[facility] Start: 03-02-2018 End: 03-03-2018 Patient encounter procedure Gissell Olng Facility:[facility] Start: 02-27-2018 Patient encounter Radha Vázquez Barry woodward Facility:[facility] Start: 02-23-2018 End: 02-24-2018 Patient encounter procedure Gissell Long Facility:[facility] Start: 02-21-2018 End: 02-22-2018 Patient encounter procedure Gissell [facility] Facility:[facility] Start: 02-10-2018 End: 02-10-2018 Patient encounter procedure Bhupendra A [place] Facility:[facility] Start: 01-24-2018 End: 01-25-2018 Patient encounter procedure Gissell Long Facility:[facility] Start: 01-09-2018 Patient encounter Lencho Douglas lity:[facility] Start: 12-27-2017 End: 12-28-2017 Patient encounter procedure Gissell Long Facility:[facility] Start: 11-11-2017 Patient encounter VALERIE MICHELLE Facility:[facility] Procedures Date Procedure Procedure Detail Performing Clinician Start: 04-02-2022 SARS-CoV-2 & FLU Ant igen (Rapid) Dr. Sheryl Todd Work Phone: Start: 03-11-2022 Cytopathology proced ure, preparation of smear, genital source Dr. Sheryl Todd Work Phone: Start: 03-11-2022 Investigation of transfusion reaction Dr. Sheryl Todd Work Phone: Start: 02-22-2022 Plain X-ray of clavicle Dr. Sheryl Todd Work Phone: Start: 02-22-2022 Plain X-ray of shoulder Dr. Sheryl Todd Work Phone: Start: 06-15-2018 End: 06-15-2018 Urine test visual color cmprsn meths Elvi Ortiz Work Phone: Start: 06-15-2018 End: 06-15-2018 Urnls dip stick/tablet rgnt non-auto w/o micrscp Elvi Ortiz Work Phone: Start: 11-24-2017 Microscopic observat ion [Identifier] in Cervix by Cyto stain Elviben Ortiz Plan of Treatment Date Care Activity Detail Author Start: 05-20-2028 Tetanus vaccination TETANUS EVERY 10 YR [facility] Start: 04-23-2028 Tetanus vaccination TETANUS EVERY 10 YR [facility] Start: 03-11-2022 Cytopathology procedure, preparation of smear, genital source Genital Culture [facility] Work Phone: Start: 02-22-2022 Patient referral [facility] Work Phone: Start: 12-09-2021 Sars-cov-2 detection by dna/rna SARS-COV-2 COVID-19 AMP PRB [facility] Work Phone: Start: 11-24-2020 Screening for malignant neoplasm of cervix PAP SMEAR [facility] Start: 06-24-2018 Influenza vaccination SEQUENTIAL INFLUENZA VACCINE (#1) [facility] Patient Education ED MENSTRUAL C RAMPING ED Viral Syndrome (Adult) [facility] Work Phone: Patient referral [facility] Work Phone: Immunizations Immunization Date Immunization Notes Care Provider Debbie dunn 05-20-2018 tetanus toxoid, redu antelmo diphtheria toxoid, and acellular pertussis vaccine, adsorbed [facility] 04-23-2018 tetanus toxoid, redu antelmo diphtheria toxoid, and acellular pertussis vaccine, adsorbed [facility] Payers Date Payer Category Payer Medicaid [id number] 2024 Self-pay [id number] 2018 Private Health Insurance 2017 Unknown 2017 Medicaid [employer] [facility] MEDICAID [employer] MED[employer] xxxxxxxxxxx 2017-Present [id number] 2017 Unknown [id number] 1979 Unknown [id number] .16.840.1.193576.3.579.2. 1979 Unknown [id number] 2.16.840.1.180203.3.579.2. 1979 Unknown [id number] 2.16.840.1.870004.3.579.2. 1979 Unknown [id number] 2.16.840.1.649400.3.579.2. 1979 Unknown [id number] 2.16.840.1.708793.3.579.2. 1979 Unknown [id number] 2.16.840.1.844396.3.579.2. 1979 Unknown [id number] 2.16.840.1.108700.3.579.2. 1979 Unknown [id number] 2.16.840.1.040027.3.579.2. 1979 Unknown [id number] 2.16.840.1.453567.3.579.2. 1979 Unknown [id number] 2.16.840.1.477668.3.579.2. 1979 Unknown [id number] 2.16.840.1.925855.3.579.2. 1979 Unknown [id number] 2.16.840.1.147919.3.579.2. 1979 Unknown [id number] 2.16.840.1.210892.3.579.2. 1979 Unknown [id number] 2.16.840.1.986775.3.579.2. 1979 Unknown [id number] 2.16.840.1.561488.3.579.2. 1979 Unknown [id number] 2.16.840.1.498197.3.579.2. 1979 Unknown [id number] 2.16.840.1.641960.3.579.2. 1979 Unknown [id number] 2.16.840.1.864493.3.579.2. 1979 Unknown [id number] 2.16.840.1.635666.3.579.2. 1979 Unknown [id number] 2.16.840.1.561099.3.579.2. 1979 Unknown [id number] 2.16.840.1.536977.3.579.2. 1979 Unknown [id number] 2.16.840.1.510044.3.579.2. 1979 Unknown [id number] 2.16.840.1.881236.3.579.2. 1979 Unknown [id number] 2.16.840.1.956912.3.579.2 1979 Unknown [id number] 2.16.840.1.542320.3.579.2 1979 Unknown [id number] 2.16.840.1.776079.3.579.2. 1979 Unknown [id number] 2.16.840.1.764444.3.579.2. 1979 Unknown [id number] 2.16.840.1.663462.3.579.2 1979 Unknown [id number] 2.16.840.1.807534.3.579.2. 1979 Unknown [id number] 2.16.840.1.573357.3.579.2. 1979 Unknown [id number] 2.16.840.1.894403.3.579.2 1979 Unknown [id number] 2.16.840.1.166016.3.579.2. 1979 Unknown [id number] 2.16.840.1.781135.3.579.2. 717 1979 Unknown [id number] 2.16.840.1.657208.3.579.2. 717 1979 Unknown [id number] 2.16.840.1.582131.3.579.2. 717 1979 Unknown [id number] 2.16.840.1.514686.3.579.2. 903 Unknown [employer] INSUR[employer] [id number] Unknown [id number] 2.840.1.914103.3.579.2. 462 Unknown [id number] 2.840.1.908880.3.579.2. 462 Unknown [id number] 2.840.1.979389.3.579.2. 462 Unknown [id number] 2.840.1.638048.3.579.2. 462 Unknown [id number] 2.840.1.093449.3.579.2. 462 Unknown [id number] 2.840.1.025965.3.579.2. 462 Unknown [id number] 2.840.1.286817.3.579.2. 462 Unknown [id number] 2.840.1.219444.3.579.2. 462 Unknown [id number] 2.840.1.565820.3.579.2. 462 Unknown [id number] 2.840.1.544997.3.579.2. 462 Unknown [id number] 2.840.1.602570.3.579.2. 462 Unknown [id number] 2.16840.1.053325.3.579.2. 462 Unknown [id number] 2.840.1.960352.3.579.2. 462 Unknown [id number] 2.840.1.167879.3.579.2. 462 Unknown [id number] 2.16.840.1.865429.3.579.2. 462 Unknown [id number] 2.16.840.1.257588.3.579.2. 462 Unknown [id number] 2.16.840.1.986824.3.579.2. 462 Unknown [id number] 2.16.840.1.686132.3.579.2. 462 Unknown [id number] 2.16.840.1.850599.3.579.2. 462 Unknown [id number] 2.16.840.1.791731.3.579.2. 462 Unknown [id number] 2.16.840.1.672459.3.579.2. 462 Unknown [id number] 2.16.840.1.973252.3.579.2. 462 Social History Date Type Detail Facility Start: 06-15-2018 End: 12-13-2018 Tobacco smoking status [facility] Former smoker [facility] End: 06-24-2017 History of tobacco use Current smoker [facility] End: 06-24-2017 History of tobacco use Cigarette Smoker [facility] Start: 06-15-2018 End: 12-13-2018 Cigarettes smoked current (pack per day) - Reported [facility] Sex Assigned At Not on file [facility] Start: 03-11-2022 End: 04-02-2022 Tobacco smoking status [facility] Unknown if ever smoked [facility] Work Phone: Start: 01-12-2021 Rare [facility] Work Phone: Start: 01-12-2021 None [facility] Work Phone: Start: 01-12-2021 With Family [facility] Work Phone: Start: 1980 Sex Assigned At Female [facility] Work Phone: Clinical Note 01-22-2025 Note Date & Type Note Facility 01-22-2025 Note [facility] Medical Records Department [address] [place] [address] History Physical Exam 01/22/25 0953 MR#: [id number] Acct: [id number] Name: SIA CONTRERAS Rep #: [id number] : 1980 44 From: Stella Gregory MD PCP: Vladimir Davila Mela [employer] Status:PRE SDC Location: [facility] History and Physical Date of Admission: 01/22/25 Intake Vital Signs 11/28/2508:58 12/14/2508:41 12/14/2508:49 Height 5 ft 9 in 5 ft 9 in 5 ft 9 in Weight: 313 lb 302 lb 4 oz BMI 46.2 44.6 BP 142/89 H 136/83 H Intake Visit Reasons: Ablation Consult Chief Complaint: Ablation consult Executive Assistant To General Counsel Required: No Is patient in pain?: No Allergies Latex, Natural Rubber Allergy (Intermediate, Verified 12/14/24 09:41) skin irritation Medications ???Medication ???Instructions ???Recorded ???Confirmed ???Type albuterol sulfate 90 mcg/actuation 2 puff inhalation Q4H PRN PRN 04/05/23 12/14/24 Rx aerosol inhaler Wheezing, shortness of breath #8.5 grams lamotrigine 150 mg tablet 150 mg PO DAILY #90 tabs 11/22/24 12/14/24 Rx lisdexamfetamine 10 mg capsule 10 mg PO QAM 30 days #30 caps 11/22/24 12/14/24 Rx (Vyvanse) venlafaxine 150 mg 150 mg PO DAILY #90 caps 11/22/24 12/14/24 Rx capsule,extended release 24 hr cholecalciferol (vitamin D3) 25 25 mcg PO QDAY 12/14/24 12/14/24 History mcg (1,000 unit) capsule lisinopril 10 mg tablet 10 mg PO QDAY 12/14/24 12/14/24 History mecobalamin (vitamin B12) 1,000 1,000 mcg PO QDAY 12/14/24 12/14/24 History mcg chewable tablet Is last menstrual period known: Yes Last Menstrual Period: 12/05/24 Post menopausal: No Patient : No : No [facility] Medical History PTSD (post-traumatic stress disorder) Major depression TED (generalized anxiety disorder) Sprain of left little finger Strain of right knee Vitamin deficiency Major depression Insomnia Acute gastroenteritis Dyspnea Anxiety Migraine headache Former smoker Sleep apnea Shortness of breath on exertion History of stress test History of gestational diabetes GI problem Seasonal allergies ADHD Depression Surgical History History of reversal of tubal ligation Hx of tubal ligation Hx of foot surgery History of foot surgery History of hip surgery Family History Aunt Breast cancer Cancer ovarianGrandmother Diabetes Thyroid disorderUncle DiabetesFather DiabetesMother Thyroid disorder Depression Social History Smoking Status: Former smoker quit date: 10/24/15 Tobacco: How many years used: 10 alcohol intake: never substance use type: does not use caffeine: Yes what type of physical activity do you participate in: none seatbelt use: always do you feel safe at home: Yes additional social history: Single HPI Ablation Consult Details: SIA CONTRERAS is a 43 year old who presents for heavy lasting 5 day bleeding through protection eveyr 1-2 hours. she has had a normal emb in the past. US shows diffuse fibroid change. she denies any significant crmpaing or pain. she has not tolerated ocps in the past well, she is on multiple pscyh medications. she is interested in an ablation Female Reproductive History Last Menstrual Period: 12/05/24 Menopausal Symptoms: No night sweats History 4 Elective abortions Hx Para 4 Spontaneous abortions Hx # Term Pregnancies Ectopic pregnancies Hx # Pregnancies Multiple births # of living children Past Pregnancies Del. Date Name GA/Weeks Outcome Route Bth Weight Gen Labor Lgth Anesthesia Del Locatn Provider FOB Unknown Stazia Unknown Adriana Unknown Kourtnald Unknown [facility] ROS Const Constitutional: Denies fatigue, night sweats, weight gain or weight loss ENT ENT: Reports system reviewed and no additional complaints, except as documented Cardio Card: Denies chest pain Resp Resp: Denies cough or dyspnea GI GI: Reports as per HPI; Denies abdominal pain, constipation, nausea or vomiting : Denies nipple discharge, urinary frequency, urinary incontinence, urinary hesitancy, urinary urgency, vaginal discharge, vaginal dryness, vaginal odor or vaginal pruritus Musc Musc: Denies arthralgias, back pain or muscle weakness Skin Skin/Breast: Denies alopecia, change in hair, dry skin, breast mass, breast pain, breast skin changes or nipple discharge Neuro Neuro: Reports system reviewed and no additional complaints, except as documented Psych Psych: Reports system reviewed and no additional complaints, except as documented Endo Endo: Denies cold intolerance, excessive sweating, (more content not included)... [facility] Evaluation note Note Date & Type Note Facility Evaluation note Diagnosis Onset Date Acute gastroenteritis acute Insomnia acute ADHD chronic Depression chronic Pain of right clavicle acute Right shoulder strain acute Pain of right clavicle acute [facility] Work Phone: Summary Purpose Family History No Family History Records Found Relationship Condition Age at Onset Recorded Date/T ania aunt Malignant neoplasm of breast Unknown Malignant neoplasm Unknown grandmother Diabetes mellitus Unknown Disorder of thyroid Unknown uncle Diabetes mellitus Unknown father Diabetes mellitus Unknown mother Disorder of thyroid Unknown Depression Unknown Advance Directives No Advanced Directives Records Found Advance Directive Response Recorded Date/ Time Living Will No June 30, 021 9:17am Power of Vessel Manager No June 30, 2021 9:17am Advance Directive Response Recorded Date/ Time Living Will No April 02, 2022 10:03am Power of Vessel Manager No April 02 10:03am Instructions * Patient Instructions - SpringElvi CNP - 06/15/2018 1:44 PM EDT Formatting of this note may be different from the original. Problem List Items Addressed This Visit Gastritis - Primary Will prescribe Carafate which is very safe to take while . Put pill in shot glass of water and drink. If no improvement over next 2 weeks please call and make another appointment. Take your vitamin with a FULL meal. You are dehydrated based on your urine specimen, you need to increase you fluids with as much as little man is . Drink some Propel, Pedialyte, or Gatorade to help with the dehydration. You need to be drinking more than a gallon a day of fluids! Relevant Medications sucralfate (CARAFATE) 1 gram tablet Other Visit Diagnoses Abdominal pain, unspecified abdominal location Relevant Orders POC Urinalysis Dipstick (Completed) POC , Urine (Completed) Gastritis: Care Instructions Your Care Instructions Gastritis is a sore and upset stomach. It happens when something irritates the stomach lining. Manythings can cause it. These include an infection such as the flu or something you ate or drank. Medicines or a sore on the lining of the stomach (ulcer) also can cause it. Your belly may bloat and ache. You may belch, vomit, and feel sick to your stomach. You should be able to relieve the problem by taking medicine. And it may help to change your diet. If gastritis lasts, your doctor may prescribe medicine. Follow-up care is a fishman part of your treatment and safety. Be sure to make and go to all appointments, and call your doctor if you are having problems. It's also a good idea to know your test resultsand keep a list of the medicines you take. How can you care for yourself at home? If your doctor prescribed antibiotics, take them as directed. Do not stop taking them just because you feel better. You need to take the full course of antibiotics. Be safe with medicines. If your doctor prescribed medicine to decrease stomach acid, take it as directed. Call your doctor if you think you are having a problem with your medicine. Do not take any other medicine, including rrzm-giz-mpgdhwl pain relievers, without talking to your doctor first. If your doctor recommends vsuj-wlz-olvcbfi medicine to reduce stomach acid, such as Pepcid AC, Prilosec, Tagamet HB, or Zantac 75, follow the directions on the label. Drink plenty of fluids (enough so that your urine is light yellow or clear like water) to prevent dehydration. Choose water and other caffeine-free clear liquids. If you have kidney, heart, or liver disease and have to limit fluids, talk with your doctor before you increase the amount of fluids youdrink. Limit how much alcohol you drink. Avoid coffee, tea, cola drinks, chocolate, and other foods with caffeine. They increase stomach acid. When should you call for help? Call 911 anytime you think you may need emergency care. For example, call if: ? You vomit blood or what looks like coffee grounds. ? You pass maroon or very bloody stools. ?Call your doctor now or seek immediate medical care if: ? You start breathing fast and have not produced urine in the last 8 hours. ? You cannot keep fluids down. ?Watch closely for changes in your health, and be sure to contact your doctor if: ? You do not get better as expected. Where can you learn more? Log into your personal health record on [email or web address] and enter Z536 in the Education box to learn more about Gastritis: Care Instructions. Current as of: March 04, 2017 Content Version: 11.6 1420-9169 [employer]. Care instructions adapted under license by your healthcare professional. If you have questions about a medical condition or this instruction, always ask your healthcare professional. [employer] disclaims any warranty or liability for your use of this information. in this encounter* Patient Instructions* Elvi Ortiz CNP - 12/13/2018 3:14 PM EST Problem List Items Addressed This Visit Other Environmental allergies You have been treated for 2 sinus infections since August and have never really felt 100% since then. Only treatment has been Claritin and Tylenol Severe Cold and Flu. Will start you on Berta, Flonase, and Singulair. I want you to use the Flonase every single day. 2 sprays in each nostril untilthe pressure and drainage is resolved and then go down to 1 spray in each nostril daily. Take the Berta in the morning and the Singulair before bed. Use a neti pot every single day at least once. Try all this for one month, if no improvement come back in to be seen. If you get worse come in sooner. Relevant Medications fexofenadine (BERTA) 180 MG tablet montelukast (SINGULAIR) 10 mg tablet fluticasone (FLONASE) 50 mcg/actuation nasal spray ' Allergies: Care Instructions Your Care Instructions Allergies occur when your body's defense system (immune system) overreacts to certain substances. The immune system treats a harmless substance as if it were a harmful germ or virus. Many things can cause this overreaction, including pollens, medicine, food, dust, animal dander, and mold. Allergies can be mild or severe. Mild allergies can be managed with home treatment. But medicine may be needed to prevent problems. Managing your allergies is an important part of staying healthy. Your doctor may suggest that you have allergy testing to help find out what is causing your allergies. When you know what things trigger your symptoms, you can avoid them. This can prevent allergy symptoms and other health problems. For severe allergies that cause reactions that affect your whole body (anaphylactic reactions), your doctor may prescribe a shot of epinephrine to carry with you in case you have a severe reaction. Learn how to give yourself the shot and keep it with you at all times. Make sure it is not . Follow-up care is a fishman part of your treatment and safety. Be sure to make and go to all appointments, and call your doctor if you are having problems. It's also a good idea to know your test resultsand keep a list of the medicines you take. How can you care for yourself at home? If you have been told by your doctor that dust or dust mites are causing your allergy, decrease thedust around your bed: ? Wash sheets, pillowcases, and other bedding in hot water every week. ? Use dust-proof covers for pillows, duvets, and mattresses. Avoid plastic covers because they teareasily and do not breathe. Wash as instructed on the label. ? Do not use any blankets and pillows that you do not need. ? Use blankets that you can wash in your washing machine. ? Consider removing drapes and carpets, which attract and hold dust, from your bedroom. If you are allergic to house dust and mites, do not use home humidifiers. Your doctor can suggest ways you can control dust and mites. Look for signs of cockroaches. Cockroaches cause allergic reactions. Use cockroach baits to get ridof them. Then, clean your home well. Cockroaches like areas where grocery bags, newspapers, empty bottles, or cardboard boxes are stored. Do not keep these inside your home, and keep trash and food containers sealed. Seal off any spots where cockroaches might enter your home. If you are allergic to mold, get rid of furniture, rugs, and drapes that smell musty. Check for mold in the bathroom. If you are allergic to outdoor pollen or mold spores, use air-conditioning. Change or clean all filters every month. Keep windows closed. If you are allergic to pollen, stay inside when pollen counts are high. Use a vacuum reed cleaner with aHEPA filter or a double-thickness filter at least two times each week. Stay inside when air pollution is bad. Avoid paint fumes, perfumes, and other strong odors. Avoid conditions that make your allergies worse. Stay away from smoke. Do not smoke or let anyone else smoke in your house. Do not use fireplaces or wood- burning stoves. If you are allergic to your pets, change the air filter in your furnace every month. Use high-efficiency filters. If you are allergic to pet dander, keep pets outside or out of your bedroom. Old carpet and cloth furniture can hold a lot of animal dander. You may need to replace them. When should you call for help? Give an epinephrine shot if: You think you are having a severe allergic reaction. You have symptoms in more than one body area, such as mild nausea and an itchy mouth. After giving an epinephrine shot call 911, even if you feel better. Call 911 if: You have symptoms of a severe allergic reaction. These may include: ? Sudden raised, red areas (hives) all over your body. ? Swelling of the throat, mouth, lips, or tongue. ? Trouble breathing. ? Passing out (losing consciousness). Or you may feel very lightheaded or suddenly feel weak, confused, or restless. You have been given an epinephrine shot, even if you feel better. Call your doctor now or seek immediate medical care if: You have symptoms of an allergic reaction, such as: ? A rash or hives (raised, red areas on the skin). ? Itching. ? Swelling. ? Belly pain, nausea, or vomiting. Watch closely for changes in your health, and be sure to contact your doctor if: You do not get better as expected. Where can you learn more? Log into your personal health record on [email or web address] and enter W171 in the Education box to learn more about Allergies: Care Instructions. Current as of: April 19, 2018 Content Version: .[id number] [employer]. Care instructions adapted under license by your healthcare professional. If you have questions about a medical condition or this instruction, always ask your healthcare professional. [employer] disclaims any warranty or liability for your use of this information. in this encounter Assessments Diagnosis Gastritis, presence of bleed ing unspecified, unspecified chronicity, unspecified gastritis type - Primary Abdominal pain, unspecified abdominal location Diagnosis Environmental allergies Other allergy, other than to medicinal agents History of Present Illness * Elvi Ortiz CNP - 12/14/2018 10:31 AM EST Subjective Patient ID: Sia Contreras is a 37 y.o. female. Allergic Rhinitis: Sia Contreras is here for evaluation of possible allergic rhinitis. Patient's symptoms include clear rhinorrhea, headaches, nasal congestion, postnasal drip, pressure sensation in ears, sinus pressure and sneezing. These symptoms are seasonal, states they started in August. Current triggers include exposure to no known precipitant. The patient has been suffering from these symptoms for approximately 3 months. The patient has tried Claritin and Tylenol Cold and Flu with poor relief of symptoms. Immunotherapy has never been tried. The patient has never had nasal polyps. The patient has no history of asthma. The patient does not suffer from frequent sinopulmonary infections. She has been on two different antibiotics at different times this winter and a round of oral steroids with no relief. The patient has not had sinus surgery in the past. The patient has no history ofeczema. The following portions of the patient's history were reviewed and updated as appropriate: allergies, current medications, past family history, past medical history, past social history, past surgicalhistory and problem list. Review of Systems Constitutional: Negative for activity change, appetite change, fatigue and unexpected weight change. HENT: Positive for congestion, postnasal drip, rhinorrhea, sinus pressure, sneezing and sore throat. Negative for ear discharge, ear pain, hearing loss, sinus pain and trouble swallowing. Eyes: Negative for photophobia and visual disturbance. Respiratory: Positive for cough. Negative for chest tightness, shortness of breath and wheezing. Cardiovascular: Negative for chest pain and palpitations. Gastrointestinal: Negative for constipation, diarrhea, nausea and vomiting. Endocrine: Negative for cold intolerance and heat intolerance. Genitourinary: Negative for dysuria, frequency and urgency. Musculoskeletal: Negative for arthralgias, back pain and myalgias. Skin: Negative. Allergic/Immunologic: Positive for environmental allergies. Negative for food allergies. Neurological: Positive for headaches. Negative for dizziness and light-headedness. Hematological: Negative. Psychiatric/Behavioral: Positive for dysphoric mood. Negative for sleep disturbance. The patient isnot nervous/anxious. Objective Physical Exam Constitutional: She is oriented to person, place, and time. She appears well- developed and well-nourished. HENT: Right Ear: A middle ear effusion is present. Left Ear: A middle ear effusion is present. Nose: Mucosal edema and rhinorrhea present. Right sinus exhibits no maxillary sinus tenderness and no frontal sinus tenderness. Left sinus exhibits no maxillary sinus tenderness and no frontal sinus tenderness. Mouth/Throat: Uvula is midline and mucous membranes are normal. Posterior oropharyngeal erythema present. Pressure behind eyes Cardiovascular: Normal rate, regular rhythm and normal heart sounds. Pulmonary/Chest: Effort normal and breath sounds normal. Musculoskeletal: Normal range of motion. Lymphadenopathy: Head (right side): Submandibular and tonsillar adenopathy present. Head (left side): Submandibular and tonsillar adenopathy present. She has no cervical adenopathy. Neurological: She is alert and oriented to person, place, and time. Skin: Skin is warm and dry. Psychiatric: She has a normal mood and affect. Her behavior is normal. Vitals: 12/13/18 1436 BP: 124/79 BP Location: Right arm Patient Position: Sitting BP Cuff Size: Adult Pulse: 90 Resp: 18 Temp: 98.1 F (36.7 C) TempSrc: Oral SpO2: 97% Weight: (!) 147.4 kg (325 lb) Height: 5' 9 Body mass index is 47.99 kg/m . Medication List Accurate as of 12/13/18 11:59 PM. If you have any questions, ask your nurse or doctor. START taking these medications fexofenadine 180 MG tablet Commonly known as: BERTA Take 1 (one) tablet (180 mg total) by mouth daily . Started by: Elvi Ortiz CNP fluticasone 50 mcg/actuation nasal spray Commonly known as: FLONASE Instill 2 (two) sprays into each nostril daily . Started by: Elvi Ortiz CNP montelukast 10 mg tablet Commonly known as: SINGULAIR Take 1 (one) tablet (10 mg total) by mouth nightly . Started by: Elvi Ortiz CNP CONTINUE taking these medications buPROPion 150 MG 24 hr tablet Commonly known as: WELLBUTRIN XL STOP taking these medications vitamin with Ca-Iron-FA 27-1 mg Tab Stopped by: Elvi Ortiz CNP sucralfate 1 gram tablet Commonly known as: CARAFATE Stopped by: Elvi Ortiz CNP Where to Get Your Medications These medications were sent to [facility] [address] [place] [address] [address] [facility] [id number] fexofenadine 180 MG tablet fluticasone 50 mcg/actuation nasal spray montelukast 10 mg tablet Allergies Allergen Reactions Latex Other (See Comments) peeling Other Seasonal Codeine Rash Past Medical History: Diagnosis Date Bursitis of hip Extreme obesity Genital herpes Gestational diabetes Meniere disease Papanicolaou smear 2016 [facility] PMDD (premenstrual dysphoric disorder) Past Surgical History: Procedure Laterality Date DILATION AND CURETTAGE (D AND C) 2011 HIP SURGERY Left 2014 HIP SURGERY 2012 tendon lengthening LAPAROSCOPY 2010 removed polyps from uterus reverse tubal 2015 TUBAL LIGATION 2002 Assessment/Plan: Problem List Items Addressed This Visit Other Environmental allergies You have been treated for 2 sinus infections since August and have never really felt 100% since then. Only treatment has been Claritin and Tylenol Severe Cold and Flu. Will start you on Berta, Flonase, and Singulair. I want you to use the Flonase every single day. 2 sprays in each nostril untilthe pressure and drainage is resolved and then go down to 1 spray in each nostril daily. Take the Berta in the morning and the Singulair before bed. Use a neti pot every single day at least once. Try all this for one month, if no improvement come back in to be seen. If you get worse come in sooner. Relevant Medications fexofenadine (BERTA) 180 MG tablet montelukast (SINGULAIR) 10 mg tablet fluticasone (FLONASE) 50 mcg/actuation nasal spray Goals None No data recorded For any new medications prescribed today, patient was educated about indications for the medication, how to take the medication and potential side effects of the medications. in this encounter Chief Complaint and Reason for Visit Chief Complaint 3M RIGHT SHOULDER INJURY Right shoulder/x-rays RIGHT SHOULDER POSSIBLE BV Reason for Visit Acute gastroenteriti s Insomnia ADHD Depression Pain of right clavicle Right shoulder strain Pain of right clavicle Chief Complaint 3M RIGHT SHOULDER INJURY Right shoulder/x-rays RIGHT SHOULDER POSSIBLE BV VAG BLEED Reason for Visit Acute gastroenteriti s Insomnia ADHD Depression Pain of right clavicle Right shoulder strain Pain of right clavicle Additional Source Comments INFORMATION SOURCE (unrecogn ized section and content) DATE CREATED AUTHOR 04/17/2018 [facility] DATE CREATED AUTHOR AUTHOR'S ORGANIZ ATION 05/02/2018 [employer] DATE CREATED AUTHOR AUTHOR'S ORGANIZ ATION 06/18/2018 [facility] DATE CREATED AUTHOR AUTHOR'S ORGANIZ ATION 12/12/2018 [facility] DATE CREATED AUTHOR AUTHOR'S ORGANIZ ATION 11/16/2020 [facility] DATE CREATED AUTHOR AUTHOR'S ORGANIZ ATION 04/15/2025 [facility] Assessment & Plan Note - SpringElvi CNP - 06/15/2018 1:39 PM EDTAssessment & Plan Note - SpringElvi CNP - 12/13/2018 3:09 PM EST Miscellaneous Notes (unrecog nized section and content) Associated Problem(s): Gastritis Will prescribe Carafate which is very safe to take while . Put pill in shot glass of water and drink. If no improvement over next 2 weeks please call and make another appointment. Take your vitamin with a FULL meal. You are dehydrated based on your urine specimen, you need to increase you fluids with as much as little man is . Drink some Propel, Pedialyte, or Gatorade to help with the dehydration. You need to be drinking more than a gallon a day of fluids!in this encounter Associated Problem(s): Environmental allergies You have been treated for 2 sinus infections since August and have never really felt 100% since then. Only treatment has been Claritin and Tylenol Severe Cold and Flu. Will start you on Berta, Flonase, and Singulair. I want you to use the Flonase every single day. 2 sprays in each nostril until the pressure and drainage is resolved and then go down to 1 spray in each nostril daily. Take the Berta in the morning and the Singulair before bed. Use a neti pot every single day at least once. Try all this for one month, if no improvement come back in to be seen. If you get worse come in sooner. in this encounter Reason for Visit (unrecogniz ed section and content) Reason Comments Cough > 3 months productiv e and non productive keeping her up at night, chest tightness, SOB, Sinusitis dry itching eyes, ru nny nose, headaches Goals (unrecognized section and content) Goals may be documented in a n alternate sectionGoals may be documented in an alternate section FOR RECORDS PERTAINING TO PATIENTS WHO ARE OR HAVE BEEN ENROLLED IN A CHEMICAL DEPENDENCY/SUBSTANCEABUSE PROGRAM, SOME INFORMATION MAY BE OMITTED. This clinical summary was aggregated from multiple sources. Caution should be exercised in using it in the provision of clinical care. This summary normalizes information from multiple sources, and as a consequence, information in this document may materially change the coding, format and clinical context of patient data. In addition, data may be omitted in some cases. CLINICAL DECISIONS SHOULD BE BASED ON THE PRIMARY CLINICAL RECORDS. [employer] provides no warranty or guarantee of the accuracy or completeness of information in this document.
== END | disposition home or self-care (01) ==
LOC: OPMRI 07:58
PROVIDERS: Referring Provider Student in an Organized Health Care Education/Training Program; Visit Provider Student in an Organized Health Care Education/Training Program
DX: M54.12 Radiculopathy, cervical region (principal)
CPT/HCPCS: 72141

== ENCOUNTER → 2025-07-01 | Outpatient (CLI) | payer MEDICAID, SELFPAY | END | disposition home or self-care (01) | LOC: LABSPEC 15:24 | PROVIDERS: Visit Provider Physician Assistant | DX: R30.0 Dysuria (principal) | CPT/HCPCS: 87077; 87086; 87088; 87186 ==

== ENCOUNTER → 2025-07-02 | Outpatient (CLI) | payer MEDICAID, SELFPAY ==
--- NOTE | 2025-07-02 08:23 | EKG12_ITS ---
Test Reason : TACHY Blood Pressure : */* mmHG Vent. Rate : 76 BPM Atrial Rate : 76 BPM P-R Int : 160 ms QRS Dur : 88 ms QT Int : 380 ms P-R-T Axes : 41 56 59 degrees QTcB Int : 427 ms Normal sinus rhythm Normal ECG Confirmed by Dutch Forman ([id number]), non linear editor ANAM VIRK ([id number]) on 07/03/2025 7:12:43 AM Referred By: Vladimir Davila Confirmed By: Dutch Forman
[2025-07-02 09:25] LABS: Hematocrit 43.8 % (37-47); Hemoglobin 14.7 g/dL (12.0-15.0); Mean Corp Hgb Conc 33.6 g/dL (32-36); Mean Corpuscular Volume 89.4 fL (81-99); Mean Platelet Vol. 9.5 fl (6.2-12.0); Platelet Count 263 K/mm3 (150-450); RBC Distribution Width CV 14.6 % (11.6-14.6); RBC Distribution Width SD 48.1 fl (35.1-43.9); Red Blood Count 4.90 M/mm3 (4.2-5.4); White Blood Count 10.0 K/mm3 (4.4-11.0)
[2025-07-02 10:13] LABS: AST(SGOT) 15 U/L (<=31); Alanine Aminotransfer ALT/SGPT 14 U/L (<=34); Albumin, Serum 4.1 g/dL (3.5-5.0); Alkaline Phosphatase 64 U/L (35-104); Anion Gap 11 (5-15); BUN 16 mg/dL (4-19); BUN/Creat Ratio 20.6 RATIO (10-20); Calcium,Total 8.9 mg/dL (7.6-11.0); Carbon Dioxide 25.2 mmol/L (21.0-32.0); Chloride 101 mmol/L (98-108); Globulin 2.9 g/dL (2.2-4.2); Glucose 82 mg/dL (70-99); Potassium 4.2 mmol/L (3.3-5.1)
== END | disposition home or self-care (01) ==
DX: I10 Essential (primary) hypertension (principal); R73.03 Prediabetes
CPT/HCPCS: 36415; 80053; 83036; 84443; 85027; 93005

== ENCOUNTER → 2025-07-07 | Outpatient (CLI) | payer MEDICAID, SELFPAY ==
--- OUTSIDE RECORDS SUMMARY | 2025-07-08 20:18 | XMS RPT_ITS | CCD ---
Author Organization [facility] Care Team Providers Care Set Up Mechanic Automatic Line Name Role Phone Olivia Baker Unavailable [phone] VALERIE MICHELLE I Unavailable Unavailable Long, [...] Unavailable Tavallaee, Tee M Primary Care Unavailable Henderson, Bhupendra A Admitting Unavailable Johnnie, Bhupendra A Attending Unavailable Tavallaee, Tee M Primary Care Unavailable Long, Gissell Attending Unavailable Tavallaee, Tee M Primary Care Unavailable NewbillKeagan Admitting Unavailable NewbillKeagan Attending Unavailable Tavallaee, Tee M Primary Care Unavailable Henderson, Bhupendra A Admitting Unavailable Henderson, Bhupendra A Attending Unavailable Tavallaee, Tee M [...] Care Unavailable Johnnie, Bhupendra A Admitting Unavailable Henderson, Bhupendra A Attending Unavailable Tavallaee, Tee M Primary Care Unavailable Long, Gissell Attending Unavailable Tavallaee, Tee M Primary Care Unavailable Long, Gissell Attending Unavailable Tavallaee, Tee M Primary Care Unavailable Long, Gissell Attending Unavailable Tavallaee, Tee M Primary Care Unavailable Olivia Baker Primary Care Provider [phone] ELVI ORTIZ Attending Unavailable OLIVIA BAKER Primary Care Unavailable Dr. Sheryl Todd Primary Care Provider Dr. Sheryl Todd Referring Provider Zion SPRING, CABLE DRILLER-C Colby Attending Provider CONNIE Amezcua Attending Provider [phone] CONNIE Amezcua Referring Provider Dr. Enio Carvalho Attending Provider CONNIE Ko Attending Provider [phone] Dr. Mounika Solitario Attending Provider Beam VSC, Zebulun Primary Care Unavailable Beam VSC, Zebulun Attending Unavailable Beam VSC, Zebulun Referring Unavailable Olivia He NP Attending Unavailable Beam VSC, Zebulun Primary Care Unavailable Beam VSC, Zebulun Referring Unavailable Manjit Jaramillo Attending Unavailable Beam VSC, Zebulun Primary Care Unavailable Donovan VSC, Colby Primary Care Unavailable Beam VSC, Zebulun Attending Unavailable Beam VSC, Zebulun Attending Unavailable Beam VSC, Zebulun Primary Care Unavailable Beam VSC, Zebulun Referring Unavailable Beam VSC, Zebulun Primary Care Unavailable Stella Gregory Attending Unavailable Stella Gregory Referring Unavailable Manjit De La O Attending Unavailable Beam VSC, Zebulun Primary Care Unavailable Beam VSC, Zebulun Primary Care Unavailable Manjit Jaramillo Attending Unavailable Beam VSC, Zebulun Referring Unavailable Manjit De La O Attending Unavailable Beam VSC, Zebulun Referring Unavailable Beam VSC, Zebulun Primary Care Unavailable Manjit Jaramillo Attending Unavailable Beam VSC, Zebulun Primary Care Unavailable Shaun Raymond Referring Unavailable Donovan VSC, Colby Primary Care Unavailable Shaun Raymond Attending Unavailable Beam VSC, Zebulun Primary Care Unavailable Keo Rivas Attending Unavailable Shaun Raymond Referring Unavailable Donovan VSC, Colby Primary Care Unavailable Shaun Raymond Attending Unavailable Donovan VSC, Colby Primary Care Unavailable Beam VSC, Zebulun Attending Unavailable Beam VSC, Zebulun Referring Unavailable Donovan VSC, Colby Primary Care Unavailable Xuan Gaytan Attending Unavailable Xuan Gaytan Referring Unavailable Roof CABLE DRILLER, Olivia Tolentino Attending Unavailable Roof CABLE DRILLER, Olivia H Referring Unavailable Beam VSC, Zebulun Primary Care Unavailable Beam VSC, Zebulun Primary Care Unavailable Enio Carvalho Attending Unavailable Beam VSC, Zebulun Primary Care Unavailable Saadia Morales Attending Unavailable Beam VSC, Zebulun Referring Unavailable Beam VSC, Zebulun Primary Care Unavailable Manjit Jaramillo Attending Unavailable Donovan VSC, Colby Referring Unavailable Donovan VSC, Colby Primary Care Unavailable Xuan Gaytan Attending Unavailable Shaun Raymond Attending Unavailable Donovan VSC, Colby Primary Care Unavailable Donovan VSC, Colby Primary Care Unavailable Manijt Jaramillo Attending Unavailable Beam VSC, Zebulun Primary Care Unavailable Saadia Morales Attending Unavailable Saadia Morales Referring Unavailable Donovan VSC, Colby Referring Unavailable Donovan VSC, Colby Primary Care Unavailable Shaun Raymond Attending Unavailable Beam VSC, Zebulun Primary Care Unavailable Donovan VSC, Colby Referring Unavailable Shaun Raymond Attending Unavailable Donovan VSC, Colby Referring Unavailable Donovan VSC, Colby Primary Care Unavailable Shaun Raymond Attending Unavailable Beam VSC, Zebulun Primary Care Unavailable Stella Gregory Consulting Unavailable Stella Gregory Attending Unavailable Stella Gregory Referring Unavailable Donovan VSC, Colby Referring Unavailable Donovan VSC, Colby Primary Care Unavailable Stella Gregory Attending Unavailable Beam VSC, Zebulun Attending Unavailable Beam VSC, Zebuluroni Primary Care Unavailable Beam ANGELES, Zebuluroni Referring Unavailable Colby Perez Primary Care Unavailable Xuan Gaytan Attending Unavailable Xuan Gaytan Referring Unavailable Allergies Allergy Classification Reported Allergen(s) Allergy Type Date of Onset Reaction(s) Facility (3 sources) codeine; Translations: [codeine] Drug Allergy 8 Rash [facility] (4 sources) Latex; Translations: [Latex] Propensity to adverse reactions to drug 8 Other (See Comments) [facility] (2 sources) OTHER Propensity to adverse reactions 8 [facility] (3 sources) natural latex rubber; Translations: [Latex, Natural Rubber] Allergy to substance 2 skin irritation [facility] Repository Medications Current Medications Medication Drug Class(es) [...] 2 PUFF INHALATION EVERY 4 HOURS NEEDED September 03, 2021 10:47am September 25, 2021 9:13am Start: 08-06-2021 End: 09-03-2021 take 1 puff(s) by inhalation every four hours as needed Albuterol Sulfate Discontinued 2 PUFF INHALATION EVERY 4 HOURS NEEDED August 06, 2021 1:39pm September 03, 2021 [...] mg oral capsule (1 source) Start: 09-02-20 21 take 10 mg by mouth once daily Loratadine Active 10 MG PO DAILY September 02, 2021 11:01am meloxicam 15 mg oral tablet (3 sources) Nonsteroidal Anti-inflammatory Drug Start: 02-26-20 22 take 15 mg by mouth once daily [...] Trazodone Active 50 MG PO AT BEDTIME December 09, 2021 6:07pm valACYclovir 500 mg [...] extended release oral tablet (2 sources) Uncompetitive T-izpzcm-Y-aspartat e Receptor Antagonist, Sigma-1 Agonist Start: 08-06-2021 [...] hours Ibuprofen Discontinued 800 MG PO Q8H March 12, 2021 9:58am February 25, 2022 [...] Discontinued 4 MG PO per package directions 13 03February 22, 2022 2:51pm February 27, 2022 12:06am metroNIDAZOLE 500 mg oral tablet (2 sources) Nitroimidazole Antimicrobial Start: 03-11-2022 End: 03-18-2022 take 500 mg by mouth twice daily Metronidazole Discontinued 500 MG PO TWICE A DAY 06 05March 11, 2022 11:20am March 18, 2022 12:03am [...] [Dizziness and giddiness] Onset: 5 Episodic Diabetes mellitus without complication (1 source) Prediabetes; Translations: [Prediabetes] Onset: 5 Episodic Diabetes or abnormal glucose tolerance complicating ; childbirth; or the puerperium (2 sources) History of gestational diabetes mellitus; Translations: [Personal history of gestational diabetes] Episodic Disorders of teeth and jaw (2 sources) Periapical abscess; Translations: [Periapical abscess without sinus] Episodic Essential hypertension (1 source) Essential (primary) hypertension; Translations: [Essential (primary) hypertension] Onset: 5 Chronic Genitourinary symptoms and ill-defined conditions (2 sources) Dysuria; Translations: [Dysuria] Onset: 5 Episodic Menstrual disorders (1 source) Dysmenorrhea; Translations: [...] obesity due to excess calories] Chronic Other upper respiratory disease (2 sources) Seasonal [...] Spondylosis; intervertebral disc disorders; other back problems (2 sources) Radiculopathy, cervical region; Translations: [Cervicalgia] Onset: 5 Episodic Sprains and [...] multigravida, first trimester / O09.521(ICD-10) Onset: 8 Urinary tract infections (1 source) Urinary tract infection, site not specified; Translations: [Urinary tract infection, site not specified] Onset: 5 Episodic Viral infection (1 source) Viral disease; Translations: [...] [Pain in right shoulder] Onset: 01-03-2025 Episodic Other screening for suspected conditions (not mental disorders or infectious disease) (2 sources) Encounter for screening mammogram for malignant neoplasm of breast; Translations: [Encounter for screening for malignant neoplasm of cervix] Onset: 12-19-2024 Episodic Results Test Name Value Interpretation Reference Range Facility Urgent Care Visit Reporton 0 07-07-2025 Urgent Care Visit Report [facility] [address], [address] [place] [address] OFFICE VISIT Date of Service: 07/07/25 MR#: [id number] Acct: [id number] Name: SIA CONTRERAS ELSA Rep #: [id number] : 1980 Provider: HAILE steven Age/Sex: 44/F Location: [facility] Status: Signed Intake Vital Signs 05/21/25 07:29 07/07/25 12:29 Height 5 ft 9 in 5 ft 9 in BP 116/70 Blood Pressure Location Lt brachial Position Sitting Pulse 88 Pulse Source Monitor Temp 98.3 F Temp Source Oral Pulse Oximetry (%) 100 Oxygen Delivery Method room air Intake Visit Reasons: CONCERN FOR UTI Chief Complaint: UTI Accompanied by: Self Allergies Latex, Natural Rubber Allergy (Intermediate, Verified 07/07/25 12:24) skin irritation Medications ???Medication ???Instructions ???Recorded ???Confirmed ???Type albuterol sulfate 90 mcg/actuation 2 puff inhalation Q4H PRN PRN 07/07/25 Rx aerosol inhaler Wheezing, shortness of breath #8.5 grams mecobalamin (vitamin B12) 1,000 1,000 mcg PO QDAY 12/14/24 5 History mcg chewable tablet ergocalciferol (vitamin D2) 25,000 25,000 unit PO MO 01/14/2507/07 History unit capsule semaglutide (weight loss) 0.25 0.25 mg subcut TH 01/14/25 5 History mg/0.5 mL subcutaneous pen injector venlafaxine 150 mg 150 mg PO DAILY #90 caps 02/20/25 07/07/25 Rx capsule,extended release 24 hr lidocaine 5 % topical patch 1 patch topical QDAY #15 ea 07/07/25 Rx methocarbamol 500 mg tablet 500 mg PO TID PRN pain/spasms #60 02/28/25 07/07/25 Rx tabs meclizine 25 mg tablet 25 mg PO 4X/DAY PRN PRN Dizziness 04/08/25 07/07/25 Rx #20 tabs lamotrigine 150 mg tablet 150 mg PO DAILY #90 tabs 05/21/25 07/07/25 Rx sulfamethoxazole 800 1 tab PO BID 3 days #6 tabs 07/07/25 Rx mg-trimethoprim 160 mg tablet (Bactrim DS) Nurse's Note: Burning, urgency, bladder spasms. Finished all of Macrobid. [facility] Medical History Arthrosis of right acromioclavicular joint [...] home: Yes additional social history: Single HPI HPI Chief Complaint: UTI Details: SIA CONTRERAS, is a 44 F who presents to the office today for concerns regarding possible urinary tract infection despite being treated with Macrobid. She acknowledges urinary burning, urgency, and spasm. ROS Const Constitutional: No body ache, chills, fatigue, fever(s) (no fever greater than 99.9 F), malaise, night sweats or other (rigors) Resp Respiratory: No shortness of breath Cardio Cardiology: No chest pain at rest or chest pain with exertion Gastro GI: No abdominal pain Genitourinary-Female: Positive for burning urination, urinary frequency and other (spasm); No painful urination, urinary urgency, blood in urine, suprapubic fullness or side pain Endo Endocrine: No fatigue Exam Const General: cooperative, healthy appearing, comfortable and no acute distress Orientation: alert, awake and oriented x3 Chest Chest palpation inspection: normal inspection of the chest Resp Effort Inspection: normal respiratory effort Auscultation: Bilateral: Clear to Auscultation Cardio Rhythm: other (Normal) Heart Sounds: S1 normal, S2 normal and no murmurs GI Inspection: normal to inspection and non-distended Auscultation: normal bowel sounds Palpation: soft and nontender General: No CVA tenderness Skin General: (more content not included)... Normal [facility] Urine Cultureon 07-04-2025 [facility] Urine Culture Urine Culture Klebsiella pneumoniae sp pneum [place] Count 25,000-50,000 Klebsiella pneumoniae sp pneum: REACTION Ampicillin Islt RAYRAY Ampicillin+Sulbac Islt RAYRAY 4 S Cefepime Islt RAYRAY <=0.12 S cefTRIAXone Islt RAYRAY <=0.25 S Ciprofloxacin Islt RAYRAY <=0.06 S B-Lactamase Extended Susc Islt NEG Gentamicin Islt RAYRAY <=1 S levoFLOXacin Islt RAYRAY <=0.12 S Meropenem Islt RAYRAY <=0.25 S Nitrofurantoin Islt RAYRAY 64 I Pip+Tazo Islt RAYRAY <=4 S TMP SMX Islt RAYRAY <=20 S Normal [facility] Comment on above: Performed By: #### M 100.2200 ####[facility] [address] [place], [address] 12 Lead EKGon 07-02-2025 12 Lead EKG [facility] [address] [place] [address] 12 Lead EKG 07/02/25 0829 MR#: [id number] Acct: [id number] Name: SIA CONTRERAS Rep #: [id number] : 1980 44 From: Dutch Forman MD Attending Dr: Vladimir Davila [facility] CABLE DRILLER-C Status: REG CLI Ordering Dr: Vladimir Davila [facility] CABLE DRILLER-C Date: 07/02/25 Location: LAB Sex: F C Admitted: Test Reason : TACHY Blood Pressure : */* mmHG Vent. Rate : 76 BPM Atrial Rate : 76 BPM P-R Int : 160 ms QRS Dur : 88 ms QT Int : 380 ms P-R-T Axes : 41 56 59 degrees QTcB Int : 427 ms Normal sinus rhythm Normal ECG Confirmed by Dutch Forman ([id number]), editor trade journal ANAM VIRK ([id number]) on 07/03/2025 7:12:43 AM Referred By: Vladimir Davila Confirmed By: Dutch Forman 07/03/25 0712 Date Dutch Forman MD CC: Vlaidmir [facility] CABLE DRILLER-Mela Beam Signed Normal [facility] CBC-Complete Blood Cnt No Di ffon 07-02-2025 Erythrocyte distribution width (RBC) [Ratio] 14.6 % Normal 11.6-14.6 [facility] Comment on above: Performed By: #### L 100.0500, L500.4050, L501.9520, L501.9985 ####[facility] [address] [place], [address] Hematocrit (Bld) [Volume fraction] 43.8 % Normal 37-47 [facility] Comment on above: Performed By: #### L 100.0500, L500.4050, L501.9520, L501.9985 ####[facility] [address] [place], [address] Hemoglobin (Bld) [Mass/Vol] 14.7 g/dL Normal 12.0-15.0 [facility] Comment on above: Performed By: #### L 100.0500, L500.4050, L501.9520, L501.9985 ####[facility] [address] [place], [address] MCH (RBC) [Entitic mass] 30.0 pg Normal 27.0-32.0 [facility] Comment on above: Performed By: #### L 100.0500, L500.4050, L501.9520, L501.9985 ####[facility] [address] [place], [address] MCHC (RBC) [Mass/Vol] 33.6 g/dL Normal 32-36 [facility] Comment on above: Performed By: #### L 100.0500, L500.4050, L501.9520, L501.9985 ####[facility] [address] [place], [address] MCV (RBC) [Entitic vol] 89.4 fL Normal 81-99 [facility] Comment on above: Performed By: #### L 100.0500, L500.4050, L501.9520, L501.9985 ####[facility] [address] [place], [address] Platelet mean volume (Bld) [Entitic vol] 9.5 fL Normal 6.2-12.0 [facility] Comment on above: Performed By: #### L 100.0500, L500.4050, L501.9520, L501.9985 ####[facility] [address] [place], [address] Platelets (Bld) [#/Vol] 263 10*3/uL Normal 150-450 [facility] Comment on above: Performed By: #### L 100.0500, L500.4050, L501.9520, L501.9985 ####[facility] [address] [place], [address] RBC (Bld) [#/Vol] 4.90 10*6/uL Normal 4.2-5.4 [facility] Comment on above: Performed By: #### L 100.0500, L500.4050, L501.9520, L501.9985 ####[facility] [address] [place], [address] RDW SD 48.1 fl High 35.1-43.9 [facility] Comment on above: Performed By: #### L 100.0500, L500.4050, L501.9520, L501.9985 ####[facility] [address] [place], [address] WBC (Bld) [#/Vol] 10.0 10*3/uL Normal 4.4-11.0 [facility] Comment on above: Performed By: #### L 100.0500, L500.4050, L501.9520, L501.9985 ####[facility] [address] [place], [address] Comprehensive Metabolic Prof ilon 07-02-2025 Albumin [Mass/Vol] 4.1 g/dL Normal 3.5-5.0 [facility] Comment on above: Performed By: #### L 100.0500, L500.4050, L501.9520, L501.9985 ####[facility] [address] [place], [address] Albumin/Globulin [Mass ratio] 1.4 {ratio} Normal 0.9-2.4 [facility] Comment on above: Performed By: #### L 100.0500, L500.4050, L501.9520, L501.9985 ####[facility] [address] [place], [address] ALK PHOS 64 U/L Normal 35-104 [facility] Comment on above: Performed By: #### L 100.0500, L500.4050, L501.9520, L501.9985 ####[facility] [address] [place], [address] ALT [Catalytic activity/Vol] 14 U/L Normal <=34 [facility] Comment on above: Performed By: #### L 100.0500, L500.4050, L501.9520, L501.9985 ####[facility] [address] [place], [address] AST [Catalytic activity/Vol] 15 U/L Normal <=31 [facility] Comment on above: Performed By: #### L 100.0500, L500.4050, L501.9520, L501.9985 ####[facility] [address] [place], [address] Bilirubin [Mass/Vol] 0.28 mg/dL Normal 0.00-1.30 [facility] Comment on above: Performed By: #### L 100.0500, L500.4050, L501.9520, L501.9985 ####[facility] [address] [place], [address] BUN/CRE 20.6 RATIO High 10-20 [facility] Comment on above: Performed By: #### L 100.0500, L500.4050, L501.9520, L501.9985 ####[facility] [address] [place], [address] Calcium [Mass/Vol] 8.9 mg/dL Normal 7.6-11.0 [facility] Comment on above: Performed By: #### L 100.0500, L500.4050, L501.9520, L501.9985 ####[facility] [address] [place], [address] Chloride [Moles/Vol] 101 mmol/L Normal 98-108 [facility] Comment on above: Performed By: #### L 100.0500, L500.4050, L501.9520, L501.9985 ####[facility] [address] [place], [address] CO2 [Moles/Vol] 25.2 mmol/L Normal 21.0-32.0 [facility] Comment on above: Performed By: #### L 100.0500, L500.4050, L501.9520, L501.9985 ####[facility] [address] [place], [address] Creatinine [Mass/Vol] 0.76 mg/dL Normal 0.70-1.20 [facility] Comment on above: Performed By: #### L 100.0500, L500.4050, L501.9520, L501.9985 ####[facility] [address] [place], [address] GAP 11 Normal 5-15 [facility] Comment on above: Performed By: #### L 100.0500, L500.4050, L501.9520, L501.9985 ####[facility] [address] [place], [address] GFR/1.73 sq M.predicted among non-blacks MDRD (S/P/Bld) [Vol rate/Area] 99 mL/min/{1.73_m2} Normal >60 [facility] Comment on above: Result Comment: mL/m in/1.73m2 CKD-EPI Creatinine Equation (2020) Performed By: #### L 100.0500, L500.4050, L501.9520, L501.9985 ####[facility] [address] [place], [address] Globulin (S) [Mass/Vol] 2.9 g/dL Normal 2.2-4.2 [facility] Comment on above: Performed By: #### L 100.0500, L500.4050, L501.9520, L501.9985 ####[facility] [address] [place], [address] Glucose [Mass/Vol] 82 mg/dL Normal 70-99 [facility] Comment on above: Performed By: #### L 100.0500, L500.4050, L501.9520, L501.9985 ####[facility] [address] [place], [address] Potassium [Moles/Vol] 4.2 mmol/L Normal 3.3-5.1 [facility] Comment on above: Performed By: #### L 100.0500, L500.4050, L501.9520, L501.9985 ####[facility] [address] [place], [address] Sodium [Moles/Vol] 137 mmol/L Normal 133-145 [facility] Comment on above: Performed By: #### L 100.0500, L500.4050, L501.9520, L501.9985 ####[facility] [address] [place], [address] T PROT 7.1 g/dL Normal 5.9-8.4 [facility] Comment on above: Performed By: #### L 100.0500, L500.4050, L501.9520, L501.9985 ####[facility] [address] [place], [address] Urea nitrogen [Mass/Vol] 16 mg/dL Normal 4-19 [facility] Comment on above: Performed By: #### L 100.0500, L500.4050, L501.9520, L501.9985 ####[facility] [address] [place], [address] Hemoglobin A1con 07-02-2025 HbA1c (Bld) [Mass fraction] 5.4 % Normal <=5.6 [facility] Comment on above: Result Comment: Norm al < 5.7 % Prediabetic 5.7 - 6.4 % Diabetic >or= 6.5 % Please note range changes. Performed By: #### L 100.0500, L500.4050, L501.9520, L501.9985 ####[facility] [address] [place], [address] Thyroid Stim Hormone (TSH)on 07-02-2025 TSH 1.890 uIU/mL Normal 0.300-4.200 [facility] Comment on above: Performed By: #### L 100.0500, L500.4050, L501.9520, L501.9985 ####[facility] [address] [place], [address] Urgent Care Visit Reporton 0 07-01-2025 Urgent Care Visit Report [facility] [address], [address] [place], [place] [address] OFFICE VISIT Date of Service: 07/01/25 MR#: [id number] Acct: [id number] Name: SIA CONTRERAS Rep #: [id number] : 1980 Provider: CONNIE Machuca Age/Sex: 44/F Location: [facility] Status: Signed Intake Vital Signs 05/21/25 07:29 07/01/25 15:04 Height 5 ft 9 in BP 124/64 H Position Sitting Respiration 18 Pulse 83 Temp 98.0 F Temp Source Oral Pulse Oximetry (%) 98 Oxygen Delivery Method room air Intake Visit Reasons: CONCERN FOR UTI Accompanied by: Self Allergies Latex, Natural Rubber Allergy (Intermediate, Verified 07/01/25 15:08) skin irritation Medications ???Medication ???Instructions ???Recorded ???Confirmed ???Type albuterol sulfate 90 mcg/actuation 2 puff inhalation Q4H PRN PRN 07/01/25 Rx aerosol inhaler Wheezing, shortness of breath #8.5 grams mecobalamin (vitamin B12) 1,000 1,000 mcg PO QDAY 12/14/24 5 History mcg chewable tablet ergocalciferol (vitamin D2) 25,000 25,000 unit PO MO 01/14/2507/01 History unit capsule semaglutide (weight loss) 0.25 0.25 mg subcut TH 01/14/25 5 History mg/0.5 mL subcutaneous pen injector venlafaxine 150 mg 150 mg PO DAILY #90 caps 02/20/25 07/01/25 Rx capsule,extended release 24 hr lidocaine 5 % topical patch 1 patch topical QDAY #15 ea 07/01/25 Rx methocarbamol 500 mg tablet 500 mg PO TID PRN pain/spasms #60 02/28/25 07/01/25 Rx tabs meclizine 25 mg tablet 25 mg PO 4X/DAY PRN PRN Dizziness 04/08/25 07/01/25 Rx #20 tabs lamotrigine 150 mg tablet 150 mg PO DAILY #90 tabs 05/21/25 07/01/25 Rx nitrofurantoin 100 mg PO Q12H 5 days #10 caps 06/1707/01/25 Rx monohydrate/macrocrystals 100 mg capsule (Macrobid) Nurse's Note: Patient here for concerns for a UTI. Patient states it started Tuesday with the usual UTI symptoms. Patient states that she tried a medication that is suppose to slow down the growth. Patient states that it didn't help. Patient states that she feels worse today. Patient head is pounding and she has body aches. [facility] Medical History Arthrosis of right acromioclavicular joint [...] home: Yes additional social history: Single HPI HPI Details: SIA CONTRERAS, is a 44 F who presents to the office today [facility] for approximately 3 day history of dysuria and urinary frequency with suprapubic pressure along w/ chills and headache and nausea. No complaints of fever, sweats, lightheadedness/dizziness , vomiting, chest pain/shortness of breath/dyspnea on exertion, or midback pain. No changes in color/ character of urine or stool. Ktkt-uhk-lxjzjvh medication taken (? name) w/o assist. No other associated symptoms and no alleviating/aggravating factors. ROS Const Constitutional: No other (As above) Exam Const General: cooperative, healthy appearing and no acute distress Orientation: alert, awake Chest Chest palpation inspection: normal inspection of the chest Resp Effort Inspection: normal respiratory effort and able to speak in complete sentences Cardio Rate: regular rate Pulses: radial pulses present GI Inspection: normal to inspection Palpation: soft and tender suprapubic (Patient describes upon self-palpation) General: No CVA tenderness Skin General: no rashes or lesions note (more content not included)... Normal [facility] MR/BMS.BPon 05-21-2025 MR/BMS.[address], [address] [place] [address] OFFICE VISIT Date of Service: 05/21/25 MR#: [id number] Acct: [id number] Name: SIA CONTRERAS ELSA Rep #: [id number] : 1980 Provider: Dr. Manjit Hernandez se, DO Age/Sex: 44/F Location: [facility] Status: Signed Intake Vital Signs 04/08/25 17:04 05/21/25 07:29 Height 5 ft 9 in 5 ft 9 in BP Intake Visit Reasons: Follow up Allergies Latex, Natural Rubber Allergy (Intermediate, Verified 04/08/25 17:03) skin irritation [facility] Medical History Arthrosis of right acromioclavicular joint [...] evaluation. Patient reports that she has been good and bad. Ex- has recently got out of group home after 18 months. He has been out for the past 5-6 weeks but he has essentially been stalking patient. Has been using messaging apps to message patient from different phone numbers. She has tried to contact his credit review officer, but not much has been done. Has been feeling more paranoid thinking that he might come and find her physically. Has been having some anxiety attacks which associated vertigo secondary to this fear. Happening several times per week when it happens. Still working at [employer] and things are doing fine. Had a headache with increased dose of vyvanse and didn't feel like 10 mg was very beneficial. Has been able to sleep well at night. Continues to take lamotrigine and venlafaxine, but doesn't feel like this helps with her anxiety. Supposed to have shoulder surgery in the near future. Has been taking semaglutide and and has been losing weight slowly. Denies SI/HI or AVH. Review of Systems Constitutional Denies: fever(s), chills, change in weight or fatigue Eyes Denies: change in vision or blurry vision Ears, Nose, Mouth, Throat Denies: throat pain, neck pain or change in hearing Cardiovascular Denies: chest pain, palpitations or dyspnea Respiratory Denies: dyspnea, cough or wheezing Gastrointestinal Reports: nausea; Denies: abdominal pain, vomiting, diarrhea or constipation Genitourinary Denies: dysuria or urinary frequency Musculoskeletal Reports: joint pain; Denies: back pain, neck pain or muscle weakness Integumentary/Breast Denies: rash or new lesions Neurological Reports: headache(s); Denies: dizziness or confusion Endocrine Denies: fatigue or excessive sweating Hematologic/Lymphatic Denies: easy bruising or easy bleeding Allergic/Immunologic Denies: wheezing Exam Mental Status Exam - Psych Appearance casually dressed (bright red hair) Attitude cooperative Activity/Motor Behavior MSE activity/motor behavior finding no adventitious movements Speech regular rate, regular volume and regular prosody Mood anxious Affect irritable Thought Process linear, logical and coherent Thought Content no delusions and no hallucinations Suicidal Ideation none Homicidal Ideation none Attention intact Concentration intact Sensorium/Orientation awake, alert and oriented x3 Memory/Cognition other (appropriate for stated age) Insight good Judgement good Assessment Plan Assessment Plan (1) PTSD (post-traumatic stress disorder): Problem Details: ON MED Plan: - encouraged therapy - recent exacerbation of symptoms (more content not included)... Normal [facility] Spine Cervical (Routine)on 0 04-20-2025 Spine Cervical (Routine) [facility] Imaging Services [address] [place] [address] Spine Cervical (Routine) MR#: [id number] Acct: [id number] Name: SIA CONTRERAS ELSA Rep #: [id number] : 1980 F 44 From: Domitila Simmons nd, MD PCP: Vladimir Davila Mela CABLE DRILLER-C Status: REG CLI Study: Spine Cervical (Routine) Date of Exam: Exam# [id number] Ordering Dr: Saadia Morales PROCEDURE: SPINE CERVICAL (ROUTINE) 04/20/2025 REASON FOR EXAM: PAIN, RADICULOPATHYx 2 years, right arm. TECHNIQUE: SPINE CERVICAL (ROUTINE) Multiplanar and multisequence images were obtained without IV contrast administration. COMPARISON: C-spine radiographs 02/28/2025. FINDINGS: Vertebrae: Cervical vertebral body heights are preserved. Bone marrow signal is unremarkable. Alignment: Normal. No traumatic listhesis. Spinal Cord: Cervical spinal cord is of normal size and signal intensities. Structures at the foramen magnum are unremarkable. C2-3: Unremarkable C3-4: Unremarkable C4-5: Unremarkable C5-6: There is symmetric posterior disc bulging resulting in moderate central canal narrowing, and moderate left and mild right neural foraminal stenosis. C6-7: Unremarkable C7-T1: Unremarkable MRI/Spine Cervical (Routine) IMPRESSION: Degenerative disease at C5-6 as described. No traumatic cervical finding. Reading Location: [id number] CC: CONNIE Cheng; Sumayaroni [facility] CABLE DRILLER-C Beam Cottage Master: Signed Normal [facility] Basic Metabolic Profile (BMP )on 04-08-2025 BUN/CRE 10.5 RATIO Normal 10-20 [facility] Comment on above: Performed By: #### L 100.0100, L500.2500 #### [facility] [address] [place], [address] Calcium [Mass/Vol] 9.6 mg/dL Normal 7.6-11.0 [facility] Comment on above: Performed By: #### L 100.0100, L500.2500 #### [facility] [address] [place], [address] Chloride [Moles/Vol] 103 mmol/L Normal 98-108 [facility] Comment on above: Performed By: #### L 100.0100, L500.2500 #### [facility] [address] [place], [address] CO2 [Moles/Vol] 25.8 mmol/L Normal 21.0-32.0 [facility] Comment on above: Performed By: #### L 100.0100, L500.2500 #### [facility] [address] [place], [address] Creatinine [Mass/Vol] 0.77 mg/dL Normal 0.70-1.20 [facility] Comment on above: Performed By: #### L 100.0100, L500.2500 #### [facility] [address] [place], [address] GAP 11 Normal 5-15 [facility] Comment on above: Performed By: #### L 100.0100, L500.2500 #### [facility] [address] [place], [address] GFR/1.73 sq M.predicted among non-blacks MDRD (S/P/Bld) [Vol rate/Area] 96 mL/min/{1.73_m2} Normal >60 [facility] Comment on above: Result Comment: mL/m in/1.73m2 CKD-EPI Creatinine Equation (2020) Performed By: #### L 100.0100, L500.2500 #### [facility] [address] [place], [address] Glucose [Mass/Vol] 81 mg/dL Normal 70-99 [facility] Comment on above: Performed By: #### L 100.0100, L500.2500 #### [facility] [address] [place], [address] Potassium [Moles/Vol] 4.3 mmol/L Normal 3.3-5.1 [facility] Comment on above: Performed By: #### L 100.0100, L500.2500 #### [facility] [address] [place], [address] Sodium [Moles/Vol] 139 mmol/L Normal 133-145 [facility] Comment on above: Performed By: #### L 100.0100, L500.2500 #### [facility] [address] [place], [address] Urea nitrogen [Mass/Vol] 8 mg/dL Normal 4-19 [facility] Comment on above: Performed By: #### L 100.0100, L500.2500 #### [facility] [address] [place], [address] CBC W/Diff, Automatedon 03-24 Absolute Lymph 2.95 X10 3/uL Normal 0.83-4.51 [facility] Comment on above: Performed By: #### L 100.0100, L500.2500 #### [facility] [address] [place], [address] Absolute Neut 7.7 X10 3/uL Normal 2.0-7.7 [facility] Comment on above: Performed By: #### L 100.0100, L500.2500 #### [facility] [address] [place], [address] Basophils/100 WBC (Bld) 0.4 % Normal 0-1 [facility] Comment on above: Performed By: #### L 100.0100, L500.2500 #### [facility] [address] [place], [address] Eosinophils/100 WBC (Bld) 1.1 % Normal 0-5 [facility] Comment on above: Performed By: #### L 100.0100, L500.2500 #### [facility] [address] [place], [address] Erythrocyte distribution width (RBC) [Ratio] 15.4 % High 11.6-14.6 [facility] Comment on above: Performed By: #### L 100.0100, L500.2500 #### [facility] [address] [place], [address] Hematocrit (Bld) [Volume fraction] 42.8 % Normal 37-47 [facility] Comment on above: Performed By: #### L 100.0100, L500.2500 #### [facility] [address] [place], [address] Hemoglobin (Bld) [Mass/Vol] 14.7 g/dL Normal 12.0-15.0 [facility] Comment on above: Performed By: #### L 100.0100, L500.2500 #### [facility] [address] [place], [address] IG% 0.300 Normal 0.0-0.9 [facility] Comment on above: Result Comment: IG% - Immature Granulocytes (promyelocytes, myelocytes and metamyelocytes) > 1% indicates that a LEFT SHIFT is Present. Performed By: #### L 100.0100, L500.2500 #### [facility] [address] [place], [address] Lymphocytes/100 WBC (Bld) 25.9 % Normal 19-41 [facility] Comment on above: Performed By: #### L 100.0100, L500.2500 #### [facility] [address] [place], [address] MCH (RBC) [Entitic mass] 29.8 pg Normal 27.0-32.0 [facility] Comment on above: Performed By: #### L 100.0100, L500.2500 #### [facility] [address] [place], [address] MCHC (RBC) [Mass/Vol] 34.3 g/dL Normal 32-36 [facility] Comment on above: Performed By: #### L 100.0100, L500.2500 #### [facility] [address] [place], [address] MCV (RBC) [Entitic vol] 86.6 fL Normal 81-99 [facility] Comment on above: Performed By: #### L 100.0100, L500.2500 #### [facility] [address] [place], [address] Monocytes/100 WBC (Bld) 4.6 % Normal 0-10 [facility] Comment on above: Performed By: #### L 100.0100, L500.2500 #### [facility] [address] [place], [address] Neutrophils/100 WBC (Bld) 67.7 % Normal 47-70 [facility] Comment on above: Performed By: #### L 100.0100, L500.2500 #### [facility] [address] [place], [address] Nucleated RBC (Bld) [#/Vol] 0 10*3/uL Normal 0-5 [facility] Comment on above: Performed By: #### L 100.0100, L500.2500 #### [facility] [address] [place], [address] Platelet mean volume (Bld) [Entitic vol] 9.6 fL Normal 6.2-12.0 [facility] Comment on above: Performed By: #### L 100.0100, L500.2500 #### [facility] [address] [place], [address] Platelets (Bld) [#/Vol] 281 10*3/uL Normal 150-450 [facility] Comment on above: Performed By: #### L 100.0100, L500.2500 #### [facility] [address] [place], [address] RBC (Bld) [#/Vol] 4.94 10*6/uL Normal 4.2-5.4 [facility] Comment on above: Performed By: #### L 100.0100, L500.2500 #### [facility] [address] [place], [address] RDW SD 48.6 fl High 35.1-43.9 [facility] Comment on above: Performed By: #### L 100.0100, L500.2500 #### [facility] [address] [place], [address] WBC (Bld) [#/Vol] 11.4 10*3/uL High 4.4-11.0 [facility] Comment on above: Performed By: #### L 100.0100, L500.2500 #### [facility] [address] [place], [address] Emergency Department Summary on 04-08-2025 Emergency Department Summary [facility] Medical Records Department [address] [place] [address] Emergency Department Summary 04/08/25 MR#: [id number] Acct: [id number] Name: SIA CONTRERAS Rep #: [id number] : 1980 44 From: Keo Rivas DO PCP: Vladimir Davila Mela CABLE DRILLER-C Status:DEP ER Location: ED HPI History of [...] any chest pain or shortness of breath. [facility] Medical History Arthrosis of right acromioclavicular joint [...] to obtaini (more content not included)... Normal [facility] Urinalysis, Completeon 04-08 EPI,SQUAMOUS 5-10 SEEN Normal 5-10 [facility] Comment on above: Order Comment: CLEAN CATCH Performed By: #### L 400.0001 #### [facility] [address] [place], [address] RBC 0-5 SEEN Normal 0-5 [facility] Comment on above: Order Comment: CLEAN CATCH Performed By: #### L 400.0001 #### [facility] [address] [place], [address] WBC 0-5 SEEN Normal 0-5 [facility] Comment on above: Order Comment: CLEAN CATCH Performed By: #### L 400.0001 #### [facility] [address] [place], [address] BACTERIA 0 SEEN Normal None Seen [facility] Comment on above: Order Comment: CLEAN CATCH Performed By: #### L 400.0001 #### [facility] [address] [place], [address] Mucus Ql (Urine sed) 0 SEEN Normal [facility] Comment on above: Order Comment: CLEAN CATCH Performed By: #### L 400.0001 #### [facility] [address] [place], [address] Cerv Spine 4 or 5 Viewson Cerv Spine 4 or 5 Views [facility] Imaging Services [address] [place] [address] Cerv Spine 4 or 5 Views MR#: [id number] Acct: [id number] Name: SIA CONTRERAS Rep #: [id number] : 1980 F 44 From: Suleman auguste MD PCP: Vladimir Davila [facility] CABLE DRILLER-C Status: DEP AMB Study: Cerv Spine 4 or 5 Views Date of Exam: 02/28/25 Exam# [id number] Ordering Dr: Saadia Morales PROCEDURE: CERV SPINE [...] Views IMPRESSION: No acute findings. Reading Location: [facility]ARA CC: CONNIE Cheng; Vladimir [facility] CABLE DRILLER-C Giovanni Cottage Master: Signed Normal [facility] Orthopedic Visit Reporton Orthopedic Visit Report [facility] [address] [place] [address] [address] [place] [address] OFFICE VISIT Date of Service: 02/28/25 MR#: [id number] Acct: [id number] Name: SIA CONTRERAS ELSA Rep #: [id number] : 1980 Provider: CONNIE Cheng Age/Sex: 44/F Location: [facility] Status: Signed Intake Vital Signs 02/20/25 06:59 [...] QAM 30 days #30 caps 0402/28/25 Rx lisdexamfetamine 20 mg capsule 20 mg [...] will only (more content not included)... Normal [facility] Orthopedic Visit Reporton Orthopedic Visit Report [facility] [address] [place] [address] OFFICE VISIT Date of Service: 02/22/25 MR#: [id number] Acct: [id number] Name: SIA CONTRERAS Rep #: [id number] : 1980 Provider: Dr. Shaun allison MD Age/Sex: 44/F Location: [facility] Status: Signed with Addenda ADDENDUM by Caitlin [...] Performing Provider: Shaun Raymond MD Performing Location: [facility] Administered by: Shaun Raymond MD on 02/22/25 15:28 Dose Route Admin Location Dispensed Lot Number Expiration Date NDC Man ufacturer 80 mg intra-articular right subacromial 2 mL [id number] 02/21/26 7777-4439-2 8 [facility] Date cc: * Signed Intake Vital [...] mg PO QAM 30 days #30 caps 04/3 002/22/25 Rx venlafaxine 150 mg 150 mg [...] by me, Dr. Shaun Raymond MD 02/22/25 0338. Part of today???s visit was documented by [...] Coding Level (more content not included)... Normal [facility] MR/BMS.BPon 02-20-2025 MR/BMS.BP [address], [address] [place] [address] OFFICE VISIT Date of Service: 02/20/25 MR#: [id number] Acct: [id number] Name: SIA CONTRERAS ELSA Rep #: [id number] : 1980 Provider: Dr. Manjit Hernandez se, DO Age/Sex: 44/F Location: [facility] Status: Signed Intake Vital Signs 11/22/24 14:34 [...] mcg/actuation 2 puff inhalation Q4H PRN PRN 06 /13/23 04/30/25 Rx aerosol inhaler Wheezing, shortness of breath [...] congruent Th (more content not included)... Normal [facility] Discharge Instructionon 04-0 Discharge Instruction [facility] Medical Records Department [address] [place] [address] Instructions for Home/Discharge Instructions 01/22/25 1309 MR#: [id number] Acct: [id number] Name: SIA CONTRERAS Rep #: [id number] : 1980 44 From: Stella Gregory MD PCP: Vladimir Davila [facility] CABLE DRILLER-C Status:REG SDC Discharge Instructions Diet Discharge Diet: [...] Up With: Stella Gregory MD When: Call [phone] to schedule appointment. Test Results: Test results from this visit will be discussed in further detail at your follow-up appointment, if applicable. Discharge Plan Admission Attending Provider: Stella Gregory Primary Care Provider: Vladimir Davila Instructions Print Language: Icelandic Discharge Orders/Prescriptions Prescriptions: No Action venlafaxine 150 [...] 30 0RF Referrals / Follow Up: Colby Donovan Mela, CABLE DRILLER-C [facility] - Disposition Disposition (needs filled in before D/C Order can be placed): Home, Self Care 01/22/25 3206 Stella Gregory MD CC: Vladimir REYNOSO CABLE DRILLER-C Giovanni Signed Normal [facility] MR/POSTOP.Abhishek 04-01-2025 MR/POSTOP.ANE [facility] Medical Records Department [address] [place] [address] Anesthesia Postop Eval I 01/22/25 1317 MR#: [id number] Acct: [id number] Name: SIA CONTRERAS Rep #: [id number] : 1980 44 From: Eli Roberto PCP: Vladimir Davila CABLE DRILLER-C Status:REG SDC Y Race: C Location: [place] [address] Anesthesia: Postop Eval I Current Vital Signs [...] Eli Chacon Signature: Date CC: Signed Normal [facility] MR/NGGONGWM5bw 01-22-2025 [facility] Medical Records Department [address] [place] [address] Anesthesia Postop Eval II 01/22/25 1345 MR#: [id number] Acct: [id number] Name: SIA CONTRERAS Rep #: [id number] : 1980 44 From: Eli Roberto PCP: Vladimir Davila CABLE DRILLER-C Status:REG SDC Y Race: C Location: [place] [address] Anesthesia Postop Eval I Sum Postop Eval Completion status Anesthesia document: Postop Eval 1 completed: Yes Anesthesia Postop Eval I Summary Anesthesia Postop Eval I Summary: Anesthesia Postop Eval I: Assessment Summary Airway patent Yes 01/22/25 13:18 BLADE SHARPENER.GDOTT Spontaneous unlabored Yes 01/22/25 13:18 BLADE SHARPENER.GDOTT respirations Mental status Awake,Calm 01/22/25 13:18 BLADE SHARPENER.GDOTT nausea No 01/22/25 13:18 BLADE SHARPENER.GDOTT Vomiting No 01/22/25 13:18 BLADE SHARPENER.GDOTT Anesthesia Postop Eval I: Fluid Summary Crystalloid volume administer 30 01/22/25 13:18 BLADE SHARPENER.GDOTT (ml) Colloids volume administered ( ml) Blood Product volume administered (ml) Total IV fluid infused 30 01/22/25 13:18 BLADE SHARPENER.GDOTT Anesthesia Postop Eval I: Summary Notes Anesthesia Complication No 01/22/25 13:18 BLADE SHARPENER.GDOTT Anesthesia Complication Comment: Post-operative progress note Anesthesia: Postop Eval II Evaluation Mental status: Awake and Calm Pain Level: 0 nausea: No Vomiting: No Complications Anesthesia Complication: No 01/22/25 1346 Date Eli Roberto Cosigner Signature: Date CC: Signed Normal [facility] Operative Reporton 5 Operative Report [facility] Medical Records Department [address] [place] [address] Operative Report 01/22/25 1303 MR#: [id number] Acct: [id number] Name: SIA CONTRERAS ELSA Rep #: [id number] : 1980 44 From: Stella Gregory MD PCP: Vladimir Davila Mela CABLE DRILLER-C Status:[facility] Location: [place] [address] Problems Associated Problem List Diagnoses (1) Abnormal uterine bleeding (AUB): (2) History of endometrial ablation: Multi Select Codes Urinary/Genital Urinary/Genital CPT Codes: 45477 Melvi/Novasure Operative Report (Standard) Operative Information Date of Procedure: 01/22/25 Pre-Operative Diagnosis: see problem list Post-Operative Diagnosis: same Surgery/Procedure Performed: d and c hysteroscopy melvi ablation engineering aide: No Type of Anesthesia: IV Sedation RN [...] (if applicable): CC: [facility]. Stella Gregory MD; [facility]C Beam Signed Normal [facility] ,Urineon 01-22-2025 Beta HCG ( test) Ql (U) Negative Normal [facility] Comment on above: Result Comment: Very dilute urine specimens, as indicated by a low specific gravity, may not contain sales representatives levels of hCG. If is still suspected, a first morning urine specimen should be collected 48 hours later and tested. Performed By: #### L 400.7600 #### [facility] [address] [place], [address] Surgery Specimen Level Muriel 01-22-2025 Surgery Specimen Level IV Patient Age/Sex Location Account Attending Physician SIA CONTRERAS 44/F [facility] [id number] Dr. Stella Gregory MD Specimen: [id number] Received: 01/22/25 Status: YUNIOR Stacy Num: [id number] Spec Type: ENDOM BX/C Subm Dr: Dr. Stella Gregory MD HEADER OPERATION: [...] in aggregate. Submitted in toto in A1-2. [facility] 01-22-2025 [facility]:[address]33 Patient Age/Sex Location Account Attending Physician SIA CONTRERAS 44/F [facility] [id number] Dr. Stella Gregory MD Signed (signature on file) Dr. Abbie Henderson MD 01/25/25 6140 Normal [facility] Comment on above: Performed By: #### P SUIV ####[facility] [address] [place], [address] CBC-Complete Blood Cnt No Di ffon 01-19-2025 Erythrocyte distribution width (RBC) [Ratio] 15.5 % High 11.6-14.6 [facility] Comment on above: Performed By: #### B TSPAT, L400.7600, L100.0500 #### [facility] [address] [place], [address] Hematocrit (Bld) [Volume fraction] 40.2 % Normal 37-47 [facility] Comment on above: Performed By: #### B TSPAT, L400.7600, L100.0500 #### [facility] [address] [place], [address] Hemoglobin (Bld) [Mass/Vol] 13.4 g/dL Normal 12.0-15.0 [facility] Comment on above: Performed By: #### Jai TSPAT, L400.7600, L100.0500 #### [facility] [address] [place], [address] MCH (RBC) [Entitic mass] 28.4 pg Normal 27.0-32.0 [facility] Comment on above: Performed By: #### B TSPAT, L400.7600, L100.0500 #### [facility] [address] [place], [address] MCHC (RBC) [Mass/Vol] 33.3 g/dL Normal 32-36 [facility] Comment on above: Performed By: #### B TSPAT, L400.7600, L100.0500 #### [facility] [address] [place], [address] MCV (RBC) [Entitic vol] 85.2 fL Normal 81-99 [facility] Comment on above: Performed By: #### B TSPAT, L400.7600, L100.0500 #### [facility] [address] [place], [address] Platelet mean volume (Bld) [Entitic vol] 10.0 fL Normal 6.2-12.0 [facility] Comment on above: Performed By: #### B TSPAT, L400.7600, L100.0500 #### [facility] [address] [place], [address] Platelets (Bld) [#/Vol] 260 10*3/uL Normal 150-450 [facility] Comment on above: Performed By: #### B TSPAT, L400.7600, L100.0500 #### [facility] [address] [place], [address] RBC (Bld) [#/Vol] 4.72 10*6/uL Normal 4.2-5.4 [facility] Comment on above: Performed By: #### B TSPAT, L400.7600, L100.0500 #### [facility] [address] [place], [address] RDW SD 47.9 fl High 35.1-43.9 [facility] Comment on above: Performed By: #### B TSPAT, L400.7600, L100.0500 #### [facility] [address] [place], [address] WBC (Bld) [#/Vol] 8.9 10*3/uL Normal 4.4-11.0 [facility] Comment on above: Performed By: #### B TSPAT, L400.7600, L100.0500 #### [facility] [address] [place], [place], [address] ,Urineon 01-19-2025 Beta HCG ( test) Ql (U) Negative Normal [facility] Comment on above: Result Comment: Very dilute urine specimens, as indicated by a low specific gravity, may not contain sales representatives levels of hCG. If is still suspected, a first morning urine specimen should be collected 48 hours later and tested. Performed By: #### B TSPAT, L400.7600, L100.0500 #### [facility] [address] [place], [place], [address] Type AND Screen - PAT ONLYon 01-19-2025 ABO and Rh group Nom (Bld) Blood group A Rh(D) positive Normal [facility] Comment on above: Order Comment: Surge ry Date: 01/22/25Reason for Laboratory Test [id number] D C ABLATION Performed By: #### B TSPAT, L400.7600, L100.0500 ####[facility] [address] [place], [place], [address] Orthopedic Visit Reporton Orthopedic Visit Report [facility] [address] [place] [address] [address] [place] [address] OFFICE VISIT Date of Service: 12/31/24 MR#: [id number] Acct: [id number] Name: SIA CONTRERAS ELSA Rep #: [id number] : 1980 Provider: Dr. Shaun allison MD Age/Sex: 44/F Location[place] [facility] [place] Status: Signed Intake Vital Signs 12/14/24 09:49 [...] 30 days #30 caps 05/1712/31/24 Rx (Vyvanse) [facility] Medical History (Updated 12/31/24 @ 08:14 by [...] is laterally about the shoulder. Supplemental Info [facility] Imaging Services [address] [place] [address] Upper Ext Joint Only(Routine) MR#: [id number] Acct: [id number] Name: SIA CONTRERAS ELSA Rep #: [id number] : 1980 F 43 From: Andreas Vazquez DO PCP: Colby Donovan NP-Mela Status: REG CLI Study: Upper Ext Joint Only(Routine) Date of Exam: 12/22/24 Exam# [id number] Ordering Dr: Shaun Raymond MD PROCEDURE: MRI [...] the s (more content not included)... Normal [facility] Re-Evaluation - PT (1)on Re-Evaluation - PT (1) [facility] [address] [place] [address]. [address] [place] [address] / REEVALUATION / MEDICARE RECERTIFICATION PHYSICAL THERAPY MR#: [id number] Acct: [id number] Name: SIA CONTRERAS Rep #: [id number] : 1980 43 From: Keo Ramirez DPT, OCS, CSCS Referring Dr.: Dr. Shaun Raymond MD Status:REG RCR Insurance: [facility] SELF PAY INSURANCE Re-Evaluation Intro: Dr. Shaun [...] do not hesitate to contact me at [phone] by phone or if you have questions or concerns regarding this new plan of care! Sincerely, Keo Ramirez, DPT, OCS, CSCS 12/27/24 1254 CC: HAILE Donovan; Dr. Shaun Raymond MD EBG Signed For Medicare only, by signing this I certify the plan of care. ___ Physicians Signature Date Normal [facility] Upper Ext Joint Only(Routine )on 12-22-2024 Upper Ext Joint Only(Routine) [facility] Imaging Services [address] [place] [address] Upper Ext Joint Only(Routine) MR#: [id number] Acct: [id number] Name: SIA CONTRERAS ELSA Rep #: [id number] : 1980 F 43 From: Andreas Chaudhary PCP: HAILE Borges Status: REG CLI Study: Upper Ext Joint Only(Routine) Date of Exam: 0 12/22/24 Exam# [id number] Ordering Dr: Shaun Raymond MD PROCEDURE: MRI [...] the subacromial/subdeltoid bursa. Reading Location: [place] CC: CABLE DRILLER-C Colby Donovan; Dr. Shaun Raymond MD Cottage Master: Signed Normal [facility] Abdomen/Pelvis WITH Contrast on 12-17-2024 Abdomen/Pelvis WITH Contrast [facility] Imaging Services [address] [place] [id number] Abdomen/Pelvis WITH Contrast MR#: [id number] Acct: [id number] Name: SIA CONTRERAS Rep #: [id number] : 1980 F 43 From: Grady Wong i, DO PCP: HAILE Borges Status: REG CLI Study: Abdomen/Pelvis WITH Contrast Date of Exam: Exam# [id number] Ordering Dr: Vladimir Davila [facility] CABLE DRILLER- C PROCEDURE: CT of the abdomen/pelvis with [...] use of iterative reconstruction technique). Reading Location: [place] CC: HAILE Gilbert [facility] HAILE Davila Cottage Master: Signed Normal [facility] Farm Hand Office Visit Reporton 12-14-2024 Farm Hand Office Visit Report [address], [address] [place] [address] OFFICE VISIT Date of Service: 12/14/24 MR#: [id number] Acct: [id number] Name: SIA CONTRERAS Rep #: [id number] : 1980 Provider: Dr. Stella reynaga MD Age/Sex: 43/F Location[place] [facility] [place]: Signed Intake Vital Signs 11/28/24 09:58 12/14/24 09:41 12/14/24 09:49 Height 5 ft 9 in 5 ft 9 in 5 ft 9 in Weight: 313 lb 302 lb 4 oz BMI 46.2 44.6 BP 142/89 H 136/83 H Intake Visit Reasons: Ablation Consult Chief Complaint: Ablation consult Farm Consultant Required: No Is patient in pain?: No [...] the past well, she is on multiple pscy medications. she is interested in an ablation Female Reproductive History Last Menstrual Period: 12/05/24 Menopausal Symptoms: No night sweats History 4 Elective abortions Hx Para 4 Spontaneous abortions Hx # Term Pregnancies Ectopic pregnancies Hx # Pregnancies Multiple births # of living children Past Pregnancies Del. Date Name GA/Weeks Outcome Route Bth Weight Infant Gen Labor Lgth Anesthesia Del Locatn Provider [...] excessive sweating, (more content not included)... Normal [facility] PAP IG HPV APTIMA 16/18,45on 12-04-2024 ADEQ Comment Normal . [facility] Comment on above: Order Comment: Speci men Comment: [id number] Specimen Comment: Source.............Cervix;Endocervix Specimen Comment: No. of containers..01 ThinPrep Vial Result Comment: Sati sfactory for evaluation. No endocervical component is identified. Performed By: #### L 7400.0280 #### [facility] [address] [place], [place], [address] COMM . Normal . [facility] Comment on above: Order Comment: Speci men Comment: [id number] Specimen Comment: Source.............Cervix;Endocervix Specimen Comment: No. of containers..01 ThinPrep Vial Performed By: #### L 7400.0280 #### [facility] [address] [place], [place], [address] COMMENT Comment Normal . [facility] Comment on above: Order Comment: Speci men Comment: [id number] Specimen Comment: Source.............Cervix;Endocervix Specimen Comment: No. of containers..01 ThinPrep Vial Result Comment: This liquid based ThinPrep(R) pap test was screened with the use of an image guided system. Performed By: #### L 7400.0280 #### [facility] [address] [place], [place], [address] DIAG Comment Normal . [facility] Comment on above: Order Comment: Speci men Comment: [id number] Specimen Comment: Source.............Cervix;Endocervix Specimen Comment: No. of containers..01 ThinPrep Vial Result Comment: NEGA TIVE FOR INTRAEPITHELIAL LESION OR MALIGNANCY. Performed By: #### L 7400.0280 #### [facility] [address] [place], [place], [address] HPV APTIMA, HR Negative Normal Negative [facility] Comment on above: Order Comment: Speci men Comment: [id number] Specimen Comment: Source.............Cervix;Endocervix Specimen Comment: No. of containers..01 ThinPrep Vial Result Comment: This nucleic acid amplification test detects fourteen high- risk HPV types (16,18,31,33,35,39,45,51,52,56,58,59,66,68) without differentiation. Performed By: #### L 7400.0280 #### [facility] [address] [place], [place], [address] HPV Adela Rfx Comment Normal . [facility] Comment on above: Order Comment: Speci men Comment: [id number] Specimen Comment: Source.............Cervix;Endocervix Specimen Comment: No. of containers..01 ThinPrep Vial Result Comment: Crit eria not met, HPV Genotype not performed. Performed at: - [address] [id number] Plate Slitter And Inspector: Elvia Koch MD, Phone: [phone] Performed at: =[address] [id number] Plate Slitter And Inspector: Elvia Koch MD, Phone: [phone] Performed By: #### L 7400.0280 #### [facility] [address] [place], [place], [address] PAPSMR Comment Normal . [facility] Comment on above: Order Comment: Speci men Comment: [id number] Specimen Comment: Source.............Cervix;Endocervix Specimen Comment: No. of [...] occur. Performed By: #### L 7400.0280 #### [facility] [address] [place], [address] PERFORM Comment Normal . [facility] Comment on above: Order Comment: Speci men Comment: [id number] Specimen Comment: Source.............Cervix;Endocervix Specimen Comment: No. of containers..01 ThinPrep Vial Result Comment: Manuel Guillermo Tip Inserter (ASCP) Performed By: #### L 7400.0280 #### [facility] [address] [place], [address] Pelvic w/ Transvaginalon Pelvic w/ Transvaginal [facility] Imaging Services [address] [place], [place] [address] Pelvic w/ Transvaginal MR#: [id number] Acct: [id number] Name: SIA CONTRERAS ELSA Rep #: [id number] : 1980 F 43 From: Lane bae MD PCP: HAILE Borges Status: [facility] Study: Pelvic w/ Transvaginal Date of Exam: 12/03/24 Exam# [id number] Ordering Dr: Xuan Gaytan PROCEDURE: PELVIC W/ TRANSVAGINAL REASON FOR EXAM: [...] myometrium suggestive of fibroid change. Reading Location: [id number] CC: HAILE Gaytan; HAILE Dnoovan Cottage Master: Signed Normal [facility] SCRN MAMM (CAD)W/MARTHA BILATo n 12-03-2024 SCRN MAMM (CAD)W/MARTHA BILAT [facility] Imaging Services [address] [place] [address] SCRN MAMM (CAD)W/MARTHA BILAT MR#: [id number] Acct: [id number] Name: SIA CONTRERAS ELSA Rep #: [id number] : 1980 F 43 From: Patti San MD PCP: HAILE Borges Status: [facility] CLI Study: SCRN MAMM (CAD)W/MARTHA BILAT Date of Exam: 11/24 Exam# [id number] Ordering Dr: Xuan Gaytan PROCEDURE: SCRN MAMM [...] of the results by letter. Reading Location: [id number] CC: HAILE Gaytan; HAILE Donovan Cottage Master: Signed Normal [facility] Farm Hand Office Visit Reporton 11-28-2024 Farm Hand Office Visit Report [facility] [address], [address] [place] [address] OFFICE VISIT Date of Service: 11/28/24 MR#: [id number] Acct: [id number] Name: SIA CONTRERAS Rep #: [id number] : 1980 Provider: HAILE Cortez Age/Sex: 43/F Location[place] [facility] [place] Status: Signed Intake Vital Signs 05/16/24 17:02 11/22/24 14:34 11/28/24 09:58 Height 5 ft 9 in 5 ft 9 in 5 ft 9 in Weight: 313 lb BMI 46.2 BP 155/93 H 142/89 H Blood Pressure Location Lt brachial Position Sitting Respiration 16 Pulse 87 Pulse Source Monitor 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 Normal [facility] Inital Evaluation (1) - PTon 11-23-2024 Inital Evaluation (1) - PT [facility] [address] [place] [address] [address] [place] [address] / REHABILITATION SERVICES INITIAL EVALUATION MR#: [id number] Acct: [id number] Name: SIA CONTRERAS Rep #: [id number] : 1980 43 From: Keo Ramirez DPT, OCS, CSCS Referring Dr.: Dr. Shaun Raymond MD Status: R EG RCR Insurance: [facility] SELF PAY INSURANCE Patient's Visit Information Visit Information Visit Information: SIA CONTRERAS is a 43 year old F referred to Physical Therapy by Dr. Shaun Raymond MD with a diagnosis of r shoulder pain. 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 Basic ADLs I but painful to put bra on but OK since injection. No numb ness or tingling lately. Comfortable at rest much of time. Pain R shoulder: Pain Intensity (Out of 10): 0 Pain Intensity Range: 0 and 4 Objective Objective: Walks into PT I, trasnfers bed and chair I. No balance issues. [...] to be FAXED BACK to us at [phone] for Medicare purposes. For Medicare only, by signing this I certify the plan of care. Please let me know if there are questions or concerns regarding this plan of care. Physician Signature: Date: _ 11/23/24 0956 CC: HAILE Donovan; Dr. Shaun Raymond MD FRANCOISE Signed Normal [facility] MR/BMS.BPestefany 11-22-2024 MR/BMS.BP [address], [address] [place] [address] OFFICE VISIT Date of Service: 11/22/24 MR#: [id number] Acct: [id number] Name: SIA CONTRERAS Rep #: [id number] : 1980 Provider: Dr. Manjit Hernandez se, Age/Sex: 43/F Location[place] [facility] [place] Status: Signed Intake Vital Signs 05/16/24 17:02 [...] none Homicidal (more content not included)... Normal [facility] Orthopedic Visit Reporton Orthopedic Visit Report [facility] [address] [place] [address] OFFICE VISIT Date of Service: 11/16/24 MR#: [id number] Acct: [id number] Name: SIA CONTRERAS Rep #: [id number] : 1980 Provider: Dr. Shaun allison MD Age/Sex: 43/F Location: [facility] [place] Status: Signed with Addenda ADDENDUM by Caitlin [...] Performing Provider: Shaun Raymond MD Performing Location: [facility] Administered by: Shaun Raymond MD on 11/16/24 11:35 Dose Route Admin Location Dispensed Lot Number Expiration Date NDC Man ufacturer 80 mg intra-articular right subacromial 2 mL [id number] 02/21/26 0122-5645-77 [facility] Date cc: * Signed Intake Vital [...] by me, Dr. Shaun Raymond MD 11/16/24 0881. Part of today???s visit was documented by [...] fe and er 5/5. Supplemental Info [facility] [address] [place] [address] Shoulder min 2 Views MR#: [id number] Acct: [id number] Name: SIA CONTRERAS (more content not included)... Normal [facility] Amylaseon 11-14-2024 GRACIA 32 U/L Normal 25-115 [facility] Comment on above: Performed By: #### L 500.4100, L501.2400, L500.4050, L503.0105, L501.9985, L501.2450, L100.0100, L506.1000, L501.9520 ####[facility] [address] [place], [place], [id number] CBC W/Diff, Automatedon 10-25 Absolute Lymph 2.20 X10 3/uL Normal 0.83-4.51 [facility] Comment on above: Performed By: #### L 500.4100, L501.2400, L500.4050, L503.0105, L501.9985, L501.2450, L100.0100, L506.1000, L501.9520 ####[facility] [address] [place], [place], [address] Absolute Neut 5.1 X10 3/uL Normal 2.0-7.7 [facility] Comment on above: Performed By: #### L 500.4100, L501.2400, L500.4050, L503.0105, L501.9985, L501.2450, L100.0100, L506.1000, L501.9520 ####[facility] [address] [place], [address] Basophils/100 WBC (Bld) 0.9 % Normal 0-1 [facility] Comment on above: Performed By: #### L 500.4100, L501.2400, L500.4050, L503.0105, L501.9985, L501.2450, L100.0100, L506.1000, L501.9520 ####[facility] [address] [place], [address] Eosinophils/100 WBC (Bld) 2.6 % Normal 0-5 [facility] Comment on above: Performed By: #### L 500.4100, L501.2400, L500.4050, L503.0105, L501.9985, L501.2450, L100.0100, L506.1000, L501.9520 ####[facility] [address] [place], [address] Erythrocyte distribution width (RBC) [Ratio] 15.2 % High 11.6-14.6 [facility] Comment on above: Performed By: #### L 500.4100, L501.2400, L500.4050, L503.0105, L501.9985, L501.2450, L100.0100, L506.1000, L501.9520 ####[facility] [address] [place], [address] Hematocrit (Bld) [Volume fraction] 42.3 % Normal 37-47 [facility] Comment on above: Performed By: #### L 500.4100, L501.2400, L500.4050, L503.0105, L501.9985, L501.2450, L100.0100, L506.1000, L501.9520 ####[facility] [address] [facility] [place], [address] Hemoglobin (Bld) [Mass/Vol] 13.7 g/dL Normal 12.0-15.0 [facility] Comment on above: Performed By: #### L 500.4100, L501.2400, L500.4050, L503.0105, L501.9985, L501.2450, L100.0100, L506.1000, L501.9520 ####[facility] [address] [facility] [place], [address] IG% 0.400 Normal 0.0-0.9 [facility] Comment on above: Result Comment: IG% - Immature Granulocytes (promyelocytes, myelocytes and metamyelocytes) > 1% indicates that a LEFT SHIFT is Present. Performed By: #### L 500.4100, L501.2400, L500.4050, L503.0105, L501.9985, L501.2450, L100.0100, L506.1000, L501.9520 ####[facility] [address] [facility] [place], [address] Lymphocytes/100 WBC (Bld) 27.5 % Normal 19-41 [facility] Comment on above: Performed By: #### L 500.4100, L501.2400, L500.4050, L503.0105, L501.9985, L501.2450, L100.0100, L506.1000, L501.9520 ####[facility] [address] [facility] [place], [address] MCH (RBC) [Entitic mass] 27.3 pg Normal 27.0-32.0 [facility] Comment on above: Performed By: #### L 500.4100, L501.2400, L500.4050, L503.0105, L501.9985, L501.2450, L100.0100, L506.1000, L501.9520 ####[facility] [address] [place], [address] MCHC (RBC) [Mass/Vol] 32.4 g/dL Normal 32-36 [facility] Comment on above: Performed By: #### L 500.4100, L501.2400, L500.4050, L503.0105, L501.9985, L501.2450, L100.0100, L506.1000, L501.9520 ####[facility] [address] [place], [address] MCV (RBC) [Entitic vol] 84.4 fL Normal 81-99 [facility] Comment on above: Performed By: #### L 500.4100, L501.2400, L500.4050, L503.0105, L501.9985, L501.2450, L100.0100, L506.1000, L501.9520 ####[facility] [address], [address] Monocytes/100 WBC (Bld) 5.3 % Normal 0-10 [facility] Comment on above: Performed By: #### L 500.4100, L501.2400, L500.4050, L503.0105, L501.9985, L501.2450, L100.0100, L506.1000, L501.9520 ####[facility] [address] [place], [address] Neutrophils/100 WBC (Bld) 63.3 % Normal 47-70 [facility] Comment on above: Performed By: #### L 500.4100, L501.2400, L500.4050, L503.0105, L501.9985, L501.2450, L100.0100, L506.1000, L501.9520 ####[facility] [address] [place], [address] Nucleated RBC (Bld) [#/Vol] 0 10*3/uL Normal 0-5 [facility] Comment on above: Performed By: #### L 500.4100, L501.2400, L500.4050, L503.0105, L501.9985, L501.2450, L100.0100, L506.1000, L501.9520 ####[facility] [address] [place], [address] Platelet mean volume (Bld) [Entitic vol] 10.2 fL Normal 6.2-12.0 [facility] Comment on above: Performed By: #### L 500.4100, L501.2400, L500.4050, L503.0105, L501.9985, L501.2450, L100.0100, L506.1000, L501.9520 ####[facility] [address] [place], [address]( Platelets (Bld) [#/Vol] 263 10*3/uL Normal 150-450 [facility] Comment on above: Performed By: #### L 500.4100, L501.2400, L500.4050, L503.0105, L501.9985, L501.2450, L100.0100, L506.1000, L501.9520 ####[facility] [address] [place], [address] RBC (Bld) [#/Vol] 5.01 10*6/uL Normal 4.2-5.4 [facility] Comment on above: Performed By: #### L 500.4100, L501.2400, L500.4050, L503.0105, L501.9985, L501.2450, L100.0100, L506.1000, L501.9520 ####[facility] [address] [place], [place], [address] RDW SD 45.6 fl High 35.1-43.9 [facility] Comment on above: Performed By: #### L 500.4100, L501.2400, L500.4050, L503.0105, L501.9985, L501.2450, L100.0100, L506.1000, L501.9520 ####[facility] [address] [place], [place], [address] WBC (Bld) [#/Vol] 8.0 10*3/uL Normal 4.4-11.0 [facility] Comment on above: Performed By: #### L 500.4100, L501.2400, L500.4050, L503.0105, L501.9985, L501.2450, L100.0100, L506.1000, L501.9520 ####[facility] [address] [place], [place], [address] Comprehensive Metabolic Prof [facility] 11-14-2024 Albumin [Mass/Vol] 3.5 g/dL Normal 3.2-5.0 [facility] Comment on above: Performed By: #### L 500.4100, L501.2400, L500.4050, L503.0105, L501.9985, L501.2450, L100.0100, L506.1000, L501.9520 ####[facility] [address] [place], [place], [address] Albumin/Globulin [Mass ratio] 0.9 {ratio} Normal 0.9-2.4 [facility] Comment on above: Performed By: #### L 500.4100, L501.2400, L500.4050, L503.0105, L501.9985, L501.2450, L100.0100, L506.1000, L501.9520 ####[facility] [address] [place], [address] ALK P 82 U/L Normal 45-117 [facility] Comment on above: Performed By: #### L 500.4100, L501.2400, L500.4050, L503.0105, L501.9985, L501.2450, L100.0100, L506.1000, L501.9520 ####[facility] [address] [place], [address] ALT [Catalytic activity/Vol] 25 U/L Normal 13-56 [facility] Comment on above: Performed By: #### L 500.4100, L501.2400, L500.4050, L503.0105, L501.9985, L501.2450, L100.0100, L506.1000, L501.9520 ####[facility] [address] [place], [place], [phone]) AST [Catalytic activity/Vol] 16 U/L Normal 15-37 [facility] Comment on above: Performed By: #### L 500.4100, L501.2400, L500.4050, L503.0105, L501.9985, L501.2450, L100.0100, L506.1000, L501.9520 ####[facility] [address] [place], [address] Bilirubin [Mass/Vol] 0.20 mg/dL Normal 0.20-1.00 [facility] Comment on above: Result Comment: For patients on eltrombopag therapy, use of Dimension [place] TBIL is not recommended. Performed By: #### L 500.4100, L501.2400, L500.4050, L503.0105, L501.9985, L501.2450, L100.0100, L506.1000, L501.9520 ####[facility] [address] [place], [address] BUN/CRE 13.0 RATIO Normal 10-20 [facility] Comment on above: Performed By: #### L 500.4100, L501.2400, L500.4050, L503.0105, L501.9985, L501.2450, L100.0100, L506.1000, L501.9520 ####[facility] [address], [address] CA,Total 8.9 mg/dL Normal 8.5-10.1 [facility] Comment on above: Performed By: #### L 500.4100, L501.2400, L500.4050, L503.0105, L501.9985, L501.2450, L100.0100, L506.1000, L501.9520 ####[facility] [address], [address] Chloride [Moles/Vol] 102 mmol/L Normal 98-107 [facility] Comment on above: Performed By: #### L 500.4100, L501.2400, L500.4050, L503.0105, L501.9985, L501.2450, L100.0100, L506.1000, L501.9520 ####[facility] [address], [address] CO2 [Moles/Vol] 28.0 mmol/L Normal 21.0-32.0 [facility] Comment on above: Performed By: #### L 500.4100, L501.2400, L500.4050, L503.0105, L501.9985, L501.2450, L100.0100, L506.1000, L501.9520 ####[facility] [address] [place], [address] Creatinine [Mass/Vol] 0.84 mg/dL Normal 0.55-1.02 [facility] Comment on above: Result Comment: The validity of the calculated GFR GFRAA in patients over 70 years has not been determined. Clinical correlation is essential. Performed By: #### L 500.4100, L501.2400, L500.4050, L503.0105, L501.9985, L501.2450, L100.0100, L506.1000, L501.9520 ####[facility] [address] [place], [address] EST GFR - AA 94 mL/min Normal >60 [facility] Comment on above: Result Comment: Afri can [facility] GFR Calc Performed By: #### L 500.4100, L501.2400, L500.4050, L503.0105, L501.9985, L501.2450, L100.0100, L506.1000, L501.9520 ####[facility] [address] [place], [place], [id number] GAP 6 Normal 5-15 [facility] Comment on above: Performed By: #### L 500.4100, L501.2400, L500.4050, L503.0105, L501.9985, L501.2450, L100.0100, L506.1000, L501.9520 ####[facility] [address] [place], [address] GFR/1.73 sq M.predicted among non-blacks MDRD (S/P/Bld) [Vol rate/Area] 77 mL/min/{1.73_m2} Normal >60 [facility] Comment on above: Result Comment: Non- GFR Calc Performed By: #### L 500.4100, L501.2400, L500.4050, L503.0105, L501.9985, L501.2450, L100.0100, L506.1000, L501.9520 ####[facility] [address] [place], [place], [phone] Globulin (S) [Mass/Vol] 4.1 g/dL Normal 2.2-4.2 [facility] Comment on above: Performed By: #### L 500.4100, L501.2400, L500.4050, L503.0105, L501.9985, L501.2450, L100.0100, L506.1000, L501.9520 ####[facility] [address] [place], [address] Glucose [Mass/Vol] 88 mg/dL Normal 74-106 [facility] Comment on above: Performed By: #### L 500.4100, L501.2400, L500.4050, L503.0105, L501.9985, L501.2450, L100.0100, L506.1000, L501.9520 ####[facility] [address] [place], [address] Potassium [Moles/Vol] 3.8 mmol/L Normal 3.5-5.1 [facility] Comment on above: Performed By: #### L 500.4100, L501.2400, L500.4050, L503.0105, L501.9985, L501.2450, L100.0100, L506.1000, L501.9520 ####[facility] [address] [place], [address] Sodium [Moles/Vol] 136 mmol/L Normal 136-145 [facility] Comment on above: Performed By: #### L 500.4100, L501.2400, L500.4050, L503.0105, L501.9985, L501.2450, L100.0100, L506.1000, L501.9520 ####[facility] [address] [place], [address] T PROT 7.6 g/dL Normal 6.4-8.2 [facility] Comment on above: Performed By: #### L 500.4100, L501.2400, L500.4050, L503.0105, L501.9985, L501.2450, L100.0100, L506.1000, L501.9520 ####[facility] [address] [place], [place], [phone] Urea nitrogen [Mass/Vol] 11 mg/dL Normal 7-18 [facility] Comment on above: Performed By: #### L 500.4100, L501.2400, L500.4050, L503.0105, L501.9985, L501.2450, L100.0100, L506.1000, L501.9520 ####[facility] [address] [place], [address] Hemoglobin A1con 11-14-2024 HbA1c (Bld) [Mass fraction] 6.2 % High 3.8-5.6 [facility] Comment on above: Result Comment: Norm al < 5.7 % Prediabetic 5.7 - 6.4 % Diabetic >or= 6.5 % Please note range changes. Performed By: #### L 500.4100, L501.2400, L500.4050, L503.0105, L501.9985, L501.2450, L100.0100, L506.1000, L501.9520 ####[facility] [address] [place], [place], [phone] Lipaseon 11-14-2024 Lipase [Catalytic activity/Vol] 25 U/L Normal 13-75 [facility] Comment on above: Result Comment: Plea se note: LIPASE revised reference range effective 23. New Lipase methodology. Expected to produce lower values than the previous assay method. NEW Reference Range: 13 - 75 U/L Performed By: #### L 500.4100, L501.2400, L500.4050, L503.0105, L501.9985, L501.2450, L100.0100, L506.1000, L501.9520 ####[facility] [address] [place], [place], [phone] Lipid Profileon 11-14-2024 Cholesterol [Mass/Vol] 197 mg/dL Normal 200 [facility] Comment on above: Result Comment: <200 mg/dL Desirable 200-240 mg/dL Borderline >240 mg/dL High Risk Performed By: #### L 500.4100, L501.2400, L500.4050, L503.0105, L501.9985, L501.2450, L100.0100, L506.1000, L501.9520 ####[facility] [address] [place], [address] Cholesterol in HDL [Mass/Vol] 52 mg/dL Normal [facility] Comment on above: Result Comment: The drugs N-Acetylcysteine and Metamizole may falsely depress this assay. Reference Range HDL <40 mg/dL Low HDL Cholesterol HDL >or= 60 mg/dL High HDL Cholesterol Performed By: #### L 500.4100, L501.2400, L500.4050, L503.0105, L501.9985, L501.2450, L100.0100, L506.1000, L501.9520 ####[facility] [address] [place], [address] Cholesterol in LDL [Mass/Vol] 86 mg/dL Normal 0-130 [facility] Comment on above: Performed By: #### L 500.4100, L501.2400, L500.4050, L503.0105, L501.9985, L501.2450, L100.0100, L506.1000, L501.9520 ####[facility] [address] [place], [address] Cholesterol in VLDL [Mass/Vol] 59 mg/dL High 5-40 [facility] Comment on above: Performed By: #### L 500.4100, L501.2400, L500.4050, L503.0105, L501.9985, L501.2450, L100.0100, L506.1000, L501.9520 ####[facility] [address] [place], [address] Triglyceride [Mass/Vol] 293 mg/dL High [facility] Comment on above: Result Comment: The drugs N-Acetylcysteine and Metamizole may falsely depress this assay. Serum Triglycerides Reference Interval Normal <150 mg/dL Borderline high 150 - 199 mg/dL High 200 - 499 mg/dL Very High > or = 500 mg/dL Performed By: #### L 500.4100, L501.2400, L500.4050, L503.0105, L501.9985, L501.2450, L100.0100, L506.1000, L501.9520 ####[facility] [address] [place], [address] Thyroid Stim Hormone (TSH)on 11-14-2024 TSH 2.240 uIU/mL Normal 0.358-3.740 [facility] Comment on above: Performed By: #### L 500.4100, L501.2400, L500.4050, L503.0105, L501.9985, L501.2450, L100.0100, L506.1000, L501.9520 ####[facility] [address] [place], [place], [phone] Vitamin B12on 11-14-2024 Cobalamin (Vitamin B12) [Mass/Vol] 361 pg/mL Normal 211-911 [facility] Comment on above: Performed By: #### L 500.4100, L501.2400, L500.4050, L503.0105, L501.9985, L501.2450, L100.0100, L506.1000, L501.9520 ####[facility] [address] [place], [place], [id number] Vitamin D,25 Hydroxyon 11-14 Vitamin D 25-OH 13.7 ng/mL Normal [facility] Comment on above: Result Comment: Caty min D 25(OH) Status Range Deficiency <20 ng/mL (50nmol/L) Insufficiency 20 - 30 ng/mL (50 - 75 nmol/L) Sufficiency 30 - 100 ng/mL (75 - 250 nmol/L) Toxicity >100 ng/mL (>250 nmol/L) Performed By: #### L 500.4100, L501.2400, L500.4050, L503.0105, L501.9985, L501.2450, L100.0100, L506.1000, L501.9520 ####[facility] [address] [place], [address] Basophil percentageon 2021 Basophil percentage 0-5 SEEN /hpf [facility] Work Phone: Bilirubin Test strip Ql (U)o n 04-02-2022 Bilirubin Ql (U) Negative Negative [facility] Work Phone: Ketones Test strip Ql (U)on 04-02-2022 Ketones Ql (U) 5 mg/dl Negative [facility] Work Phone: Laboratory - Chemistry and C hemistry - challengeon 04-02-2022 HCG ( test) Ql (U) Negative [facility] Work Phone: Comment on above: Very dilute urine sp ecimens, as indicated by a low specificgravity, may not contain sales representatives levels of hCG. If is still suspected, a first morning urinespecimen should be collected 48 hours later and tested. Mucus LM Ql (Urine sed)on Mucus Ql (Urine sed) 2+ /hpf [facility] Work Phone: Nitrite Test strip Ql (U)on 04-02-2022 Nitrite Ql (U) Negative Negative [facility] Work Phone: No Panel Informationon 04-02 SARS-CoV-2 & FLU Antigen (Rapid) [facility] Work Phone: Protein Test strip Ql (U)on 04-02-2022 Protein Ql (U) 15 mg/dl Negative [facility] Work Phone: Squamous epithelial cells de tection in urine sediment by light microscopyon 04-02-2022 Epithelial cells.squamous LM Ql (Urine sed) 0-5 SEEN /hpf [facility] Work Phone: [phone] Urine blood detectionon 03-24 RBC Ql (U) 150 /ul Negative [facility] Work Phone: RBC Ql (U) 10-25 SEEN /hpf [facility] Work Phone: Urine clarityon 04-02-2022 Clarity (U) Sl. Cloudy Clear [facility] Work Phone: Urine color determinationon 04-02-2022 Color (U) Yellow Yellow [facility] Work Phone: Urine glucose detectionon Glucose Ql (U) Normal mg/dl Normal [facility] Work Phone: Urine leukocyte esterase det ection by dipstickon 04-02-2022 Leukocyte esterase Test strip Ql (U) 25 /ul Negative [facility] Work Phone: [phone] Urine pHon 04-02-2022 pH (U) 6.0 [pH] [facility] Work Phone: Urine sediment bacteria coun t by microscopy (number/high power field)on 04-02-2022 Bacteria LM.HPF (Urine sed) [#/Area] 0 /[HPF] None Seen [facility] Work Phone: Urine specific gravity measu rementon 04-02-2022 Specific gravity (U) [Rel density] 1.025 [facility] Work Phone: Urobilinogen Auto test strip Ql (U)on 04-02-2022 Urobilinogen Ql (U) Normal mg/dl Normal [facility] Work Phone: Chlamydia trachomatis rRNA d etection by probe and target amplification methodon 03-11-2022 C. trachomatis rRNA KAVYA+probe Ql (Unsp spec) Negative Negative [facility] Work Phone: Gram stain for investigation of transfusion reactionon 03-11-2022 Microscopic observation Gram stain Nom (Unsp spec) [facility] Work Phone: Laboratory - Microbiology an d Antimicrobial susceptibilityon 03-11-2022 N. gonorrhoeae DNA KAVYA+probe Ql (Unsp spec) Negative Negative [facility] Work Phone: Comment on above: Performed at: =[facility] [address]ocasta [address] [place] [id number] Director: Elvia Koch MD, Phone: [phone] Thin prep Papanicolaou smear with manual screeningon 03-11-2022 Cytopathology procedure, preparation of smear, genital source Neisseria or beta-hemolytic Streptococcus isolated. [facility] Work Phone: Laboratory - Microbiology an d Antimicrobial susceptibilityon 12-09-2021 SARS-CoV-2 (COVID-19) RNA KAVYA+probe Ql (Unsp spec) Not detected Not Detect [facility] Work Phone: Comment on above: Normal Reference Ran ge: Not DetectedMethod:(RT-PCR) real-time reverse transcriptase PCRLuminex [employer] Instrument*The Food and Drug Administration (FDA) has issued an Emergency Use Authorization (EAU) for the [employer] SARS-CoV-2 Assay for the rapid detection of [...] Ql (U) Negative Invalid Interpretation Code Negative [facility] Internal Control Pass Invalid Interpretation Code [facility] Interpretation and review of laboratory results Normal Invalid Interpretation Code [facility] Specific gravity Relative Density (U) Invalid Interpretation Code [facility] POC Urinalysis Dipstickon Bilirubin Ql (U) Negative Invalid Interpretation Code Negative [facility] Glucose Ql (U) Negative Invalid Interpretation Code Normal, Negative mg/dL [facility] Hemoglobin Test strip Ql (U) Small Abnormal Negative [facility] Interpretation and review of laboratory results Abnormal Invalid Interpretation Code [facility] Ketones Ql (U) Negative Invalid Interpretation Code Negative mg/dL [facility] Leukocyte esterase Test strip Ql (U) Trace Abnormal Negative [facility] Nitrite Test strip Ql (U) Negative Invalid Interpretation Code Negative [facility] pH Test strip (U) 6.0 [pH] Invalid Interpretation Code [facility] Protein Test strip Ql (U) Negative Invalid Interpretation Code Negative mg/dL [facility] Specific gravity Relative Density (U) 1.030 Abnormal [facility] Urobilinogen Test strip Qn (U) 0.2 mg/dL Invalid Interpretation Code <2.0, 0.2, Normal, Negative, 1.0, 2.0, <1.0 [facility] XR Spine Cervical 6 or More Viewson 05-27-2018 XR Spine Cervical 6 or More Views Exam Date/Time: 05/27/2018 12:48 EDT Reason for Exam: Neck Pain Report STUDY: XR Spine Cervical 6 or More Views; 05/27/2018 12:48 pm INDICATION: Neck Pain. COMPARISON: None. ACCESSION NUMBER(S): [id number] ORDERING CLINICIAN: Andreas Anthony TECHNIQUE: Five views [...] by: Aubrey Bell MD Technologist: , Normal [facility] Placenta Pathology Request - NO EXAMon 05-23-2018 Placenta Pathology Request - NO EXAM Collected [facility] Comment on above: Performed By: #### 2 [id number] #### DAMASO GalindoHemo [address] [place] [address] Hematocriton 05-20-2018 Hematocrit Volume Fraction (Bld) 33.3 % Low 36.0-48.0 [facility] Comment on above: Order Comment: Order Added by Discern Expert. Performed By: #### 2 [id number] #### DAMASO RemHemo [facility] [id number] Hemoglobinon 05-20-2018 Hemoglobin mass conc (Bld) 11.0 g/dL Low 12.0-16.0 [facility] Comment on above: Order Comment: first post- day Performed By: #### 2 [id number] #### DAMASO Rem[address] [place] [address] Auto Diffon 05-19-2018 Basophils #/vol (Bld) 0.0 E3/mcL Normal 0.0-0.2 [facility] Comment on above: Order Comment: Order Added by Discern Expert. Performed By: #### 2 [id number] #### DAMASO RemH[address] [place] [address] Basophils/100 WBC (Bld) 0.4 % Normal 0.0-2.0 [facility] Comment on above: Order Comment: Order Added by Discern Expert. Performed By: #### 2 [id number] #### DAMASO Rem[address] [place] [address] Eos Absolute 0.1 E3/mcL Normal 0.0-0.7 [facility] Comment on above: Order Comment: Order Added by Discern Expert. Performed By: #### 2 [id number] #### DAMASO RemHemo [address] [place] [address] Eosinophils/100 WBC (Bld) 1.2 % Normal 0.0-11.0 [facility] Comment on above: Order Comment: Order Added by Discern Expert. Performed By: #### 2 [id number] #### DAMASO Rem[address] [place] [address] Lymphocytes #/vol (Bld) 1.5 E3/mcL Normal 1.2-3.4 [facility] Comment on above: Order Comment: Order Added by Discern Expert. Performed By: #### 2 [id number] #### DAMASO Rem[address] [place] [address] Lymphocytes/100 WBC (Bld) 15.6 % Low 20.0-55.0 [facility] Comment on above: Order Comment: Order Added by Discern Expert. Performed By: #### 2 [id number] #### DAMASO RemH[address] [place] [address] Kings Absolute 0.4 E3/mcL Normal 0.0-0.7 [facility] Comment on above: Order Comment: Order Added by Discern Expert. Performed By: #### 2 [id number] #### DAMASO [address] [place] [address] Monocytes/100 WBC (Bld) 4.3 % Normal 0.0-10.0 [facility] Comment on above: Order Comment: Order Added by Discern Expert. Performed By: #### 2 [id number] #### DAMASO [address] [place] [address] Neutro Absolute 7.8 E3/mcL High 1.4-6.5 [facility] Comment on above: Order Comment: Order Added by Discern Expert. Performed By: #### 2 [id number] #### DAMASO [address] [place] [address] Neutro Auto 78.5 % High 37.0-75.0 [facility] Comment on above: Order Comment: Order Added by Discern Expert. Performed By: #### 2 [id number] #### DAMASO [address] [place] [address] CBC w/ Auto Diffon 8 Erythrocyte distribution width Ratio (RBC) 15.8 % High 11.5-14.5 [facility] Comment on above: Performed By: #### 2 [id number] #### DAMASO [address] [place] [address] Hematocrit Volume Fraction (Bld) 35.6 % Low 36.0-48.0 [facility] Comment on above: Performed By: #### 2 096435 #### DAMASO RemH[address] [place] [address] Hemoglobin mass conc (Bld) 11.7 g/dL Low 12.0-16.0 [facility] Comment on above: Performed By: #### 2 902502 #### DAMASO RemH[address] [place] [address] MCH Entitic mass (RBC) 26.6 pg Low 27.0-31.0 [facility] Comment on above: Performed By: #### 2 [id number] #### DAMASO [address] [place] [address] MCHC mass conc (RBC) 33.0 g/dL Normal 33.0-37.0 [facility] Comment on above: Performed By: #### 2 [id number] #### DAMASO Patinoo [address] [place] [address] MCV Entitic volume (RBC) 80.6 fL Normal 78.0-100.0 [facility] Comment on above: Performed By: #### 2 [id number] #### DAMASO GalindoHemo [facility] [place] [address] Platelet mean volume Entitic volume (Bld) 8.6 fL Normal 7.4-11.0 [facility] Comment on above: Performed By: #### 2 563639 #### DAMASO GalindoHemo [facility] [place] [address] Platelets #/vol (Bld) 237 E3/mcL Normal 130-400 [facility] Comment on above: Performed By: #### 2 962425 #### DAMASO GalindoHemo [facility] [place] [address] RBC #/vol (Bld) 4.42 E6/mcL Normal 3.90-5.40 [facility] Comment on above: Performed By: #### 2 [id number] #### DAMASO Patinoo [facility] [place] [address] WBC #/vol (Bld) 9.9 E3/mcL Normal 3.6-11.0 [facility] Comment on above: Performed By: #### 2 [id number] #### DAMASO GalindoHemo [facility] [place] [address] Glucose POCon 05-19-2018 Glucose mass conc 117 mg/dL High 70-[address] [facility] Comment on above: Performed By: #### 2 162771 #### DAMASO Gal[address] [place] [address] Glucose mass conc 79 mg/dL Normal 70-[address] [facility] Comment on above: Performed By: #### 2 [id number] #### DAMASO GalindoHemo [facility] [place] [id number] US Follow Upon US Follow Up Exam Date/Time: 05/11/2018 14:42 EDT Reason for Exam: CHECK SIZE; Size - measuring standard growth/amniotic fluid volume Report STUDY: US Follow Up 05/11/2018 2:42 pm INDICATION: Size - measuring standard growth/amniotic fluid volume. COMPARISON: None. 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 Shared Care. BERTA: 05/26/2018 History of Present IllnessMsNae Contreras returns for BG evaluation after her [...] with her provider and anticipates delivery at [facility] with an IOL unless she labors before [...] 11/11/2017 11:07:50 AM Vitals Vital Signs Recorded: 50Tiq0122 10:58AMHeart Nkwd64Yhivpqca348Phmvgafn j58Luomaq9 ft 9 hbDmwrqm627 lb BMI Suuzhncflw42.29BSA Calculated2.09Gjobung2Bgp a3Pain Scale0 Physical ExamSkin: No obvious rash [...] May 02 2018 11:36AM EST (Author) [facility] Group B Strep PCRon 04-29-20 18 Group B Strep PCR Negative Normal [facility] Comment on above: Order Comment: For p ositive results only; Penicillin is the recommended antibiotic for the treatment of Group B Streptococcal disease. In case of penicillin allergy, Clindamycin may be used.All Negative GBS Screens by PCR will be confirmed by culture. Performed By: #### 2 [id number] #### DAMASO Patino [address] [place] [address] ROLLER SETTER - Office Visiton 03-24 ROLLER SETTER - Office Visit Chief ComplaintPatient here today for OB Follow Up Visit to discuss sugars. BERTA: 05/26/2018 History of Present Wvmmkxb86 yo at 33+4 for f/u review of blood sugars after initial GDM consult on 03/22/18 with me.Primary care with Dr. Alves at [facility].No acute OB complaints, overall feeling well; no [...] Vital Signs Recorded: 11Apr2018 09:13AMRecorded: 11Apr2018 08:49AMHeart Pboe14Htpuiiiy235147Qhena itif0558Bmbhej5 ft 9 pdXwyzic396 lb BMI Lcjnqxbbsq75.73BSA Calculated2.36Dwpcvch7Ufi a3Pain Scale0 BP repeat: 132/80 Physical ExamFHT [...] Apr 11 2018 9:17AM EST (Author) Normal [facility] ROLLER SETTER - Office Visiton 06-0 ROLLER SETTER - Office Visit Chief ComplaintReferral for new GDM diagnosis, BMI >40, referred from [facility], Dr. Gissell Alves History of [...] 1/20 elevated PP lunch 0/20 elevatedPP dinner 220 elevatedShe describes dietary changes and motivation to [...] 11/11/2017 11:07:50 AM Vitals Vital Signs Recorded: 69Iwb4697 10:26AMHeart Rxjv70Cwnwuako036Zyrydhwl x69Fsbtie8 ft 9 aoZgithl318 lb BMI Vydbtutrtk87.58BSA Calculated2.60Uoatfaw1Dtj a3Pain Scale0 Physical ExamDetailed physical exam was [...] recommendations for care.Thus far, she has:-Seen a shear operator helper and initiated dietary changes-Initiated blood sugar monitoringBG [...] the third trimester (scheduled before she left [facility] visit)Initiation of testing if medication is [...] shared care between her usual providers and [facility] as needed. Please contact us with any questions or concerns.Radha Cherry MD MSCR.. End of Encounter MedsPrenatal Vitamin TABS;Therapy: (Recorded:11Nov2017) to Recorded Signatures Electronically signed by : Radha Cherry MD; Mar 24 2018 2:13AM EST (Author) Normal [employer] ActimPromon 03-23-2018 Protein mass conc Negative Normal Negative [facility] Comment on above: Performed By: #### 6 [id number] #### DAMASO Chemistry Manual Subsection [facility] [place] [address] Protein mass conc Pass Normal [facility] Comment on above: Performed By: #### 6 [id number] #### DAMASO Chemistry Manual Subsection [facility] [place] [id number] Auto Diffon 03-23-2018 Basophils #/vol (Bld) 0.0 E3/mcL Normal 0.0-0.2 [facility] Comment on above: Order Comment: Order Added by Discern Expert. Performed By: #### 2 [id number] #### DAMASO RemHemo [facility] [place] [id number] Basophils/100 WBC (Bld) 0.2 % Normal 0.0-2.0 [facility] Comment on above: Order Comment: Order Added by Discern Expert. Performed By: #### 2 [id number] #### DAMASO RemHemo [address] [place] [address] Eos Absolute 0.1 E3/mcL Normal 0.0-0.7 [facility] Comment on above: Order Comment: Order Added by Discern Expert. Performed By: #### 2 [id number] #### DAMASO RemHemo [address] [place] [address] Eosinophils/100 WBC (Bld) 1.3 % Normal 0.0-11.0 [facility] Comment on above: Order Comment: Order Added by Discern Expert. Performed By: #### 2 [id number] #### DAMASO RemHemo [address] [place] [address] Lymphocytes #/vol (Bld) 1.6 E3/mcL Normal 1.2-3.4 [facility] Comment on above: Order Comment: Order Added by Discern Expert. Performed By: #### 2 [id number] #### DAMASO RemHemo [address] [place] [address] Lymphocytes/100 WBC (Bld) 16.4 % Low 20.0-55.0 [facility] Comment on above: Order Comment: Order Added by Discern Expert. Performed By: #### 2 [id number] #### DAMASO RemHemo [address] [place] [address] Kings Absolute 0.5 E3/mcL Normal 0.0-0.7 [facility] Comment on above: Order Comment: Order Added by Discern Expert. Performed By: #### 2 [id number] #### DAMASO RemHemo [address] [place] [address] Monocytes/100 WBC (Bld) 4.8 % Normal 0.0-10.0 [facility] Comment on above: Order Comment: Order Added by Discern Expert. Performed By: #### 2 [id number] #### DAMASO RemHemo [address] [place] [address] Neutro Absolute 7.4 E3/mcL High 1.4-6.5 [facility] Comment on above: Order Comment: Order Added by Discern Expert. Performed By: #### 2 [id number] #### DAMASO RemHemo [address] [place] [address] Neutro Auto 77.3 % High 37.0-75.0 [facility] Comment on above: Order Comment: Order Added by Discern Expert. Performed By: #### 2 [id number] #### DAMASO Kate [address] [place], [place] [address] CBC w/ Auto Diffon 8 Erythrocyte distribution width Ratio (RBC) 14.9 % High 11.5-14.5 [facility] Comment on above: Performed By: #### 2 [id number] #### DAMASO Kate [address] [place] [address] Hematocrit Volume Fraction (Bld) 35.3 % Low 36.0-48.0 [facility] Comment on above: Performed By: #### 2 [id number] #### DAMASO Kate [address] [place] [address] Hemoglobin mass conc (Bld) 11.5 g/dL Low 12.0-16.0 [facility] Comment on above: Performed By: #### 2 [id number] #### DAMASO Patinoo [address] [place] [address] MCH Entitic mass (RBC) 27.2 pg Normal 27.0-31.0 [facility] Comment on above: Performed By: #### 2 [id number] #### DAMASO Patinoo [address] [place] [address] MCHC mass conc (RBC) 32.7 g/dL Low 33.0-37.0 [facility] Comment on above: Performed By: #### 2 [id number] #### DAMASO Patinoo [address] [place], [place] [address] MCV Entitic volume (RBC) 83.1 fL Normal 78.0-100.0 [facility] Comment on above: Performed By: #### 2 [id number] #### DAMASO GalindoHemo [facility] [place] 2785205 Platelet mean volume Entitic volume (Bld) 8.2 fL Normal 7.4-11.0 [facility] Comment on above: Performed By: #### 2 [id number] #### DAMASO GalindoHemo [facility] [place] [address] Platelets #/vol (Bld) 225 E3/mcL Normal 130-400 [facility] Comment on above: Performed By: #### 2 [id number] #### DAMASO RemHemo [address] [place] [address] RBC #/vol (Bld) 4.24 E6/mcL Normal 3.90-5.40 [facility] Comment on above: Performed By: #### 2 [id number] #### DAMASO RemHemo [address] [place] [address] WBC #/vol (Bld) 9.6 E3/mcL Normal 3.6-11.0 [facility] Comment on above: Performed By: #### 2 [id number] #### DAMASO RemHemo [address] [place] [address] FFNon 03-23-2018 Fibronectin Negative Normal Negative [facility] Comment on above: Order Comment: Obtai n if patient is 22-35 AOG with symptoms of pre-term labor. (Obtain prior to vaginal exam if no vaginal bleeding and no sexual intercourse within 24 hours) Performed By: #### 2 [id number] #### DAMASO RemHemo [address] [place] [address] Glucose POCon 03-23-2018 Glucose mass conc 107 mg/dL High 70-[address] [facility] Comment on above: Performed By: #### 2 [id number] #### DAMASO RemHemo [address] [place] [address] Glucose mass conc 76 mg/dL Normal 70-[address] [facility] Comment on above: Performed By: #### 5 [id number] #### DAMASO POC Subsection [address] [place] [address] .PN Glucose 1 Hron 8 Glucose mass conc 245 mg/dL High <=[address] [facility] Comment on above: Performed By: #### 1 [id number] #### DAMASO RemChem [address] [place] [address] .PN Glucose 2 Hron 8 Glucose mass conc 167 mg/dL High <=[address] [facility] Comment on above: Performed By: #### 1 [id number] #### DAMASO RemChem [address] [place] [address] .PN Glucose Fastingon 2017 Glucose mass conc 113 mg/dL High <=[address] [facility] Comment on above: Performed By: #### 1 [id number] #### DAMASO RemChem [address] [place] [address] Auto Diffon 02-23-2018 Basophils #/vol (Bld) 0.1 E3/mcL Normal 0.0-0.2 [facility] Comment on above: Order Comment: Order Added by Discern Expert. Performed By: #### 2 [id number] #### DAMASO RemHemo [address] [place] [address] Basophils/100 WBC (Bld) 0.7 % Normal 0.0-2.0 [facility] Comment on above: Order Comment: Order Added by Discern Expert. Performed By: #### 2 [id number] #### DAMASO RemHemo [address] [place] [address] Eos Absolute 0.2 E3/mcL Normal 0.0-0.7 [facility] Comment on above: Order Comment: Order Added by Discern Expert. Performed By: #### 2 [id number] #### DAMASO RemHemo [address] [place] [address] Eosinophils/100 WBC (Bld) 1.7 % Normal 0.0-11.0 [facility] Comment on above: Order Comment: Order Added by Discern Expert. Performed By: #### 2 [id number] #### DAMASO RemHemo [address] [place] [address] Lymphocytes #/vol (Bld) 1.5 E3/mcL Normal 1.2-3.4 [facility] Comment on above: Order Comment: Order Added by Discern Expert. Performed By: #### 2 [id number] #### DAMASO RemHemo [address] [place] [address] Lymphocytes/100 WBC (Bld) 14.4 % Low 20.0-55.0 [facility] Comment on above: Order Comment: Order Added by Discern Expert. Performed By: #### 2 [id number] #### DAMASO RemHemo [address] [place] [address] Kings Absolute 0.4 E3/mcL Normal 0.0-0.7 [facility] Comment on above: Order Comment: Order Added by Discern Expert. Performed By: #### 2 [id number] #### DAMASO Patinoo [address] [place] [address] Monocytes/100 WBC (Bld) 4.1 % Normal 0.0-10.0 [facility] Comment on above: Order Comment: Order Added by Discern Expert. Performed By: #### 2 [id number] #### DAMASO Patinoo [address] [place] [address] Neutro Absolute 8.2 E3/mcL High 1.4-6.5 [facility] Comment on above: Order Comment: Order Added by Discern Expert. Performed By: #### 2 [id number] #### DAMASO Patinoo [address] [place] [address] Neutro Auto 79.1 % High 37.0-75.0 [facility] Comment on above: Order Comment: Order Added by Discern Expert. Performed By: #### 2 [id number] #### DAMASO Patinoo [address] [place], [place] [address] CBC w/ Auto Diffon 8 Erythrocyte distribution width Ratio (RBC) 14.6 % High 11.5-14.5 [facility] Comment on above: Performed By: #### 2 [id number] #### DAMASO Patinoo [address] [place] [address] Hematocrit Volume Fraction (Bld) 34.3 % Low 36.0-48.0 [facility] Comment on above: Performed By: #### 2 509159 #### DAMASO Patinoo [facility] [place] [address]85[address] Hemoglobin mass conc (Bld) 11.5 g/dL Low 12.0-16.0 [facility] Comment on above: Performed By: #### 2 076968 #### DAMASO Patinoo [facility] [place] [address] MCH Entitic mass (RBC) 28.3 pg Normal 27.0-31.0 [facility] Comment on above: Performed By: #### 2 [id number] #### DAMASO JosieHemo [facility] [place] [address] MCHC mass conc (RBC) 33.5 g/dL Normal 33.0-37.0 [facility] Comment on above: Performed By: #### 2 [id number] #### DAMAOS RemHemo [address] [place] [address]85[address] MCV Entitic volume (RBC) 84.4 fL Normal 78.0-100.0 [facility] Comment on above: Performed By: #### 2 [id number] #### DAMASO RemHemo [address] [place] [address] Platelet mean volume Entitic volume (Bld) 7.7 fL Normal 7.4-11.0 [facility] Comment on above: Performed By: #### 2 [id number] #### DAMASO RemHemo [facility] [place] [address] Platelets #/vol (Bld) 234 E3/mcL Normal 130-400 [facility] Comment on above: Performed By: #### 2 [id number] #### DAMASO RemHemo [facility] [place] [address] RBC #/vol (Bld) 4.06 E6/mcL Normal 3.90-5.40 [facility] Comment on above: Performed By: #### 2 [id number] #### DAMASO RemHemo [facility] [place] [address] WBC #/vol (Bld) 10.4 E3/mcL Normal 3.6-11.0 [facility] Comment on above: Performed By: #### 2 [id number] #### DAMASO RemHemo [facility] [place] [address]85[address] Gest Scr Glu 1 Hron 02-24-20 18 Glucose mass conc 165 mg/dL High 70-[address] [facility] Comment on above: Performed By: #### 3 [id number] #### DAMASO RemChem [facility] [place] [address] UA Completeon 02-10-2018 Color Nom (U) Yellow Normal Yellow [facility] Comment on above: Performed By: #### 8 [id number] #### DAMASO Urinalysis Automated Subsection [address] [place], [place] [address] Glucose mass conc (U) Negative Normal Negative [facility] Comment on above: Performed By: #### 8 [id number] #### DAMASO Urinalysis Automated Subsection [facility] [place] [address] Ketones Ql (U) Negative Normal Negative [facility] Comment on above: Performed By: #### 8 [id number] #### DAMASO Urinalysis Automated Subsection [address] [place] [address] RBC #/vol (U) 3-5 Abnormal 0-3 [facility] Comment on above: Performed By: #### 8 [id number] #### DAMASO Urinalysis Automated Subsection [facility] [place] [address] UA Blood 1+ Abnormal Negative [facility] Comment on above: Performed By: #### 8 [id number] #### DAMASO Urinalysis Automated Subsection [facility] [place] [address] UA Bacteria Trace Abnormal None [facility] Comment on above: Performed By: #### 8 [id number] #### DAMASO Urinalysis Automated Subsection [facility] [place] [address] UA Clarity Clear Normal Clear [facility] Comment on above: Performed By: #### 8 [id number] #### DAMASO Urinalysis Automated Subsection [facility] [place] [address] UA Leuk Est Negative Normal Negative [facility] Comment on above: Performed By: #### 8 [id number] #### DAMASO Urinalysis Automated Subsection [facility] [place] [address] UA Mucous Trace Abnormal Trace [facility] Comment on above: Performed By: #### 8 [id number] #### DAMASO Urinalysis Automated Subsection [facility] [place] [address] UA Nitrite Negative Normal Negative [facility] Comment on above: Performed By: #### 8 [id number] #### DAMASO Urinalysis Automated Subsection [facility] [place] [address] UA pH 6.0 Normal 4.6-8.0 [facility] Comment on above: Performed By: #### 8 [id number] #### DAMASO Urinalysis Automated Subsection [facility] [place] [address] UA Protein Negative Normal Negative [facility] Comment on above: Performed By: #### 8 [id number] #### DAMASO Urinalysis Automated Subsection [facility] [place] [address] UA Spec Grav 1.011 Normal 1.003-1.030 [facility] Comment on above: Performed By: #### 8 [id number] #### DAMASO Urinalysis Automated Subsection [address] [place] [address] UA Squam Epithelial 0-5 Normal 0-5 [facility] Comment on above: Performed By: #### 8 [id number] #### DAMASO Urinalysis Automated Subsection [facility] [place] [address] UA Urobilinogen Negative Normal [facility] Comment on above: Performed By: #### 8 [id number] #### DAMASO Urinalysis Automated Subsection [facility] [place] [address] UA WBC 0-5 Normal 0-5 [facility] Comment on above: Performed By: #### 8 [id number] #### DAMASO Urinalysis Automated Subsection [address] [place] [address] Urobilinogen Qn (U) Negative Normal Negative [facility] Comment on above: Performed By: #### 8 [id number] #### DAMASO Urinalysis Automated Subsection [address] [place], [place] [id number] Pathology ([facility])on 11-28-2017 Pathology ([facility]) FINAL GYNECOLOGIC CYTOLOGY [id number] ADEQUACYSatisfactory for Evaluation. Endocervical cells/transformation zone componentpresent.Sample is scanty.GENERAL CATEGORIZATIONNegative for Intraepithelial Lesion or MalignancyCLINICAL HISTORYComment: LMP: Pt is 14 Weeks SPECIMEN( A) SCREENING CERVICAL/ENDOCERVICAL LIQUID-BASED PAPPerformed at [facility], [address] [place] [id number] by: Signed Out by: MUKESH HOOKER Tip Inserter Reported: 12/02/2017 Normal [facility] Comment on above: Performed By: #### G YN ####[facility] [address] [place] [address] Vital Signs Date Time Vital Sign Value Performing Clinician Facility 04-02-2022 11:12-0400 Diastolic blood pressure 86 mm[Hg] Dr. Sheryl Todd Work Phone: [facility] Work Phone: 04-02-2022 11:12-0400 Heart rate 72 /min Dr. Sheryl Todd Work Phone: [facility] Work Phone: 04-02-2022 11:12-0400 Respiratory rate 16 /min Dr. Sheryl Todd Work Phone: [facility] Work Phone: 04-02-2022 11:12-0400 SaO2% (BldA) [Mass fraction] 97 % Dr. Sheryl Todd Work Phone: [facility] Work Phone: 04-02-2022 11:12-0400 Systolic blood pressure 121 mm[Hg] Dr. Sheryl Todd Work Phone: [facility] Work Phone: 04-02-2022 09:40-0400 Body height 175.[address] Sheryl Todd Work Phone: [facility] Work Phone: 04-02-2022 09:40-0400 Body mass index (BMI) [Ratio] 38.4 kg/m2 Dr. Sheryl Todd Work Phone: [facility] Work Phone: 04-02-2022 09:40-0400 Body temperature 97.1 [degF] Dr. Sheryl Todd Work Phone: [facility] Work Phone: 04-02-2022 09:40-0400 Body weight 117.[address] Sheryl Todd Work Phone: [facility] Work Phone: 03-11-2022 10:47-0400 Body height 175.[address] Sheryl Todd Work Phone: [facility] Work Phone: 03-11-2022 10:47-0400 Body mass index (BMI) [Ratio] 39.2 kg/m2 Dr. Sheryl Todd Work Phone: [facility] Work Phone: 03-11-2022 10:47-0400 Body weight 120.[address] Sheryl Todd Work Phone: [facility] Work Phone: 03-11-2022 10:47-0400 Diastolic blood pressure 90 mm[Hg] Dr. Sheryl Todd Work Phone: [facility] Work Phone: 03-11-2022 10:47-0400 Systolic blood pressure 120 mm[Hg] Dr. Sheryl Todd Work Phone: [facility] Work Phone: 02-25-2022 09:12-0400 Body mass index (BMI) [Ratio] 38.8 kg/m2 Dr. Sheryl Todd Work Phone: [facility] Work Phone: 02-25-2022 09:12-0400 Body weight 119.[address] Sheryl Todd Work Phone: [facility] Work Phone: 02-22-2022 13:54-0400 Body temperature 98.2 [degF] Dr. Sheryl Todd Work Phone: [facility] Work Phone: 02-22-2022 13:54-0400 Diastolic blood pressure 72 mm[Hg] Dr. Sheryl Todd Work Phone: [facility] Work Phone: 02-22-2022 13:54-0400 Heart rate 92 /min Dr. Sheryl Todd Work Phone: [facility] Work Phone: 02-22-2022 13:54-0400 Respiratory rate 16 /min Dr. Sheryl Todd Work Phone: [facility] Work Phone: 02-22-2022 13:54-0400 SaO2% (BldA) [Mass fraction] 99 % Dr. Sheryl Todd Work Phone: [facility] Work Phone: 02-22-2022 13:54-0400 Systolic blood pressure 126 mm[Hg] Dr. Sheryl Todd Work Phone: [facility] Work Phone: 12-09-2021 15:45-0500 Body mass index (BMI) [Ratio] 40.7 kg/m2 Dr. Sheryl Todd Work Phone: [facility] Work Phone: 12-09-2021 15:45-0500 Body temperature 96.8 [degF] Dr. Sheryl Todd Work Phone: [facility] Work Phone: 12-09-2021 15:45-0500 Body weight 125.[address] Sheryl Todd Work Phone: [facility] Work Phone: 12-09-2021 15:45-0500 Diastolic blood pressure 94 mm[Hg] Dr. Sheryl Todd Work Phone: [facility] Work Phone: 12-09-2021 15:45-0500 Heart rate 95 /min Dr. Sheryl Todd Work Phone: [facility] Work Phone: 12-09-2021 15:45-0500 Respiratory rate 18 /min Dr. Sheryl Todd Work Phone: [facility] Work Phone: 12-09-2021 15:45-0500 SaO2% (BldA) [Mass fraction] 98 % Dr. Sheryl Todd Work Phone: [facility] Work Phone: 12-09-2021 15:45-0500 Systolic blood pressure 138 mm[Hg] Dr. Sheryl Todd Work Phone: [facility] Work Phone: 12-13-2018 14:36-0500 BMI (Body Mass [...] Date Encounter Type Care Provider Facility Start: 07-08-2025 End: 07-08-2025 ambulatory Manjit Jaramillo Facility:[facility] Start: 07-07-2025 End: 07-07-2025 ambulatory Olivia He NP Facility:[facility] Start: 07-02-2025 ambulatory Zebulun Beam VSC Facili ty:[facility] Start: 07-01-2025 End: 07-01-2025 ambulatory Manjit ROSALES Facility:[facility] Start: 05-21-2025 End: 05-21-2025 ambulatory Manjit Jaramillo Facility:[facility] Start: 04-23-2025 ambulatory Zebulun Beam VSC Facili ty:[facility] Start: 04-20-2025 End: 04-20-2025 ambulatory Zebulun Beam VSC Facility:[facility] Start: 04-08-2025 End: 04-08-2025 Emergency department patient visit Zebulun Beam VSC Facility:[facility] Start: 04-03-2025 End: 04-03-2025 ambulatory Zebulun Beam VSC Facility:[facility] Start: 02-28-2025 End: 02-28-2025 ambulatory Zebulun Beam VSC Facility:[facility] Start: 02-22-2025 End: 02-22-2025 ambulatory Zebulun Beam VSC Facility:[facility] Start: 02-20-2025 End: 02-20-2025 ambulatory Zebulun Beam VSC Facility:[facility] Start: 02-13-2025 ambulatory Shaun Raymond Facility :[facility] Start: 02-01-2025 End: 02-01-2025 ambulatory Zebulun Beam VSC Facility:[facility] Start: 01-30-2025 Encounter for other preprocedural examination Stella Gregory [facility] Start: 01-22-2025 End: 01-22-2025 ambulatory Zebulun Beam VSC Facility:[facility] Start: 01-22-2025 ambulatory Rafybuluroni Beam VSC Facili ty:[facility] Start: 2024 End: 2024 ambulatory Colby Donovan VSC Facility:[facility] Start: 12-27-2024 End: 12-27-2024 ambulatory Shaun Mollison Facility:[facility] Start: 12-22-2024 End: 12-22-2024 ambulatory Shaun Mollison Facility:[facility] Start: 12-17-2024 End: 12-17-2024 ambulatory Colby Donovan VSC Facility:[facility] Start: 12-14-2024 End: 12-14-2024 ambulatory Colby Donovan VSC Facility:[facility] Start: 12-03-2024 End: 12-03-2024 ambulatory Colby Donovan VSC Facility:[facility] Start: 11-28-2024 End: 11-28-2024 ambulatory Colby Donovan VSC Facility:[facility] Start: 11-28-2024 End: 11-28-2024 ambulatory Colby Donovan VSC Facility:[facility] Start: 11-22-2024 End: 11-22-2024 ambulatory Colby Donovan VSC Facility:[facility] Start: 11-16-2024 End: 11-16-2024 ambulatory Colby Donovan VSC Facility:[facility] Start: 11-14-2024 End: 11-14-2024 ambulatory Colby Donovan VSC Facility:[facility] Start: 04-02-2022 End: 04-02-2022 Emergency department patient visit Dr. Sheryl Todd Work Phone: [facility]Emergency Department Start: 03-11-2022 End: 03-11-[address] Sheryl Todd Work Phone: [facility] Start: 03-11-2022 End: 03-11-[address] Sheryl Todd Work Phone: [facility]-Laboratory, Specimen Start: 02-25-2022 End: 02-25-[address] Sheryl Todd Work Phone: [facility] Orthopaedic [facility] Start: 02-22-2022 End: 02-22-[address] Sheryl Todd Work Phone: [facility] Start: 12-09-2021 End: 12-09-[address] Sheryl Todd Work Phone: [facility]-Laboratory, Specimen Start: 12-09-2021 End: 12-09-[address] Sheryl Todd Work Phone: [facility] Internal Medicine Start: 12-13-2018 End: 12-17-2018 Patient encounter procedure ELVI ORTIZ [facility] Start: 12-13-2018 End: 12-13-2018 Office outpatient visit 25 minutes Elvi Ortiz Work Phone: [facility] Comment on above: Environmental allerg ies Start: 11-27-2018 End: 11-27-2018 Patient encounter procedure Keaganroni Noel Paige Facility:[facility] Start: 11-20-2018 End: 11-21-2018 Patient encounter procedure Gissell Long Facility:[facility] Start: 08-29-2018 End: 08-30-2018 Patient encounter procedure Gissell Long Facility:[facility] Start: 06-21-2018 End: 06-22-2018 Patient encounter procedure Shan Scarlett Sita Facility:[facility] Start: 06-15-2018 End: 06-15-2018 Office outpatient new 30 minutes Elvi Ortiz Work Phone: [facility] Start: 05-27-2018 End: 05-28-2018 Patient encounter procedure Andreas Anthony Facility:[facility] Start: 05-27-2018 Patient encounter VALERIE MIGUEL ANGEL Lewis cility:[id number] Start: 05-20-2018 End: 05-20-2018 Patient encounter procedure Shan Buckner Facility:[facility] Start: 05-19-2018 End: 05-21-2018 Evaluation and management of inpatient Shan Buckner Facility:[facility] Start: 05-19-2018 Patient encounter VALERIE LOMBARDIMILY Lewis cility:[id number] Start: 05-18-2018 End: 05-19-2018 Patient encounter procedure Shan Buckner Facility:[facility] Start: 05-18-2018 Patient encounter VALERIEFEDERICO Lewis cility:[id number] Start: 05-12-2018 End: 05-13-2018 Patient encounter procedure Shan Buckner Facility:[facility] Start: 05-11-2018 End: 05-12-2018 Patient encounter procedure Shan Buckner Facility:[facility] Start: 05-11-2018 End: 05-12-2018 Patient encounter procedure Bhupendra A Johnnie Facility:[facility] Start: 05-11-2018 Patient encounter VALERIE MIGUEL ANGEL Lewis cility:[id number] Start: 05-05-2018 End: 05-06-2018 Patient encounter procedure Shan Pantoja Sita Facility:[facility] Start: 05-04-2018 End: 05-05-2018 Patient encounter procedure Shan Buckner Facility:[facility] Start: 05-04-2018 Patient encounter VALERIEFEDERICO Lewis cility:[id number] Start: 05-02-2018 Patient [facility] Start: 04-27-2018 End: 04-28-2018 Patient encounter procedure Gissell Long Facility:[facility] Start: 04-27-2018 End: 04-28-2018 Patient encounter procedure Gissell Long Facility:[facility] Start: 04-27-2018 Patient encounter VALERIEFEDERICO MICHELLE Fa cility:[id number] Start: 04-20-2018 End: 04-21-2018 Patient encounter procedure Bhupendra A Henderson Facility:[facility] Start: 04-20-2018 Patient encounter VALERIE MIGUEL ANGEL Fa cility:[id number] Start: 04-19-2018 End: 04-20-2018 Patient encounter procedure Gissell Long Facility:[facility] Start: 04-14-2018 End: 04-15-2018 Patient encounter procedure Keaagn Gibson Facility:[facility] Start: 04-13-2018 End: 04-13-2018 Patient encounter procedure Bhupendra A Henderson Facility:[facility] Start: 04-13-2018 Patient encounter VALERIE MIGUEL ANGEL Fa cility:[id number] Start: 04-11-2018 Patient encounter Radha woodward Facility:[facility] J[facility] Start: 04-06-2018 End: 04-07-2018 Patient encounter procedure Gissell Long Facility:[facility] Start: 04-06-2018 End: 04-07-2018 Patient encounter Shan Buckner Facility:[id number] Start: 03-30-2018 End: 03-31-2018 Patient encounter procedure Gissell Long Facility:[facility] Start: 03-30-2018 Patient encounter VALERIE Lewis cility:[id number] Start: 03-24-2018 End: 03-24-2018 Patient encounter procedure Gissell Long Facility:[facility] Start: 03-23-2018 End: 03-24-2018 Patient encounter procedure Gissell Long Facility:[facility] Start: 03-23-2018 End: 03-23-2018 Patient encounter procedure Gissell Long Facility:[facility] Start: 03-23-2018 Patient encounter VALERIE Lewis cility:[id number] Start: 03-22-2018 Patient encounter Radha woodward Facility:[facility] [place] [place] Start: 03-09-2018 End: 03-10-2018 Patient encounter procedure Gissell Long Facility:[facility] Start: 03-07-2018 End: 03-08-2018 Patient encounter procedure Gissell Long Facility:[facility] Start: 03-02-2018 End: 03-03-2018 Patient encounter procedure Gissell Long Facility:[facility] Start: 03-02-2018 End: 03-03-2018 Patient encounter procedure Gissell Long Facility:[facility] Start: 02-27-2018 Patient encounter Radha woodward Facility:[facility] [place] [place] Start: 02-23-2018 End: 02-24-2018 Patient encounter procedure Gissell Long Facility:[facility] Start: 02-21-2018 End: 02-22-2018 Patient encounter procedure Gissell Long Facility:[facility] Start: 02-10-2018 End: 02-10-2018 Patient encounter procedure Bhupendra A Johnnie Facility:[facility] Start: 01-24-2018 End: 01-25-2018 Patient encounter procedure Gissell Long Facility:[facility] Start: 01-09-2018 Patient encounter Lencho Douglas lity:[facility] Luisa Vogel Start: 12-27-2017 End: 12-28-2017 Patient encounter procedure Gissell Long Facility:[facility] Start: 11-11-2017 Patient encounter VALERIE MICHELLE Facility:[facility] [place] Procedures Date Procedure Procedure Detail Performing Clinician [...] ion [Identifier] in Cervix by Cyto stain Elvi Ortiz Plan of Treatment Date Care Activity Detail Author Start: 05-20-2028 Tetanus vaccination TETANUS EVERY 10 YR [facility] Start: 04-23-2028 Tetanus vaccination TETANUS EVERY 10 YR [facility] Start: 03-11-2022 Cytopathology procedure, preparation of smear, genital source Genital Culture [facility] Work Phone: Start: 02-22-2022 Patient referral [facility] Work Phone: Start: 12-09-2021 Sars-cov-2 detection by dna/rna SARS-COV-2 COVID-19 AMP PRB [facility] Work Phone: Start: 11-24-2020 Screening for malignant neoplasm of cervix PAP SMEAR [facility] Start: 06-24-2018 Influenza vaccination SEQUENTIAL INFLUENZA VACCINE (#1) [facility] Patient Education ED MENSTRUAL C RAMPING ED Viral Syndrome (Adult) [facility] Work Phone: Patient referral [facility] Work Phone: Immunizations Immunization Date Immunization Notes Care Provider Debbie sifuentes 05-20-2018 tetanus toxoid, redu antelmo diphtheria toxoid, and acellular pertussis vaccine, adsorbed [facility] 04-23-2018 tetanus toxoid, redu antelmo diphtheria toxoid, and acellular pertussis vaccine, adsorbed [facility] Payers Date Payer Category Payer Self-pay [id number] 2024 Medicaid [id number] 2018 Private Health Insurance 2017 Unknown 2017 Medicaid [employer] [facility] MEDICAID [employer] MEDICAID xxxxxxxxxxx 2017-Present [id number] 2017 Unknown [id number] 1979 Unknown [id number] 2.16.840.1.651121.3.579.2. 1979 Unknown [id number] 2.16.840.1.702211.3.579.2. 1979 Unknown [id number] 2.16.840.1.979815.3.579.2. 1979 Unknown [id number] 2.16.840.1.035955.3.579.2. 1979 Unknown [id number] 2.16.840.1.398879.3.579.2. 1979 Unknown [id number] 2.16.840.1.061363.3.579.2. 1979 Unknown [id number] 2.16.840.1.480854.3.579.2. 1979 Unknown [id number] 2.16.840.1.670800.3.579.2 1979 Unknown [id number] 2.16.840.1.548979.3.579.2. 1979 Unknown [id number] 2.16.840.1.746818.3.579.2 1979 Unknown [id number] 2.16.840.1.218534.3.579.2. 1979 Unknown [id number] 2.16.840.1.989797.3.579.2 1979 Unknown [id number] 2.16.840.1.471987.3.579.2 1979 Unknown [id number] 2.16.840.1.704922.3.579.2 1979 Unknown [id number] 2.16.840.1.447932.3.579.2 1979 Unknown [id number] 2.16.840.1.409244.3.579.2 1979 Unknown [id number] 2.16.840.1.243083.3.579.2 1979 Unknown [id number] 2.16.840.1.209182.3.579.2 1979 Unknown [id number] 2.16.840.1.598558.3.579.2. 1979 Unknown [id number] 2.16.840.1.659699.3.579.2 1979 Unknown [id number] 2.16.840.1.185342.3.579.2. 1979 Unknown [id number] 2.16.840.1.073268.3.579.2. 1979 Unknown [id number] 2.16.840.1.236568.3.579.2. 1979 Unknown [id number] 2.16.840.1.141542.3.579.2. 1979 Unknown [id number] 2.16.840.1.819943.3.579.2. 1979 Unknown [id number] 2.16.840.1.183747.3.579.2. 1979 Unknown [id number] 2.16.840.1.172202.3.579.2. 1979 Unknown [id number] 2.16.840.1.003286.3.579.2. 1979 Unknown [id number] 2..840.1.796959.3.579.2 1979 Unknown [id number] 2.16.840.1.500822.3.579.2. 1979 Unknown [id number] 2.16.840.1.784946.3.579.2. 1979 Unknown [id number] 2.16.840.1.274103.3.579.2. 1979 Unknown [id number] 2.16.840.1.830162.3.579.2. 1979 Unknown [id number] 2.16.840.1.384587.3.579.2. 1979 Unknown [id number] 2.16.840.1.195229.3.579.2. 1979 Unknown [id number] 2.16.840.1.051059.3.579.2. 903 Unknown SELF PAY INSURANCE [id number] Unknown [id number] 2.16.840.1.562482.3.579.2. 462 Unknown [id number] 2.16.840.1.049156.3.579.2. 462 Unknown [id number] 2.16.840.1.659647.3.579.2. 462 Unknown [id number] 2.16.840.1.627651.3.579.2. 462 Unknown [id number] 2.16.840.1.624038.3.579.2. 462 Unknown [id number] 2.16.840.1.002966.3.579.2. 462 Unknown [id number] 2.16.840.1.152504.3.579.2. 462 Unknown [id number] 2.16.840.1.866186.3.579.2. 462 Unknown [id number] 2.840.1.183795.3.579.2. 462 Unknown [id number] 2..840.1.552396.3.579.2. 462 Unknown [id number] 2.840.1.236102.3.579.2. 462 Unknown [id number] 2.16.840.1.848751.3.579.2. 462 Unknown [id number] 2.16.840.1.404109.3.579.2. 462 Unknown [id number] 2.16.840.1.867693.3.579.2. 462 Unknown [id number] 2..840.1.862197.3.579.2. 462 Unknown [id number] 2.16.840.1.563833.3.579.2. 462 Unknown [id number] 2.16.840.1.124829.3.579.2. 462 Unknown [id number] 2.16.840.1.417067.3.579.2. 462 Unknown [id number] 2.16.840.1.637520.3.579.2. 462 Unknown [id number] 2.16840.1.643416.3.579.2. 462 Unknown [id number] 2.16.840.1.433484.3.579.2. 462 Unknown [id number] 2.16.840.1.981648.3.579.2. 462 Unknown [id number] 2.16.840.1.127877.3.579.2. 462 Unknown [id number] 2.16.840.1.292676.3.579.2. 462 Unknown [id number] 2.16.840.1.525637.3.579.2. 462 Unknown [id number] 2.16.840.1.585462.3.579.2. 462 Unknown [id number] 2.16.840.1.283364.3.579.2. 462 Unknown [id number] 2.16.840.1.362475.3.579.2. 462 Unknown [id number] 2.16.840.1.627584.3.579.2. 462 Unknown [id number] 2.16.840.1.178609.3.579.2. 462 Social History Date Type Detail Facility Start: 06-15-2018 End: 12-13-2018 Tobacco smoking status MOIS Former smoker [facility] End: 06-24-2017 History of tobacco use Current smoker [facility] End: 06-24-2017 History of tobacco use Cigarette Smoker [facility] Start: 06-15-2018 End: 12-13-2018 Cigarettes smoked current (pack per day) - Reported [facility] Sex Assigned At Not on file [facility] Start: 03-11-2022 End: 04-02-2022 Tobacco smoking status [facility] Unknown if ever smoked [facility] Work Phone: Start: 01-12-2021 [facility] Work Phone: Start: 01-12-2021 None [facility] Work Phone: Start: 01-12-2021 With Family [facility] Work Phone: Start: 1980 Sex Assigned At Female W [facility] Work Phone: Clinical Note 01-22-2025 Note Date & Type Note Facility 01-22-2025 Note [facility] Medical Records Department [address] [place] [address] History Physical Exam 01/22/25 0953 MR#: [id number] Acct: [id number] Name: SIA CONTRERAS Rep #: [id number] : 1980 44 From: Stella Gregory MD PCP: Vladimir Davila [facility] 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 she is interested in an [...] intolerance, excessive sweating, (more content not included)... 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 If your doctor recommends iisa-ugr-xznpuox medicine to reduce stomach acid, such as [...] Log into your personal health record on [email or web address] and enter Z536 in the Education box to learn more about Gastritis: Care Instructions. Current as of: March 04, 2017 Content Version: 11.6 0176-0392 [employer]. Care instructions adapted under license by your healthcare professional. If you have questions about a medical condition or this instruction, always ask your healthcare professional. [employer] disclaims any warranty or liability for your use of this information. in this encounter* Patient Instructions* SpringElvi SIX COLOR PRESS OPERATOR - 12/13/2018 3:14 PM EST Problem List [...] pollen counts are high. Use a vacuum industrial sweeper cleaner with aHEPA filter or a double-thickness [...] Log into your personal health record on [email or web address] and enter W171 in the Education box to learn more about Allergies: Care Instructions. Current as of: April 19, 2018 Content Version: 11.9 5142-9832 [employer]. Care instructions adapted under license by your healthcare professional. If you have questions about a medical condition or this instruction, always ask your healthcare professional. [employer] disclaims any warranty or liability for your [...] Your Medications These medications were sent to [facility] [address] [place] [address] - [address] [address] [facility] [address] fexofenadine 180 MG tablet fluticasone 50 mcg/actuation nasal spray montelukast 10 mg tablet Allergies Allergen Reactions Latex Other (See Comments) peeling Other Seasonal Codeine Rash Past Medical History: Diagnosis Date Bursitis of hip Extreme obesity Genital herpes Gestational diabetes Meniere disease Papanicolaou smear 2017 [facility] PMDD (premenstrual dysphoric disorder) Past Surgical History: [...] section and content) DATE CREATED AUTHOR 04/17/2018 [facility] DATE CREATED AUTHOR AUTHOR'S ORGANIZ ATION 05/02/2018 [employer] DATE CREATED AUTHOR AUTHOR'S ORGANIZ ATION 06/18/2018 [facility] DATE CREATED AUTHOR AUTHOR'S ORGANIZ ATION 12/12/[address] [facility] DATE CREATED AUTHOR AUTHOR'S ORGANIZ ATION 11/16/2020 [facility] DATE CREATED AUTHOR AUTHOR'S ORGANIZ ATION 07/08/2025 [facility] Assessment & Plan Note - Elvi Ortiz CNP - 06/15/2018 1:39 PM EDTAssessment & Plan Note - Elvi Ortiz CNP - 12/13/2018 3:09 PM EST Miscellaneous [...] BE BASED ON THE PRIMARY CLINICAL RECORDS. [employer] provides no warranty or guarantee of the accuracy or completeness of information in this document.
== END | disposition home or self-care (01) ==
PROVIDERS: Referring Provider Nurse Practitioner Family; Visit Provider Nurse Practitioner Family
DX: R30.0 Dysuria (principal)
CPT/HCPCS: 87077; 87086; 87088; 87186

== ENCOUNTER 2025-10-23 06:34 | Day surgery (SDC) | payer MEDICAID, SELFPAY ==
--- NOTE | 2025-10-14 13:30 | PAT.ANESEVAL ---
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 When Was Last Pacemaker Check QUESTION #4 FULL TEXT: You/Your Family Experience fever (hyperthermia) with Anesthesia Last Oral Intake Last Oral intake: Last Oral Intake NPO since Meds taken in AM with sips of water? Meds patient instructed to take am of surgery PONV PONV - print binding and finishing worker: PONV - print binding and finishing worker Female Yes 10/14/25 13:14 HX of Motion Sickness No 10/14/25 13:14 HX of N/V After Surgery No 10/14/25 13:14 Non-Smoker No 10/14/25 13:14 Duration of Surgery greater Yes 10/14/25 13:14 than 60 minutes Number of Risk Factors 2 10/14/25 13:14 PONV Score Moderate Risk 10/14/25 13:14 Height & Weight Height & Weight: Anesthesia: Height & Weight Height 5 ft 9 in 09/09/25 08:11 Respiratory Assessment Respiratory Assessment - print binding and finishing worker: Respiratory Tract Infection Hx - print binding and finishing worker Hx Respiratory Tract Infection No 10/14/25 13:14 STOP Sleep Apnea STOP Sleep Apnea - print binding and finishing worker: STOP Sleep Apnea - print binding and finishing worker Hx Hypertension Yes 10/14/25 13:14 Hx Sleep Apnea Yes 10/14/25 13:14 CPAP No 10/14/25 13:14 BIPAP No 10/14/25 13:14 Do you snore loudly (louder than talking or can be heard Do you often feel tired/ fatigued/ sleepy during daytime? Has anyone observed you stop breathing during sleep? STOP Results Positive 10/14/25 13:14 QUESTION #5 FULL TEXT : Do you snore loudly (louder than talking or can be heard through closed doors)? 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 Specify any problems Hx of Preganancy in last 3 N/A 10/14/25 13:14 Months Nurse Filling Out Transfusion BRYAN 10/14/25 13:14 & Questions: Date: 10/14/25 10/14/25 13:14 Time: :10/14/25 13:14 Patient unable to answer at this time (ie. confused, unrespo /Reproduction History /Reproductive History - print binding and finishing worker: /Reproductive Hx- print binding and finishing worker Hx Now Gestational Age (in weeks): EDC: Hx Hx Para Hx Section SAB No 10/14/25 13:14 Does the father of the baby or his family experience fever w Father of the baby Malignant Hypertension history comment [facility] Medical History (Updated 10/14/25 @ 13:20 by Daisha Henderson) Smoker Sleep apnea Arthrosis of right acromioclavicular joint Diabetes Arthritis Low iron History of diverticulitis Gastric reflux Hypertension Leg cramps PTSD (post-traumatic stress disorder) Major depression TED (generalized anxiety disorder) Sprain of left little finger Strain of right knee Vitamin deficiency Major depression Insomnia Acute gastroenteritis Dyspnea Anxiety Migraine headache Shortness of breath on exertion History of stress test History of gestational diabetes GI problem Seasonal allergies ADHD Depression Home Medications ?Medication ?Instructions ?Recorded ?Last Taken ?Type albuterol sulfate 90 mcg/actuation 2 puff inhalation Q4H PRN PRN 04/05/23 Unknown Rx aerosol inhaler Wheezing, shortness of breath #8.5 grams mecobalamin (vitamin B12) 1,000 1,000 mcg PO QDAY 12/14/24 01/21/25 History mcg chewable tablet ergocalciferol (vitamin D2) 25,000 25,000 unit PO MO 01/14/25 01/20/25 History unit capsule venlafaxine 150 mg 150 mg PO DAILY #90 caps 02/20/25 Unknown Rx capsule,extended release 24 hr lidocaine 5 % topical patch 1 patch topical QDAY #15 ea 02/28/25 Unknown Rx lamotrigine 150 mg tablet 150 mg PO DAILY #90 tabs 05/21/25 Unknown Rx methylphenidate HCl 18 mg 18 mg PO QAM 30 days #30 tabs 09/16/25 Unknown Rx tablet,extended release 24 hr (Concerta) tirzepatide 15 mg/0.5 mL 15 mg subcut .bweekly 10/14/25 Unknown History subcutaneous pen injector (Mounabdirizakro) Allergy/AdvReac Type Severity Reaction Status Date / Time Latex, Natural Rubber Allergy Intermediate skin Verified 10/14/25 13:09 irritation Family History Aunt Breast cancer Cancer ovarian Grandmother Diabetes Thyroid disorder Uncle Diabetes Father Diabetes Mother Thyroid disorder Depression Surgical History (Updated 10/14/25 @ 13:20 by Daisha Henderson) History of endometrial ablation History of reversal of tubal ligation Hx of tubal ligation Hx of foot surgery History of hip surgery Social History Smoking Status: Current every day smoker tobacco type: cigarettes Tobacco: How many years used: 10 alcohol intake: never substance use type: does not use caffeine: Yes what type of physical activity do you participate in: none seatbelt use: always do you feel safe at home: Yes additional social history: Single Audit: Pertinent Findings Pertinent Findings EKG Perinent findings: 07/02/2025. Normal sinus rhythm 76 bpm. Recommendation Anesthesia Recommendation Anesthesia recommendation: OPTIMIZED for anesthesia
[2025-10-23] VITALS (13 sets, daily range): BP systolic 98–137; BP diastolic 53–95; PULSE 73–98; RESP 16; TEMP 36.2–36.3; O2SAT 90–98; BMI 38.2
--- OUTSIDE RECORDS SUMMARY | 2025-10-23 06:37 | XMS RPT_ITS | CCD ---
Author Organization [facility] Care Team Providers Care Wire Frame Maker Name Role Phone Olivia Baker Unavailable [phone] VALERIE MICHELLE I Unavailable Unavailable Long, [...] Anthony Admitting Unavailable Andreas Anthony Attending Unavailable Tavodilia Tee M Primary Care Unavailable Shan Buckner Admitting Unavailable Shan Buckner Attending Unavailable Me Claritzahrdad M Primary Care Unavailable Shan Buckner Admitting Unavailable Shan Buckner Attending Unavailable Me Claritzahrdad M Primary Care Unavailable Shan Buckner Attending Unavailable Me Claritzahrdad M Primary Care Unavailable Bhupendra Blair Admitting [...] Unavailable Tavallaee, Tee M Primary Care Unavailable Bon Homme, Bhupendra A Admitting Unavailable Johnnie, Bhupendra A Attending Unavailable Tavallaee, Tee M Primary Care Unavailable Long, Gissell Attending Unavailable Tavallaee, Tee M Primary Care Unavailable NewbillKeagan Admitting Unavailable NewbillKeagan Attending Unavailable Tavallaee, Tee M Primary Care Unavailable [place]me, Bhupendra A Admitting Unavailable [place]me, Bhupendra A Attending Unavailable Tavallaee, Tee M [...] Unavailable Tavallaee, Tee M Primary Care Unavailable Bon [place]me, Bhupendra A Admitting Unavailable Johnnie, Bhupendra A Attending Unavailable Tavallaee, Tee M Primary Care Unavailable Long, Gissell Attending Unavailable Tavallaee, Tee M Primary Care Unavailable Long, Gissell Attending Unavailable Tavallaee, Tee M Primary Care Unavailable Long, Gissell Attending Unavailable Tavallaee, Tee M Primary Care Unavailable Olivia Baker Primary Care Provider [phone] ELVI ORTIZ Attending Unavailable OLIVIA BAKER Primary Care Unavailable Dr. Sheryl Todd Primary Care Provider Dr. Sheryl Todd Referring Provider [phone] Zion MANAGER FIBER, SAW-Mela Bowman Attending Provider CONNIE Amezcua Attending Provider [phone] CONNIE Amezcua Referring Provider Dr. Enio Carvalho Attending Provider [phone] CONNIE Ko Attending Provider Dr. Mounika Solitario Attending Provider Beam, Zebulun Primary Care Unavailable Saadia Morales Attending Unavailable Beam, Zebulun Referring Unavailable Donovan, Colby Referring Unavailable Donovan, Colby Primary Care Unavailable Stella Gregory Attending Unavailable Manjit Jaramillo Attending Unavailable Beam, Zebulun Primary Care Unavailable Olivia eH NP Attending Unavailable Beam, Zebulun Primary Care Unavailable Beam, Zebulun Referring Unavailable Beam, Zebulun Primary Care Unavailable Manjit Jaramillo Attending Unavailable Donovan, Colby Primary Care Unavailable SeeManjit dykes Attending Unavailable Beam, Zebulun Attending Unavailable Beam, Zebulun Primary Care Unavailable Beam, Zebulun Referring Unavailable Shaun Raymond Referring Unavailable Donovan, Colby Primary Care Unavailable Shaun Raymond Attending Unavailable Donovan, Colby Primary Care Unavailable Xuan Gaytan Attending Unavailable Xuan Gaytan Referring Unavailable Beam, Zebulun Primary Care Unavailable Enio Carvalho Attending Unavailable Manjit Jaramillo Attending Unavailable Beam, Zebulun Primary Care Unavailable Manjit De La O Attending Unavailable Beam, Zebulun Referring Unavailable Beam, Zebulun Primary Care Unavailable Beam, Zebulun Primary Care Unavailable Beam, Zebulun Attending Unavailable Beam, Zebulun Referring Unavailable AndrewKendellSaadia Attending Unavailable Andrew Saadia Referring Unavailable Beam, Zebulun Primary Care Unavailable Manjit De La O Attending Unavailable Beam, Zebulun Primary Care Unavailable MollShaun patel Attending Unavailable Donovan, Colby Primary Care Unavailable Beam, Zebulun Primary Care Unavailable Stella Gregory Attending Unavailable MarcanthonyStella Referring Unavailable SchwigerKeo Attending Unavailable Beam, Zebulun Primary Care Unavailable Donovan, Colby Referring Unavailable Donovan, Colby Primary Care Unavailable Xuan Gaytan Attending Unavailable Beam, Zebulun Primary Care Unavailable Stella Gregory Consulting Unavailable Stella Gregory Attending Unavailable Stella Gregory Referring Unavailable SeeManjit dykes Attending Unavailable Beam, Zebulun Referring Unavailable Beam, Zebulun Primary Care Unavailable Donovan, Oclby Referring Unavailable Donovan, Colby Primary Care Unavailable Molljorge, Shaun Attending Unavailable Donovan, Colby Primary Care Unavailable Xuan Gaytan Attending Unavailable Xuan Gaytan Referring Unavailable Beam, Zebulun Primary Care Unavailable Donovan, Colby Referring Unavailable MollShaun patel Attending Unavailable Beam, Zebulun Primary Care Unavailable Manjit Jaramillo Attending Unavailable Donovan, Colby Referring Unavailable Donovan, Colby Primary Care Unavailable Shaun Raymond Attending Unavailable Beam, Zebulun Attending Unavailable Donovan, Colby Primary Care Unavailable Beam, Zebulun Referring Unavailable Mollison, Shaun Referring Unavailable Donovan, Colby Primary Care Unavailable Shaun Raymond Attending Unavailable Roof MANAGER FIBER, Olivia Tolentino Attending Unavailable Roof MANAGER FIBER, Olivia Tolentino Referring Unavailable Beam, Zebulun Primary Care Unavailable Beam, Zebulun Attending Unavailable Beam, Zebulun Primary Care Unavailable Beam, Zebulun Referring Unavailable Beam, Zebulun Attending Unavailable Donovan, Colby Primary Care Unavailable Allergies Allergy Classification Reported Allergen(s) Allergy Type Date of Onset Reaction(s) Facility (3 sources) codeine; Translations: [codeine] Drug Allergy 8 Rash [facility] (4 sources) Latex; Translations: [Latex] Propensity to adverse reactions to drug 8 Other (See Comments) [facility] (2 sources) OTHER Propensity to adverse reactions 8 [facility] (3 sources) natural latex rubber; Translations: [Latex, Natural Rubber] Allergy to substance 2 skin irritation [facility] Repository Medications Current Medications Medication Drug Class(es) [...] extended release oral tablet (2 sources) Uncompetitive A-wntuwt-E-aspartat e Receptor Antagonist, Sigma-1 Agonist Start: 08-06-2021 [...] deficit disorder with hyperactivity] Onset: 5 Chronic Diabetes or abnormal glucose tolerance complicating ; childbirth; or the puerperium (2 sources) History of gestational diabetes mellitus; Translations: [Personal history of gestational diabetes] Episodic Disorders of teeth and jaw (2 sources) Periapical abscess; Translations: [Periapical abscess without sinus] Episodic Essential hypertension (1 source) Essential (primary) hypertension; Translations: [Essential (primary) hypertension] Onset: 5 Chronic Genitourinary symptoms and ill-defined conditions (1 source) Dysuria; Translations: [Dysuria] Onset: 5 Episodic Menstrual [...] sources) Insomnia, unspecified; Translations: [Insomnia, unspecified] Episodic Sprains and strains (4 sources) Shoulder [...] [Urinary tract infection, site not specified] Onset: Episodic Viral infection (1 source) Viral disease; Translations: [Viral infection, unspecified] Episodic Past or Other Problems Problem Classification Problem Date Documented Da te Episodic/Chronic Abdominal pain (2 sources) Abdominal pain; Translations: [Unspecified abdominal pain] Onset: 12-27-2024 Episodic Conditions associated with dizziness or vertigo (1 source) Dizziness and giddiness; Translations: [Dizziness and giddiness] Onset: 04-12-2025 Episodic Gastritis and duodenitis (3 sources) Gastritis; [...] malignant neoplasm of cervix] Onset: 12-19-2024 Episodic Spondylosis; intervertebral disc disorders; other back problems (2 sources) Radiculopathy, cervical region; Translations: [Cervicalgia] Onset: 02-28-2025 Episodic Results Test Name Value Interpretation Reference Range Facility MR/BMS.BPon 07-23-2025 /[place] [address] OFFICE VISIT Date of Service: 07/23/25 MR#: [id number] Acct: [id number] Name: SIA CONTRERAS Rep #: [id number] : 1980 Provider: Dr. Manjit Hernandez se, DO Age/Sex: 44/F Location: [facility].BP Status: Signed Intake Vital Signs 07/08/25 06:53 07/23/25 07:05 07/23/25 07:05 Height 5 ft 9 in 5 ft 9 in Weight: 279 lb BMI 41.2 BP 130/86 H 136/79 H Blood Pressure Location Lt brachial Lt brachial Position Sitting Sitting Respiration 16 16 Pulse 87 89 Pulse Source Monitor NIBP Temp 98.0 F BP Intake Visit Reasons: 6 wk FU Molder Machine Required: No Is patient in pain?: No Allergies Latex, Natural Rubber Allergy (Intermediate, Verified 07/08/25 06:57) skin irritation Medications ???Medication ???Instructions ???Recorded ???Confirmed ???Type albuterol sulfate 90 mcg/actuation 2 puff inhalation Q4H PRN PRN 07/23/25 Rx aerosol inhaler Wheezing, shortness of breath #8.5 grams mecobalamin (vitamin B12) 1,000 1,000 mcg PO QDAY 12/14/24 5 History mcg chewable tablet ergocalciferol (vitamin D2) 25,000 25,000 unit PO MO 01/14/2507/23 History unit capsule semaglutide (weight loss) 0.25 0.25 mg subcut TH 01/14/25 5 History mg/0.5 mL subcutaneous pen injector venlafaxine 150 mg 150 mg PO DAILY #90 caps 02/20/25 07/23/25 Rx capsule,extended release 24 hr lidocaine 5 % topical patch 1 patch topical QDAY #15 ea 07/23/25 Rx methocarbamol 500 mg tablet 500 mg PO TID PRN pain/spasms #60 02/28/25 07/23/25 Rx tabs meclizine 25 mg tablet 25 mg PO 4X/DAY PRN PRN Dizziness 04/08/25 07/23/25 Rx #20 tabs lamotrigine 150 mg tablet 150 mg PO DAILY #90 tabs 05/21/25 07/23/25 Rx methylphenidate HCl 18 mg 18 mg PO QAM 30 days #30 tabs 06/2607/23/25 Rx tablet,extended release 24 hr (Concerta) methylphenidate HCl 18 mg 18 mg PO QAM 30 days #30 tabs 06/2607/23/25 Rx tablet,extended release 24 hr (Concerta) Is last menstrual period known: No Post menopausal: No Patient : No Have you fallen in the past year?: [...] evaluation. Patient reports that she has been doing pretty well. Feels like methylphenidate is helping with both focus and motivation. Blood pressure has been largely stable. Has had several instances of feeling anxious but attributes this to life stress. Sleep has been doing largely well. Ex- is still in penitentiary, and she will have to do a video conference for his case in the near future. Appetite has been stable. Review of Systems Constitutional Denies: fever(s), chills, [...] dysuria or urinary frequency Musculoskeletal Reports: joint pain ( (more content not included)... Normal [facility] Urine Cultureon 07-10-2025 URC Klebsiella pneumonia e sp pneum [place] Count 80,000-100,000 Klebsiella pneumoniae sp pneum: REACTION Ampicillin Islt RAYRAY Ampicillin+Sulbac Islt RAYRAY 4 S Cefepime Islt RAYRAY <=0.12 S cefTRIAXone Islt RAYRAY <=0.25 S Ciprofloxacin Islt RAYRAY <=0.06 S B-Lactamase Extended Susc Islt NEG Gentamicin Islt RAYRAY <=1 S levoFLOXacin Islt RAYRAY <=0.12 S Meropenem Islt RAYRAY <=0.25 S Nitrofurantoin Islt RAYRAY 256 R Pip+Tazo Islt RAYRAY <=4 S TMP SMX Islt RAYRAY <=20 S Normal [facility] Comment on above: Performed By: #### M 100.2200 ####[facility] [address] [place], [place], [address] MR/BMS.BPon 07-08-2025 MR/BMS.BP [address], [address] [place] [address] OFFICE VISIT Date of Service: 07/08/25 MR#: [id number] Acct: [id number] Name: SIA CONTRERAS Rep #: [id number] : 1980 Provider: Dr. Manjit Hernandez se, DO Age/Sex: 44/F Location: [facility].BP Status: Signed Intake Vital Signs 05/21/25 07:29 07/07/25 12:29 07/08/25 06:53 Height 5 ft 9 in 5 ft 9 in 5 ft 9 in Weight: 279 lb BMI 41.2 BP 130/86 H Blood Pressure Location Lt brachial Position Sitting Respiration 16 Pulse 87 Pulse Source Monitor BP Intake Visit Reasons: 2 M FU Accompanied by: Self Allergies Latex, Natural Rubber Allergy (Intermediate, Verified 07/08/25 06:57) skin irritation Medications ???Medication ???Instructions ???Recorded ???Confirmed ???Type albuterol sulfate 90 mcg/actuation 2 puff inhalation Q4H PRN PRN 07/08/25 Rx aerosol inhaler Wheezing, shortness of breath #8.5 grams mecobalamin (vitamin B12) 1,000 1,000 mcg PO QDAY 12/14/24 5 History mcg chewable tablet ergocalciferol (vitamin D2) 25,000 25,000 unit PO MO 01/14/2507/08 History unit capsule semaglutide (weight loss) 0.25 0.25 mg subcut TH 01/14/25 5 History mg/0.5 mL subcutaneous pen injector venlafaxine 150 mg 150 mg PO DAILY #90 caps 02/20/25 07/08/25 Rx capsule,extended release 24 hr lidocaine 5 % topical patch 1 patch topical QDAY #15 ea 07/08/25 Rx methocarbamol 500 mg tablet 500 mg PO TID PRN pain/spasms #60 02/28/25 07/08/25 Rx tabs meclizine 25 mg tablet 25 mg PO 4X/DAY PRN PRN Dizziness 04/08/25 07/08/25 Rx #20 tabs lamotrigine 150 mg tablet 150 mg PO DAILY #90 tabs 05/21/25 07/08/25 Rx sulfamethoxazole 800 1 tab PO BID 3 days #6 tabs 07/08/25 Rx mg-trimethoprim 160 mg tablet (Bactrim DS) methylphenidate HCl 18 mg 18 mg PO QAM 30 days #30 tabs 06/2407/08/25 Rx tablet,extended release 24 hr (Concerta) PFSH Medical History Arthrosis of right acromioclavicular [...] up evaluation. Patient reports that she has gotten her blood pressure under control. Increased lisinopril to 40 mg every day. Did discontinue methylphenidate secondary to high blood pressure. Since being off has been feeling much more restless and also has had significantly worse focus/concentration. Mood has been more irritated because she is making mistakes at work. Doing things like driving to her house instead of to a job or not doing little tasks required of her job. [place] methylphenidate worked very well with the exception of the blood pressure issues. Ex- got a parole violation so has gone back to penitentiary after he had been essentially stalking her. Sleep has been fair to poor, but this is secondary to bruxism which tends to be worse when not taking meds for ADHD. Still taking semaglutide and reports that she is only doing fair. Was supposed to have shoulder surgery but had to cancel due to work. Review of Systems Constitutional Denies: fever(s), chills, change in weight or fatigue Eyes Denies: change in vision or blurry vision Ears, Nose, Mouth, Throat Denies: throat pain, neck pain or change in hearing Cardiov (more content not included)... Normal [facility] Urgent Care Visit Reporton 0 07-07-2025 Urgent Care Visit Report [facility] [address], [address] [place] [address] OFFICE VISIT Date of Service: 07/07/25 MR#: [id number] Acct: [id number] Name: SIA CONTRERAS Rep #: [id number] : 1980 Provider: HAILE steven Age/Sex: 44/F Location: [facility]NOW Status: Signed Intake Vital Signs 05/21/25 07:29 [...] urgency, bladder spasms. Finished all of Macrobid. [facility] Medical History Arthrosis of right acromioclavicular joint [...] Skin General: (more content not included)... Normal [facility] Urine Cultureon 07-04-2025 URC Urine Culture Urine Culture Klebsiella pneumoniae sp pneum [place] Count 25,000-50,000 Klebsiella pneumoniae sp pneum: REACTION [...] TMP SMX Islt RAYRAY <=20 S Normal [facility] Comment on above: Performed By: #### M 100.2200 #### [facility] Laboratory [address] [place], [address] 12 Lead EKGon 07-02-2025 12 Lead EKG [facility] Services [address] [place] [address] 12 Lead EKG 07/02/25 0829 MR#: [id number] Acct: [id number] Name: SIA CONTRERAS Rep #: [id number] : 1980 44 From: Dutch Forman MD Attending Dr: Vladimir Davila Mela MANAGER FIBER-C Status: REG CLI Ordering Dr: Vladimir Davila [facility] MANAGER FIBER-C Date: 07/02/25 Location: LAB Sex: F C Admitted: Test Reason : TACHY Blood Pressure : */* mmHG Vent. Rate : 76 BPM Atrial Rate : 76 BPM P-R Int : 160 ms QRS Dur : 88 ms QT Int : 380 ms P-R-T Axes : 41 56 59 degrees QTcB Int : 427 ms Normal sinus rhythm Normal ECG Confirmed by Dutch Forman ([id number]), publication editor ANAM VIRK ([id number]) on 07/03/2025 7:12:43 AM Referred By: Vladimir Davila Confirmed By: Dutch Forman 07/03/25 0712 Date Dutch Forman MD CC: Valdimir REYNOSO MANAGER FIBER-C Beam Signed Normal [facility] CBC-Complete Blood Cnt No Di ffon 07-02-2025 Erythrocyte distribution width (RBC) [Ratio] 14.6 % Normal 11.6-14.6 [facility] Comment on above: Performed By: #### L 100.0500, L500.4050, L501.9520, L501.9985 ####[facility] [address] [place], [address] Hematocrit (Bld) [Volume fraction] 43.8 % Normal 37-47 [facility] Comment on above: Performed By: #### L 100.0500, L500.4050, L501.9520, L501.9985 ####[facility] [address] [place], [address] Hemoglobin (Bld) [Mass/Vol] 14.7 g/dL Normal 12.0-15.0 [facility] Comment on above: Performed By: #### L 100.0500, L500.4050, L501.9520, L501.9985 ####[facility] [address] [place], [address] MCH (RBC) [Entitic mass] 30.0 pg Normal 27.0-32.0 [facility] Comment on above: Performed By: #### L 100.0500, L500.4050, L501.9520, L501.9985 ####[facility] [address] [place], [address] MCHC (RBC) [Mass/Vol] 33.6 g/dL Normal 32-36 [facility] Comment on above: Performed By: #### L 100.0500, L500.4050, L501.9520, L501.9985 ####[facility] [address] [place], [address] MCV (RBC) [Entitic vol] 89.4 fL Normal 81-99 [facility] Comment on above: Performed By: #### L 100.0500, L500.4050, L501.9520, L501.9985 ####[facility] [address] [place], [address] Platelet mean volume (Bld) [Entitic vol] 9.5 fL Normal 6.2-12.0 [facility] Comment on above: Performed By: #### L 100.0500, L500.4050, L501.9520, L501.9985 ####[facility] [address] [place], [address] Platelets (Bld) [#/Vol] 263 10*3/uL Normal 150-450 [facility] Comment on above: Performed By: #### L 100.0500, L500.4050, L501.9520, L501.9985 ####[facility] [address] [place], [address] RBC (Bld) [#/Vol] 4.90 10*6/uL Normal 4.2-5.4 [facility] Comment on above: Performed By: #### L 100.0500, L500.4050, L501.9520, L501.9985 ####[facility] [address] [place], [address] RDW SD 48.1 fl High 35.1-43.9 [facility] Comment on above: Performed By: #### L 100.0500, L500.4050, L501.9520, L501.9985 ####[facility] [address] [place], [address] WBC (Bld) [#/Vol] 10.0 10*3/uL Normal 4.4-11.0 [facility] Comment on above: Performed By: #### L 100.0500, L500.4050, L501.9520, L501.9985 ####[facility] [address] [place], [address] Comprehensive Metabolic Prof dcon 07-02-2025 Albumin [Mass/Vol] 4.1 g/dL Normal 3.5-5.0 [facility] Comment on above: Performed By: #### L 100.0500, L500.4050, L501.9520, L501.9985 ####[facility] [address] [place], [address] Albumin/Globulin [Mass ratio] 1.4 {ratio} Normal 0.9-2.4 [facility] Comment on above: Performed By: #### L 100.0500, L500.4050, L501.9520, L501.9985 ####[facility] [address] [place], [address] ALK PHOS 64 U/L Normal 35-104 [facility] Comment on above: Performed By: #### L 100.0500, L500.4050, L501.9520, L501.9985 ####[facility] [address] [place], [address] ALT [Catalytic activity/Vol] 14 U/L Normal <=34 [facility] Comment on above: Performed By: #### L 100.0500, L500.4050, L501.9520, L501.9985 ####[facility] [address] [place], [address] AST [Catalytic activity/Vol] 15 U/L Normal <=31 [facility] Comment on above: Performed By: #### L 100.0500, L500.4050, L501.9520, L501.9985 ####[facility] [address] [place], [address] Bilirubin [Mass/Vol] 0.28 mg/dL Normal 0.00-1.30 [facility] Comment on above: Performed By: #### L 100.0500, L500.4050, L501.9520, L501.9985 ####[facility] [address] [place], [address] BUN/CRE 20.6 RATIO High 10-20 [facility] Comment on above: Performed By: #### L 100.0500, L500.4050, L501.9520, L501.9985 ####[facility] [address] [place], [address] Calcium [Mass/Vol] 8.9 mg/dL Normal 7.6-11.0 [facility] Comment on above: Performed By: #### L 100.0500, L500.4050, L501.9520, L501.9985 ####[facility] [address] [place], [address] Chloride [Moles/Vol] 101 mmol/L Normal 98-108 [facility] Comment on above: Performed By: #### L 100.0500, L500.4050, L501.9520, L501.9985 ####[facility] [address] [place], [address] CO2 [Moles/Vol] 25.2 mmol/L Normal 21.0-32.0 [facility] Comment on above: Performed By: #### L 100.0500, L500.4050, L501.9520, L501.9985 ####[facility] [address] [place], [address] Creatinine [Mass/Vol] 0.76 mg/dL Normal 0.70-1.20 [facility] Comment on above: Performed By: #### L 100.0500, L500.4050, L501.9520, L501.9985 ####[facility] [address] [place], [address] GAP 11 Normal 5-15 [facility] Comment on above: Performed By: #### L 100.0500, L500.4050, L501.9520, L501.9985 ####[facility] [address] [place], [address] GFR/1.73 sq M.predicted among non-blacks MDRD (S/P/Bld) [Vol rate/Area] 99 mL/min/{1.73_m2} Normal >60 [facility] Comment on above: Result Comment: mL/m in/1.73m2 CKD-EPI Creatinine Equation (2020) Performed By: #### L 100.0500, L500.4050, L501.9520, L501.9985 ####[facility] [address] [place], [address] Globulin (S) [Mass/Vol] 2.9 g/dL Normal 2.2-4.2 [facility] Comment on above: Performed By: #### L 100.0500, L500.4050, L501.9520, L501.9985 ####[facility] [address] [place], [address] Glucose [Mass/Vol] 82 mg/dL Normal 70-99 [facility] Comment on above: Performed By: #### L 100.0500, L500.4050, L501.9520, L501.9985 ####[facility] [address] [place], [address] Potassium [Moles/Vol] 4.2 mmol/L Normal 3.3-5.1 [facility] Comment on above: Performed By: #### L 100.0500, L500.4050, L501.9520, L501.9985 ####[facility] [address] [place], [address] Sodium [Moles/Vol] 137 mmol/L Normal 133-145 [facility] Comment on above: Performed By: #### L 100.0500, L500.4050, L501.9520, L501.9985 ####[facility] [address] [place], [address] T PROT 7.1 g/dL Normal 5.9-8.4 [facility] Comment on above: Performed By: #### L 100.0500, L500.4050, L501.9520, L501.9985 ####[facility] [address] [place], [address] Urea nitrogen [Mass/Vol] 16 mg/dL Normal 4-19 [facility] Comment on above: Performed By: #### L 100.0500, L500.4050, L501.9520, L501.9985 ####[facility] [address] [place], [address] Hemoglobin A1con 07-02-2025 HbA1c (Bld) [Mass fraction] 5.4 % Normal <=5.6 [facility] Comment on above: Result Comment: Norm al < 5.7 % Prediabetic 5.7 - 6.4 % Diabetic >or= 6.5 % Please note range changes. Performed By: #### L 100.0500, L500.4050, L501.9520, L501.9985 ####[facility] [address] [place], [address] Thyroid Stim Hormone (TSH)on 07-02-2025 TSH 1.890 uIU/mL Normal 0.300-4.200 [facility] Comment on above: Performed By: #### L 100.0500, L500.4050, L501.9520, L501.9985 ####[facility] [address] [place], [address] Urgent Care Visit Reporton 0 9-08-2025 Urgent Care Visit Report [facility] [address], [address] [place] [address] OFFICE VISIT Date of Service: 07/01/25 MR#: [id number] Acct: [id number] Name: SIA CONTRERAS Rep #: [id number] : 1980 Provider: CONNIE Machuca Age/Sex: 44/F Location: [facility] Status: Signed Intake Vital Signs 05/21/25 07:29 [...] is pounding and she has body aches. [facility] Medical History Arthrosis of right acromioclavicular joint [...] in color/ character of urine or stool. Xqru-quf-kmbtjko medication taken (? name) w/o assist. No [...] lesions note (more content not included)... Normal [facility] MR/BMS. 05-21-2025 MR/BMS.BP [address], [address] [place] [address] OFFICE VISIT Date of Service: 05/21/25 MR#: [id number] Acct: [id number] Name: SIA CONTRERAS ELSA Rep #: [id number] : 1980 Provider: Dr. Manjit Hernandez se, DO Age/Sex: 44/F Location: [facility] Status: Signed Intake Vital Signs 04/08/25 17:04 05/21/25 07:29 Height 5 ft 9 in 5 ft 9 in BP Intake Visit Reasons: Follow up Allergies Latex, Natural Rubber Allergy (Intermediate, Verified 04/08/25 17:03) skin irritation [facility] Medical History Arthrosis of right acromioclavicular joint [...] bad. Ex- has recently got out of penitentiary after 18 months. He has been out for the past 5-6 weeks but he has essentially been stalking patient. Has been using messaging apps to message patient from different phone numbers. She has tried to contact his corrections officer, but not much has been done. Has been feeling more paranoid thinking that he might come and find her physically. Has been having some anxiety attacks which associated vertigo secondary to this fear. Happening several times per week when it happens. Still working at [employer] and things are doing fine. Had a [...] of symptoms (more content not included)... Normal [facility] Spine Cervical (Routine)on 0 04-20-2025 Spine Cervical (Routine) [facility] Imaging Services [address] [place] [address] Spine Cervical (Routine) MR#: [id number] Acct: [id number] Name: SIA CONTRERAS Rep #: [id number] : 1980 F 44 From: Domitila Simmons nd, MD PCP: Vladimir Davila [facility] MANAGER FIBER-C Status: REG CLI Study: Spine Cervical (Routine) Date of Exam: Exam# [id number] Ordering Dr: Saadia Morales PROCEDURE: SPINE CERVICAL [...] described. No traumatic cervical finding. Reading Location: [facility] CC: CONNIE Cheng; Vladimir [facility] MANAGER FIBER-C Beam Gold Assayer: Signed Normal [facility] Basic Metabolic Profile (BMP )on 04-08-2025 BUN/CRE 10.5 RATIO Normal 10-20 [facility] Comment on above: Performed By: #### L 100.0100, L500.2500 #### [facility] [address] [place], [address] Calcium [Mass/Vol] 9.6 mg/dL Normal 7.6-11.0 [facility] Comment on above: Performed By: #### L 100.0100, L500.2500 #### [facility] [address] [place], [address] Chloride [Moles/Vol] 103 mmol/L Normal 98-108 [facility] Comment on above: Performed By: #### L 100.0100, L500.2500 #### [facility] [address] [place], [address] CO2 [Moles/Vol] 25.8 mmol/L Normal 21.0-32.0 [facility] Comment on above: Performed By: #### L 100.0100, L500.2500 #### [facility] [address] [place], [address] Creatinine [Mass/Vol] 0.77 mg/dL Normal 0.70-1.20 [facility] Comment on above: Performed By: #### L 100.0100, L500.2500 #### [facility] [address] [place], [address] GAP 11 Normal 5-15 [facility] Comment on above: Performed By: #### L 100.0100, L500.2500 #### [facility] [address] [place], [address] GFR/1.73 sq M.predicted among non-blacks MDRD (S/P/Bld) [Vol rate/Area] 96 mL/min/{1.73_m2} Normal >60 [facility] Comment on above: Result Comment: mL/m in/1.73m2 CKD-EPI Creatinine Equation (2020) Performed By: #### L 100.0100, L500.2500 #### [facility] [address] [place], [address] Glucose [Mass/Vol] 81 mg/dL Normal 70-99 [facility] Comment on above: Performed By: #### L 100.0100, L500.2500 #### [facility] [address] [place], [address] Potassium [Moles/Vol] 4.3 mmol/L Normal 3.3-5.1 [facility] Comment on above: Performed By: #### L 100.0100, L500.2500 #### [facility] [address] [place], [address] Sodium [Moles/Vol] 139 mmol/L Normal 133-145 [facility] Comment on above: Performed By: #### L 100.0100, L500.2500 #### [facility] [address] [place], [address] Urea nitrogen [Mass/Vol] 8 mg/dL Normal 4-19 [facility] Comment on above: Performed By: #### L 100.0100, L500.2500 #### [facility] [address] [place], [address] CBC W/Diff, Automatedon 03-24 Absolute Lymph 2.95 X10 3/uL Normal 0.83-4.51 [facility] Comment on above: Performed By: #### L 100.0100, L500.2500 #### [facility] [address] [place], [address] Absolute Neut 7.7 X10 3/uL Normal 2.0-7.7 [facility] Comment on above: Performed By: #### L 100.0100, L500.2500 #### [facility] [address] [place], [address] Basophils/100 WBC (Bld) 0.4 % Normal 0-1 [facility] Comment on above: Performed By: #### L 100.0100, L500.2500 #### [facility] [address] [place], [address] Eosinophils/100 WBC (Bld) 1.1 % Normal 0-5 [facility] Comment on above: Performed By: #### L 100.0100, L500.2500 #### [facility] [address] [place], [address] Erythrocyte distribution width (RBC) [Ratio] 15.4 % High 11.6-14.6 [facility] Comment on above: Performed By: #### L 100.0100, L500.2500 #### [facility] [address] [place], [address] Hematocrit (Bld) [Volume fraction] 42.8 % Normal 37-47 [facility] Comment on above: Performed By: #### L 100.0100, L500.2500 #### [facility] [address] [place], [address] Hemoglobin (Bld) [Mass/Vol] 14.7 g/dL Normal 12.0-15.0 [facility] Comment on above: Performed By: #### L 100.0100, L500.2500 #### [facility] [address] [place], [address] IG% 0.300 Normal 0.0-0.9 [facility] Comment on above: Result Comment: IG% - Immature Granulocytes (promyelocytes, myelocytes and metamyelocytes) > 1% indicates that a LEFT SHIFT is Present. Performed By: #### L 100.0100, L500.2500 #### [facility] [address] [place], [address] Lymphocytes/100 WBC (Bld) 25.9 % Normal 19-41 [facility] Comment on above: Performed By: #### L 100.0100, L500.2500 #### [facility] [address] [place], [address] MCH (RBC) [Entitic mass] 29.8 pg Normal 27.0-32.0 [facility] Comment on above: Performed By: #### L 100.0100, L500.2500 #### [facility] [address] [place], [address] MCHC (RBC) [Mass/Vol] 34.3 g/dL Normal 32-36 [facility] Comment on above: Performed By: #### L 100.0100, L500.2500 #### [facility] [address] [place], [address] MCV (RBC) [Entitic vol] 86.6 fL Normal 81-99 [facility] Comment on above: Performed By: #### L 100.0100, L500.2500 #### [facility] [address] [place], [address] Monocytes/100 WBC (Bld) 4.6 % Normal 0-10 [facility] Comment on above: Performed By: #### L 100.0100, L500.2500 #### [facility] [address] [place], [address] Neutrophils/100 WBC (Bld) 67.7 % Normal 47-70 [facility] Comment on above: Performed By: #### L 100.0100, L500.2500 #### [facility] [address] [place], [address] Nucleated RBC (Bld) [#/Vol] 0 10*3/uL Normal 0-5 [facility] Comment on above: Performed By: #### L 100.0100, L500.2500 #### [facility] [address] [place], [address] Platelet mean volume (Bld) [Entitic vol] 9.6 fL Normal 6.2-12.0 [facility] Comment on above: Performed By: #### L 100.0100, L500.2500 #### [facility] [address] [place], [address] Platelets (Bld) [#/Vol] 281 10*3/uL Normal 150-450 [facility] Comment on above: Performed By: #### L 100.0100, L500.2500 #### [facility] [address] [place], [address] RBC (Bld) [#/Vol] 4.94 10*6/uL Normal 4.2-5.4 [facility] Comment on above: Performed By: #### L 100.0100, L500.2500 #### [facility] [address] [place], [address] RDW SD 48.6 fl High 35.1-43.9 [facility] Comment on above: Performed By: #### L 100.0100, L500.2500 #### [facility] [address] [place], [address] WBC (Bld) [#/Vol] 11.4 10*3/uL High 4.4-11.0 [facility] Comment on above: Performed By: #### L 100.0100, L500.2500 #### [facility] [address] [place], [address] Emergency Department Summary on 04-08-2025 Emergency Department Summary [facility] Medical Records Department [address] [place] [address] Emergency Department Summary 04/08/25 MR#: [id number] Acct: [id number] Name: SIA CONTRERAS Rep #: [id number] : 1980 44 From: Keo Rivas DO PCP: Vladimir Davila [facility] MANAGER [employer]ER-C Status:DEP ER Location: ED HPI History of [...] chest pain or shortness of breath. PFSH [facility] Medical History Arthrosis of right acromioclavicular joint [...] to obtaini (more content not included)... Normal [facility] Urinalysis, Completeon 04-08 EPI,SQUAMOUS 5-10 SEEN Normal 5-10 [facility] Comment on above: Order Comment: CLEAN CATCH Performed By: #### L 400.0001 #### [facility] [address] [place], [address] RBC 0-5 SEEN Normal 0-5 [facility] Comment on above: Order Comment: CLEAN CATCH Performed By: #### L 400.0001 #### [facility] [address] [place], [address] WBC 0-5 SEEN Normal 0-5 [facility] Comment on above: Order Comment: CLEAN CATCH Performed By: #### L 400.0001 #### [facility] [address] [place], [address] BACTERIA 0 SEEN Normal None Seen [facility] Comment on above: Order Comment: CLEAN CATCH Performed By: #### L 400.0001 #### [facility] [address] [place], [address] Mucus Ql (Urine sed) 0 SEEN Normal [facility] Comment on above: Order Comment: CLEAN CATCH Performed By: #### L 400.0001 #### [facility] [address] [place], [address] Cerv Spine 4 or 5 Viewson Cerv Spine 4 or 5 Views [facility] Imaging Services [address] [place] [address] Cerv Spine 4 or 5 Views MR#: [id number] Acct: [id number] Name: SIA CONTRERAS Rep #: [id number] : 1980 F 44 From: Suleman auguste MD PCP: Vladimir Davila MANAGER FIBER-C Status: DEP AMB Study: Cerv Spine 4 or 5 Views Date of Exam: 02/28/25 Exam# [id number] Ordering Dr: Saadia Morales PROCEDURE: CERV SPINE [...] Views IMPRESSION: No acute findings. Reading Location: LASHAALIYA CC: CONNIE Cheng; Vladimir [facility] MANAGER [employer]ER[employer]C Giovanni Gold Assayer: Signed Normal [facility] Orthopedic Visit Reporton Orthopedic Visit Report [facility] [address] [place] [address] OFFICE VISIT Date of Service: 02/28/25 MR#: [id number] Acct: [id number] Name: SIA COTNRERAS Rep #: [id number] : 1980 Provider: CONNIE Cheng Age/Sex: 44/F Location: [facility].KIARA Status: Signed Intake Vital Signs 02/20/25 06:59 [...] PO QAM 30 days #30 caps 04/3 02/28/25 Rx venlafaxine 150 mg 150 mg PO [...] will only (more content not included)... Normal [facility] Orthopedic Visit Reporton Orthopedic Visit Report [facility] [address] [place] [address] OFFICE VISIT Date of Service: 02/22/25 MR#: [id number] Acct: [id number] Name: SIA CONTRERAS Rep #: [id number] : 1980 Provider: Dr. Shaun allison MD Age/Sex: 44/F Location: [facility].KIARA Status: Signed with Addenda ADDENDUM by Caitlin [...] Performing Provider: Shaun Raymond MD Performing Location: [facility] Administered by: Shaun Raymond MD on 02/22/25 15:28 Dose Route Admin Location Dispensed Lot Number Expiration Date NDC Man ufacturer 80 mg intra-articular right subacromial 2 mL [id number] 02/21/26 9295-9189-[address] [facility] Date cc: * Signed Intake Vital [...] QAM 30 days #30 caps 01/2402/22/25 Rx venlafaxine 150 mg 150 mg PO [...] by me, Dr. Shaun Raymond MD 02/22/25 2827. Part of today???s visit was documented by [...] Coding Level (more content not included)... Normal [facility] MR/BMS.BPon 02-20-2025 MR/BMS.BP [address], [address] [place] [address] OFFICE VISIT Date of Service: 02/20/25 MR#: [id number] Acct: [id number] Name: SIA CONTRERAS Rep #: [id number] : 1980 Provider: Dr. Manjit Hernandez se, DO Age/Sex: 44/F Location: [facility].BP Status: Signed Intake Vital Signs 11/22/24 14:34 [...] congruent Th (more content not included)... Normal [facility] Discharge Instructionon Discharge Instruction [facility] Medical Records Department [address] [place] [address] Instructions for Home/Discharge Instructions 01/22/25 1309 MR#: [id number] Acct: [id number] Name: SIA CONTRERAS Rep #: [id number] : 1980 44 From: Stella Gregory MD PCP: Vladimir Davila MANAGER FIBER-C Status:REG SDC Discharge Instructions Diet Discharge Diet: [...] Up With: Stella Gregory MD When: Call [phone] to schedule appointment. Test Results: Test results from this visit will be discussed in further detail at your follow-up appointment, if applicable. Discharge Plan Admission Attending Provider: Stella Gregory Primary Care Provider: Vladimir Davila Instructions Print Language: Guinean Discharge Orders/Prescriptions Prescriptions: No Action venlafaxine 150 [...] 0RF Referrals / Follow Up: Colby Donovan, MANAGER FIBER-C [[facility]] - Disposition Disposition (needs filled in before D/C Order can be placed): Home, Self Care 01/22/25 1309 Stella Gregory MD CC: Vladimir Davila Signed Normal [facility] MR/POSTOP.Abhishek 01-22-2025 MR/POSTOP.[facility] Medical Records Department [address] [facility] [place] [address] Anesthesia Postop Eval I 01/22/25 1317 MR#: [id number] Acct: [id number] Name: SIA CONTRERAS Rep #: [id number] : 1980 44 From: Eli Roberto PCP: Vladimir Davila [facility] MANAGER FIBER-C Status:REG SDC Y Race: C Location: [place] [address] Anesthesia: Postop Eval I Current Vital Signs [...] Eli Chacon Signature: Date CC: Signed Normal [facility] MR/OXOSKABU5ql 01-22-2025 /[facility] Medical Records Department [address] [place] [address] Anesthesia Postop Eval II 01/22/25 1345 MR#: [id number] Acct: [id number] Name: SIA CONTRERAS Rep #: [id number] : 1980 44 From: Eli Roberto PCP: Vladimir Davila [facility] MANAGER FIBER-C Status:REG SDC Y Race: C Location: [place] [address] Anesthesia Postop Eval I Sum Postop Eval Completion status Anesthesia document: Postop Eval 1 completed: Yes Anesthesia Postop Eval I Summary Anesthesia Postop Eval I Summary: Anesthesia Postop Eval I: Assessment Summary Airway patent Yes 01/22/25 13:18 BUCK SWAMPER.GDOTT Spontaneous unlabored Yes 01/22/25 13:18 [employer] SWAMPER.GDOTT respirations Mental status Awake,Calm 01/22/25 13:18 BU[employer] SWAMPER.GDOTT nausea No 01/22/25 13:18 [employer] SWAMPER.GDOTT Vomiting No 01/22/25 13:18 [facility] SWAMPER.GDOTT Anesthesia Postop Eval I: Fluid Summary Crystalloid volume administer 30 01/22/25 13:18 BUCK SWAMPER.GDOTT (ml) Colloids volume administered ( ml) Blood Product volume administered (ml) Total IV fluid infused 30 01/22/25 13:18 BU[employer] SWAMPER.GDOTT Anesthesia Postop Eval I: Summary Notes Anesthesia Complication No 01/22/25 13:18 BU[employer] SWAMPER.GDOTT Anesthesia Complication Comment: Post-operative progress note Anesthesia: Postop Eval II Evaluation Mental status: Awake and Calm Pain Level: 0 nausea: No Vomiting: No Complications Anesthesia Complication: No 01/22/25 1346 Date Eli Gutierrezigner Signature: Date CC: Signed Normal [facility] Operative Reporton 5 Operative Report [facility] Medical Records Department [address] [place] [address] Operative Report 01/22/25 1303 MR#: [id number] Acct: [id number] Name: DIANESIA JO Rep #: [id number] : 1980 44 From: Stella Gregory MD PCP: Vladimri Davila [facility] MANAGER FIBER-C Status:[facility] Location: [place] [address] Problems Associated Problem List Diagnoses (1) Abnormal uterine bleeding (AUB): (2) History of endometrial ablation: Multi Select Codes Urinary/Genital Urinary/Genital CPT Codes: 61564 Melvi/Novasure Operative Report (Standard) Operative Information Date of Procedure: 01/22/25 Pre-Operative Diagnosis: see problem list Post-Operative Diagnosis: same Surgery/Procedure Performed: d and c hysteroscopy melvi ablation horse breaker: No Type of Anesthesia: IV Sedation RN [...] (if applicable): CC: [facility]. Stella Gregory MD; [facility] Beam Signed Normal [facility] ,Urineon 01-22-2025 Beta HCG ( test) Ql (U) Negative Normal [facility] Comment on above: Result Comment: Very dilute urine specimens, as indicated by a low specific gravity, may not contain promotions representative levels of hCG. If is still suspected, a first morning urine specimen should be collected 48 hours later and tested. Performed By: #### L 400.7600 #### [facility] Laboratory [address] [place], [address] Surgery Specimen Level Muriel 01-22-2025 Surgery Specimen Level IV Patient Age/Sex Location Account Attending Physician SIA CONTRERAS 44/F [facility] [id number]. Stella Gregory MD Specimen: [id number] Received: 01/22/25 Status: YUNIOR Stacy Num: [id number] Spec Type: ENDOM BX/C Subm Dr: Dr. [...] in aggregate. Submitted in toto in A1-2. [facility] 01-22-2025 CPT:56443 Patient Age/Sex Location Account Attending Physician SIA CONTRERAS 44/F [facility] [id number] Dr. Stella Gregory MD Signed (signature on file) Dr. Abbie Henderson MD 01/25/25 1630 Normal [facility] Comment on above: Performed By: #### P SUIV ####[facility] [address] [place], [address] CBC-Complete Blood Cnt No Di ffon 01-19-2025 Erythrocyte distribution width (RBC) [Ratio] 15.5 % High 11.6-14.6 [facility] Comment on above: Performed By: #### B TSPAT, L400.7600, L100.0500 #### [facility] Laboratory [address] [place], [address] Hematocrit (Bld) [Volume fraction] 40.2 % Normal 37-47 [facility] Comment on above: Performed By: #### B TSPAT, L400.7600, L100.0500 #### [facility] [address] [place], [address] Hemoglobin (Bld) [Mass/Vol] 13.4 g/dL Normal 12.0-15.0 [facility] Comment on above: Performed By: #### B TSPAT, L400.7600, L100.0500 #### [facility] [address] [place], [address] MCH (RBC) [Entitic mass] 28.4 pg Normal 27.0-32.0 [facility] Comment on above: Performed By: #### B TSPAT, L400.7600, L100.0500 #### [facility] [address] [place], [address] MCHC (RBC) [Mass/Vol] 33.3 g/dL Normal 32-36 [facility] Comment on above: Performed By: #### B TSPAT, L400.7600, L100.0500 #### [facility] [address] [place], [address] MCV (RBC) [Entitic vol] 85.2 fL Normal 81-99 [facility] Comment on above: Performed By: #### B TSPAT, L400.7600, L100.0500 #### [facility] [address] [place], [address] Platelet mean volume (Bld) [Entitic vol] 10.0 fL Normal 6.2-12.0 [facility] Comment on above: Performed By: #### B TSPAT, L400.7600, L100.0500 #### [facility] [address] [place], [address] Platelets (Bld) [#/Vol] 260 10*3/uL Normal 150-450 [facility] Comment on above: Performed By: #### B TSPAT, L400.7600, L100.0500 #### [facility] [address] [place], [address] RBC (Bld) [#/Vol] 4.72 10*6/uL Normal 4.2-5.4 [facility] Comment on above: Performed By: #### B TSPAT, L400.7600, L100.0500 #### [facility] [address] [place], [address] RDW SD 47.9 fl High 35.1-43.9 [facility] Comment on above: Performed By: #### B TSPAT, L400.7600, L100.0500 #### [facility] [address] [place], [address] WBC (Bld) [#/Vol] 8.9 10*3/uL Normal 4.4-11.0 [facility] Comment on above: Performed By: #### B TSPAT, L400.7600, L100.0500 #### [facility] [address] [place], [place], [address] ,Urineon 01-19-2025 Beta HCG ( test) Ql (U) Negative Normal [facility] Comment on above: Result Comment: Very dilute urine specimens, as indicated by a low specific gravity, may not contain promotions representative levels of hCG. If is still suspected, a first morning urine specimen should be collected 48 hours later and tested. Performed By: #### B TSPAT, L400.7600, L100.0500 #### [facility] [address] [place], [place], [address] Type AND Screen - PAT ONLYon 01-19-2025 ABO and Rh group Nom (Bld) Blood group A Rh(D) positive Normal [facility] Comment on above: Order Comment: Surge ry Date: 01/22/25Reason for Laboratory Test [id number] D C ABLATION Performed By: #### B TSPAT, L400.7600, L100.0500 ####[facility] [address] [place], [place], [address] Orthopedic Visit Reporton Orthopedic Visit Report [facility] [address] [place] [address] OFFICE VISIT Date of Service: 12/31/24 MR#: [id number] Acct: [id number] Name: SIA CONTRERAS ELSA Rep #: [id number] : 1980 Provider: Dr. Shaun allison MD Age/Sex: 44/F Location: [facility].KIARA Status: Signed Intake Vital Signs 12/14/24 09:49 [...] 30 days #30 caps 05/1712/31/24 Rx (Vyvanse) [facility] Medical History (Updated 12/31/24 @ 08:14 by [...] is laterally about the shoulder. Supplemental Info [facility] Imaging Services [address] [place], [place] [address] Upper Ext Joint Only(Routine) MR#: [id number] Acct: [id number] Name: SIA CONTRERAS Rep #: [id number] : 1980 F 43 From: Andreas Vazquez DO PCP: HAILE Borges Status: REG CLI Study: Upper Ext Joint Only(Routine) Date of Exam: 12/22/24 Exam# [id number] Ordering Dr: Shaun Raymond MD PROCEDURE: MRI [...] the s (more content not included)... Normal [facility] Re-Evaluation - PT (1)on Re-Evaluation - PT (1) [facility] Physical Therapy [facility] [address] [place] [address]. [address] [place] [address] / REEVALUATION / MEDICARE RECERTIFICATION PHYSICAL THERAPY MR#: [id number] Acct: [id number] Name: SIA CONTRERAS Rep #: [id number] : 1980 43 From: Keo Ramirez DPT, OCS, CSCS Referring Dr.: Dr. Shaun Raymond MD Status:REG RCR Insurance: [facility] SELF PAY INSURANCE Re-Evaluation Intro: Dr. Shaun [...] do not hesitate to contact me at [phone] by phone or if you have questions or concerns regarding this new plan of care! Sincerely, Keo Ramirez, DPT, OCS, CSCS 12/27/24 1254 CC: HAILE Donovan; Dr. Shaun Raymond MD EBG Signed For Medicare only, by signing this I certify the plan of care. ___ Physicians Signature Date Normal [facility] Upper Ext Joint Only(Routine )on 12-22-2024 Upper Ext Joint Only(Routine) [facility] Imaging Services [address] [place] [address] Upper Ext Joint Only(Routine) MR#: [id number] Acct: [id number] Name: SIA CONTRERAS Rep #: [id number] : 1980 F 43 From: Andreas Chaudhary PCP: HAILE Borges Status: REG CLI Study: Upper Ext Joint Only(Routine) Date of Exam: 0 12/22/24 Exam# [id number] Ordering Dr: Shaun Raymond MD PROCEDURE: MRI [...] the subacromial/subdeltoid bursa. Reading Location: [place] CC: MANAGER FIBER-C Colby Donovan; Dr. Shaun Raymond MD Gold Assayer: Signed Normal [facility] Abdomen/Pelvis WITH Contrast on 12-17-2024 Abdomen/Pelvis WITH Contrast [facility] Imaging Services [address] [place] [id number] Abdomen/Pelvis WITH Contrast MR#: [id number] Acct: [id number] Name: ELSASIA Kay ELSA Rep #: [id number] : 1980 F 43 From: Grady Wong i DO PCP: Colby Donovan NP-Mela Status: REG CLI Study: Abdomen/Pelvis WITH Contrast Date of Exam: Exam# [id number] Ordering Dr: Vladimir Davila [facility] MANAGER FIBER- C PROCEDURE: CT of the abdomen/pelvis with [...] iterative reconstruction technique). Reading Location: [place] CC: MANAGER FIBERHank Gilbert [facility] MANAGER FIBER-Mela Beam Gold Assayer: Signed Normal [facility] Framing Machine Tender Office Visit Reporton 12-14-2024 Framing Machine Tender Office Visit Report [facility] [address], [address] [place] [address] OFFICE VISIT Date of Service: 12/14/24 MR#: [id number] Acct: [id number] Name: ELSAElizaSIA Rep #: [id number] : 1980 Provider: Dr. Stella reynaga MD Age/Sex: 43/F Location: [facility] Status: Signed Intake Vital Signs 11/28/24 09:58 12/14/24 09:41 12/14/24 09:49 Height 5 ft 9 in 5 ft 9 in 5 ft 9 in Weight: 313 lb 302 lb 4 oz BMI 46.2 44.6 BP 142/89 H 136/83 H Intake Visit Reasons: Ablation Consult Chief Complaint: Ablation consult Molder Machine Required: No Is patient in pain?: No [...] the past well, [facility]. she is interested in an [...] excessive sweating, (more content not included)... Normal [facility] PAP IG HPV APTIMA 16/18,45on 12-04-2024 ADEQ Comment Normal . [facility] Comment on above: Order Comment: Speci men Comment: [id number] Specimen Comment: Source.............Cervix;Endocervix Specimen Comment: No. of containers..01 ThinPrep Vial Result Comment: Sati sfactory for evaluation. No endocervical component is identified. Performed By: #### L 7400.0280 #### [facility] Laboratory [address] [place], [address] COMM . Normal . [facility] Comment on above: Order Comment: Speci men Comment: [id number] Specimen Comment: Source.............Cervix;Endocervix Specimen Comment: No. of containers..01 ThinPrep Vial Performed By: #### L 7400.0280 #### [facility] [address] [place], [place], [address] COMMENT Comment Normal . [facility] Comment on above: Order Comment: Speci men Comment: [id number] Specimen Comment: Source.............Cervix;Endocervix Specimen Comment: No. of containers..01 ThinPrep Vial Result Comment: This liquid based ThinPrep(R) pap test was screened with the use of an image guided system. Performed By: #### L 7400.0280 #### [facility] [address] [place], [place], [address] DIAG Comment Normal . [facility] Comment on above: Order Comment: Speci men Comment: [id number] Specimen Comment: Source.............Cervix;Endocervix Specimen Comment: No. of containers..01 ThinPrep Vial Result Comment: NEGA TIVE FOR INTRAEPITHELIAL LESION OR MALIGNANCY. Performed By: #### L 7400.0280 #### [facility] [address] [place], [place], [address] HPV APTIMA, HR Negative Normal Negative [facility] Comment on above: Order Comment: Speci men Comment: [id number] Specimen Comment: Source.............Cervix;Endocervix Specimen Comment: No. of containers..01 ThinPrep Vial Result Comment: This nucleic acid amplification test detects fourteen high- risk HPV types (16,18,31,33,35,39,45,51,52,56,58,59,66,68) without differentiation. Performed By: #### L 7400.0280 #### [facility] [address] [place], [address] HPV Adela Rfx Comment Normal . [facility] Comment on above: Order Comment: Speci men Comment: [id number] Specimen Comment: Source.............Cervix;Endocervix Specimen Comment: No. of containers..01 ThinPrep Vial Result Comment: Crit erluiza not met, HPV Genotype not performed. Performed at: - [address] [id number] Umbrella Frame Maker: Elvia Koch MD, Phone: [phone] Performed at: = - [facility] [id number] Umbrella Frame Maker: Elvia Koch MD, Phone: [phone] Performed By: #### L 7400.0280 #### [facility] [address] [place], [address] PAPSMR Comment Normal . [facility] Comment on above: Order Comment: Speci men Comment: [id number] Specimen Comment: Source.............Cervix;Endocervix Specimen Comment: No. of [...] occur. Performed By: #### L 7400.0280 #### [facility] [address] [place], [address] PERFORM Comment Normal . [facility] Comment on above: Order Comment: Speci men Comment: [id number] Specimen Comment: Source.............Cervix;Endocervix Specimen Comment: No. of containers..01 ThinPrep Vial Result Comment: Manuel Guillermo Telecommunication Engineer (ASCP) Performed By: #### L 7400.0280 #### [facility] Laboratory [address] [place], [address] Pelvic w/ Transvaginalon Pelvic w/ Transvaginal [facility] Imaging Services [address] [place], [place] [address] Pelvic w/ Transvaginal MR#: [id number] Acct: [id number] Name: SIA CONTRERAS Rep #: [id number] : 1980 F 43 From: Lane bae MD PCP: HAILE Borges Status: REG CLI Study: Pelvic w/ Transvaginal Date of Exam: 12/03/24 Exam# [id number] Ordering Dr: Xuan Gaytan PROCEDURE: PELVIC W/ [...] myometrium suggestive of fibroid change. Reading Location: [id number]-[id number] CC: HAILE Gaytan; HAILE Donovan Gold Assayer: Signed Normal [facility] SCRN MAMM (CAD)W/MARTHA BILATo n 12-03-2024 SCRN MAMM (CAD)W/MARTHA BILAT [facility] Imaging Services [address] [place] [address] SCRN MAMM (CAD)W/MARTHA BILAT MR#: [id number] Acct: [id number] Name: SIA CONTRERAS ELSA Rep #: [id number] : 1980 F 43 From: Patti San MD PCP: HAILE Borges Status: REG CLI Study: SCRN MAMM (CAD)W/MARTHA BILAT Date of Exam: 11/24 Exam# [id number] Ordering Dr: Xuan Gaytan PROCEDURE: SCRN MAMM [...] of the results by letter. Reading Location: [id number] CC: HAILE Gaytan; HAILE Donovan Gold Assayer: Signed Normal [facility] Framing Machine Tender Office Visit Reporton 11-28-2024 Framing Machine Tender Office Visit Report [facility] [address], [address] [place] [address] OFFICE VISIT Date of Service: 11/28/24 MR#: [id number] Acct: [id number] Name: SIA CONTRERAS Rep #: [id number] : 1980 Provider: HAILE Cortez Age/Sex: 43/F Location: [facility] Status: Signed Intake Vital Signs 05/16/24 17:02 11/22/24 14:34 11/28/24 09:58 Height 5 ft 9 in 5 ft 9 in 5 ft 9 in Weight: 313 lb BMI 46.2 BP 155/93 H 142/89 H Blood Pressure Location Lt brachial Position Sitting Respiration 16 Pulse 87 Pulse Source Monitor 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 Normal [facility] Inital Evaluation (1) - PTon 11-23-2024 Inital Evaluation (1) - PT [facility] Physical Therapy [facility] [address] [place] [address] [address] [place] [address] / REHABILITATION SERVICES INITIAL EVALUATION MR#: [id number] Acct: [id number] Name: SIA CONTRERAS Rep #: [id number] : 1980 43 From: Keo Ramirez DPT, OCS, CSCS Referring Dr.: Dr. Shaun Raymond MD Status: R EG RCR Insurance: [facility] SELF PAY INSURANCE Patient's Visit Information Visit Information Visit Information: SIA CONTRERAS is a 43 year old F referred to Physical Therapy by Dr. Shaun Raymond MD with a diagnosis of r shoulder pain. Date of Evaluation: 11/23/24 Physical Therapist: Keo James, DPT, OCS, CSCS Visit Plan Frequency: 2x [...] on R side. 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 Basic ADLs I but painful to put bra on but OK since injection. No numb ness or tingling lately. Comfortable at rest much of time. Pain R shoulder: Pain Intensity (Out of 10): 0 Pain Intensity Range: 0 and 4 Objective Objective: [facility]. No balance issues. [...] to be FAXED BACK to us at [phone] for Medicare purposes. For Medicare only, by signing this I certify the plan of care. Please let me know if there are questions or concerns regarding this plan of care. Physician Signature: Date: _ 11/23/24 0956 CC: HAILE Donovan; Dr. Shaun Raymond MD FRANCOISE Signed Normal [facility] MR/BMS.Ann 11-22-2024 MR/BMS. [address], [address] [place], [place] [address] OFFICE VISIT Date of Service: 11/22/24 MR#: [id number] Acct: [id number] Name: SIA CONTRERAS Rep #: [id number] : 1980 Provider: Dr. Manjit Hernandez se, DO Age/Sex: 43/F Location: [facility].BP Status: Signed Intake Vital Signs 05/16/24 17:02 [...] none Homicidal (more content not included)... Normal [facility] Orthopedic Visit Reporton Orthopedic Visit Report [facility] [address] [place] [address] OFFICE VISIT Date of Service: 11/16/24 MR#: [id number] Acct: [id number] Name: SIA CONTRERAS Rep #: [id number] : 1980 Provider: Dr. Shaun allison MD Age/Sex: 43/F Location: [facility].[place] Status: Signed with Addenda ADDENDUM by Caitlin [...] Performing Provider: Shaun Raymond MD Performing Location: [facility] Administered by: Shaun Raymond MD on 11/16/24 11:35 Dose Route Admin Location Dispensed Lot Number Expiration Date NDC Man ufacturer 80 mg intra-articular right subacromial 2 mL [id number] 02/21/26 2013-0234-81 [facility] Date cc: * Signed Intake Vital [...] by me, Dr. Shaun Raymond MD 11/16/24 0823. Part of today???s visit was documented by [...] strength fe and er 5/5. Supplemental Info [facility] Radiology [address] [place] [address] Shoulder min 2 Views MR#: [id number] Acct: [id number] Name: SIA CONTRERAS ELSA (more content not included)... Normal [facility] Amylaseon 11-14-2024 GRACIA 32 U/L Normal 25-115 [facility] Comment on above: Performed By: #### L 500.4100, L501.2400, L500.4050, L503.0105, L501.9985, L501.2450, L100.0100, L506.1000, L501.9520 ####[facility] [address] [facility] [place], [address] CBC W/Diff, Automatedon 10-25 Absolute Lymph 2.20 X10 3/uL Normal 0.83-4.51 [facility] Comment on above: Performed By: #### L 500.4100, L501.2400, L500.4050, L503.0105, L501.9985, L501.2450, L100.0100, L506.1000, L501.9520 ####[facility] [address] [facility] [place], [address] Absolute Neut 5.1 X10 3/uL Normal 2.0-7.7 [facility] Comment on above: Performed By: #### L 500.4100, L501.2400, L500.4050, L503.0105, L501.9985, L501.2450, L100.0100, L506.1000, L501.9520 ####[facility] [address] [place], [address] Basophils/100 WBC (Bld) 0.9 % Normal 0-1 [facility] Comment on above: Performed By: #### L 500.4100, L501.2400, L500.4050, L503.0105, L501.9985, L501.2450, L100.0100, L506.1000, L501.9520 ####[facility] [address] [place], [address] Eosinophils/100 WBC (Bld) 2.6 % Normal 0-5 [facility] Comment on above: Performed By: #### L 500.4100, L501.2400, L500.4050, L503.0105, L501.9985, L501.2450, L100.0100, L506.1000, L501.9520 ####[facility] [address] [place], [address] Erythrocyte distribution width (RBC) [Ratio] 15.2 % High 11.6-14.6 [facility] Comment on above: Performed By: #### L 500.4100, L501.2400, L500.4050, L503.0105, L501.9985, L501.2450, L100.0100, L506.1000, L501.9520 ####[facility] [address] [place], [address] Hematocrit (Bld) [Volume fraction] 42.3 % Normal 37-47 [facility] Comment on above: Performed By: #### L 500.4100, L501.2400, L500.4050, L503.0105, L501.9985, L501.2450, L100.0100, L506.1000, L501.9520 ####[facility] [address] [place], [address] Hemoglobin (Bld) [Mass/Vol] 13.7 g/dL Normal 12.0-15.0 [facility] Comment on above: Performed By: #### L 500.4100, L501.2400, L500.4050, L503.0105, L501.9985, L501.2450, L100.0100, L506.1000, L501.9520 ####[facility] [address] [place], [address] IG% 0.400 Normal 0.0-0.9 [facility] Comment on above: Result Comment: IG% - Immature Granulocytes (promyelocytes, myelocytes and metamyelocytes) > 1% indicates that a LEFT SHIFT is Present. Performed By: #### L 500.4100, L501.2400, L500.4050, L503.0105, L501.9985, L501.2450, L100.0100, L506.1000, L501.9520 ####[facility] [address] [place], [address] Lymphocytes/100 WBC (Bld) 27.5 % Normal 19-41 [facility] Comment on above: Performed By: #### L 500.4100, L501.2400, L500.4050, L503.0105, L501.9985, L501.2450, L100.0100, L506.1000, L501.9520 ####[facility] [address] [place], [address] MCH (RBC) [Entitic mass] 27.3 pg Normal 27.0-32.0 [facility] Comment on above: Performed By: #### L 500.4100, L501.2400, L500.4050, L503.0105, L501.9985, L501.2450, L100.0100, L506.1000, L501.9520 ####[facility] [address] [place], [address] MCHC (RBC) [Mass/Vol] 32.4 g/dL Normal 32-36 [facility] Comment on above: Performed By: #### L 500.4100, L501.2400, L500.4050, L503.0105, L501.9985, L501.2450, L100.0100, L506.1000, L501.9520 ####[facility] [address] [place], [address] MCV (RBC) [Entitic vol] 84.4 fL Normal 81-99 [facility] Comment on above: Performed By: #### L 500.4100, L501.2400, L500.4050, L503.0105, L501.9985, L501.2450, L100.0100, L506.1000, L501.9520 ####[facility] [address] [place], [address] Monocytes/100 WBC (Bld) 5.3 % Normal 0-10 [facility] Comment on above: Performed By: #### L 500.4100, L501.2400, L500.4050, L503.0105, L501.9985, L501.2450, L100.0100, L506.1000, L501.9520 ####[facility] [address] [place], [address] Neutrophils/100 WBC (Bld) 63.3 % Normal 47-70 [facility] Comment on above: Performed By: #### L 500.4100, L501.2400, L500.4050, L503.0105, L501.9985, L501.2450, L100.0100, L506.1000, L501.9520 ####[facility] [address] [place], [address] Nucleated RBC (Bld) [#/Vol] 0 10*3/uL Normal 0-5 [facility] Comment on above: Performed By: #### L 500.4100, L501.2400, L500.4050, L503.0105, L501.9985, L501.2450, L100.0100, L506.1000, L501.9520 ####[facility] [address] [place], [address](829) Platelet mean volume (Bld) [Entitic vol] 10.2 fL Normal 6.2-12.0 [facility] Comment on above: Performed By: #### L 500.4100, L501.2400, L500.4050, L503.0105, L501.9985, L501.2450, L100.0100, L506.1000, L501.9520 ####[facility] [address] [place], [place], [address](987) Platelets (Bld) [#/Vol] 263 10*3/uL Normal 150-450 [facility] Comment on above: Performed By: #### L 500.4100, L501.2400, L500.4050, L503.0105, L501.9985, L501.2450, L100.0100, L506.1000, L501.9520 ####[facility] [address] [place], [address](002) RBC (Bld) [#/Vol] 5.01 10*6/uL Normal 4.2-5.4 [facility] Comment on above: Performed By: #### L 500.4100, L501.2400, L500.4050, L503.0105, L501.9985, L501.2450, L100.0100, L506.1000, L501.9520 ####[facility] [address] [place], [address](869) RDW SD 45.6 fl High 35.1-43.9 [facility] Comment on above: Performed By: #### L 500.4100, L501.2400, L500.4050, L503.0105, L501.9985, L501.2450, L100.0100, L506.1000, L501.9520 ####[facility] [address] [place], [address] WBC (Bld) [#/Vol] 8.0 10*3/uL Normal 4.4-11.0 [facility] Comment on above: Performed By: #### L 500.4100, L501.2400, L500.4050, L503.0105, L501.9985, L501.2450, L100.0100, L506.1000, L501.9520 ####[facility] [address] [place], [address] Comprehensive Metabolic Prof ilon 11-14-2024 Albumin [Mass/Vol] 3.5 g/dL Normal 3.2-5.0 [facility] Comment on above: Performed By: #### L 500.4100, L501.2400, L500.4050, L503.0105, L501.9985, L501.2450, L100.0100, L506.1000, L501.9520 ####[facility] [address] [place], [address] Albumin/Globulin [Mass ratio] 0.9 {ratio} Normal 0.9-2.4 [facility] Comment on above: Performed By: #### L 500.4100, L501.2400, L500.4050, L503.0105, L501.9985, L501.2450, L100.0100, L506.1000, L501.9520 ####[facility] [address] [place], [address] ALK P 82 U/L Normal 45-117 [facility] Comment on above: Performed By: #### L 500.4100, L501.2400, L500.4050, L503.0105, L501.9985, L501.2450, L100.0100, L506.1000, L501.9520 ####[facility] [address] [place], [address](176) ALT [Catalytic activity/Vol] 25 U/L Normal 13-56 [facility] Comment on above: Performed By: #### L 500.4100, L501.2400, L500.4050, L503.0105, L501.9985, L501.2450, L100.0100, L506.1000, L501.9520 ####[facility] [address] [place], [address] AST [Catalytic activity/Vol] 16 U/L Normal 15-37 [facility] Comment on above: Performed By: #### L 500.4100, L501.2400, L500.4050, L503.0105, L501.9985, L501.2450, L100.0100, L506.1000, L501.9520 ####[facility] [address] [place], [address] Bilirubin [Mass/Vol] 0.20 mg/dL Normal 0.20-1.00 [facility] Comment on above: Result Comment: For patients on eltrombopag therapy, use of Dimension [place] TBIL is not recommended. Performed By: #### L 500.4100, L501.2400, L500.4050, L503.0105, L501.9985, L501.2450, L100.0100, L506.1000, L501.9520 ####[facility] [address] [place], [address] BUN/CRE 13.0 RATIO Normal 10-20 [facility] Comment on above: Performed By: #### L 500.4100, L501.2400, L500.4050, L503.0105, L501.9985, L501.2450, L100.0100, L506.1000, L501.9520 ####[facility] [address] [place], [address] CA,Total 8.9 mg/dL Normal 8.5-10.1 [facility] Comment on above: Performed By: #### L 500.4100, L501.2400, L500.4050, L503.0105, L501.9985, L501.2450, L100.0100, L506.1000, L501.9520 ####[facility] [address] [place], [address] Chloride [Moles/Vol] 102 mmol/L Normal 98-107 [facility] Comment on above: Performed By: #### L 500.4100, L501.2400, L500.4050, L503.0105, L501.9985, L501.2450, L100.0100, L506.1000, L501.9520 ####[facility] [address] [place], [address] CO2 [Moles/Vol] 28.0 mmol/L Normal 21.0-32.0 [facility] Comment on above: Performed By: #### L 500.4100, L501.2400, L500.4050, L503.0105, L501.9985, L501.2450, L100.0100, L506.1000, L501.9520 ####[facility] [address] [place], [address] Creatinine [Mass/Vol] 0.84 mg/dL Normal 0.55-1.02 [facility] Comment on above: Result Comment: The validity of the calculated GFR GFRAA in patients over 70 years has not been determined. Clinical correlation is essential. Performed By: #### L 500.4100, L501.2400, L500.4050, L503.0105, L501.9985, L501.2450, L100.0100, L506.1000, L501.9520 ####[facility] [address] [place], [address] EST GFR - AA 94 mL/min Normal >60 [facility] Comment on above: Result Comment: Afri can Kazakh GFR Calc Performed By: #### L 500.4100, L501.2400, L500.4050, L503.0105, L501.9985, L501.2450, L100.0100, L506.1000, L501.9520 ####[facility] [address] [place], [place], [id number] GAP 6 Normal 5-15 [facility] Comment on above: Performed By: #### L 500.4100, L501.2400, L500.4050, L503.0105, L501.9985, L501.2450, L100.0100, L506.1000, L501.9520 ####[facility] [address] [place], [place], [id number] GFR/1.73 sq M.predicted among non-blacks MDRD (S/P/Bld) [Vol rate/Area] 77 mL/min/{1.73_m2} Normal >60 [facility] Comment on above: Result Comment: Non- GFR Calc Performed By: #### L 500.4100, L501.2400, L500.4050, L503.0105, L501.9985, L501.2450, L100.0100, L506.1000, L501.9520 ####[facility] [address] [place], [place], [phone] Globulin (S) [Mass/Vol] 4.1 g/dL Normal 2.2-4.2 [facility] Comment on above: Performed By: #### L 500.4100, L501.2400, L500.4050, L503.0105, L501.9985, L501.2450, L100.0100, L506.1000, L501.9520 ####[facility] [address] [place], [address] Glucose [Mass/Vol] 88 mg/dL Normal 74-106 [facility] Comment on above: Performed By: #### L 500.4100, L501.2400, L500.4050, L503.0105, L501.9985, L501.2450, L100.0100, L506.1000, L501.9520 ####[facility] [address] [place], [address] Potassium [Moles/Vol] 3.8 mmol/L Normal 3.5-5.1 [facility] Comment on above: Performed By: #### L 500.4100, L501.2400, L500.4050, L503.0105, L501.9985, L501.2450, L100.0100, L506.1000, L501.9520 ####[facility] [address] [place], [address] Sodium [Moles/Vol] 136 mmol/L Normal 136-145 [facility] Comment on above: Performed By: #### L 500.4100, L501.2400, L500.4050, L503.0105, L501.9985, L501.2450, L100.0100, L506.1000, L501.9520 ####[facility] [address] [place], [address] T PROT 7.6 g/dL Normal 6.4-8.2 [facility] Comment on above: Performed By: #### L 500.4100, L501.2400, L500.4050, L503.0105, L501.9985, L501.2450, L100.0100, L506.1000, L501.9520 ####[facility] [address] [place], [address] Urea nitrogen [Mass/Vol] 11 mg/dL Normal 7-18 [facility] Comment on above: Performed By: #### L 500.4100, L501.2400, L500.4050, L503.0105, L501.9985, L501.2450, L100.0100, L506.1000, L501.9520 ####[facility] [address] [place], [address] Hemoglobin A1con 11-14-2024 HbA1c (Bld) [Mass fraction] 6.2 % High 3.8-5.6 [facility] Comment on above: Result Comment: Norm al < 5.7 % Prediabetic 5.7 - 6.4 % Diabetic >or= 6.5 % Please note range changes. Performed By: #### L 500.4100, L501.2400, L500.4050, L503.0105, L501.9985, L501.2450, L100.0100, L506.1000, L501.9520 ####[facility] [address] [place], [place], [phone] Lipaseon 11-14-2024 Lipase [Catalytic activity/Vol] 25 U/L Normal 13-75 [facility] Comment on above: Result Comment: Plea se note: LIPASE revised reference range effective 23. New Lipase methodology. Expected to produce lower values than the previous assay method. NEW Reference Range: 13 - 75 U/L Performed By: #### L 500.4100, L501.2400, L500.4050, L503.0105, L501.9985, L501.2450, L100.0100, L506.1000, L501.9520 ####[facility] [address] [place], [place], [phone] Lipid Profileon 11-14-2024 Cholesterol [Mass/Vol] 197 mg/dL Normal 200 [facility] Comment on above: Result Comment: <200 mg/dL Desirable 200-240 mg/dL Borderline >240 mg/dL High Risk Performed By: #### L 500.4100, L501.2400, L500.4050, L503.0105, L501.9985, L501.2450, L100.0100, L506.1000, L501.9520 ####[facility] [address] [place], [address] Cholesterol in HDL [Mass/Vol] 52 mg/dL Normal [facility] Comment on above: Result Comment: The drugs N-Acetylcysteine and Metamizole may falsely depress this assay. Reference Range HDL <40 mg/dL Low HDL Cholesterol HDL >or= 60 mg/dL High HDL Cholesterol Performed By: #### L 500.4100, L501.2400, L500.4050, L503.0105, L501.9985, L501.2450, L100.0100, L506.1000, L501.9520 ####[facility] [address] [place], [address] Cholesterol in LDL [Mass/Vol] 86 mg/dL Normal 0-130 [facility] Comment on above: Performed By: #### L 500.4100, L501.2400, L500.4050, L503.0105, L501.9985, L501.2450, L100.0100, L506.1000, L501.9520 ####[facility] [address] [place], [address] Cholesterol in VLDL [Mass/Vol] 59 mg/dL High 5-40 [facility] Comment on above: Performed By: #### L 500.4100, L501.2400, L500.4050, L503.0105, L501.9985, L501.2450, L100.0100, L506.1000, L501.9520 ####[facility] [address] [place], [address] Triglyceride [Mass/Vol] 293 mg/dL High [facility] Comment on above: Result Comment: The drugs N-Acetylcysteine and Metamizole may falsely depress this assay. Serum Triglycerides Reference Interval Normal <150 mg/dL Borderline high 150 - 199 mg/dL High 200 - 499 mg/dL Very High > or = 500 mg/dL Performed By: #### L 500.4100, L501.2400, L500.4050, L503.0105, L501.9985, L501.2450, L100.0100, L506.1000, L501.9520 ####[facility] [address] [place], [address] Thyroid Stim Hormone (TSH)on 11-14-2024 TSH 2.240 uIU/mL Normal 0.358-3.740 [facility] Comment on above: Performed By: #### L 500.4100, L501.2400, L500.4050, L503.0105, L501.9985, L501.2450, L100.0100, L506.1000, L501.9520 ####[facility] [address] [place], [address] Vitamin B12on 11-14-2024 Cobalamin (Vitamin B12) [Mass/Vol] 361 pg/mL Normal 211-911 [facility] Comment on above: Performed By: #### L 500.4100, L501.2400, L500.4050, L503.0105, L501.9985, L501.2450, L100.0100, L506.1000, L501.9520 ####[facility] [address] [facility] [place], [place], [address] Vitamin D,25 Hydroxyon 11-14 Vitamin D 25-OH 13.7 ng/mL Normal [facility] Comment on above: Result Comment: Caty min D 25(OH) Status Range Deficiency <20 ng/mL (50nmol/L) Insufficiency 20 - 30 ng/mL (50 - 75 nmol/L) Sufficiency 30 - 100 ng/mL (75 - 250 nmol/L) Toxicity >100 ng/mL (>250 nmol/L) Performed By: #### L 500.4100, L501.2400, L500.4050, L503.0105, L501.9985, L501.2450, L100.0100, L506.1000, L501.9520 ####[facility] [address] [place], [address] Basophil percentageon 2021 Basophil percentage 0-5 SEEN /hpf [facility] Work Phone: Bilirubin Test strip Ql (U)o n 04-02-2022 Bilirubin Ql (U) Negative Negative [facility] Work Phone: Ketones Test strip Ql (U)on 04-02-2022 Ketones Ql (U) 5 mg/dl Negative [facility] Work Phone: Laboratory - Chemistry and C hemistry - challengeon 04-02-2022 HCG ( test) Ql (U) Negative [facility] Work Phone: Comment on above: Very dilute urine sp ecimens, as indicated by a low specificgravity, may not contain promotions representative levels of hCG. If is still suspected, a first morning urinespecimen should be collected 48 hours later and tested. Mucus LM Ql (Urine sed)on Mucus Ql (Urine sed) 2+ /hpf [facility] Work Phone: Nitrite Test strip Ql (U)on 04-02-2022 Nitrite Ql (U) Negative Negative [facility] Work Phone: No Panel Informationon 04-02 SARS-CoV-2 & FLU Antigen (Rapid) [facility] Work Phone: Protein Test strip Ql (U)on 04-02-2022 Protein Ql (U) 15 mg/dl Negative [facility] Work Phone: [phone] Squamous epithelial cells de tection in urine sediment by light microscopyon 04-02-2022 Epithelial cells.squamous LM Ql (Urine sed) 0-5 SEEN /hpf [facility] Work Phone: Urine blood detectionon 03-24 RBC Ql (U) 150 /ul Negative [facility] Work Phone: RBC Ql (U) 10-25 SEEN /hpf [facility] Work Phone: Urine clarityon 04-02-2022 Clarity (U) Sl. Cloudy Clear [facility] Work Phone: Urine color determinationon 04-02-2022 Color (U) Yellow Yellow [facility] Work Phone: Urine glucose detectionon Glucose Ql (U) Normal mg/dl Normal [facility] Work Phone: Urine leukocyte esterase det ection by dipstickon 04-02-2022 Leukocyte esterase Test strip Ql (U) 25 /ul Negative [facility] Work Phone: [phone] Urine pHon 04-02-2022 pH (U) 6.0 [pH] [facility] Work Phone: Urine sediment bacteria coun t by microscopy (number/high power field)on 04-02-2022 Bacteria LM.HPF (Urine sed) [#/Area] 0 /[HPF] None Seen [facility] Work Phone: Urine specific gravity measu rementon 04-02-2022 Specific gravity (U) [Rel density] 1.025 [facility] Work Phone: Urobilinogen Auto test strip Ql (U)on 04-02-2022 Urobilinogen Ql (U) Normal mg/dl Normal [facility] Work Phone: Chlamydia trachomatis rRNA d etection by probe and target amplification methodon 03-11-2022 C. trachomatis rRNA KAVYA+probe Ql (Unsp spec) Negative Negative [facility] Work Phone: Gram stain for investigation of transfusion reactionon 03-11-2022 Microscopic observation Gram stain Nom (Unsp spec) [facility] Work Phone: Laboratory - Microbiology an d Antimicrobial susceptibilityon 03-11-2022 N. gonorrhoeae DNA KAVYA+probe Ql (Unsp spec) Negative Negative [facility] Work Phone: Comment on above: Performed at: =G - L [address] [place] [id number] Director: Elvia Koch MD, Phone: [phone] Thin prep Papanicolaou smear with manual screeningon 03-11-2022 Cytopathology procedure, preparation of smear, genital source Neisseria or beta-hemolytic Streptococcus isolated. [facility] Work Phone: Laboratory - Microbiology an d Antimicrobial susceptibilityon 12-09-2021 SARS-CoV-2 (COVID-19) RNA KAVYA+probe Ql (Unsp spec) Not detected Not Detect [facility] Work Phone: Comment on above: Normal Reference Ran ge: Not DetectedMethod:(RT-PCR) real-time reverse transcriptase PCRLuminex SteelBrick Instrument*The Food and Drug Administration (FDA) has [...] Ql (U) Negative Invalid Interpretation Code Negative [facility] Internal Control Pass Invalid Interpretation Code [facility] Interpretation and review of laboratory results Normal Invalid Interpretation Code [facility] Specific gravity Relative Density (U) Invalid Interpretation Code [facility] POC Urinalysis Dipstickon Bilirubin Ql (U) Negative Invalid Interpretation Code Negative [facility] Glucose Ql (U) Negative Invalid Interpretation Code Normal, Negative mg/dL [facility] Hemoglobin Test strip Ql (U) Small Abnormal Negative [facility] Interpretation and review of laboratory results Abnormal Invalid Interpretation Code [facility] Ketones Ql (U) Negative Invalid Interpretation Code Negative mg/dL [facility] Leukocyte esterase Test strip Ql (U) Trace Abnormal Negative [facility] Nitrite Test strip Ql (U) Negative Invalid Interpretation Code Negative [facility] pH Test strip (U) 6.0 [pH] Invalid Interpretation Code [facility] Protein Test strip Ql (U) Negative Invalid Interpretation Code Negative mg/dL [facility] Specific gravity Relative Density (U) 1.030 Abnormal [facility] Urobilinogen Test strip Qn (U) 0.2 mg/dL Invalid Interpretation Code <2.0, 0.2, Normal, Negative, 1.0, 2.0, <1.0 [facility] XR Spine Cervical 6 or More Viewson 05-27-2018 XR Spine Cervical 6 or More Views Exam Date/Time: 05/27/2018 12:48 EDT Reason for Exam: Neck Pain Report STUDY: XR Spine Cervical 6 or More Views; 05/27/2018 12:48 pm INDICATION: Neck Pain. COMPARISON: None. ACCESSION NUMBER(S): [id number] ORDERING CLINICIAN: Andreas Anthony TECHNIQUE: Five views [...] pm Signed by: Aubrey Bell MD Technologist: SR, Normal [facility] Placenta Pathology Request - NO EXAMon 05-23-2018 Placenta Pathology Request - NO EXAM Collected Normal [facility] Comment on above: Performed By: #### 2 [id number] #### DAMASO RemHemo [facility] [place] [id number] Hematocriton 05-20-2018 Hematocrit Volume Fraction (Bld) 33.3 % Low 36.0-48.0 [facility] Comment on above: Order Comment: Order Added by Discern Expert. Performed By: #### 2 [id number] #### DAMASO RemHemo [facility] [place] [id number] Hemoglobinon 05-20-2018 Hemoglobin mass conc (Bld) 11.0 g/dL Low 12.0-16.0 [facility] Comment on above: Order Comment: first post- day Performed By: #### 2 [id number] #### DAMASO RemH[address] [place] [address] Auto Diffon 05-19-2018 Basophils #/vol (Bld) 0.0 E3/mcL Normal 0.0-0.2 [facility] Comment on above: Order Comment: Order Added by Discern Expert. Performed By: #### 2 [id number] #### DAMASO RemHemo [address] [place] [address] Basophils/100 WBC (Bld) 0.4 % Normal 0.0-2.0 [facility] Comment on above: Order Comment: Order Added by Discern Expert. Performed By: #### 2 [id number] #### DAMASO RemHemo [address] [place] [address] Eos Absolute 0.1 E3/mcL Normal 0.0-0.7 [facility] Comment on above: Order Comment: Order Added by Discern Expert. Performed By: #### 2 [id number] #### DAMASO RemHemo [address] [place] [address] Eosinophils/100 WBC (Bld) 1.2 % Normal 0.0-11.0 [facility] Comment on above: Order Comment: Order Added by Discern Expert. Performed By: #### 2 [id number] #### DAMASO RemH[address] [place] [address] Lymphocytes #/vol (Bld) 1.5 E3/mcL Normal 1.2-3.4 [facility] Comment on above: Order Comment: Order Added by Discern Expert. Performed By: #### 2 [id number] #### DAMASO [address] [place] [address] Lymphocytes/100 WBC (Bld) 15.6 % Low 20.0-55.0 [facility] Comment on above: Order Comment: Order Added by Discern Expert. Performed By: #### 2 [id number] #### DAMASO RemHemo [address] [place] [address] [place] Absolute 0.4 E3/mcL Normal 0.0-0.7 [facility] Comment on above: Order Comment: Order Added by Discern Expert. Performed By: #### 2 [id number] #### DAMASO Patinoo [address] [place] [id number] Monocytes/100 WBC (Bld) 4.3 % Normal 0.0-10.0 [facility] Comment on above: Order Comment: Order Added by Discern Expert. Performed By: #### 2 [id number] #### DAMASO Patinoo [facility] [place] [address] Neutro Absolute 7.8 E3/mcL High 1.4-6.5 [facility] Comment on above: Order Comment: Order Added by Discern Expert. Performed By: #### 2 [id number] #### DAMASO Patinoo [address] [place] [address] Neutro Auto 78.5 % High 37.0-75.0 [facility] Comment on above: Order Comment: Order Added by Discern Expert. Performed By: #### 2 [id number] #### DAMASO Patinoo [address] [place] [address] CBC w/ Auto Diffon 8 Erythrocyte distribution width Ratio (RBC) 15.8 % High 11.5-14.5 [facility] Comment on above: Performed By: #### 2 [id number] #### DAMASO Patinoo [address] [place], [place] [address] Hematocrit Volume Fraction (Bld) 35.6 % Low 36.0-48.0 [facility] Comment on above: Performed By: #### 2 [id number] #### DAMASO Patinoo [address] [place], [place] [address] Hemoglobin mass conc (Bld) 11.7 g/dL Low 12.0-16.0 [facility] Comment on above: Performed By: #### 2 [id number] #### DAMASO Patinoo [address] [place], [place] [address] MCH Entitic mass (RBC) 26.6 pg Low 27.0-31.0 [facility] Comment on above: Performed By: #### 2 [id number] #### DAMASO GalindoHemo [facility] [place] [id number] MCHC mass conc (RBC) 33.0 g/dL Normal 33.0-37.0 [facility] Comment on above: Performed By: #### 2 [id number] #### DAMASO GalindoHemo [address] [place] [address] MCV Entitic volume (RBC) 80.6 fL Normal 78.0-100.0 [facility] Comment on above: Performed By: #### 2 [id number] #### DAMASO JosieHemo [address] [place] [address] Platelet mean volume Entitic volume (Bld) 8.6 fL Normal 7.4-11.0 [facility] Comment on above: Performed By: #### 2 [id number] #### DAMASO JosieHemo [address] [place] [address] Platelets #/vol (Bld) 237 E3/mcL Normal 130-400 [facility] Comment on above: Performed By: #### 2 [id number] #### DAMASO JosieHemo [address] [place] [address] RBC #/vol (Bld) 4.42 E6/mcL Normal 3.90-5.[address] [facility] Comment on above: Performed By: #### 2 [id number] #### DAMASO JosieHemo [address] [place] [address] WBC #/vol (Bld) 9.9 E3/mcL Normal 3.6-11.0 [facility] Comment on above: Performed By: #### 2 252975 #### DAMASO JosieHemo [address] [place] [address] Glucose POCon 05-19-2018 Glucose mass conc 117 mg/dL High 70-99 [facility] Comment on above: Performed By: #### 2 [id number] #### DAMASO RemHemo [address] [place] [address] Glucose mass conc 79 mg/dL Normal 70-99 [facility] Comment on above: Performed By: #### 2 [id number] #### DAMASO RemHemo [address] [place] [address] US Follow Upon US Follow Up Exam Date/Time: 05/11/2018 14:42 EDT Reason for Exam: CHECK SIZE; Size - measuring standard growth/amniotic fluid volume Report STUDY: US Follow Up 05/11/2018 2:42 pm INDICATION: Size - measuring standard growth/amniotic fluid volume. COMPARISON: None. 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 04-23 REPAIRER HELPER - Office Visit Chief ComplaintPatient here today [...] with her provider and anticipates delivery at [facility] with an IOL unless she [...] [place] = N; Record; Last Updated By: Devorah Greenie; 11/11/2017 11:07:50 AM Vitals Vital Signs Recorded: [id number] 10:58AMHeart Ehqk21Aoyobtaz527Vzmfahqd z80Vyoqty0 ft 9 dfKugucp969 lb BMI Mmcmaarhpa60.29BSA Calculated2.56Bdxnkbm8Rea a3Pain Scale0 Physical ExamSkin: No obvious rash [...] May 02 2018 11:36AM EST (Author) Normal [employer] Group B Strep PCRon 04-29-20 18 Group B Strep PCR Negative Normal [facility] Comment on above: Order Comment: For p ositive results only; Penicillin is the recommended antibiotic for the treatment of Group B Streptococcal disease. In case of penicillin allergy, Clindamycin may be used.All Negative GBS Screens by PCR will be confirmed by culture. 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 BERTA: 05/26/2018 History of Present [age]wpwmbd13 yo at 33+4 for f/u review of blood sugars after initial GDM consult on 03/22/18 with me.Primary care with Dr. Alves at [facility].No acute OB complaints, overall feeling well; no [...] Vital Signs Recorded: 11Apr2018 09:13AMRecorded: 11Apr2018 08:49AMHeart Nefc36Gognstzr976599Cwute qbjy0072Hjfnog6 ft 9 axKvwfmr635 lb BMI Gtbjszygzd06.73BSA Calculated2.28Emgqvev4Xjn a3Pain Scale0 BP repeat: 132/80 Physical ExamFHT [...] 3 weeks for interval growth ultrasound and glucose log reviewThank you for allowing us to participate in her care. Please contact us with any questions or concerns. Signatures Electronically signed by : Radah Cherry MD; Apr 11 2018 9:17AM EST (Author) Normal [employer] REPAIRER HELPER - Office Visiton 06-0 REPAIRER HELPER - Office Visit Chief ComplaintReferral for new GDM diagnosis, BMI >40, referred from [facility], Dr. Gissell Alves [...] 11/11/2017 11:07:50 AM Vitals Vital Signs Recorded: 22Mar2018 10:26AMHeart Ianu49Xtmfjczt359Gvkdsden j43Thqnxc2 ft 9 mmSiprrk730 lb BMI Jwxtyjleeb62.58BSA Calculated2.47Bqpnbxz4Obs a3Pain Scale0 Physical ExamDetailed physical exam was [...] recommendations for care.Thus far, she has:-Seen a assembling motor builder and initiated dietary changes-Initiated blood sugar monitoringBG [...] the third trimester (scheduled before she left [facility] visit)Initiation of testing if medication is [...] shared care between her usual providers and [facility] as needed. Please contact us with any questions or concerns.Radha Cherry MD MSCR.. End of Encounter MedsPrenatal Vitamin TABS;Therapy: (Recorded:11Nov2017) to Recorded Signatures Electronically signed by : Radha Cherry MD; Mar 24 2018 2:13AM EST (Author) Normal [employer] ActimPromon 03-23-2018 Protein mass conc Negative Normal Negative [facility] Comment on above: Performed By: #### 6 [id number] #### DAMASO Chemistry Manual Subsection [address] [place] [address] Protein mass conc Pass Normal [facility] Comment on above: Performed By: #### 6 [id number] #### DAMASO Chemistry Manual Subsection [facility] [place] [address] Auto Diffon 03-23-2018 Basophils #/vol (Bld) 0.0 E3/mcL Normal 0.0-0.2 [facility] Comment on above: Order Comment: Order Added by Discern Expert. Performed By: #### 2 [id number] #### DAMASO RemHemo [facility] [place] [address] Basophils/100 WBC (Bld) 0.2 % Normal 0.0-2.0 [facility] Comment on above: Order Comment: Order Added by Discern Expert. Performed By: #### 2 [id number] #### DAMASO RemHemo [facility] [place] [address] Eos Absolute 0.1 E3/mcL Normal 0.0-0.7 [facility] Comment on above: Order Comment: Order Added by Discern Expert. Performed By: #### 2 [id number] #### DAMASO RemHemo [address] [place] [address] Eosinophils/100 WBC (Bld) 1.3 % Normal 0.0-11.0 [facility] Comment on above: Order Comment: Order Added by Discern Expert. Performed By: #### 2 [id number] #### DAMASO RemHemo [address] [place] [address] Lymphocytes #/vol (Bld) 1.6 E3/mcL Normal 1.2-3.4 [facility] Comment on above: Order Comment: Order Added by Vitaliy Expert. Performed By: #### 2 [id number] #### DAMASO RemHemo [address] [place] [address] Lymphocytes/100 WBC (Bld) 16.4 % Low 20.0-55.0 [facility] Comment on above: Order Comment: Order Added by Vitaliy Expert. Performed By: #### 2 [id number] #### DAMASO RemHemo [address] [place] [address] [place] Absolute 0.5 E3/mcL Normal 0.0-0.7 [facility] Comment on above: Order Comment: Order Added by Vitaliy Expert. Performed By: #### 2 [id number] #### DAMASO RemHemo [address] [place] [address] Monocytes/100 WBC (Bld) 4.8 % Normal 0.0-10.0 [facility] Comment on above: Order Comment: Order Added by Discern Expert. Performed By: #### 2 [id number] #### DAMASO RemHemo [address] [place] [address] Neutro Absolute 7.4 E3/mcL High 1.4-6.5 [facility] Comment on above: Order Comment: Order Added by Discern Expert. Performed By: #### 2 [id number] #### DAMASO RemHemo [address] [place] [address] Neutro Auto 77.3 % High 37.0-75.0 [facility] Comment on above: Order Comment: Order Added by Discern Expert. Performed By: #### 2 [id number] #### DAMASO GalindoHemo [address] [place] [address] CBC w/ Auto Diffon 8 Erythrocyte distribution width Ratio (RBC) 14.9 % High 11.5-14.5 [facility] Comment on above: Performed By: #### 2 [id number] #### DAMASO GalindoHemo [address] [place] [id number] Hematocrit Volume Fraction (Bld) 35.3 % Low 36.0-48.0 [facility] Comment on above: Performed By: #### 2 [id number] #### DAMASO GalindoHemo [address] [place] [id number] Hemoglobin mass conc (Bld) 11.5 g/dL Low 12.0-16.0 [facility] Comment on above: Performed By: #### 2 [id number] #### DAMASO GalindoHemo [facility] [place] [id number] MCH Entitic mass (RBC) 27.2 pg Normal 27.0-31.0 [facility] Comment on above: Performed By: #### 2 [id number] #### DAMASO GalindoHemo [address] [place] [address] MCHC mass conc (RBC) 32.7 g/dL Low 33.0-37.0 [facility] Comment on above: Performed By: #### 2 [id number] #### DAMASO GalindoHemo [address] [place] [address] MCV Entitic volume (RBC) 83.1 fL Normal 78.0-100.0 [facility] Comment on above: Performed By: #### 2 [id number] #### DAMASO RemHemo [address] [place] [address] Platelet mean volume Entitic volume (Bld) 8.2 fL Normal 7.4-11.0 [facility] Comment on above: Performed By: #### 2 [id number] #### DAMASO RemHemo [address] [place] [address] Platelets #/vol (Bld) 225 E3/mcL Normal 130-400 [facility] Comment on above: Performed By: #### 2 [id number] #### DAMASO RemHemo [address] [place] [address] RBC #/vol (Bld) 4.24 E6/mcL Normal 3.90-5.[address] [facility] Comment on above: Performed By: #### 2 [id number] #### DAMASO RemHemo [address] [place] [address] WBC #/vol (Bld) 9.6 E3/mcL Normal 3.6-11.0 [facility] Comment on above: Performed By: #### 2 [id number] #### DAMASO RemHemo [address] [place] [address] FFNon 03-23-2018 Fibronectin Negative Normal Negative [facility] Comment on above: Order Comment: Obtai n if patient is 22-35 AOG with symptoms of pre-term labor. (Obtain prior to vaginal exam if no vaginal bleeding and no sexual intercourse within 24 hours) Performed By: #### 2 [id number] #### DAMASO RemHemo [address] [place] [address] Glucose POCon 03-23-2018 Glucose mass conc 107 mg/dL High 70-99 [facility] Comment on above: Performed By: #### 2 [id number] #### DAMASO RemHemo [address] [place] [address] Glucose mass conc 76 mg/dL Normal 70-99 [facility] Comment on above: Performed By: #### 5 [id number] #### DAMASO POC Subsection [address] [place] [address] .PN Glucose 1 Hron 8 Glucose mass conc 245 mg/dL High <=180 [facility] Comment on above: Performed By: #### 1 [id number] #### DAMASO RemChem [address] [place] [address] .PN Glucose 2 Hron 8 Glucose mass conc 167 mg/dL High <=155 [facility] Comment on above: Performed By: #### 1 [id number] #### DAMASO RemChem [address] [place] [address] .PN Glucose Fastingon 2017 Glucose mass conc 113 mg/dL High <=95 [facility] Comment on above: Performed By: #### 1 [id number] #### DAMASO RemChem [address] [place] [address] Auto Diffon 02-23-2018 Basophils #/vol (Bld) 0.1 E3/mcL Normal 0.0-0.2 [facility] Comment on above: Order Comment: Order Added by Discern Expert. Performed By: #### 2 [id number] #### DAMASO RemHemo [address] [place] [address] Basophils/100 WBC (Bld) 0.7 % Normal 0.0-2.0 [facility] Comment on above: Order Comment: Order Added by Discern Expert. Performed By: #### 2 [id number] #### DAMASO RemHemo [address] [place] [address] Eos Absolute 0.2 E3/mcL Normal 0.0-0.7 [facility] Comment on above: Order Comment: Order Added by Discern Expert. Performed By: #### 2 [id number] #### DAMASO RemHemo [address] [place] [address] Eosinophils/100 WBC (Bld) 1.7 % Normal 0.0-11.0 [facility] Comment on above: Order Comment: Order Added by Discern Expert. Performed By: #### 2 [id number] #### DAMASO RemHemo [address] [place] [address] Lymphocytes #/vol (Bld) 1.5 E3/mcL Normal 1.2-3.4 [facility] Comment on above: Order Comment: Order Added by Discern Expert. Performed By: #### 2 [id number] #### DAMASO RemHemo [address] [place] [address] Lymphocytes/100 WBC (Bld) 14.4 % Low 20.0-55.0 [facility] Comment on above: Order Comment: Order Added by Discern Expert. Performed By: #### 2 [id number] #### DAMASO RemHemo [address] [place] [address] [place] Absolute 0.4 E3/mcL Normal 0.0-0.7 [facility] Comment on above: Order Comment: Order Added by Discern Expert. Performed By: #### 2 [id number] #### DAMASO RemHemo [address] [place] [address] Monocytes/100 WBC (Bld) 4.1 % Normal 0.0-10.0 [facility] Comment on above: Order Comment: Order Added by Discern Expert. Performed By: #### 2 [id number] #### DAMASO RemHemo [address] [place] [address] Neutro Absolute 8.2 E3/mcL High 1.4-6.5 [facility] Comment on above: Order Comment: Order Added by Discern Expert. Performed By: #### 2 [id number] #### DAMASO RemHemo [address] [place] [address] Neutro Auto 79.1 % High 37.0-75.0 [facility] Comment on above: Order Comment: Order Added by Discern Expert. Performed By: #### 2 [id number] #### DAMASO RemHemo [address] [place] [address] CBC w/ Auto Diffon 8 Erythrocyte distribution width Ratio (RBC) 14.6 % High 11.5-14.5 [facility] Comment on above: Performed By: #### 2 [id number] #### DAMASO GalindoHemo [address] [place] [address] Hematocrit Volume Fraction (Bld) 34.3 % Low 36.0-48.0 [facility] Comment on above: Performed By: #### 2 [id number] #### DAMASO RemHemo [address] [place] [address] Hemoglobin mass conc (Bld) 11.5 g/dL Low 12.0-16.0 [facility] Comment on above: Performed By: #### 2 [id number] #### DAMASO RemHemo [address] [place] [address] MCH Entitic mass (RBC) 28.3 pg Normal 27.0-31.0 [facility] Comment on above: Performed By: #### 2 [id number] #### DAMASO RemHemo [address] [place] [address] MCHC mass conc (RBC) 33.5 g/dL Normal 33.0-37.0 [facility] Comment on above: Performed By: #### 2 [id number] #### DAMASO RemHemo [address] [place] [address] MCV Entitic volume (RBC) 84.4 fL Normal 78.0-100.0 [facility] Comment on above: Performed By: #### 2 [id number] #### DAMASO RemHemo [address] [place] [address] Platelet mean volume Entitic volume (Bld) 7.7 fL Normal 7.4-11.0 [facility] Comment on above: Performed By: #### 2 [id number] #### DAMASO RemHemo [address] [place] [address] Platelets #/vol (Bld) 234 E3/mcL Normal 130-400 [facility] Comment on above: Performed By: #### 2 [id number] #### DAMASO RemHemo [address] [place] [address] RBC #/vol (Bld) 4.06 E6/mcL Normal 3.90-5.[address] [facility] Comment on above: Performed By: #### 2 [id number] #### DAMASO RemHemo [address] [place] [address] WBC #/vol (Bld) 10.4 E3/mcL Normal 3.6-11.[address] [facility] Comment on above: Performed By: #### 2 [id number] #### DAMASO RemHemo [address] [place] [address] Gest Scr Glu 1 Hron 02-24-20 18 Glucose mass conc 165 mg/dL High 70-140 [facility] Comment on above: Performed By: #### 3 [id number] #### DAMASO RemChem [address] [place] [address] UA Completeon 02-10-2018 Color Nom (U) Yellow Normal Yellow [facility] Comment on above: Performed By: #### 8 [id number] #### DAMASO Urinalysis Automated Subsection [address] [place] [address] Glucose mass conc (U) Negative Normal Negative [facility] Comment on above: Performed By: #### 8 [id number] #### DAMASO Urinalysis Automated Subsection [facility] [place] [address] Ketones Ql (U) Negative Normal Negative [facility] Comment on above: Performed By: #### 8 [id number] #### DAMASO Urinalysis Automated Subsection [facility] [place] [address] RBC #/vol (U) 3-5 Abnormal 0-3 [facility] Comment on above: Performed By: #### 8 [id number] #### DAMASO Urinalysis Automated Subsection [facility] [place] [address] UA Blood 1+ Abnormal Negative [facility] Comment on above: Performed By: #### 8 [id number] #### DAMASO Urinalysis Automated Subsection [facility] [place] [address] UA Bacteria Trace Abnormal None [facility] Comment on above: Performed By: #### 8 [id number] #### DAMASO Urinalysis Automated Subsection [address] [place] [address] UA Clarity Clear Normal Clear [facility] Comment on above: Performed By: #### 8 [id number] #### DAMASO Urinalysis Automated Subsection [facility] [place] [address] UA Leuk Est Negative Normal Negative [facility] Comment on above: Performed By: #### 8 [id number] #### DAMASO Urinalysis Automated Subsection [address] [place] [address] UA Mucous Trace Abnormal Trace [facility] Comment on above: Performed By: #### 8 [id number] #### DAMASO Urinalysis Automated Subsection [facility] [place] [address] UA Nitrite Negative Normal Negative [facility] Comment on above: Performed By: #### 8 [id number] #### DAMASO Urinalysis Automated Subsection [facility] [place] [address] UA pH 6.0 Normal 4.6-8.0 [facility] Comment on above: Performed By: #### 8 [id number] #### DAMASO Urinalysis Automated Subsection [address] [place] [address] UA Protein Negative Normal Negative [facility] Comment on above: Performed By: #### 8 [id number] #### DAMASO Urinalysis Automated Subsection [facility] [place] [address] UA Spec Grav 1.011 Normal 1.003-1.030 [facility] Comment on above: Performed By: #### 8 [id number] #### DAMASO Urinalysis Automated Subsection [address] [place] [address] UA Squam Epithelial 0-5 Normal 0-5 [facility] Comment on above: Performed By: #### 8 [id number] #### DAMASO Urinalysis Automated Subsection [facility] [place] [address] UA Urobilinogen Negative Normal [facility] Comment on above: Performed By: #### 8 [id number] #### DAMASO Urinalysis Automated Subsection [facility] [place] [address] UA WBC 0-5 Normal 0-5 [facility] Comment on above: Performed By: #### 8 [id number] #### DAMASO Urinalysis Automated Subsection [address] [place] [address] Urobilinogen Qn (U) Negative Normal Negative [facility] Comment on above: Performed By: #### 8 [id number] #### DAMASO Urinalysis Automated Subsection [facility] [place] [id number] Pathology ([facility])on 11-28-2017 Pathology ([facility]) FINAL GYNECOLOGIC CYTOLOGY AETHPONN-[id number] ADEQUACYSatisfactory for Evaluation. Endocervical cells/transformation zone componentpresent.Sample is scanty.GENERAL CATEGORIZATIONNegative for Intraepithelial Lesion or MalignancyCLINICAL HISTORYComment: LMP: Pt is 14 Weeks SPECIMEN( A) SCREENING CERVICAL/ENDOCERVICAL LIQUID-BASED PAPPerformed at [facility], [address] [place], [place] [address]Screened by: Signed Out by: MUKESH HOOKER Telecommunication Engineer Reported: 12/02/2017 Normal [facility] Comment on above: Performed By: #### G YN ####[facility] [address] [place] [address] Vital Signs Date Time Vital Sign Value Performing Clinician Facility 04-02-2022 11:12-0400 Diastolic blood pressure 86 mm[Hg] Dr. Sheryl Todd Work Phone: [facility] Work Phone: 04-02-2022 11:12-0400 Heart rate 72 /min Dr. Sheryl Todd Work Phone: [facility] Work Phone: 04-02-2022 11:12-0400 Respiratory rate 16 /min Dr. Sheryl Todd Work Phone: [facility] Work Phone: 04-02-2022 11:12-0400 SaO2% (BldA) [Mass fraction] 97 % Dr. Sheryl Todd Work Phone: [facility] Work Phone: 04-02-2022 11:12-0400 Systolic blood pressure 121 mm[Hg] Dr. Sheryl Todd Work Phone: [facility] Work Phone: 04-02-2022 09:40-0400 Body height 175.[address] Sheryl Todd Work Phone: [facility] Work Phone: 04-02-2022 09:40-0400 Body mass index (BMI) [Ratio] 38.4 kg/m2 Dr. Sheryl Todd Work Phone: [facility] Work Phone: 04-02-2022 09:40-0400 Body temperature 97.1 [degF] Dr. Sheryl Todd Work Phone: [facility] Work Phone: 04-02-2022 09:40-0400 Body weight 117.[address] Sheryl Todd Work Phone: [facility] Work Phone: 03-11-2022 10:47-0400 Body height 175.[address] Sheryl Todd Work Phone: [facility] Work Phone: 03-11-2022 10:47-0400 Body mass index (BMI) [Ratio] 39.2 kg/m2 Dr. Sheryl Todd Work Phone: [facility] Work Phone: 03-11-2022 10:47-0400 Body weight 120.[address] Sheryl Todd Work Phone: [facility] Work Phone: 03-11-2022 10:47-0400 Diastolic blood pressure 90 mm[Hg] Dr. Sheryl Todd Work Phone: [facility] Work Phone: 03-11-2022 10:47-0400 Systolic blood pressure 120 mm[Hg] Dr. Sheryl Todd Work Phone: [facility] Work Phone: 02-25-2022 09:12-0400 Body mass index (BMI) [Ratio] 38.8 kg/m2 Dr. Sheryl Todd Work Phone: [facility] Work Phone: 02-25-2022 09:12-0400 Body weight 119.[address] Sheryl Todd Work Phone: [facility] Work Phone: 02-22-2022 13:54-0400 Body temperature 98.2 [degF] Dr. Sheryl Todd Work Phone: [facility] Work Phone: 02-22-2022 13:54-0400 Diastolic blood pressure 72 mm[Hg] Dr. Sheryl Todd Work Phone: [facility] Work Phone: 02-22-2022 13:54-0400 Heart rate 92 /min Dr. Sheryl Todd Work Phone: [facility] Work Phone: 02-22-2022 13:54-0400 Respiratory rate 16 /min Dr. Sheryl Todd Work Phone: [facility] Work Phone: 02-22-2022 13:54-0400 SaO2% (BldA) [Mass fraction] 99 % Dr. Sheryl Todd Work Phone: [facility] Work Phone: 02-22-2022 13:54-0400 Systolic blood pressure 126 mm[Hg] Dr. Sheryl Todd Work Phone: [facility] Work Phone: 12-09-2021 15:45-0500 Body mass index (BMI) [Ratio] 40.7 kg/m2 Dr. Sheryl Todd Work Phone: [facility] Work Phone: 12-09-2021 15:45-0500 Body temperature 96.8 [degF] Dr. Sheryl Todd Work Phone: [facility] Work Phone: 12-09-2021 15:45-0500 Body weight 125.[address] Sheryl Todd Work Phone: [facility] Work Phone: 12-09-2021 15:45-0500 Diastolic blood pressure 94 mm[Hg] Dr. Sheryl Todd Work Phone: [facility] Work Phone: 12-09-2021 15:45-0500 Heart rate 95 /min Dr. Sheryl Todd Work Phone: [facility] Work Phone: 12-09-2021 15:45-0500 Respiratory rate 18 /min Dr. Sheryl Todd Work Phone: [facility] Work Phone: 12-09-2021 15:45-0500 SaO2% (BldA) [Mass fraction] 98 % Dr. Sheryl Todd Work Phone: [facility] Work Phone: 12-09-2021 15:45-0500 Systolic blood pressure 138 mm[Hg] Dr. Sheryl Todd Work Phone: [facility] Work Phone: 12-13-2018 14:36-0500 BMI (Body Mass Index) 47.99 kg/m2 [facility] 12-13-2018 14:36-0500 Body Temperature 98.1 [degF] [facility] 12-13-2018 14:36-0500 BP Diastolic 79 mm[Hg] [facility] 12-13-2018 14:36-0500 BP Systolic 124 mm[Hg] [facility] 12-13-2018 14:36-0500 Height 175.3 cm [facility] 12-13-2018 14:36-0500 Pulse (Heart Rate) 90 /min [facility] 12-13-2018 14:36-0500 Pulse Oximetry 97 % [facility] 12-13-2018 14:36-0500 Respiratory Rate 18 /min [facility] 12-13-2018 14:36-0500 Weight 147.42 kg [facility] 06-15-2018 12:54-0400 BMI (Body Mass Index) 44.15 kg/m2 [facility] 06-15-2018 12:54-0400 Body Temperature 98.01 [degF] [facility] 06-15-2018 12:54-0400 BP Diastolic 76 mm[Hg] [facility] 06-15-2018 12:54-0400 BP Systolic 122 mm[Hg] [facility] 06-15-2018 12:54-0400 Height 175.3 cm [facility] 06-15-2018 12:54-0400 Pulse (Heart Rate) 84 /min [facility] 06-15-2018 12:54-0400 Pulse Oximetry 98 % [facility] 06-15-2018 12:54-0400 Respiratory Rate 18 /min [facility] 06-15-2018 12:54-0400 Weight 135.63 kg [facility] Encounters Encounter Date Encounter Type Care Provider Facility Start: 07-23-2025 End: 07-23-2025 ambulatory Zebulun Beam Facility:[facility] Start: 07-08-2025 End: 07-08-2025 ambulatory Manjit Hernandezse Facility:[facility] Start: 07-07-2025 End: 07-07-2025 ambulatory Olivia He MANAGER FIBER Facility:[facility] Start: 07-07-2025 End: 07-07-2025 ambulatory Olivia He MANAGER FIBER Facility:[facility] Start: 07-01-2025 End: 07-02-2025 ambulatory Zebulun Beam Facility:[facility] Start: 07-01-2025 End: 07-01-2025 ambulatory Manjit ROSALES Facility:[facility] Start: 05-21-2025 End: 05-21-2025 ambulatory Manjit Jaramillo Facility:[facility] Start: 04-23-2025 ambulatory Manjit Hernandezse Facility :[facility] Start: 04-20-2025 End: 04-20-2025 ambulatory Saadia Morales Facility:[facility] Start: 04-08-2025 End: 04-08-2025 Emergency department patient visit Keo Rivas Facility:[facility] Start: 04-03-2025 End: 04-03-2025 ambulatory Zebulun Beam Facility:[facility] Start: 02-28-2025 End: 02-28-2025 ambulatory Zebulun Beam Facility:[facility] Start: 02-22-2025 End: 02-22-2025 ambulatory Zebulun Beam Facility:[facility] Start: 02-20-2025 End: 02-20-2025 ambulatory Zebulun Beam Facility:[facility] Start: 02-13-2025 ambulatory Shaun Raymond Facility :[facility] Start: 02-01-2025 End: 02-01-2025 ambulatory Zebulun Beam Facility:[facility] Start: 01-30-2025 Encounter for other preprocedural examination Stella Gregory [facility] Start: 01-22-2025 End: 01-22-2025 ambulatory Zebulun Beam Facility:[facility] Start: 01-22-2025 ambulatory Zebulun Beam Facility:[facility] Start: 2024 End: 2024 ambulatory Colby Donovan Facility:[facility] Start: 12-27-2024 End: 12-27-2024 ambulatory Shaun Mollison Facility:[facility] Start: 12-22-2024 End: 12-22-2024 ambulatory Shaun Mollison Facility:[facility] Start: 12-17-2024 End: 12-17-2024 ambulatory Zebulun Beam Facility:[facility] Start: 12-14-2024 End: 12-14-2024 ambulatory Colby Donovan Facility:[facility] Start: 12-03-2024 End: 12-03-2024 ambulatory Colby Donovan Facility:[facility] Start: 11-28-2024 End: 11-28-2024 ambulatory Colby Donovan Facility:[facility] Start: 11-28-2024 End: 11-28-2024 ambulatory Colby Donovan Facility:[facility] Start: 11-22-2024 End: 11-22-2024 ambulatory Colby Donovan Facility:[facility] Start: 11-16-2024 End: 11-16-2024 ambulatory Colby Donovan Facility:[facility] Start: 11-14-2024 End: 11-14-2024 ambulatory Zebulun Beam Facility:[facility] Start: 04-02-2022 End: 04-02-2022 Emergency department patient visit Dr. Sheryl Todd Work Phone: [facility]Emergency [facility] Start: 03-11-2022 End: 03-11-[address] Sheryl Todd Work Phone: [facility] Start: 03-11-2022 End: 03-11-[address] Sheryl Todd Work Phone: [facility]-Laboratory, Specimen Start: 02-25-2022 End: 02-25-[address] Sheryl Todd Work Phone: [facility] Start: 02-22-2022 End: 02-22-[address] Sheryl Todd Work Phone: [facility] Start: 12-09-2021 End: 12-09-[address] Sheryl Todd Work Phone: [facility]Laboratory, Specimen Start: 12-09-2021 End: 12-09-[address] Sheryl Todd Work Phone: [facility] Internal [facility] Start: 12-13-2018 End: 12-17-2018 Patient encounter procedure ELVI ORTIZ [facility] Start: 12-13-2018 End: 12-13-2018 Office outpatient visit 25 minutes Elvi Ortiz Work Phone: [facility] Comment on above: Environmental allerg ies Start: 11-27-2018 End: 11-27-2018 Patient encounter procedure Keagan Gibson Facility:[facility] Start: 11-20-2018 End: 11-21-2018 Patient encounter procedure Gissell Long Facility:[facility] Start: 08-29-2018 End: 08-30-2018 Patient encounter procedure Gissell Long Facility:[facility] Start: 06-21-2018 End: 06-22-2018 Patient encounter procedure Shan Scarlett Sita Facility:[facility] Start: 06-15-2018 End: 06-15-2018 Office outpatient new 30 minutes Elvi Ortiz Work Phone: [facility] Start: 05-27-2018 End: 05-28-2018 Patient encounter procedure Andreas Anthony Facility:[facility] Start: 05-27-2018 Patient encounter VALERIE MIGUEL ANGEL Lewis cility:[id number] Start: 05-20-2018 End: 05-20-2018 Patient encounter procedure Shan Buckner Facility:[facility] Start: 05-19-2018 End: 05-21-2018 Evaluation and management of inpatient Shan Buckner Facility:[facility] Start: 05-19-2018 Patient encounter VALERIE LOMBARDIMILY Lewis cility:[id number] Start: 05-18-2018 End: 05-19-2018 Patient encounter procedure Shan Buckner Facility:[facility] Start: 05-18-2018 Patient encounter VALERIE MIGUEL ANGEL Fa cility:[id number] Start: 05-12-2018 End: 05-13-2018 Patient encounter procedure Shan Buckner Facility:[facility] Start: 05-11-2018 End: 05-12-2018 Patient encounter procedure Shan Buckner Facility:[facility] Start: 05-11-2018 End: 05-12-2018 Patient encounter procedure Bhupendra A [place] Facility:[facility] Start: 05-11-2018 Patient encounter VALERIE MIGUEL ANGEL Fa cility:[id number] Start: 05-05-2018 End: 05-06-2018 Patient encounter procedure Shan Buckner Facility:[facility] Start: 05-04-2018 End: 05-05-2018 Patient encounter procedure Shan Buckner Facility:[facility] Start: 05-04-2018 Patient encounter VALERIE MIGUEL ANGEL Fa cility:[id number] Start: 05-02-2018 Patient encounter Radha woodward Facility:[facility] [place] Start: 04-27-2018 End: 04-28-2018 Patient encounter procedure Gissell Long Facility:[facility] Start: 04-27-2018 End: 04-28-2018 Patient encounter procedure Gissell Long Facility:[facility] Start: 04-27-2018 Patient encounter VALERIE MIGUEL ANGEL Fa cility:[id number] Start: 04-20-2018 End: 04-21-2018 Patient encounter procedure Bhupendra A [place] Facility:[facility] Start: 04-20-2018 Patient encounter VALERIE MIGUEL ANGEL Fa cility:[id number] Start: 04-19-2018 End: 04-20-2018 Patient encounter procedure Gissell Long Facility:[facility] Start: 04-14-2018 End: 04-15-2018 Patient encounter procedure Keagan Gibson Facility:[facility] Start: 04-13-2018 End: 04-13-2018 Patient encounter procedure Bhupendra A Johnnie Facility:[facility] Start: 04-13-2018 Patient encounter VALERIE MIGUEL ANGEL Fa cility:[id number] Start: 04-11-2018 Patient encounter Radha woodward Facility:[facility] Start: 04-06-2018 End: 04-07-2018 Patient encounter procedure Gissell Long Facility:[facility] Start: 04-06-2018 End: 04-07-2018 Patient encounter Shan Buckner Facility:[id number] Start: 03-30-2018 End: 03-31-2018 Patient encounter procedure Gissell Long Facility:[facility] Start: 03-30-2018 Patient encounter VALERIE MICHELLE Fa cility:[phone] Start: 03-24-2018 End: 03-24-2018 Patient encounter procedure Gissell Long Facility:[facility] Start: 03-23-2018 End: 03-24-2018 Patient encounter procedure Gissell Long Facility:[facility] Start: 03-23-2018 End: 03-23-2018 Patient encounter procedure Gissell Long Facility:[facility] Start: 03-23-2018 Patient encounter VALERIE Lewis cility:[id number] Start: 03-22-2018 Patient encounter Radha woodward Facility:[facility] Start: 03-09-2018 End: 03-10-2018 Patient encounter procedure Gissell Long Facility:[facility] Start: 03-07-2018 End: 03-08-2018 Patient encounter procedure Gissell Long Facility:[facility] Start: 03-02-2018 End: 03-03-2018 Patient encounter procedure Gissell Long Facility:[facility] Start: 03-02-2018 End: 03-03-2018 Patient encounter procedure Gissell Long Facility:[facility] Start: 02-27-2018 Patient encounter Radha woodward Facility:[facility] Start: 02-23-2018 End: 02-24-2018 Patient encounter procedure Gissell Long Facility:[facility] Start: 02-21-2018 End: 02-22-2018 Patient encounter procedure Gissell Long Facility:[facility] Start: 02-10-2018 End: 02-10-2018 Patient encounter procedure Bhupendra A [place] Facility:[facility] Start: 01-24-2018 End: 01-25-2018 Patient encounter procedure Gissell Long Facility:[facility] Start: 01-09-2018 Patient encounter Lencho garzay:[facility] Luisa Vogel Start: 12-27-2017 End: 12-28-2017 Patient encounter procedure Gissell Long Facility:[facility] Start: 11-11-2017 Patient encounter VALERIE MICHELLE Facility:[facility] Luisa Jaspreet Procedures Date Procedure Procedure Detail Performing Clinician [...] Urine test visual color cmprsn meths [facility]vi [facility] Work Phone: Start: 06-15-2018 End: 06-15-2018 Urnls dip stick/tablet rgnt non-auto w/o micrscp [facility] Work Phone: Start: 11-24-2017 Microscopic observat ion [Identifier] in Cervix by Cyto stain Elvi [facility] Plan of Treatment Date Care Activity Detail Author Start: 05-20-2028 Tetanus vaccination TETANUS EVERY 10 YR [facility] Start: 04-23-2028 Tetanus vaccination TETANUS EVERY 10 YR [facility] Start: 03-11-2022 Cytopathology procedure, preparation of smear, genital source Genital Culture [facility] Work Phone: Start: 02-22-2022 Patient referral [facility] Work Phone: Start: 12-09-2021 Sars-cov-2 detection by dna/rna SARS-COV-2 COVID-19 AMP [facility] Work Phone: Start: 11-24-2020 Screening for malignant neoplasm of cervix PAP SMEAR [facility] Start: 06-24-2018 Influenza vaccination SEQUENTIAL INFLUENZA VACCINE (#1) [facility] Patient Education ED MENSTRUAL C RAMPING ED Viral Syndrome (Adult) [facility] Work Phone: Patient referral [facility] Work Phone: Immunizations Immunization Date Immunization Notes Care Provider Debbie dunn 05-20-2018 tetanus toxoid, redu antelmo diphtheria toxoid, and acellular pertussis vaccine, adsorbed [facility] 04-23-2018 tetanus toxoid, redu antelmo diphtheria toxoid, and acellular pertussis vaccine, adsorbed [facility] Payers Date Payer Category Payer Self-pay [id number] 2024 Medicaid [id number] 2018 Private Health Insurance 2017 Unknown 2017 Medicaid [facility] MEDICAID [employer] xxxxxxxxxxx 2017-Present [id number] 2017 Unknown [id number] 1979 Unknown [id number] 2.16.840.1.073368.3.579.2. 1979 Unknown [id number] 2.16.840.1.496210.3.579.2. 1979 Unknown [id number] 2.16.840.1.302194.3.579.2. 1979 Unknown [id number] 2.16.840.1.789744.3.579.2. 1979 Unknown [id number] 2.16.840.1.698253.3.579.2. 1979 Unknown [id number] 2.16.840.1.743470.3.579.2. 1979 Unknown [id number] 2.16.840.1.122975.3.579.2. 1979 Unknown [id number] 2.16.840.1.542858.3.579.2. 1979 Unknown [id number] 2.16.840.1.192539.3.579.2. 1979 Unknown [id number] 2.16.840.1.846888.3.579.2. 1979 Unknown [id number] 2.16.840.1.713114.3.579.2. 1979 Unknown [id number] 2.16.840.1.702350.3.579.2 1979 Unknown [id number] 2.16.840.1.723437.3.579.2 1979 Unknown [id number] 2.16.840.1.517950.3.579.2 1979 Unknown [id number] 2.16.840.1.182774.3.579.2. 1979 Unknown [id number] 2.16.840.1.041127.3.579.2 1979 Unknown [id number] 2.16.840.1.626602.3.579.2. 1979 Unknown [id number] 2.16.840.1.245060.3.579.2 1979 Unknown [id number] 2.16.840.1.395080.3.579.2 1979 Unknown [id number] 2.16.840.1.003249.3.579.2. 1979 Unknown [id number] 2.16.840.1.758166.3.579.2 1979 Unknown [id number] 2.16.840.1.975848.3.579.2 1979 Unknown [id number] 2.16.840.1.882255.3.579.2. 1979 Unknown [id number] 2.16.840.1.013639.3.579.2. 1979 Unknown [id number] 2.16.840.1.786643.3.579.2. 1979 Unknown [id number] 2.16.840.1.087896.3.579.2. 1979 Unknown [id number] 2.16.840.1.877710.3.579.2. 1979 Unknown [id number] 2.16.840.1.191530.3.579.2. 1979 Unknown [id number] 2.16.840.1.889880.3.579.2 1979 Unknown [id number] 2.16.840.1.863299.3.579.2. 1979 Unknown [id number] 2.16.840.1.422688.3.579.2. 1979 Unknown [id number] 2.16.840.1.157479.3.579.2. 1979 Unknown [id number] 2.16.840.1.178836.3.579.2. 1979 Unknown [id number] 2.16.840.1.547059.3.579.2. 1979 Unknown [id number] 2.16.840.1.673436.3.579.2. 1979 Unknown [id number] 2.16.840.1.476287.3.579.2. 903 Unknown [employer] INSURANCE [id number] Unknown [id number] 2.16.840.1.300093.3.579.2. 462 Unknown [id number] 2.16.840.1.193423.3.579.2. 462 Unknown [id number] 2.16.840.1.575893.3.579.2. 462 Unknown [id number] 2.16.840.1.188131.3.579.2. 462 Unknown [id number] 2.16.840.1.785224.3.579.2. 462 Unknown [id number] 2.16.840.1.484552.3.579.2. 462 Unknown [id number] 2.16840.1.871760.3.579.2. 462 Unknown [id number] 2.840.1.086909.3.579.2. 462 Unknown [id number] 2.840.1.064813.3.579.2. 462 Unknown [id number] 2.840.1.987808.3.579.2. 462 Unknown [id number] 2.840.1.034204.3.579.2. 462 Unknown [id number] 2.840.1.442057.3.579.2. 462 Unknown [id number] 2.840.1.180548.3.579.2. 462 Unknown [id number] 2.840.1.724902.3.579.2. 462 Unknown [id number] 2.840.1.598947.3.579.2. 462 Unknown [id number] 2.16840.1.654634.3.579.2. 462 Unknown [id number] 2.16.840.1.390778.3.579.2. 462 Unknown [id number] 2.16.840.1.728038.3.579.2. 462 Unknown [id number] 2.16.840.1.141815.3.579.2. 462 Unknown [id number] 2.16840.1.376479.3.579.2. 462 Unknown [id number] 2.16.840.1.913301.3.579.2. 462 Unknown [id number] 2.16.840.1.111273.3.579.2. 462 Unknown [id number] 2.16.840.1.147788.3.579.2. 462 Unknown [id number] 2.16.840.1.995378.3.579.2. 462 Unknown [id number] 2.16.840.1.347139.3.579.2. 462 Unknown [id number] 2.16.840.1.616675.3.579.2. 462 Unknown [id number] 2.16.840.1.286046.3.579.2. 462 Unknown [id number] 2.16.840.1.116435.3.579.2. 462 Unknown [id number] 2.16.840.1.580718.3.579.2. 462 Unknown [id number] 2.16.840.1.841517.3.579.2. 462 Unknown [id number] 2.16.840.1.837457.3.579.2. 462 Social History Date Type Detail Facility Start: 06-15-2018 End: 12-13-2018 Tobacco smoking status MDIS Former smoker [facility] End: 06-24-2017 History of tobacco use Current smoker [facility] End: 06-24-2017 History of tobacco use Cigarette Smoker [facility] Start: 06-15-2018 End: 12-13-2018 Cigarettes smoked current (pack per day) - Reported [facility] Sex Assigned At Not on file [facility] Start: 03-11-2022 End: 04-02-2022 Tobacco smoking status MDIS Unknown if [facility] smoked [facility] Work Phone: Start: 01-12-2021 Rare [facility] Work Phone: Start: 01-12-2021 None [facility] Work Phone: Start: 01-12-2021 With Family [facility] Work Phone: Start: 1980 Sex Assigned At Female [facility] Work Phone: Clinical Note 01-22-2025 Note Date & Type Note Facility 01-22-2025 Note [facility] Records Department [address] [place] [address] History Physical Exam 01/22/25 0953 MR#: [id number] Acct: [id number] Name: SIA CONTRERAS Rep #: [id number] : 1980 44 From: Stella Gregory MD PCP: Vladimir Davila MANAGER FIBER-C [place] [facility] [place] [facility] [place] and Physical Date of Admission: 01/22/25 Intake Vital Signs 11/28/2508:58 12/14/2508:41 12/14/2508:49 Height 5 ft 9 in 5 ft 9 in 5 ft 9 in Weight: 313 lb 302 lb 4 oz BMI 46.2 44.6 BP 142/89 H 136/83 H Intake Visit Reasons: Ablation Consult Chief Complaint: Ablation consult [employer] Machine Required: No Is patient in pain?: No [...] the past well, [facility] she is interested in an [...] intolerance, excessive sweating, (more content not included)... [facility] Evaluation note Note Date & Type Note Facility Evaluation note Diagnosis Onset Date Acute gastroenteritis acute Insomnia acute ADHD chronic Depression chronic Pain of right clavicle acute Right shoulder strain acute Pain of right clavicle acute [facility] Work Phone: Summary Purpose Family History No [...] Recorded Date/ Time Living Will No June 30 021 9:17am Power of Regional Project Manager No June 30, 2021 9:17am Advance Directive Response Recorded Date/ Time Living Will No April 02, 2022 10:03am Power of Regional Project Manager No April 02 10:03am Instructions * [...] Do not take any other medicine, including hfnv-zkh-[id number] pain relievers, without talking to your doctor first. If your doctor recommends zwiu-izt-faopzpg medicine to reduce stomach acid, such as [...] Log into your personal health record on [email or web address] and enter Z536 in the Education box to learn more about Gastritis: Care Instructions. Current as of: March 04, 2017 Content Version: 11.6 0780-5736 [employer]. Care instructions adapted under license by your healthcare professional. If you have questions about a medical condition or this instruction, always ask your healthcare professional. [employer] disclaims any warranty or liability for your [...] pollen counts are high. Use a vacuum film cleaner with aHEPA filter or a double-thickness [...] Log into your personal health record on [email or web address] and enter W171 in the Education box to learn more about Allergies: Care Instructions. Current as of: April 19, 2018 Content Version: 11.9 4273-0052 [employer]. Care instructions adapted under license by your healthcare professional. If you have questions about a medical condition or this instruction, always ask your healthcare professional. [employer] disclaims any warranty or liability for your [...] Your Medications These medications were sent to [facility] [address] [place] [address] - [address] [facility] [address] fexofenadine 180 MG tablet fluticasone 50 mcg/actuation nasal spray montelukast 10 mg tablet Allergies Allergen Reactions Latex Other (See Comments) peeling Other Seasonal Codeine Rash Past Medical History: Diagnosis Date Bursitis of hip Extreme obesity Genital herpes Gestational diabetes Meniere disease Papanicolaou smear 2017 [facility] Care PMDD (premenstrual dysphoric disorder) Past Surgical History: Procedure Laterality Date DILATION AND CURETTAGE (D AND C) 2011 HIP SURGERY Left 2014 HIP SURGERY 2012 tendon lengthening LAPAROSCOPY 2011 removed polyps from uterus reverse tubal 2015 [...] section and content) DATE CREATED AUTHOR 04/17/2018 [facility] DATE CREATED AUTHOR AUTHOR'S ORGANIZ ATION 05/02/2018 [employer] DATE CREATED AUTHOR AUTHOR'S ORGANIZ ATION 06/18/2018 [facility] DATE CREATED AUTHOR AUTHOR'S ORGANIZ ATION 12/12/2018 [facility] DATE CREATED AUTHOR AUTHOR'S ORGANIZ ATION 11/16/2020 [facility] DATE CREATED AUTHOR AUTHOR'S ORGANIZ ATION 07/27/2025 [facility] Assessment & Plan Note - Elvi [...] BE BASED ON THE PRIMARY CLINICAL RECORDS. [employer] provides no warranty or guarantee of the accuracy or completeness of information in this document.
[2025-10-23] MEDS: Lactated Ringers 1,000 ML 15 ML IV (07:04)
--- NOTE | 2025-10-23 07:04 | HP.PCM_ITS ---
HPI - General HPI Narrative SIA STUBBS, is a 44 F who presents for right shoulder arthroscopy subacromial decompression and debridement. no changes to h and p. right shoulder marked. rab, post op instructions, narcotic counselling. ok to proceed. MR#: [id number] Acct: [id number] Name: SIA STUBBS Rep #: [id number] : 1980 Provider: Dr. Shaun Raymond MD Age/Sex: 44/F Location: [facility] [email or web address] Status: Signed Intake Vital Signs 09/09/2508:11 Height 5 ft 9 in Weight: 265 lb BMI 39.1 Intake Visit Reasons: right shoulder Chief Complaint: Right shoulder Accompanied by: Self Is patient in pain?: Yes (Right shoulder ) Pain scale (1-10): 6 Allergies Latex, Natural Rubber Allergy (Intermediate, Verified 10/07/25 14:33) skin irritation Medications ?Medication ?Instructions ?Recorded ?Confirmed ?Type albuterol sulfate 90 mcg/actuation 2 puff inhalation Q4H PRN PRN 04/05/23 10/07/25 Rx aerosol inhaler Wheezing, shortness of breath #8.5 grams mecobalamin (vitamin B12) 1,000 1,000 mcg PO QDAY 12/14/24 10/07/25 Hist ory mcg chewable tablet ergocalciferol (vitamin D2) 25,000 25,000 unit PO MO 01/14/25 10/07/25 Hist ory unit capsule semaglutide (weight loss) 0.25 0.25 mg subcut TH 01/14/25 10/07/25 Hist ory mg/0.5 mL subcutaneous pen injector venlafaxine 150 mg 150 mg PO DAILY #90 caps 02/20/25 Rx capsule,extended release 24 hr lidocaine 5 % topical patch 1 patch topical QDAY #15 ea 02/28/25 Rx lamotrigine 150 mg tablet 150 mg PO DAILY #90 tabs 05/21/25 Rx methylphenidate HCl 18 mg 18 mg PO QAM 30 days #30 tabs 09/16/25 1 12/08/24 Rx tablet,extended release 24 hr (Concerta) [facility] Medical History Arthrosis of right acromioclavicular joint Diabetes Arthritis Low iron History of diverticulitis Gastric reflux Hypertension Leg cramps Right rotator cuff tear PTSD (post-traumatic stress disorder) Major depression TED (generalized anxiety disorder) Sprain of left little finger Strain of right knee Vitamin deficiency Major depression Insomnia Acute gastroenteritis Dyspnea Anxiety Migraine headache Shortness of breath on exertion History of stress test History of gestational diabetes GI problem Seasonal allergies ADHD Depression Surgical History History of endometrial ablation History of reversal of tubal ligation Hx of tubal ligation Hx of foot surgery History of hip surgery Family History Aunt Breast cancer Cancer ovarian Grandmother Diabetes Thyroid disorder Uncle Diabetes Father Diabetes Mother Thyroid disorder Depression Social History Smoking Status: Current every day smoker tobacco type: cigarettes Tobacco: How many years used: 10 alcohol intake: never substance use type: does not use caffeine: Yes what type of physical activity do you participate in: none seatbelt use: always do you feel safe at home: Yes additional social history: Single HPI right shoulder Details: This documentation accurately reflects the service provided and the decisions made by me, Dr. Shaun Raymond MD 10/07/25 2150. Part of today?s visit was documented by [ ], acting as scribe. SIA STUBBS is a 44 year old F here today for FU R shoulder pain. Insurance denied cuff repair. Patient has had over 3 months history of failed conservative management including a subacromial cortisone injection where they did have a positive response with good pain relief after that. Patient has also had an extensive course of physical therapy with the notes included in the last submission. The patient has tried activity modification as well as copious analgesics and anti-inflammatory medication home exercises program local modalities including ice and heat. Questionnaire Social Determinants of Health* SDOH Screening Will the patient participate in the screening?: declined to provide Supplemental Info [facility] [address] [place] [address] Upper Ext Joint Only(Routine) MR#: [id number] Acct: [id number] Name: SIA STUBBS ELSA Rep #: [id number] : 1980 F 43 From: Andreas Vazquez DO PCP: HAILE Borges Status: REG CLI Study: Upper Ext Joint Only(Routine) Date of Exam: 12/22/24 Exam# [id number] Ordering Dr: Shaun Raymond MD PROCEDURE: MRI right shoulder without IV contrast REASON FOR EXAM: Pain TECHNIQUE: Multisequence multiplanar MR images of the right shoulder were obtained without the administration of intravenous contrast. COMPARISON: None. FINDINGS Mild/moderate supraspinatus and infraspinatus tendinopathy. Less than 50% partial-thickness articular tear at the insertion of the posterior supraspinatus tendon measuring up to 5 mm in width. Subscapularis and teres minor tendons are intact. No significant rotator cuff muscle atrophy. Intact long head biceps tendon. Glenohumeral alignment is preserved. No focal chondral defects or joint effusion. No displaced labral tear or paralabral cysts. Mild acromioclavicular joint osteoarthritis including mild capsular hypertrophy and tiny marginal osteophytes. No significant lateral acromial downsloping. Negative for fracture or marrow replacement. Small amount of fluid in the subacromial/subdeltoid bursa. MRI/Upper Ext Joint Only(Routine) IMPRESSION: 1. Mild/moderate supraspinatus and infraspinatus tendinopathy. Tiny superimposed partial-thickness partial width tear of the supraspinatus tendon as above. 2. Mild acromioclavicular joint osteoarthritis. 3. Small amount of fluid in the subacromial/subdeltoid bursa. Reading Location: [facility] Coding Level of Care Code Off vis,est,level 4 Diagnoses Arthrosis of right acromioclavicular joint M19.011 Right shoulder pain M25.511 Additional Codes Intake - Is patient in pain?: Yes (1125F) Assessment and Plan Assessment and Plan (1) Arthrosis of right acromioclavicular joint: Status: Acute Plan: 44-year-old female follow-up right shoulder MRI demonstrating bursitis, a small partial-thickness supraspinatus tendon tear and mild AC joint arthrosis. Surgery would in the form of a right shoulder arthroscopy subacromial decompr ession and debridement. Patient has had over 3 months history of failed conservative management including a subacromial cortisone injection where they did have a positive response with good pain relief after that. Patient has also had an extensive course of physical therapy with the notes included in the last submission. The patient has tried activity modification as well as copious analgesics and anti- inflammatory medication home exercises program local modalities including ice and heat. This would meet the criteria for arthroscopic limited debridement including to 2 structures (cuff and bursitis) demonstrate an abnormality on the advanced imaging and the physical exam correlates with advanced radiographic imaging on the MRI as well as nonoperative treatment that failed after 3 months. This would also meet the insurance criteria to proceed with acromioplasty considering the MRI shows chronic bursitis and all the following criteria are met a pain has been present and has failed to improve with the least 3 months of nonoperative management including the patient using NSAIDs local modalities ice and heat as well as physical therapy and at home exercises with notes attached for review as well as positive response to subacromial cortisone injection and chronic pain despite nonoperative treatment and significant functional [place] shoulder for least 3 months. Pros and cons risks and benefits were discussed with the patient including but not limited to infection, pain, stiffness, bleeding, damage to surrounding structures, neurovascular injury, recurrence or retear, failure or wear of hardware or fixation, instability, fracture, deep vein thrombosis and pulmonary embolism, anesthetic risks, , patient dissatisfaction, need for further surgery and other risks. Patient understood and wished to proceed with surgery, and signed the informed consent documentation. (2) Right shoulder pain: Status: Acute Ortho Exam General General: Yes no acute distress Neurologic: Yes alert and Yes oriented x3 Psychologic: Yes reasonable and appropriate Right Shoulder Skin/Wound: Yes CDI, No ecchymosis, No erythema and No swelling Testing: Positive Hawkin's, Neer's, Speed's, TTP Biceps, AROM-Forward Elevation 0-180, AROM-External Rotation at side 0-60 and empty can; Negative TTP AC Joint or Drop Arm SHOULDER: normal motor and sens to ax nerve, and MRU and AIN/PIN. pain at the . [facility] Medical History Smoker Sleep apnea Arthrosis of right acromioclavicular joint Diabetes Arthritis Low iron History of diverticulitis Gastric reflux Hypertension Leg cramps PTSD (post-traumatic stress disorder) Major depression TED (generalized anxiety disorder) Sprain of left little finger Strain of right knee Vitamin deficiency Major depression Insomnia Acute gastroenteritis Dyspnea Anxiety Migraine headache Shortness of breath on exertion History of stress test History of gestational diabetes GI problem Seasonal allergies ADHD Depression Home Medications ?Medication ?Instructions ?Recorded ?Last Taken ?Type albuterol sulfate 90 mcg/actuation 2 puff inhalation Q 4H PRN PRN 04/05/23 Unknown Rx aerosol inhaler Wheezing, shortness of breat h #8.5 grams mecobalamin (vitamin B12) 1,000 1,000 mcg PO QDAY 11/2501/21/25 History mcg chewable tablet ergocalciferol (vitamin D2) 25,000 25,000 unit PO MO 0 01/14/25 01/20/25 History unit capsule venlafaxine 150 mg 150 mg PO DAILY #90 caps Unknown Rx capsule,extended release 24 hr lidocaine 5 % topical patch 1 patch topical QDAY #15 e a 02/28/25 Unknown Rx lamotrigine 150 mg tablet 150 mg PO DAILY #90 tabs Unknown Rx tirzepatide 15 mg/0.5 mL 15 mg subcut .bweekly Unknown History subcutaneous pen injector (Mounjaro) methylphenidate HCl 18 mg 18 mg PO QAM 30 days #30 tab s 10/22/25 Unknown Rx tablet,extended release 24 hr (Concerta) Allergy/AdvReac Type Severity Reaction Status Date / Time Latex, Natural Rubber Allergy Intermediate skin Verified 10/14/25 13:09 irritation Family History Aunt Breast cancer Cancer ovarian Grandmother Diabetes Thyroid disorder Uncle Diabetes Father Diabetes Mother Thyroid disorder Depression Surgical History History of endometrial ablation History of reversal of tubal ligation Hx of tubal ligation Hx of foot surgery History of hip surgery Social History Smoking Status: Current every day smoker tobacco type: cigarettes Tobacco: How many years used: 10 alcohol intake: never substance use type: does not use caffeine: Yes what type of physical activity do you participate in: none seatbelt use: always do you feel safe at home: Yes additional social history: Single Patient's Goals Of Care . What would you like to achieve or improve as a result of your hospital stay?: na Vital Signs Vital Signs Vital Signs: 10/23/25 06:55 10/23/25 06:55 10/23/25 06:55 Temperature 97.3 F L Temperature Source Temporal Pulse Rate 98 Respiratory Rate 16 Respiratory Pattern Normal Blood Pressure 137/95 H Blood Pressure Mean 109 Blood Pressure Source Monitor Blood Pressure Position Semi-Fowlers Blood Pressure Location Left Arm Baseline BP 137/95 Pulse Ox 98 Oxygen Delivery Method Room Air Weight Weight: 257 lb 15.053 oz Body Mass Index (BMI) 38.2
[2025-10-23 07:08] LABS: Internal QC Validated? YES +Cl - CLEAR BKGD; Pregnancy, Urine Negative Negative
--- NOTE | 2025-10-23 07:20 | PCM.PRE.AN2 ---
ASA Classification* ASA Classification ASA Classification: 2 Assessment & Plan Anesthesia* Anesthesia Assessment Anesthesia Assessment: Discussed sedation and/or anesthesia options, risks, benefits, and alternatives with patient/parents/legal guardian/POA. Questions invited. The patient/parents/legal guardian/POA seems to understand and agrees to proceed with anesthesia plan. Reviewed the physical assessment, medical history, allergy history and patient home medications list prior to surgery/procedure/anesthetic and documented any changes. Performed airway and anesthesia risk assessments. Anesthesia Type Anesthesia Type: General and Block Anesthesia Focused Assessment* Temperature: 97.3 F Pulse Rate: 98 Blood Pressure: 137/95 Respiratory Rate: 16 Pulse Ox: 98 Airway Assessment Mouth opens: >3 cm Mallampati Score: II Labs Anesthesia Preop lab: CBC WBC, (4.4-11.0) 10.0 K/mm3 07/02/25, 08:41 RBC, (4.2-5.4) 4.90 M/mm3 07/02/25, 08:41 Hgb, (12.0-15.0) 14.7 g/dL 07/02/25, 08:41 Hct, (37-47) 43.8 % 07/02/25, 08:41 Plt Count, (150-450) 263 K/mm3 07/02/25, 08:41 CHEMISTRY Potassium, (3.3-5.1) 4.2 mmol/L 07/02/25, 08:41 Sodium, (133-145) 137 mmol/L 07/02/25, 08:41 BUN, (4-19) 16 mg/dL 07/02/25, 08:41 Creatinine, (0.70-1.20) 0.76 mg/dL 07/02/25, 08:41 Glucose, (70-99) 82 mg/dL 07/02/25, 08:41 TSH, (0.300-4.200) 1.890 uIU/mL 07/02/25, 08:41 COAG Urine Test Negative Negative Today, 06:48 Pre-Assessment Diagnosis/Proposed Procedure Planned Operative Procedure(s): right shoulder arthroscopy with subacromial decompression Anesthesia History 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 When Was Last Pacemaker Check QUESTION #4 FULL TEXT: You/Your Family Experience fever (hyperthermia) with Anesthesia Last Oral Intake Last Oral intake: Last Oral Intake NPO since 21:00 10/23/25 06:55 Meds taken in AM with sips of No 10/23/25 06:55 water? Meds patient instructed to take am of surgery PONV PONV - corporate quality manager: PONV - corporate quality manager Female Yes 10/14/25 13:14 HX of Motion Sickness No 10/14/25 13:14 HX of N/V After Surgery No 10/14/25 13:14 Non-Smoker No 10/14/25 13:14 Duration of Surgery greater Yes 10/14/25 13:14 than 60 minutes Number of Risk Factors 2 10/14/25 13:14 PONV Score Moderate Risk 10/14/25 13:14 Height & Weight Height & Weight: Anesthesia: Height & Weight Height 5 ft 8.9 in 10/23/25 06:55 Weight: 117 kg 10/23/25 06:55 Body Mass Index (BMI) 38.2 10/23/25 06:55 Respiratory Assessment Respiratory Assessment - corporate quality manager: Respiratory Tract Infection Hx - corporate quality manager Hx Respiratory Tract Infection No 10/14/25 13:14 STOP Sleep Apnea STOP Sleep Apnea - corporate quality manager: STOP Sleep Apnea - corporate quality manager Hx Hypertension Yes 10/14/25 13:14 Hx Sleep Apnea Yes 10/14/25 13:14 CPAP No 10/14/25 13:14 BIPAP No 10/14/25 13:14 Do you snore loudly (louder than talking or can be heard Do you often feel tired/ fatigued/ sleepy during daytime? Has anyone observed you stop breathing during sleep? STOP Results Positive 10/14/25 13:14 QUESTION #5 FULL TEXT : Do you snore loudly (louder than talking or can be heard through closed doors)? Tobacco Use History Tobacco Use History - corporate quality manager: Tobacco Use History - corporate quality manager Tobacco Use Smoking Status Current every day smoker 10/14/25 13:14 Hx Tobacco Use Yes 10/14/25 13:14 Years Smoking Packs Smoked per Day Smoking Cessation Date was within the last 15 years Hx Smoking Cessation Date Hx Smoking Cessation Counseling Hematologic Medial History Hematologic Hx - corporate quality manager: Hematologic Medical Hx - dock hand Hx of Blood Transfusion No 10/14/25 13:14 Hx of Transfusion in last 3 No 10/14/25 13:14 Months Date of Last Transfusion (if within last 3 months) Ever experience any problems No 10/14/25 13:14 with transfusion(s)? Specify any problems Hx of Preganancy in last 3 N/A 10/14/25 13:14 Months Nurse Filling Out Transfusion CAROLINEOERDARRIN 10/14/25 13:14 & Questions: Date: 10/14/25 10/14/25 13:14 Time: :10/14/25 13:14 Patient unable to answer at this time (ie. confused, unrespo /Reproduction History /Reproductive History - corporate quality manager: /Reproductive Hx- corporate quality manager Hx Now Gestational Age (in weeks): EDC: Hx Hx Para Hx Section SAB No 10/14/25 13:14 Does the father of the baby or his family experience fever w Father of the baby Malignant Hypertension history comment Active Medications Active Medications: Current Medications Generic Name Dose Route Start Last Admin Trade Name Freq PRN Reason Stop Dose Admin Cefazolin Sodium 3 gm/ Sodium 115 mls @ 200 mls/hr 10/23/25 07:00 Chloride IV 10/23/25 07:34 INTRAOP ONE Lactated Ringer's 1,000 mls @ 15 mls/hr 10/23/25 06:45 10/23/25 07:04 IV 15 mls/hr .Q48H MAGALY Administration PFSH Medical History Smoker Sleep apnea Arthrosis of right acromioclavicular joint Diabetes Arthritis Low iron History of diverticulitis Gastric reflux Hypertension Leg cramps PTSD (post-traumatic stress disorder) Major depression TED (generalized anxiety disorder) Sprain of left little finger Strain of right knee Vitamin deficiency Major depression Insomnia Acute gastroenteritis Dyspnea Anxiety Migraine headache Shortness of breath on exertion History of stress test History of gestational diabetes GI problem Seasonal allergies ADHD Depression Home Medications ?Medication ?Instructions ?Recorded ?Last Taken ?Type albuterol sulfate 90 mcg/actuation 2 puff inhalation Q4H PRN PRN 04/05/23 Unknown Rx aerosol inhaler Wheezing, shortness of breath #8.5 grams mecobalamin (vitamin B12) 1,000 1,000 mcg PO QDAY 12/14/24 01/21/25 History mcg chewable tablet ergocalciferol (vitamin D2) 25,000 25,000 unit PO MO 01/14/25 01/20/25 History unit capsule venlafaxine 150 mg 150 mg PO DAILY #90 caps 02/20/25 Unknown Rx capsule,extended release 24 hr lidocaine 5 % topical patch 1 patch topical QDAY #15 ea 02/28/25 Unknown Rx lamotrigine 150 mg tablet 150 mg PO DAILY #90 tabs 05/21/25 Unknown Rx tirzepatide 15 mg/0.5 mL 15 mg subcut .bweekly 10/14/25 Unknown History subcutaneous pen injector (Mounjaro) methylphenidate HCl 18 mg 18 mg PO QAM 30 days #30 tabs 10/22/25 Unknown Rx tablet,extended release 24 hr (Concerta) Allergy/AdvReac Type Severity Reaction Status Date / Time Latex, Natural Rubber Allergy Intermediate skin Verified 10/14/25 13:09 irritation Family History Aunt Breast cancer Cancer ovarian Grandmother Diabetes Thyroid disorder Uncle Diabetes Father Diabetes Mother Thyroid disorder Depression Surgical History History of endometrial ablation History of reversal of tubal ligation Hx of tubal ligation Hx of foot surgery History of hip surgery Social History Smoking Status: Current every day smoker tobacco type: cigarettes Tobacco: How many years used: 10 alcohol intake: never substance use type: does not use caffeine: Yes what type of physical activity do you participate in: none seatbelt use: always do you feel safe at home: Yes additional social history: Single Review of Systems (Anesthesia) ROS Narrative System reviewed and no additional complaints, except as documented.
[2025-10-23] MEDS: Albuterol 2.5 MG/3 ML VIAL.NEB. INHALATION (07:50)
[2025-10-23] MEDS: Midazolam 2 MG/2 ML Syringe 102 MG IV (08:18)
[2025-10-23] MEDS: Lidocaine 1% (5 ml sdv) 5 ML Vial IV (08:20)
[2025-10-23] MEDS: Cefazolin 1 GM/5 ML Vial 3 GM IV (08:23)
[2025-10-23] MEDS: Epinephrine (1 mg/ml) 1 MG/ML VIAL ×2 (09:01→09:02)
[2025-10-23] MEDS: fentaNYL 100 MCG/2 ML Ampul IV (09:17)
--- NOTE | 2025-10-23 09:17 | PCM.OPRPT ---
Procedures Musculoskeletal [id number]-29xxx: Other Procedure See Report Operative Report (Standard) Operative Information Date of Procedure: 10/23/25 Pre-Operative Diagnosis: Right shoulder partial-thickness rotator cuff tear, impingement syndrome Post-Operative Diagnosis: Right shoulder rotator cuff tear of the subscapularis, partial-thickness supraspinatus tendon tear, synovitis, impingement syndrome Surgery/Procedure Performed: Right shoulder arthroscopy, rotator cuff repair, subacromial decompression, complete synovectomy, limited debridement senior scheduler: Yes Logistics Lead: mika Tasks completed by special education educational assistant: Retracting Type of Anesthesia: Block,Regional and General RN Documented Start/Stop Times: Operation Date: 10/23/25 08:45 Case Time Into Pre-Op 10/23/25 06:43 Anesthesia Start 10/23/25 08:13 Into Room 10/23/25 08:13 Procedure Start 10/23/25 08:41 Procedure Start Time: 08:41 Procedure Stop Time: 09:20 Select all DRAINS/GRAFTS/IMPLANTS that apply: Implanted device Implanted device details: arthrex 4.75mm swivelock anchor x 1 Estimated Blood Loss: 20 Specimen collected: No Description of surgery: Patient brought to the operating room theater. Placed supine on the table. General anesthesia induced. 3 g IV Ancef administered prior to the start of the procedure. SCDs on the legs. Patient transferred right side up lateral decubitus beanbag positioner axillary roll used. SCDs on the legs prior. All bony prominences padded. Upper extremity prepped and draped in the usual sterile fashion with chlorhexidine-based prep solution allowing over 3 minutes drying time prior to draping. Preoperative timeout performed to confirm the site patient and surgery. Began by inserting the arthroscope into the intra-articular portion of the shoulder through a standard posterior arthroscopy portal. Made an accessory anterior portal through the rotator interval inside out spinal needle localization. Cartilage on the glenoid and humeral head appeared normal. There is some mild fraying of the anterior aspect labrum as well as superiorly near the biceps. Gently debrided these 2 structures[address] Placed a cannula into the anterior rotator interval portal. The biceps root was stable. The biceps long head tendon appeared normal. No loose bodies. There was inflammatory synovitis in the rotator interval I removed and debrided that and used ablating instrument and shaver to remove that completely from the intra-articular portion of the shoulder. There is an upper border one third complete full-thickness tear of the subscapularis. I gently debrided this followed by using the power pick multiple trephination's at the proposed repair site. I used 2 Arthrex fiber link sutures at the upper border one third of the subscapularis. I then passed these into a Arthrex 4.75 mm swivel lock anchor as well as using the accessory repair suture. This achieved good purchase and fixation of the tear. I examined the undersurface of the supraspinatus tendon there is indeed partial-thickness fraying but no over 50% width or over 50% thickness tear I gently debrided the undersurface as well. I marked the area of tearing with a spinal needle. I then placed the arthroscope into the subacromial space. I used an accessory lateral portal. I completed the bursectomy as well as a complete synovectomy in the subacromial space for inflammatory synovitis. I examined the anterolateral leading into the acromion which was indeed downsloping. I slightly released the CA ligament. I performed a subacromial decompression for 5 mm. I removed synovitis from the AC joint as well. Identified where the spinal needle was marking the small undersurface fraying cuff tear and probed this there was no full-thickness tears so nothing to repair. I left this alone. Arthroscopy pictures taken and saved onto the system. I completed the bursectomy looking posteriorly. I probed the rest the rotator cuff tendon and again no tears were found. Therefore the case was terminated thorough irrigation. Portal sites closed with 3-0 Monocryl suture. Skin cleaned with wet dry dressing followed application of Steri-Strips Adaptic 4 x 4 gauze ABD dressing cloth tape and a sling for the upper extremity. Patient woken up from the general anesthetic transferred off the operating table taken postanesthetic care unit in stable condition. All sponge needle and instrument grafts were correct. Plan for the patient discharge home according to the surgery criteria. Follow-up in the office within 2 weeks time. cpt 32046 cpt 77065 - mod 59 inflammatory synovitis in multiple compartments cpt 07575 - mod 59 debridement of labrum, biceps and undersurface supraspinatous Surgical Findings: as above Complications Complications: No Admit VTE Documentation VTE Present on Admission: No VTE Mechan Device Prophylaxis: SCD's VTE Pharm Prophylaxis ordered?: No Reason prophylaxis not ordered: Treatment Not Indicated
--- NOTE | 2025-10-23 09:28 | DCINST_ITS ---
Discharge Instructions Diet Discharge Diet: No restrictions Activity Discharge Activity: Return to Normal Activity Ice area for (Minutes): 10 Lifting Restrictions: sling, no lifting over 1 pound Additional Activity Instructions:: ok to take breaks from sling 4x/day, do pendulums Dressing / Incision Call your doctor if your incision/area has: Continuous Slow Oozing, Sudden Increased Bleeding, Increased Pain/ Swelling, Increased Redness, Foul Smelling Discharge and Swelling at the incision site Call your doctor if you observe: Fever of 101 or Higher, Coldness, Increased Pain and Numbness or Tingling Change Dressing in: leave in place till F/U Cleanse incision/area with: Do not get Incision Wet Follow Up Care Please Follow Up With: Shaun Raymond MD When: within 2 weeks Test Results: Test results from this visit will be discussed in further detail at your follow- up appointment, if applicable. Discharge Plan Admission Attending Provider: Shaun Raymond Primary Care Provider: Vladimir Davila Instructions Patient Instructions: Pendulum (Flexibility) Print Language: [place] Discharge Orders/Prescriptions Prescriptions: New oxycodone-acetaminophen [Percocet] 5-325 mg tablet 1 tab PO Q6H MDD 6 5 Days Qty: 30 0RF No Action venlafaxine 150 mg capsule,extended release 24hr 150 mg PO DAILY Qty: 90 3RF mecobalamin (vitamin B12) 1,000 mcg tablet,chewable 1,000 mcg PO QDAY lidocaine 5 % adhesive patch,medicated 1 patch topical QDAY Qty: 15 0RF Rx Instructions: leave on most painful area for up to 12 hrs lamotrigine 150 mg tablet 150 mg PO DAILY Qty: 90 1RF ergocalciferol (vitamin D2) 25,000 unit capsule 25,000 unit PO MO Mounjaro 15 mg/0.5 mL pen injector 15 mg subcut .bweekly albuterol sulfate 90 mcg/actuation HFA aerosol inhaler 2 puff INHALATION Q4H PRN PRN (Reason: Wheezing, shortness of breath) Qty: 8.5 1RF methylphenidate HCl [Concerta] 18 mg tablet extended release 24hr 18 mg PO QAM 30 Days Qty: 30 0RF Referrals / Follow Up: Shaun Raymond MD [Med Staff - Active Staff, Orthopedics] Beam,Zebulun V[employer], [employer] [Primary Care Provider, Family Practice] Disposition Disposition (needs filled in before D/C Order can be placed): Home, Self Care
--- NOTE | 2025-10-23 11:03 | PCM.POST.ANE ---
Anesthesia: Postop Eval I Current Vital Signs Temperature: 97.1 F Pulse Rate: 73 Blood Pressure: 101/53 Respiratory Rate: 16 Pulse Ox: 95 Oxygen Delivery Method: Room Air Assessment Airway patent: Yes Spontaneous unlabored respirations: Yes Mental status: Awake and Calm nausea: No Vomiting: No Anesthesia Complication: No Fluid Hydration Crystalloid volume administer (ml): 1,000 Total IV fluid infused: 1,000 Progress Note Anesthesia document: Postop Eval 1 completed: Yes
--- NOTE | 2025-10-23 11:05 | PCM.POSTANE2 ---
Anesthesia Postop Eval I Sum Postop Eval Completion status Anesthesia document: Postop Eval 1 completed: Yes Anesthesia Postop Eval I Summary Anesthesia Postop Eval I Summary: Anesthesia Postop Eval I: Assessment Summary Airway patent Yes 10/23/25 11:04 Spontaneous unlabored Yes 10/23/25 11:04 respirations Mental status Awake,Calm 10/23/25 11:04 nausea No 10/23/25 11:04 Vomiting No 10/23/25 11:04 Anesthesia Postop Eval I: Fluid Summary Crystalloid volume administer 1,000 10/23/25 11:04 (ml) Colloids volume administered ( ml) Blood Product volume administered (ml) Total IV fluid infused 1,000 10/23/25 11:04 Anesthesia Postop Eval I: Summary Notes Anesthesia Complication No 10/23/25 11:04 Anesthesia Complication Comment: Post-operative progress note Anesthesia: Postop Eval II Evaluation Mental status: Awake Pain Level: 2 nausea: No Vomiting: No
[2025-10-23] MEDS: HYDROcodone Bitartrate/Apap 5/325 Tablet PO (11:15)
== END 2025-10-23 12:36 | disposition home or self-care (01) ==
LOC: SDC 06:34 → AC 06:35
PROVIDERS: Anesthesiology; Referring Provider Orthopaedic Surgery Sports Medicine; Visit Provider Orthopaedic Surgery Sports Medicine
PROC: (CPT 29805; principal; 2025-10-23 08:25)
DX: M75.111 Incomplete rotator cuff tear or rupture of right shoulder, not specified as traumatic (principal); E11.9 Type 2 diabetes mellitus without complications; M19.011 Primary osteoarthritis, right shoulder; I10 Essential (primary) hypertension; F41.1 Generalized anxiety disorder; M75.41 Impingement syndrome of right shoulder; M65.911 Unspecified synovitis and tenosynovitis, right shoulder; F90.9 Attention-deficit hyperactivity disorder, unspecified type; F43.10 Post-traumatic stress disorder, unspecified; G47.30 Sleep apnea, unspecified; F17.210 Nicotine dependence, cigarettes, uncomplicated; Z79.51 Long term (current) use of inhaled steroids; Z79.899 Other long term (current) drug therapy
CPT/HCPCS: 29827; 29822; 29823; 64450; 01630; 81025; 94640; C1713; J2405